=== PATIENT | male | born 1950 | race Caucasian/White ===

== ENCOUNTER 2021-04-20 07:37 | Outpatient (REF) | payer MEDICARE, SELFPAY ==
[2021-04-20 08:28] LABS: MANUAL DIFF FLAG NO
[2021-04-20 08:33] LABS: Glucose Urine UA NEG (NEG); Leukocyte Esterase Urine NEG (NEG); Nitrite Urine NEG (NEG); PH 5.5 (5.0-8.0); Specific Gravity - Urine 1.015 (1.005-1.025); Urine Blood NEG (NEG); Urine Ketones NEG (NEG); Urine Protein NEG (NEG-TRACE)
[2021-04-20 08:36] LABS: Basophils Percent Auto 0.5 % (0-2); Eosinophils Absolute Auto 0.2 X10*3/uL (0.0-0.4); Eosinophils Percent Auto 2.3 % (0-4); Hematocrit 40.1 % (42-52); Hemoglobin 13.3 g/dl (14.0-18.0); Imm Gran Abs Auto 0.01 X10*3/uL (0.00-0.03); Imm Gran Pct Auto 0.2 % (0.0-0.4); Lymphocytes Absolute Auto 1.6 X10*3/uL (1.2-4.9); Mean Corpuscular HGB Conc 33.2 g/dl (31.0-36.0); Mean Corpuscular Hemoglobin 31.2 pg (27.0-33.0); Mean Corpuscular Volume 94.1 fL (80-98); Monocytes Absolute Auto 0.6 X10*3/uL (0.1-1.2); Monocytes Percent Auto 8.6 % (2-11); Neutrophils Absolute Auto 4.2 X10*3/uL (2.0-8.3); Neutrophils Percent Auto 64.4 % (45-73); Platelet Count 153 X10*3/uL (160-400); Red Blood Count 4.26 X10*6/uL (4.60-5.80); Red Cell Distribution Width 12.1 % (11.0-16.0); White Blood Count 6.5 X10*3/uL (4.8-10.8)
[2021-04-20 08:42] LABS: Appearance Urine CLEAR; Color Urine YELLOW
[2021-04-20 09:10] LABS: Alanine Aminotransferase 12 U/L (0-40); Albumin Level 4.3 g/dL (3.5-5.0); Alkaline Phosphatase 70 U/L (39-117); Anion Gap 12 (12-20); Aspartate Amino Transferase 12 U/L (5-37); Bilirubin Total 0.6 mg/dL (0.0-1.0); Blood Urea Nitrogen 23 mg/dL (9-16); Calcium 9.8 mg/dL (8.4-10.2); Carbon Dioxide 23 mmol/L (22-29); Chloride 110 mmol/L (96-108); Cholesterol 197 mg/dL; Estimated Glomerular Filt Rate 59; Glucose Fasting 94 mg/dL (60-99); HDL Cholesterol 63 mg/dL; Iron 106 mcg/dL (45-160); LDL Cholesterol Calculated 118 mg/dl; Percent Iron Saturation 38 % (15-50); Potassium 4.2 mmol/L (3.3-5.1); Sodium 141 mmol/L (135-145); Total Iron Binding Capacity 276 mcg/dL (228-428); Total Protein 6.4 g/dL (6.5-8.0); Triglycerides 80 mg/dL; Unsaturated Iron Binding 170 ug/dL
[2021-04-20 09:21] LABS: TSH reflex Free T4 1.88 uIU/mL (0.32-4.0); Vitamin D 25-OH Total 31.9 ng/mL (>30)
[2021-04-20 11:06] LABS: Folate 12.5 ng/mL (> or = 4.0); Vitamin B12 1202 pg/mL (200-900)
== END 2021-04-20 07:38 | disposition home or self-care (01) ==
LOC: HO.LAB 07:37
PROVIDERS: PCP Internal Medicine; Visit Provider Internal Medicine
DX: E78.00 Pure hypercholesterolemia, unspecified (principal); I10 Essential (primary) hypertension; E66.3 Overweight; D50.9 Iron deficiency anemia, unspecified; E53.8 Deficiency of other specified B group vitamins; E55.9 Vitamin D deficiency, unspecified
CPT/HCPCS: 36415; 80053; 80061; 81003; 82306; 82607; 82746; 83540; 84443; 85025

== ENCOUNTER 2021-11-16 16:47 | Emergency (ER) | payer MEDICARE, SELFPAY ==
--- NOTE | ~2021-11-16 | XR_ITS ---
EXAMINATION: XR RIBS, RIGHT CLINICAL INFORMATION: Fall. COMPARISON: Chest radiograph dated from 10/28/2010. TECHNIQUE: 3 views of the right ribs were obtained. FINDINGS: Normal appearance of the cardiomediastinal silhouette. No focal airspace opacities, pleural effusions or pneumothorax. No evidence of acutely displaced rib fractures. XR/XR ribs RT min 3V w CXR1V IMPRESSION: No acute cardiopulmonary findings. No evidence of acutely displaced rib fractures.
[2021-11-16 16:50] VITALS: BP 238/98; PULSE 47; RESP 18; TEMP 36.7; O2SAT 96; BMI 27.2
--- NOTE | 2021-11-16 17:32 | ED_ITS ---
HPI - Fall General Chief Complaint: Fall Stated Complaint: fall extreme pain abd and back Time Seen by Provider: 11/16/21 17:23 Source: patient and family Mode of arrival: ambulatory Limitations: no limitations History of Present Illness HPI Narrative: 71-year-old male with a history of high blood pressure, high cholesterol, anemia here with reports of right rib pain after a trip and fall today. Patient denies hitting his head or loss of consciousness. Patient reports pain is worsened with movement, deep breathing. No cough, shortness of breath, abdominal pain, neck pain, vomiting, diarrhea. Patient feels that the pain is spasming into his back. Related Data Home Medications Medication Instructions Recorded Confirmed aspirin 81 mg tablet,delayed 81 mg PO DAILY 02/18/21 08/31/21 release cholecalciferol (vitamin D3) 25 25 mcg PO DAILY 04/29/21 08/31/21 mcg (1,000 unit) tablet mecobalamin (vitamin B12) 1,000 1,000 mcg PO DAILY 04/29/21 08/31/21 mcg chewable tablet Previous Rx's Medication Instructions Recorded verapamil 120 mg tablet,extended 120 mg PO DAILY #90 tab 02/06/21 release losartan 100 mg tablet 100 mg PO DAILY 90 Days #90 tab 02/18/21 diazepam 5 mg tablet (Valium) 5 mg PO TID PRN #10 tab 11/16/21 Allergies Allergy/AdvReac Type Severity Reaction Status Date / Time No Known Allergies Allergy Verified 08/31/21 09:28 Review of Systems Review of Systems: Yes all other systems are reviewed and are negative Constitutional: Constitutional: Reports no additional constitutional complaints, Denies body ache(s), Denies chills, Denies fever(s), Denies headache(s) and Denies weakness Eyes: Eyes: Reports no additional eye complaints and Denies change in vision ENT: Reports system reviewed and no additional complaints, except as documented, Denies dizziness, Denies headache(s), Denies nasal congestion, Denies nasal discharge and Denies neck pain Cardiovascular: Cardiovascular: Reports no additional cardiovascular complaints, Reports chest pain (rib pain), Denies leg edema and Denies dyspnea Respiratory: Respiratory: Reports no additional respiratory complaints, Denies cough and Denies dyspnea Gastrointestinal: Gastrointestinal: Reports no additional gastrointestinal complaints, Denies abdominal pain, Denies diarrhea, Denies nausea and Denies vomiting Genitourinary: Genitourinary: Denies urinary incontinence Musculoskeletal: Musculoskeletal: Reports no additional musculoskeletal complaints, Denies back pain, Denies arthralgias, Denies joint swelling, Denies neck pain, Denies numbness and Denies tingling Integumentary/Breasts: Skin/Breast: Reports system reviewed and no additional complaints, except as docu and Denies rash Neurologic: Reports system reviewed and no additional complaints, except as documented, Denies Abnormal speech present, Denies dizziness, Denies headache(s), Denies numbness, Denies tingling and Denies weakness [facility] Past Medical History Attestation statement: The following information was validated with the patient. Source: old records reviewed and nursing notes reviewed Medical History Benign essential hypertension Mild anemia Overweight (BMI 25.0-29.9) Pure hypercholesterolemia Vitamin B12 deficiency Vitamin D deficiency Surgical History No significant past surgical history Family History Family History Other Family history non-contributory Social History Social History Housing: House Alcohol intake: former Patient Tobacco Use Status: Former Tobacco user Second Hand Smoke Exposure: No Advance Directives: No Advance Directives Information Provided: Yes service: No Current occupational status: retired Physical Exam Vital Signs: Vital Signs: Last Vital Signs Temp 98.1 F 11/16/21 16:50 Pulse 44 L 11/16/21 18:13 Resp 16 11/16/21 18:13 BP 185/92 H 11/16/21 18:13 Pulse Ox 97 11/16/21 18:13 BMI result Body Mass Index 27.2 Const: General: cooperative, healthy appearing, comfortable and no acute distress Orientation/consciousness: patient oriented x3 Limitations: no limitations HENMT: Head: Yes normal to inspection Ears: hearing grossly normal bilater ally and TM's normal bilaterally General nose exam: Normal external nose present Face and sinus: Yes normal facial exam Mouth: Normal oral and palatal mucosa present Throat: Yes posterior oropharynx normal, Yes tonsils normal and Yes uvula midline Eyes: General: appearance normal, both eyes and all related structures Pupils: Equal, round and reactive pupils present Neck: Other: No midline tenderness, step-offs deformities Neck: Yes normal visual inspection, Yes full ROM, Yes no lymphadenopathy and Yes no meningeal signs Chest: Other: Tenderness to the right lateral chest wall. No ecchymosis, crepitus or deformity. Chest palpation & inspection: normal inspection of the chest Resp: Effort & Inspection: normal respiratory effort Auscultation: clear to auscultation bilaterally Cardio: Rate: regular rate Rhythm: regular rhythm Peripheral pulses: Peripheral pulses 2+ throughout GI: Inspection: Yes normal to inspection Palpation (GI): Soft to palpation and nontender Auscultation: normal bowel sounds Back/Spine/Pelvis: Thoracic/Lumbar Spine: thoracic and lumbar spine normal to inspection Skin: General skin exam: no rashes or lesions noted Neuro: General: patient oriented x3, no meningeal signs, no focal motor deficits and normal sensation to monofilament Cranial nerves: Yes Equal, round and reactive pupils present Cognition (Neuro): normal cognition Speech: No Abnormal speech present Gait exam (Neuro): Normal gait present Motor exam (neuro): 5/5 motor strength present throughout Extrem: General: Yes normal to inspection Course Course Course Narrative: 71 year-old male here with right rib pain after mechanical fall. Will need x- rays, will provide analgesia 1830-x-ray show no bony abnormality. Likely contusion. May be occult rib fracture. This was explained to the patient and his . Discharge with incentive spirometer. We reviewed splinting, analgesia for home. Reviewed worrisome signs and symptoms of when to return to the emergency department. Comfortable discharge home. MDM - Fall Medical Records Attestation: I reviewed the patient's medical records. Lab Data Attestation: I reviewed the patient's lab results. Imaging Data ribs/chest x-ray: Attestation: I personally reviewed and interpreted this imaging study as follows: Radiologist's impression: CLINICAL INFORMATION: Fall. COMPARISON: Chest radiograph dated from 10/28/2010. TECHNIQUE: 3 views of the right ribs were obtained. FINDINGS: Normal appearance of the cardiomediastinal silhouette. No focal airspace opacities, pleural effusions or pneumothorax. No evidence of acutely displaced rib fractures. XR/XR ribs RT min 3V w CXR1V IMPRESSION: No acute cardiopulmonary findings. ? No evidence of acutely displaced rib fractures. Discharge Plan Discharge Clinical Impression: Contusion of rib on left side Patient Disposition: Home, Self-Care Instructions: Rib Contusion (ED) Additional Instructions: Continue the naproxen twice daily for a few days Use an incentive spirometer Prescriptions: New diazepam [Valium] 5 mg tablet 5 mg PO TID PRN (Reason: muscle spasm) Qty: 10 0RF No Action verapamil 120 mg tablet extended release 120 mg PO DAILY Qty: 90 3RF mecobalamin (vitamin B12) 1,000 mcg tablet,chewable 1,000 mcg PO DAILY 0RF cholecalciferol (vitamin D3) 25 mcg (1,000 unit) tablet 25 mcg PO DAILY 0RF aspirin 81 mg tablet,delayed release (DR/EC) 81 mg PO DAILY 0RF losartan 100 mg tablet 100 mg PO DAILY 90 Days Qty: 90 3RF Referrals: Jean-Pierre Duque MD [Primary Care Provider] - 1 week (For persistent symptoms) Interventions: ED Discharge Assessment Last Done: 11/16/21 18:37
[2021-11-16] MEDS: Ketorolac Tromethamine 60 MG/2 ML VIAL IM (17:34)
[2021-11-16] MEDS: diazePAM 5 MG TABLET PO (17:34)
[2021-11-16 18:12] VITALS: RESP 16
[2021-11-16 18:13] VITALS: BP 185/92; PULSE 44; RESP 16; O2SAT 97
== END 2021-11-16 18:41 | disposition home or self-care (01) ==
PROVIDERS: Emergency Provider Emergency Medicine; PCP Internal Medicine
DX: S20.211A Contusion of right front wall of thorax, initial encounter (principal); W01.0XXA Fall on same level from slipping, tripping and stumbling without subsequent striking against object, initial encounter; Y93.9 Activity, unspecified; Y92.019 Unspecified place in single-family (private) house as the place of occurrence of the external cause; Y99.9 Unspecified external cause status
CPT/HCPCS: 71101; 96372; 99284; J1885

== ENCOUNTER 2022-05-22 07:14 | Outpatient (REF) | payer MEDICARE, SELFPAY ==
[2022-05-22 07:25] LABS: MANUAL DIFF FLAG NO
[2022-05-22 07:51] LABS: Basophils Percent Auto 0.4 % (0-2); Eosinophils Absolute Auto 0.2 X10*3/uL (0.0-0.4); Hematocrit 39.5 % (42.0-52.0); Hemoglobin 13.4 g/dl (14.0-18.0); Imm Gran Abs Auto 0.03 X10*3/uL (0.00-0.03); Imm Gran Pct Auto 0.4 % (0.0-0.4); Lymphocytes Absolute Auto 1.7 X10*3/uL (1.2-4.9); Lymphocytes Percent Auto 23.7 % (20-40); Mean Corpuscular HGB Conc 33.9 g/dl (31.0-36.0); Mean Corpuscular Hemoglobin 31.1 pg (27.0-33.0); Mean Corpuscular Volume 91.6 fL (80.0-98.0); Mean Platelet Volume 11.4 fL (9.4-12.4); Monocytes Absolute Auto 0.6 X10*3/uL (0.1-1.2); Monocytes Percent Auto 8.9 % (2-11); Neutrophils Absolute Auto 4.4 x10*3/uL (2.0-8.3); Neutrophils Percent Auto 63.6 % (45-73); Platelet Count 169 X10*3/uL (160-400); Red Blood Count 4.31 X10*6/uL (4.60-5.80); Red Cell Distribution Width 12.4 % (11.0-16.0)
[2022-05-22 08:16] LABS: Alanine Aminotransferase 10 U/L (0-40); Albumin Level 4.2 g/dL (3.5-5.0); Alkaline Phosphatase 79 U/L (39-117); Anion Gap 14 (12-20); Aspartate Amino Transferase 11 U/L (5-37); Bilirubin Total 0.8 mg/dL (0.0-1.0); Blood Urea Nitrogen 23 mg/dL (9-16); Calcium 9.2 mg/dL (8.4-10.2); Carbon Dioxide 23 mmol/L (22-29); Chloride 111 mmol/L (96-108); Cholesterol 201 mg/dL; Estimated Glomerular Filt Rate 56; Glucose Fasting 99 mg/dL (60-99); HDL Cholesterol 71 mg/dL; LDL Cholesterol Calculated 115 mg/dl; Potassium 4.3 mmol/L (3.3-5.1); Sodium 144 mmol/L (135-145); Total Protein 6.3 g/dL (6.5-8.0); Triglycerides 75 mg/dL
[2022-05-22 08:38] LABS: TSH reflex Free T4 1.98 uIU/mL (0.32-4.0); Vitamin D 25-OH Total 33.1 ng/mL (>30)
[2022-05-22 10:47] LABS: Appearance Urine Clear; Color Urine Yellow; Glucose Urine UA Negative (Negative); Leukocyte Esterase Urine Negative (Negative); Nitrite Urine Negative (Negative); Urine Blood Negative (Negative); Urine Ketones Negative (Negative); Urine Protein Negative (Neg-Trace)
[2022-05-24 07:30] LABS: Folate 11.2 ng/mL (> or = 4.0); Vitamin B12 1116 pg/mL (200-900)
== END 2022-05-22 07:15 | disposition home or self-care (01) ==
LOC: HO.LAB 07:14
PROVIDERS: PCP Internal Medicine; Visit Provider Internal Medicine
DX: I10 Essential (primary) hypertension (principal); E53.8 Deficiency of other specified B group vitamins; E55.9 Vitamin D deficiency, unspecified; E78.00 Pure hypercholesterolemia, unspecified
CPT/HCPCS: 36415; 80053; 80061; 81003; 82306; 82607; 82746; 84443; 85025

== ENCOUNTER 2022-11-23 06:07 | Outpatient (REF) | payer MEDICARE, SELFPAY ==
[2022-11-23 06:12] LABS: MANUAL DIFF FLAG NO
[2022-11-23 08:03] LABS: Basophils Percent Auto 0.3 % (0-2); Eosinophils Absolute Auto 0.2 X10*3/uL (0.0-0.4); Eosinophils Percent Auto 2.8 % (0-4); Hemoglobin 13.3 g/dl (14.0-18.0); Imm Gran Abs Auto 0.03 X10*3/uL (0.00-0.03); Imm Gran Pct Auto 0.3 % (0.0-0.4); Lymphocytes Absolute Auto 1.9 X10*3/uL (1.2-4.9); Lymphocytes Percent Auto 21.4 % (20-40); Mean Corpuscular HGB Conc 33.3 g/dl (31.0-36.0); Mean Corpuscular Hemoglobin 31.4 pg (27.0-33.0); Mean Corpuscular Volume 94.3 fL (80.0-98.0); Mean Platelet Volume 11.9 fL (9.4-12.4); Monocytes Absolute Auto 0.8 X10*3/uL (0.1-1.2); Monocytes Percent Auto 9.4 % (2-11); Neutrophils Absolute Auto 5.7 x10*3/uL (2.0-8.3); Neutrophils Percent Auto 65.8 % (45-73); Platelet Count 189 X10*3/uL (160-400); Red Blood Count 4.24 X10*6/uL (4.60-5.80); Red Cell Distribution Width 12.5 % (11.0-16.0); White Blood Count 8.7 X10*3/uL (4.8-10.8)
[2022-11-23 08:07] LABS: Appearance Urine Clear; Color Urine Yellow; Glucose Urine UA Negative (Negative); Leukocyte Esterase Urine Negative (Negative); Nitrite Urine Negative (Negative); Urine Blood Negative (Negative); Urine Ketones Negative (Negative); Urine Protein Negative (Neg-Trace)
[2022-11-23 08:35] LABS: Alanine Aminotransferase 9 U/L (0-40); Alkaline Phosphatase 68 U/L (39-117); Anion Gap 13 (12-20); Aspartate Amino Transferase 9 U/L (5-37); Bilirubin Total 0.8 mg/dL (0.0-1.0); Blood Urea Nitrogen 24 mg/dL (9-16); Calcium 9.4 mg/dL (8.4-10.2); Carbon Dioxide 24 mmol/L (22-29); Chloride 109 mmol/L (96-108); Cholesterol 191 mg/dL; Estimated Glomerular Filt Rate 53; Glucose Fasting 93 mg/dL (60-99); HDL Cholesterol 69 mg/dL; LDL Cholesterol Calculated 109 mg/dl; Potassium 4.1 mmol/L (3.3-5.1); Sodium 142 mmol/L (135-145); Triglycerides 65 mg/dL
[2022-11-23 09:07] LABS: Folate 9.1 ng/mL (> or = 4.0); TSH reflex Free T4 2.53 uIU/mL (0.32-4.0); Vitamin B12 1526 pg/mL (200-900); Vitamin D 25-OH Total 31.3 ng/mL (>30)
== END 2022-11-23 06:08 | disposition home or self-care (01) ==
LOC: HO.LAB 06:07
PROVIDERS: PCP Internal Medicine; Visit Provider Internal Medicine
DX: E55.9 Vitamin D deficiency, unspecified (principal); E53.8 Deficiency of other specified B group vitamins; R30.0 Dysuria; E78.00 Pure hypercholesterolemia, unspecified; I10 Essential (primary) hypertension
CPT/HCPCS: 36415; 80053; 80061; 81003; 82306; 82607; 82746; 84443; 85025

== ENCOUNTER 2023-04-11 09:06 | Outpatient (AMB) | payer MEDICARE, SELFPAY ==
--- NOTE | 2023-04-11 10:12 | MHC.OFFWIV ---
Intake Vital Signs 04/11/23 10:15 BP 120/80 Blood Pressure Location Rt brachial Position Sitting Pulse 52 Pulse Source Pulse Oximeter Temp 97.9 F Temp Source Oral Pulse Oximetry (%) 97 Oxygen Delivery Method Room Air Intake Visit Reasons: EST/fell 2 weeks ago/sob Intake Note: Patient here because he has been having some SOB, horse voice, dry cough this has happened ever since his fall on 03/26 while camping. Patient Tobacco Use Status: Former Tobacco user Allergies No Known Allergies Allergy (Verified 04/11/23 10:45) Do you need a note to return to daycare/school/sports/work: No HPI EST/fell 2 weeks ago/sob HPI Details 72-year-old male presents to the office for a sick visit. For the past 2 weeks, patient is complaining of difficulty getting a full breath. He is feeling congested and has a productive cough for the past few days. Patient had a fall while camping 2 weeks ago. He fell forward. [facility] Medical History Benign essential hypertension Mild anemia Overweight (BMI 25.0-29.9) Pure hypercholesterolemia Vitamin B12 deficiency Vitamin D deficiency Surgical History No significant past surgical history Family History Other Family history non-contributory Social History Housing: House Alcohol intake: former Patient Tobacco Use Status: Former Tobacco user e-Cigarette/Vaping Use: Never Used Second Hand Smoke Exposure: No service: No Current occupational status: retired Cognitive needs: No Hearing needs: No Vision needs: Yes (glasses) Physical Exam Vital Signs: Last Vital Signs Temp 97.9 F 04/11/23 10:15 Pulse 52 04/11/23 10:15 BP 120/80 04/11/23 10:15 Pulse Ox 97 04/11/23 10:15 Oxygen Delivery Method Room Air 04/11/23 10:15 Const General: cooperative and healthy appearing Nutritional Appearance: well nourished Orientation/consciousness: patient oriented x3 Limitations: no limitations HEENT Head: Yes normal to inspection Eyes General: appearance normal, both eyes and all related structures Neck Neck: Yes normal visual inspection Chest Other: No visible bruising. Chest palpation & inspection: normal palpation of entire chest wall Resp Effort & Inspection: normal respiratory effort Neuro General: patient oriented x3 Assessment & Plan Assessment & Plan (1) Cough: Code(s): R05.9 - Cough, unspecified Plan: X-ray exam personally reviewed by me. Bilateral pleural effusions, these are new compared to the x-ray from [address] scan of the chest has been ordered. Antibiotics and inhalers have been called in. Blood work has been ordered. Orders: Orders XR chest 2V Today R05.9 - Cough, unspecified Coding Level of Care Code Est Pt Level 4 (78788) Diagnoses Cough R05.9
[2023-04-11 10:15] VITALS: BP 120/80; PULSE 52; TEMP 36.6; O2SAT 97
== END 2023-04-11 11:37 | disposition home or self-care (01) ==
PROVIDERS: PCP Internal Medicine; Visit Provider Internal Medicine
DX: R05.9 Cough, unspecified (principal)
CPT/HCPCS: 99214

== ENCOUNTER 2023-04-11 10:40 | Outpatient (REF) | payer MEDICARE, SELFPAY ==
[2023-04-11 14:22] LABS: Erythrocyte Sedimentation Rate 5 MM/HR (0-15)
[2023-04-11 14:42] LABS: Alanine Aminotransferase 20 U/L (0-40); Alkaline Phosphatase 77 U/L (39-117); Anion Gap 14 (12-20); Aspartate Amino Transferase 15 U/L (5-37); Bilirubin Direct 0.3 mg/dL (0.0-0.5); Blood Urea Nitrogen 26 mg/dL (9-16); Carbon Dioxide 23 mmol/L (22-29); Chloride 108 mmol/L (96-108); Estimated Glomerular Filt Rate 46; Glucose Random 109 mg/dL (60-115); Potassium 3.8 mmol/L (3.3-5.1); Sodium 141 mmol/L (135-145); Total Protein 6.5 g/dL (6.5-8.0)
== END 2023-04-11 10:41 | disposition home or self-care (01) ==
LOC: HO.HMGCX 10:40
PROVIDERS: PCP Internal Medicine; Visit Provider Internal Medicine
DX: R05.9 Cough, unspecified (principal); R06.02 Shortness of breath; I10 Essential (primary) hypertension; E78.00 Pure hypercholesterolemia, unspecified; R30.0 Dysuria
CPT/HCPCS: 36415; 71046; 80048; 80076; 85025; 85652

== ENCOUNTER 2023-04-14 15:44 | Outpatient (REF) | payer MEDICARE, SELFPAY ==
--- NOTE | ~2023-04-14 | CT_ITS ---
EXAMINATION: CT CHEST WITH CONTRAST CLINICAL INFORMATION: Shortness of breath COMPARISON: Chest radiographs 04/11/2023 and 10/28/2010 TECHNIQUE: Multidetector volumetric CT imaging of the chest was obtained after the administration of 65 mL of Omnipaque 350 intravenous contrast without immediate adverse reactions. Axial MIP volume rendering provided. Sagittal and coronal reformatted images were obtained. This CT examination was performed using dose optimization techniques as appropriate, variously including the following: *Automated exposure control *Adjustment of mA and/or kV according to patient size (this includes techniques or standardized protocols for targeted exams where dose is matched to indication/reason for exam; i.e. extremities or head) *Use of iterative reconstruction technique DLP: 152 mGy-cm FINDINGS: LUNGS AND PLEURA: Bilateral small pleural effusions are seen. There is associated bibasilar atelectasis. There is a small 3 mm lingular nodule (5:116 (. No suspicious lung masses are seen. MEDIASTINUM: Mild cardiac enlargement. No mediastinal or hilar lymphadenopathy. VASCULAR: Although not performed specifically for evaluation of the pulmonary arteries or pulmonary veins, they are moderately well seen and there is no evidence of any large pulmonary emboli. The thoracic aorta is within normal limits of diameter for patient of 72 years of age. PLEURA: There is no pleural effusion. No pleural mass or thickening. AXILLA: No lymphadenopathy. UPPER ABDOMEN: Unremarkable OSSEOUS STRUCTURES: Unremarkable. CT/CT chest w IV con IMPRESSION: 1. Bilateral small pleural effusions with associated bibasilar atelectasis. 2. Mild cardiac enlargement. 3. No evidence of large pulmonary emboli. 4. Incidentally noted 3 mm lingular nodule. Fleischner guidelines were followed.
[2023-04-14] MEDS: iohexoL 350 MG/ML 100 ML INFUS..BTL IV (16:15)
== END 2023-04-14 15:45 | disposition home or self-care (01) ==
LOC: HO.CT 15:44
PROVIDERS: Visit Provider Internal Medicine
DX: R06.02 Shortness of breath (principal)
CPT/HCPCS: 71260; Q9967

== ENCOUNTER 2023-04-18 07:57 | Outpatient (AMB) | payer MEDICARE, SELFPAY ==
--- NOTE | 2023-04-18 08:01 | MHC.OFFWIV ---
Intake Vital Signs 04/18/23 08:03 BP 130/80 Blood Pressure Location Rt brachial Position Sitting Pulse 72 Pulse Source Pulse Oximeter Temp 97.5 F Temp Source Oral Pulse Oximetry (%) 97 Oxygen Delivery Method Room Air Intake Visit Reasons: EP continuing sob Intake Note: Patient here for SOB which has not improved. Patient Tobacco Use Status: Former Tobacco user Allergies No Known Allergies Allergy (Verified 04/18/23 08:12) Medication List - Last Reconciled 04/18/23 by Oliver Crandall MD albuterol sulfate 90 mcg/actuation (Ventolin HFA) 1 inh inhalation QID PRN azithromycin take 500 mg today (day 1), then 250 mg for 4 days (days 2-5) PO cholecalciferol (vitamin D3) 25 mcg PO DAILY losartan 100 mg PO DAILY 90 days mecobalamin (vitamin B12) 1,000 mcg PO DAILY sildenafil 50 mg PO DAILY PRN verapamil ER 120 mg PO DAILY Do you need a note to return to daycare/school/sports/work: No HPI EP continuing sob HPI Details 72-year-old male presents to the office for a sick visit. Patient was seen last week for shortness of breath. Patient's main complaint is that he is breathing shallow. Unable to lie down flat at night. He is reporting increased swelling in both his feet. Antibiotics and albuterol were of minimal help. Patient had a CT scan of the chest. [facility] Medical History Benign essential hypertension Mild anemia Overweight (BMI 25.0-29.9) Pure hypercholesterolemia Vitamin B12 deficiency Vitamin D deficiency Surgical History No significant past surgical history Family History Other Family history non-contributory Social History Housing: House Alcohol intake: former Patient Tobacco Use Status: Former Tobacco user e-Cigarette/Vaping Use: Never Used Second Hand Smoke Exposure: No service: No Current occupational status: retired Cognitive needs: No Hearing needs: No Vision needs: Yes (glasses) Physical Exam Vital Signs: Last Vital Signs Temp 97.5 F 04/18/23 08:03 Pulse 72 04/18/23 08:03 BP 130/80 04/18/23 08:03 Pulse Ox 97 04/18/23 08:03 Oxygen Delivery Method Room Air 04/18/23 08:03 Const General: cooperative and healthy appearing Nutritional Appearance: well nourished Orientation/consciousness: patient oriented x3 Limitations: no limitations HEENT Head: Yes normal to inspection Eyes General: appearance normal, both eyes and all related structures Neck Neck: Yes normal visual inspection Chest Other: Diminished breath sounds at the base. Chest palpation & inspection: normal palpation of entire chest wall Resp Effort & Inspection: normal respiratory effort Cardio Other: Irregular pulse, tachycardia. Neuro General: patient oriented x3 Extrem Other: 2+ pitting edema in the feet. Assessment & Plan Assessment & Plan (1) Atrial fibrillation with rapid ventricular response: Code(s): I48.91 - Unspecified atrial fibrillation Plan: EKG shows the AFib at 130 beats per minute. This is new onset. Patient has no recollection of ever being on AFib. He last saw central sterile tech 4 years ago for an unrelated matter. Patient needs an echocardiogram to assess left ventricular function, anticoagulation and rate control. I have referred him to the emergency room and spoke to the provider there. Orders: Orders AMB EKG-In Office Today R07.9 - Chest pain, unspecified Coding Level of Care Code Est Pt Level 4 (88020) Diagnoses Atrial fibrillation with rapid ventricular response I48.91
[2023-04-18 08:03] VITALS: BP 130/80; PULSE 72; TEMP 36.4; O2SAT 97
== END 2023-04-18 08:49 | disposition home or self-care (01) ==
PROVIDERS: PCP Internal Medicine; Visit Provider Internal Medicine
DX: I48.91 Unspecified atrial fibrillation (principal)
CPT/HCPCS: 99214

== ENCOUNTER 2023-04-18 08:53 | Inpatient (IN) | payer MEDICARE, SELFPAY ==
--- NOTE | ~2023-04-18 | CT_ITS ---
CT ANGIOGRAM NECK WITH CONTRAST CT ANGIOGRAM BRAIN WITH CONTRAST CLINICAL INFORMATION: Right-sided hemiparesis. COMPARISON: Head CT 04/21/2023. TECHNIQUE: Test bolus sequences followed by intravenous administration 70 mL of Omnipaque 350. Helical imaging was performed in the axial plane from the thoracic inlet to the skull vertex. Delayed postcontrast imaging of the head was also performed. The data was processed at the sleep lab technologist workstation for generation of MIP sequences. Angled MIPs and volume rendered reformatted images were also generated at an offline 3D workstation under concurrent supervision. Stenoses are assessed in accordance with NASCET criteria unless otherwise indicated. This CT examination was performed using dose optimization techniques as appropriate, variously including the following: *Automated exposure control *Adjustment of mA and/or kV according to patient size (this includes techniques or standardized protocols for targeted exams where dose is matched to indication/reason for exam; i.e. extremities or head) *Use of iterative reconstruction technique FINDINGS: BRAIN: There is an acute infarct within the left MCA territory involving portions of the left basal ganglia, the left insula, the inferolateral left frontal lobe, and the left temporal operculum. Cytotoxic edema results in mild local mass effect without midline shift. No hemorrhagic transformation. [There is no intracranial hemorrhage, hydrocephalus, extra-axial surface collection, midline shift, or other herniation pattern. The basilar cisterns are preserved. No significant soft tissue abnormality. No acute osseous abnormality. The paranasal sinuses and the mastoid air cells are well aerated.] CERVICAL SOFT TISSUES AND LUNG APICES: There are partially imaged small bilateral pleural effusions and the imaged lungs are otherwise clear. NECK CTA: [Left common carotid artery arises from the brachiocephalic artery. Proximal arch vessels are non-stenotic. Left vertebral artery is dominant. No significant ostial stenosis is visualized on either side. Both vertebral arteries are widely patent throughout their extracranial cervical course. Both common carotid arteries are normal in course and caliber.] Atherosclerotic calcification of the carotid bifurcations bilaterally without significant stenosis involving the proximal internal carotid arteries. BRAIN CTA: Acute arterial occlusion of the mid left M1 MCA segment associated with significant oligemia throughout the left MCA territory. No additional acute arterial occlusions intracranially. 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 Cytotoxic edema results in mild local mass effect without midline shift. No hemorrhagic transformation. - Acute arterial occlusion of the mid left M1 MCA segment associated with significant oligemia throughout the left MCA territory. Neuro interventional consultation advised. Findings discussed with Justino Agustin M.D. at 9:42 AM on 04/21/2023.
--- NOTE | ~2023-04-18 | XR_ITS ---
EXAMINATION: XR CHEST CLINICAL INFORMATION: Acute shortness of breath. COMPARISON: 04/11/2023 TECHNIQUE: Frontal view of the chest was obtained. FINDINGS: Lungs are moderately expanded. There are bilateral layering pleural effusions stable to slightly increased when compared to the prior study. There is associated bibasilar atelectasis. Cardiac silhouette is unchanged. XR/XR chest 1V IMPRESSION: Stable to slightly increased bilateral pleural effusions.
--- NOTE | ~2023-04-18 | CT_ITS ---
EXAMINATION: CT HEAD WITHOUT CONTRAST (STROKE PROTOCOL) CLINICAL INFORMATION: Stroke protocol. Right rand. COMPARISON: April 20, 2023. TECHNIQUE: Contiguous axial imaging was performed from the skull base to vertex without intravenous administration of contrast. This CT examination was performed using dose optimization techniques as appropriate, variously including the following: *Automated exposure control *Adjustment of mA and/or kV according to patient size (this includes techniques or standardized protocols for targeted exams where dose is matched to indication/reason for exam; i.e. extremities or head) *Use of iterative reconstruction technique DLP: 866 mGy-cm FINDINGS: Suspect left dense MCA sign with associated decreased roman-white distinction involving the left insula left anterior inferior temporal lobe, and left basal ganglia. No intracranial hemorrhage or mass lesion is seen. No extra-axial collection is appreciated. The ventricles are normal in size and configuration without evidence of hydrocephalus. Approximately 1 cm right maxillary sinus retention cyst versus mucosal polyp. The mastoid air cells are clear. CT/CT head for stroke IMPRESSION: Suspect left dense MCA sign with associated decreased roman-white distinction involving the left insula left anterior inferior temporal lobe, and left basal ganglia. Stroke is suspected. MRI may be of use for further evaluation if clinically indicated. This critical result was discussed with Dr. Agustin at 9:38 hours on April 21, 2023. It was ascertained that the content and urgency of the report was understood at the time of direct communication.
--- NOTE | ~2023-04-18 | CT_ITS ---
EXAMINATION: CT HEAD WITHOUT CONTRAST CLINICAL INFORMATION: Question CVA COMPARISON: None available. TECHNIQUE: Contiguous axial imaging was performed from the skull base to vertex without intravenous administration of contrast. This CT examination was performed using dose optimization techniques as appropriate, variously including the following: *Automated exposure control *Adjustment of mA and/or kV according to patient size (this includes techniques or standardized protocols for targeted exams where dose is matched to indication/reason for exam; i.e. extremities or head) *Use of iterative reconstruction technique DLP: 706 mGy-cm FINDINGS: There is no evidence of acute intracranial hemorrhage or territorial infarction. No abnormal mass-effect or midline shift is seen. Guzman to white matter differentiation is well preserved. No extra-axial fluid collections are identified. The ventricles are normal in size. There is mild periventricular white matter hypoattenuation consistent with chronic small vessel ischemic disease. Mild volume loss is noted. The osseous structures and soft tissues are normal. Mucous retention cyst in the right maxillary sinus. The mastoid air cells are well-aerated. CT/CT head/brain wo IV con IMPRESSION: No acute intracranial pathology.
[2023-04-18 09:01] VITALS: BP 139/91; PULSE 110; RESP 22; TEMP 36.8; O2SAT 97; BMI 26.5
--- NOTE | 2023-04-18 09:03 | ECG_ITS ---
Test Reason : afib Blood Pressure : / mmHG Vent. Rate : 106 BPM Atrial Rate : 000 BPM P-R Int : 000 ms QRS Dur : 144 ms QT Int : 382 ms P-R-T Axes : 000 120 -26 degrees QTc Int : 507 ms Atrial fibrillation with rapid ventricular response with premature ventricular or aberrantly conducted complexes Right axis deviation Right bundle branch block Abnormal QRS-T angle, consider primary T wave abnormality Abnormal ECG When compared with ECG of 25-JUL-2017 11:59, Atrial fibrillation has replaced Sinus rhythm Vent. rate has increased BY 46 BPM Referred By: Neptali Norman Electronically Signed By:Alfredo Mccain
[2023-04-18 09:23] LABS: Hematocrit 41.9 % (42.0-52.0); Hemoglobin 13.7 g/dl (14.0-18.0); Mean Corpuscular HGB Conc 32.7 g/dl (31.0-36.0); Mean Corpuscular Hemoglobin 30.9 pg (27.0-33.0); Mean Corpuscular Volume 94.4 fL (80.0-98.0); Mean Platelet Volume 11.6 fL (9.4-12.4); Platelet Count 168 X10*3/uL (160-400); Red Blood Count 4.44 X10*6/uL (4.60-5.80); Red Cell Distribution Width 13.6 % (11.0-16.0)
[2023-04-18 09:29] LABS: INTERNATIONAL NORM RATIO 1.1 (0.9-1.1); Prothrombin Time 12.8 SEC (10.0-13.1)
[2023-04-18 09:32] LABS: Partial Thromboplastin Time 31.6 SEC (26.0-36.4)
[2023-04-18 09:35] LABS: Anion Gap 13 (12-20); Blood Urea Nitrogen 25 mg/dL (9-16); Calcium 9.7 mg/dL (8.4-10.2); Carbon Dioxide 23 mmol/L (22-29); Chloride 112 mmol/L (96-108); Creatinine Clr Calc Pharmacy 43.1; Estimated Glomerular Filt Rate 42; Glucose Random 100 mg/dL (60-115); Potassium 4.1 mmol/L (3.3-5.1); Sodium 144 mmol/L (135-145)
[2023-04-18 09:43] LABS: Troponin-I High Sensitivity 69.6 ng/L (<3.5-35.0)
[2023-04-18 09:57] LABS: TSH reflex Free T4 2.88 uIU/mL (0.32-4.0)
[2023-04-18 10:36] LABS: B Type Natriuretic Peptide 2001 pg/mL (<100)
[2023-04-18 13:12] VITALS: BP 141/110; PULSE 81; RESP 16; TEMP 36.4; O2SAT 97
[2023-04-18 13:15] LABS: Troponin-I High Sensitivity 57.5 ng/L (<3.5-35.0)
[2023-04-18 14:39] VITALS: BP 120/87; PULSE 86; RESP 20; TEMP 36.8; O2SAT 97
--- NOTE | 2023-04-18 14:51 | PHA.MEDREC ---
Pharmacy Consult ? Medication Reconciliation Pharmacy has completed the medication reconciliation. spoke with patient to confirm medications
--- NOTE | 2023-04-18 15:51 | ED_ITS ---
HPI - General Adult General Chief complaint: Arrhythmia/Palpitations Stated complaint: afib rapid heart beat Time Seen by Provider: 04/18/23 08:56 Source: patient and family (Spouse) Mode of arrival: ambulatory Limitations: no limitations History of Present Illness HPI narrative: A 72-year-old male history significant for hypertension, former smoker for a week patient been having exertional dyspnea, PND, bilateral leg swelling, feel exertional chest tightness, patient was seen at the urgent care last week diagn osed with bronchitis was started on antibiotic and bronchodilator with no relief of his symptoms due to worsening of the symptoms patient was again at the urgent care and was diagnosed with new onset atrial fibrillation and congestive heart failure. Patient take losartan and verapamil to control his blood pressure. Related Data Home Medications Medication Instructions Recorded Confirmed cholecalciferol (vitamin D3) 25 25 mcg PO DAILY 04/29/21 04/18/23 mcg (1,000 unit) tablet cyanocobalamin (vitamin B-12) 1,000 mcg PO DAILY 04/18/23 04/18/23 1,000 mcg tablet Previous Rx's Medication Instructions Recorded losartan 100 mg tablet 100 mg PO DAILY 90 days #90 tabs 04/10/23 verapamil 120 mg tablet,extended 120 mg PO DAILY #90 tabs 04/10/23 release albuterol sulfate 90 mcg/actuation 1 inh inhalation QID PRN shortness 04/11/23 aerosol inhaler (Ventolin HFA) of breath or wheezing #8.5 grams Allergies Allergy/AdvReac Type Severity Reaction Status Date / Time No Known Allergies Allergy Verified 04/18/23 08:12 Review of Systems Review of Systems: All other systems are reviewed and are negative Constitutional: Reports as per HPI and Reports no additional constitutional complaints Eyes: Reports as per HPI and Reports no additional eye complaints Reports system reviewed and no additional complaints, except as documented Cardiovascular: Reports as per HPI and Reports no additional cardiovascular complaints Respiratory: Reports as per HPI and Reports no additional respiratory complaints Gastrointestinal: Reports as per HPI and Reports no additional gastrointestinal complaints Genitourinary: Reports no additional female genitourinary complaints Musculoskeletal: Reports no additional musculoskeletal complaints Skin/Breast: Reports system reviewed and no additional complaints, except as docu Psychiatric: Reports no additional psychiatric complaints Endocrine: Reports no additional endocrine complaints Hematologic/Lymphatic: Reports no additional hematologic/lymphatic complaints Allergic/Immunologic: Reports no additional allergic/immunologic complaints Reports system reviewed and no additional complaints, except as documented and Reports Abnormal speech present [facility] Past Medical History Medical History Benign essential hypertension Mild anemia Overweight (BMI 25.0-29.9) Pure hypercholesterolemia Vitamin B12 deficiency Vitamin D deficiency Surgical History No significant past surgical history Family History Family History Other Family history non-contributory Social History Social History Housing: House Alcohol intake: former Patient Tobacco Use Status: Former Tobacco user e-Cigarette/Vaping Use: Never Used Second Hand Smoke Exposure: No Advance Directives: Yes Advance Directives Information Provided: No Advance Directives on File: No service: No Current occupational status: retired Cognitive needs: No Hearing needs: No Vision needs: Yes (glasses) Physical Exam ED Vital Signs: Vital Signs - 24 hr 04/18/23 09:01 04/18/23 13:12 04/18/23 14:39 Temperature 98.3 F 97.6 F 98.2 F Pulse Rate 110 H 81 86 Respiratory Rate 22 H 16 20 Blood Pressure 139/91 H 141/110 H 120/87 Pulse Oximetry 97 97 97 Oxygen Delivery Method Room Air Room Air Room Air BMI result Body Mass Index 26.5 Vital signs have been reviewed as appeared to be correct. Blood pressure normal. Heart rate normal. Respiration rate normal. Temperature normal. Oxygen saturation normal. Appearance: Alert. Oriented X3. No acute distress. Head: Normal external exam. Normocephalic. Atraumatic. No Padilla signs noted. No raccoon eyes noted Eyes: PERRLA. EOMI. Conjunctiva and sclera normal. Eyelids normal. ENT: TM's Normal. Pharynx normal. Uvula midline. Moist mucous membranes. No trismus noted. No drooling noted. No muffled voice noted. Neck: Normal inspection. Neck supple. FROM. No adenopathy. Thyroid Normal. No meningeal signs. No neck mass noted. CVS: Normal heart rate and rhythm. Heart sound normal. No murmurs noted. Pulses normal throughout. Respiratory: No respiratory distress. Painless inspiration. Breath sounds normal. No wheezes/rales/rhonchi noted. Chest nontender. No accessory muscle usage noted or decreased air movement noted. Abdomen: Soft and nontender. Bowel sounds normal in all 4 quadrants. No distention noted. No organomegaly noted. No visible injury noted. Back: No CVA tenderness. Full range of motion noted. Skin: Skin warm and dry. Normal skin color. Normal skin turgor. No rashes/lesions/lacerations noted. Extremities: +2 lower extremity edema. Extremities exhibit normal range of motion. Extremities nontender. Neuro: Oriented X 3. Cranial nerve exam: II-XII are grossly intact No motor deficit. No sensory deficit. Reflexes normal. Course Reevaluation(s) Reevaluation #1: 72-year-old male came in with new onset of atrial fibrillation and CHF, given Cardizem and Lasix patient with [id number] score is 2 make the patient at mo derate to severe risk for stroke will start the patient on apixaban 5 mg in the ED. Time: 16:13 Medical Decision Making Differential Diagnosis Differential Diagnoses: The differential diagnosis associated with the presentation includes (Congestive heart failure, pneumonia, pneumothorax, severe pleural effusion, COPD, bronchitis, ACS, stroke prophylaxis.) Admission/Observation Consideration of admission/observation: Escalation of care including admission/observation considered Consult Healthcare Provider Management of the patient was discussed with: Hospitalist (Dr. Reno) Lab Data MDM Lab Attestation statement: I reviewed the patient's lab results. 04/18/23 09:18 04/18/23 09:18 Labs: Lab Results 04/18/23 04/18/23 04/18/23 Range/Units 09:18 09:18 09:18 WBC 10.0 (4.8-10.8) X10*3/uL RBC 4.44 L (4.60-5.80) X10*6/uL Hgb 13.7 L (14.0-18.0) g/dl Hct 41.9 L (42.0-52.0) % MCV 94.4 (80.0-98.0) fL MCH 30.9 (27.0-33.0) pg MCHC 32.7 (31.0-36.0) g/dl RDW 13.6 (11.0-16.0) % Plt Count 168 D (160-400) X10*3/uL MPV 11.6 (9.4-12.4) fL Absolute Nucleated RBC 0.000 (0.0-0.012) X10*3/uL Nucleated RBC % (auto) 0.0 (0.0-0.2) /100WBC PT (10.0-13.1) SEC INR (0.9-1.1) APTT (26.0-36.4) SEC Sodium 144 (135-145) mmol/L Potassium 4.1 (3.3-5.1) mmol/L Chloride 112 H (96-108) mmol/L Carbon Dioxide 23 (22-29) mmol/L Anion Gap 13 (12-20) BUN 25 H (9-16) mg/dL Creatinine 1.62 H (0.5-1.4) mg/dL Estim Creat Clear Calc 43.1 Estimated GFR 42 Random Glucose 100 (60-115) mg/dL Calcium 9.7 (8.4-10.2) mg/dL Troponin I High Sens 69.6 H (<3.5-35.0) ng/L B-Natriuretic Peptide (<100) pg/mL TSH (0.32-4.0) uIU/mL 04/18/23 04/18/23 04/18/23 Range/Units 09:18 09:18 09:18 WBC (4.8-10.8) X10*3/uL RBC (4.60-5.80) X10*6/uL Hgb (14.0-18.0) g/dl Hct (42.0-52.0) % MCV (80.0-98.0) fL MCH (27.0-33.0) pg MCHC (31.0-36.0) g/dl RDW (11.0-16.0) % Plt Count (160-400) X10*3/uL MPV (9.4-12.4) fL Absolute Nucleated RBC (0.0-0.012) X10*3/uL Nucleated RBC % (auto) (0.0-0.2) /100WBC PT 12.8 (10.0-13.1) SEC INR 1.1 (0.9-1.1) APTT 31.6 (26.0-36.4) SEC Sodium (135-145) mmol/L Potassium (3.3-5.1) mmol/L Chloride (96-108) mmol/L Carbon Dioxide (22-29) mmol/L Anion Gap (12-20) BUN (9-16) mg/dL Creatinine (0.5-1.4) mg/dL Estim Creat Clear Calc Estimated GFR Random Glucose (60-115) mg/dL Calcium (8.4-10.2) mg/dL Troponin I High Sens (<3.5-35.0) ng/L B-Natriuretic Peptide 2001 H (<100) pg/mL TSH 2.88 (0.32-4.0) uIU/mL 04/18/23 Range/Units 12:42 WBC (4.8-10.8) X10*3/uL RBC (4.60-5.80) X10*6/uL Hgb (14.0-18.0) g/dl Hct (42.0-52.0) % MCV (80.0-98.0) fL MCH (27.0-33.0) pg MCHC (31.0-36.0) g/dl RDW (11.0-16.0) % Plt Count (160-400) X10*3/uL MPV (9.4-12.4) fL Absolute Nucleated RBC (0.0-0.012) X10*3/uL Nucleated RBC % (auto) (0.0-0.2) /100WBC PT (10.0-13.1) SEC INR (0.9-1.1) APTT (26.0-36.4) SEC Sodium (135-145) mmol/L Potassium (3.3-5.1) mmol/L Chloride (96-108) mmol/L Carbon Dioxide (22-29) mmol/L Anion Gap (12-20) BUN (9-16) mg/dL Creatinine (0.5-1.4) mg/dL Estim Creat Clear Calc Estimated GFR Random Glucose (60-115) mg/dL Calcium (8.4-10.2) mg/dL Troponin I High Sens 57.5 H (<3.5-35.0) ng/L B-Natriuretic Peptide (<100) pg/mL TSH (0.32-4.0) uIU/mL Independent Interpretation I performed an independent interpretation of an: Plain X-Ray (Bilateral small pleural effusion.) Radiology Impression Discussion of test interpretation with radiology: I have reviewed the radiologist's reading. Discharge Plan Discharge Clinical Impression: Atrial fibrillation with rapid ventricular response, Congestive heart failure (CHF) Patient Disposition: Admitted As Inpatient
[2023-04-18] MEDS: Furosemide 40 MG/4 ML VIAL IVPUSH (16:09)
[2023-04-18] MEDS: dilTIAZem HCL 50 MG/10 ML VIAL 20 MG IVPUSH (16:10)
--- NOTE | 2023-04-18 17:02 | PM.EVENT ---
Event Note Date of Service: 04/18/23 Event Note: The patient was seen and evaluated with AKHIL Mantilla. I agree with her note, assessment and plan with the following. A 72 years old male with PMH of HTN, HLD who presents with difficulties breathing and palpitations. found to be in new acute heart failure with new onset atrial fibrillation. Lasix IV Cardizem 30 mg qid Eliquis Echo tomorrow cardiology eval keep on Tele Rest of evaluations by PA note. Time Spent With Patient Time: Total time managing care of this patient today ____ minutes.
[2023-04-18] MEDS: Apixaban 5 MG TABLET PO (17:05)
--- NOTE | 2023-04-18 17:45 | P.HPHOSP_ITS ---
History of Present Illness Date of Service: 04/18/23 Attending physician on admission: Ghazala Martinez Chief Complaint: Dyspnea, PND, bilateral lower extremity edema 72-year-old male with history of hypertension, hyperlipidemia, vitamin B12 deficiency, and vitamin-D deficiency presents to the ED with his , Sara, for evaluation of progressively worsening dyspnea. There is dyspnea on exertion as well as paroxysmal nocturnal dyspnea. Initially also noted some palpitations but states this was after drinking a large amount of coffee. There has also been bilateral lower extremity edema. He denies any prior history of similar symptoms. He states he otherwise only consumes 1 cup of decaf coffee on a daily basis. Denies any alcohol use or illicit drug use. He denies any li ghtheadedness or chest pain. He was seen in urgent care 1 week ago for the shortness of breath and was diagnosed with bronchitis. Chest x-ray at that time did show small bilateral pleural effusions and bibasilar atelectasis and subsequent chest CT was ordered again showing bilateral small pleural effusions with associated bibasilar atelectasis no evidence of PE and an incidentally noted 3 mm lingular nodule. He was diagnosed with bronchitis at the Urgent Care was treated with albuterol inhaler and azithromycin x5 days which she completed without any improvement in symptoms. On arrival, patient noted to be tachycardic to 110 and tachypneic to 22, vitals otherwise stable, no hypotension or hypoxia. Creatinine 1.62, also elevated at 1.50 1 week ago with baseline around 1.33. BUN 25. Electrolyte levels normal. TSH 2.88. Initial troponin 69.6, repeat 57.5. BNP 2000. Chest x-ray in the ED showing stable to slightly increased bilateral pleural effusions. EKG showing atrial fibrillation with RVR and PVCs or ever at [place] conducted complexes, rate 106 with right bundle-branch block without any ST or depressions. In the ED, patient treated with 40 mg IV Lasix and 20 mg IV diltiazem. Review of Systems Review of Systems: General: No fevers, malaise, unintentional weight loss HEENT: No blurred vision, diplopia. No sore throat, nasal congestion, rhinorrhea, sinus pain, ear pain Cardiovascular: + palpitations, +BLE edema. No chest pain Respiratory: + dyspnea,+ PND. No wheezing, cough GI: No abdominal pain, nausea, vomiting, diarrhea, constipation, melena, hematochezia : No dysuria, hematuria, increased urinary frequency, decreased urinary output MSK: No myalgia, back pain Neuro: No headaches, weakness, paresthesias Skin: No rashes or lesions [facility] Medical History Benign essential hypertension Mild anemia Overweight (BMI 25.0-29.9) Pure hypercholesterolemia Vitamin B12 deficiency Vitamin D deficiency Family History Other Family history non-contributory Surgical History No significant past surgical history Social History Housing: House Alcohol intake: former Patient Tobacco Use Status: Former Tobacco user e-Cigarette/Vaping Use: Never Used Second Hand Smoke Exposure: No Advance Directives: Yes Advance Directives Information Provided: No Advance Directives on File: No service: No Current occupational status: retired Cognitive needs: No Hearing needs: No Vision needs: Yes (glasses) Meds Allergies Allergy/AdvReac Type Severity Reaction Status Date / Time No Known Allergies Allergy Verified 04/18/23 08:12 Active Medications: Current Medications Acetaminophen (Acetaminophen 325 Mg Tablet) 650 mg PO Q6H PRN PRN Reason: Pain, Mild (Pain Scale 1-3) Diltiazem HCl (Diltiazem Hcl 30 Mg Tablet) 30 mg PO QID [facility]; Protocol Docusate Sodium (Docusate Sodium 100 Mg Capsule) 100 mg PO DAILY PRN PRN Reason: Constipation Furosemide (Furosemide 40 Mg/4 Ml Vial) 40 mg IVPUSH DAILY [facility]; Protocol Ondansetron HCl (Ondansetron Hcl 4 Mg/2 Ml Vial) 4 mg IVPUSH Q8H PRN PRN Reason: Nausea and Vomiting Pharmacy Consult (Consult Rx Perform Med Rec) 1 each MISCELLANE ONCE PRN PRN Reason: Consult order Sodium Chloride (0.9 % Sodium Chloride Flush 3 Ml Syringe) [facility] Medications Medication Instructions Recorded Confirmed Last Taken Type cholecalciferol (vitamin D3) 25 25 mcg PO DAILY 0704/18/23 04/18/23 History mcg (1,000 unit) tablet cyanocobalamin (vitamin B-12) 1,000 mcg PO DAILY 04/18/23 04/18/23 04/18/23 History 1,000 mcg tablet Physical Exam Vital Signs and Narrative: Vital Signs: Last Vital Signs Temp 98.2 F 04/18/23 14:39 Pulse 86 04/18/23 14:39 Resp 20 04/18/23 14:39 BP 120/87 04/18/23 14:39 Pulse Ox 97 04/18/23 14:39 O2 Del Method Room Air 04/18/23 14:39 BMI result Body Mass Index 26.5 Constitutional - Awake and Alert, No apparent distress Eyes - PERRLA, EOMI Cardiovascular - S1S2, RRR, 1+ BLE edema Respiratory - Normal lung expansion, Normal respiratory effort, No respiratory distress, bibasilar crackles Gastrointestinal - NT / ND; +BS; No rebound or guarding Extremities - no calf tenderness bilaterally, no swelling Skin - Warm/Dry Neurological - Alert & oriented x3 Psychological - Appropriate affect Results Labs 04/18/23 09:18 04/18/23 09:18 Labs: Laboratory Results - last 24 hr 04/18/23 04/18/23 04/18/23 09:18 09:18 09:18 MCV 94.4 MCH 30.9 MCHC 32.7 RDW 13.6 Plt Count 168 D MPV 11.6 Absolute Nucleated RBC 0.000 Nucleated RBC % (auto) 0.0 PT INR APTT Anion Gap 13 Estim Creat Clear Calc 43.1 Estimated GFR 42 Random Glucose 100 Calcium 9.7 Troponin I High Sens 69.6 H B-Natriuretic Peptide TSH 04/18/23 04/18/23 04/18/23 09:18 09:18 09:18 MCV MCH MCHC RDW Plt Count MPV Absolute Nucleated RBC Nucleated RBC % (auto) PT 12.8 INR 1.1 APTT 31.6 Anion Gap Estim Creat Clear Calc Estimated GFR Random Glucose Calcium Troponin I High Sens B-Natriuretic Peptide 2001 H TSH 2.88 04/18/23 12:42 MCV MCH MCHC RDW Plt Count MPV Absolute Nucleated RBC Nucleated RBC % (auto) PT INR APTT Anion Gap Estim Creat Clear Calc Estimated GFR Random Glucose Calcium Troponin I High Sens 57.5 H B-Natriuretic Peptide TSH Imaging Radiologist's Impressions: Impressions Chest X-Ray 04/18/23 09:25 IMPRESSION: Stable to slightly increased bilateral pleural effusions. Assessment and Plan (1) Congestive heart failure (CHF): Status: Acute (2) Atrial fibrillation with rapid ventricular response: Status: Acute Plan 72-year-old male with history of hypertension, hyperlipidemia, vitamin B12 deficiency, and vitamin-D deficiency admitted for new onset CHF and atrial fibrillation with RVR. # new onset atrial fibrillation with RVR -EKG showing AFib with RVR, rate 106 -Mag 2.0, TSH 2.88 -given 20 mg IV diltiazem in the ED -change to diltiazem 30 mg p.o. q.6h -[id number] score 3 -Initiated on eliquis 5mg BID. No recent GI bleed, or history of brain bleed. Educated on risks of bleeding -echocardiogram -cardiology consult -cardiac diet -monitor on telemetry #New onset CHF, unspecified type -BNP 2000, CXR with b/l pleural effusions -Lasix 40 mg IV daily -strict I&O -daily weights -cardiac diet -echocardiogram -cardiology consult -follow BMP, BNP # elevated creatinine -creat 1.60, baseline 1.33, no true DARINEL -likely cardiorenal -continue diuresis as above -follow BMP and avoid nephrotoxins # hypertension -blood pressure reasonably controlled -change verapamil to p.o. diltiazem -hold losartan for now, resume if indicated DVT prophylaxis-Eliquis Full code Patient requires inpatient stay at least 2 midnights for management of new onset atrial fibrillation with RVR and new onset CHF requiring IV diuresis, IV rate control, telemetry monitoring, close monitoring of renal function electrolytes and expert consultation Time Spent With Patient Time: Total time managing care of this patient today ____ minutes. Quality Stroke Does the patient have a stroke diagnosis?: No VTE Prior VTE?: No VTE Risk Level:: Medical - moderate - high VTE Device Contraindication: Treatment Not Indicated VTE Drug Contraindication: N/A - Med Ordered
--- NOTE | 2023-04-18 18:26 | MHC.EDTECH ---
this pct went into attempt to record vitals and patient was very rude and replied that im dismissed RN aware
[2023-04-18] MEDS: dilTIAZem HCL 30 MG TABLET PO ×2 (18:38→21:32)
[2023-04-18 19:09] VITALS: BP 138/80; PULSE 97; RESP 20; TEMP 36.5; O2SAT 96
[2023-04-18] MEDS: 0.9 % Sodium Chloride Flush 3 ML SYRINGE IVFLUSH (21:33)
[2023-04-18 23:56] VITALS: BMI 26.6
[2023-04-19] VITALS (7 sets, daily range): BP systolic 116–152; BP diastolic 68–91; PULSE 73–107; RESP 18–20; TEMP 36.2–37.1; O2SAT 93–96; BMI 26.4
--- NOTE | 2023-04-19 07:00 | CA_ITS ---
Transthoracic Echocardiogram Patient (Last, First, Middle): Steve Carrillo, Gender: Male Date of : 1950 Age: 72 Procedure Date: 04/19/2023 Procedure Type: Transthoracic [place] [facility] [place]: 177.8 cm Weight: 83.46 kg BSA: 2.01 m2 Heart Rate: bpm BP: 148 / 76 mmHg Apprentice/Lineman: TO Referring MD: Ida LANDAVERDE Symptoms: new onset afib, chf Study Quality: Adequate/contrast Conclusions: - Mildly increased left ventricular cavity size. There is mildly increased left ventricular wall thickness. The left ventricular systolic function is severely decreased. The visually estimated ejection fraction is between 15-20%. There is severe global hypokinesis. - Normal right ventricular cavity size. There is mildly decreased right ventricular systolic function. - The left atrium is severely dilated. The right atrium is moderately dilated. - There is moderate mitral valve regurgitation. - Mild to moderate pulmonary hypertension is present. - There is mild dilatation of the sinuses of Valsalva measuring 3.85 cm and mild dilatation of the ascending aorta measuring 4.10 cm. Findings Procedure Information Contrast agent, definity, is being given per protocol without apparent complications. Left Ventricle Mildly increased left ventricular cavity size. There is mildly increased left ventricular wall thickness. The left ventricular systolic function is severely decreased. The visually estimated ejection fraction is between 15 20%. There is severe global hypokinesis. Diastolic function is indeterminate on the basis of available data. Right Ventricle Normal right ventricular cavity size. There is mildly decreased right ventricular systolic function. Atria The left atrium is severely dilated. The right atrium is moderately dilated. Aortic Valve There is a normal trileaflet aortic valve. There is no aortic valve stenosis. There is no aortic valve regurgitation. Mitral Valve There is moderate mitral valve regurgitation. There is no mitral valve stenosis. There is apical tethering of the mitral valve leaflets. Pulmonic Valve Normal pulmonic valve structure and function. There is trace pulmonic valve regurgitation. Tricuspid Valve Normal tricuspid valve structure and function. There is mild tricuspid valve regurgitation. The right ventricular systolic pressure is 50 mmHg. Moderately elevated right atrial pressure. Mild to moderate pulmonary hypertension is present. Great Vessels There is mild dilatation of the sinuses of Valsalva measuring 3.85 cm and mild dilatation of the ascending aorta measuring 4.10 cm. The visualized portions of the pulmonary artery and branches are normal. Venous The inferior vena cava is dilated and collapses less than 50% with inspiration. Pericardium/Pleural There is no evidence of pericardial effusion. Prior Study Comparison Significant changes compared to prior study. EF 15-20%, moderate MR. Measurements 2D Linear Measurements IVSd: 1.22 0.6-0.9/0.6-1.0 cm LVIDd: 6.53 3.9-5.3/4.2-5.9 cm LVIDd Index: 3.25 2.4-3.2/2.2-3.1 cm/m2 LVIDs: 5.52 2.0-3.6 cm LVPWd: 1.05 0.7-1.1 cm LA Diam: 4.30 2.7-3.8/3.0-4.0 cm LAIDs Index: 2.14 1.5-2.3 cm/m2 LV Mass: 419.15 67-162/88-224 g LV Mass Index: 208.53 43-95/49-115 g/m2 LVOT Diam: 2.20 3.0+(-)1.3 cm 2D Systolic Function EF 4C: 22.70 >55% Aortic Valve AoV Pk Ambrose: 1.28 AoV Pk Grad: 7.00 LVOT LVOT Pk Ambrose: 0.57 LVOT Mn Ambrose: 0.37 LVOT VTI: 0.07 LVOT Pk Grad: 1.00 LVOT Mn Grad: 1.00 LVOT Diam: 2.20 LVOT Area: 3.80 Right Ventricle TAPSE (mm): 15.90 TVS' Ambrose: 9.11 Tricuspid Valve TR Pk Ambrose: 2.96 TR Pk Grad: 35.00 RA Press: 15.00 RVSP: 50.00 Great Vessels Aorta Sinus of Valsalva: 3.85 2.0-3.[address] [place]: 2.94 1.7-3.4 cm Ao Asc: 4.10 2.1-3.4 cm Updated in Other Vendor System with Status of Final Alfredo Mccain MD electronically signed on 04/19/2023 4:14:13 PM with status of Final
[2023-04-19 07:20] LABS: MANUAL DIFF FLAG NO
[2023-04-19 07:25] LABS: Basophils Percent Auto 0.5 % (0-2); Eosinophils Absolute Auto 0.2 X10*3/uL (0.0-0.4); Eosinophils Percent Auto 2.9 % (0-4); Hematocrit 39.6 % (42.0-52.0); Imm Gran Abs Auto 0.02 X10*3/uL (0.00-0.03); Imm Gran Pct Auto 0.3 % (0.0-0.4); Lymphocytes Absolute Auto 1.5 X10*3/uL (1.2-4.9); Lymphocytes Percent Auto 18.9 % (20-40); Mean Corpuscular HGB Conc 32.8 g/dl (31.0-36.0); Mean Corpuscular Hemoglobin 30.8 pg (27.0-33.0); Mean Corpuscular Volume 93.8 fL (80.0-98.0); Mean Platelet Volume 12.8 fL (9.4-12.4); Monocytes Absolute Auto 0.7 X10*3/uL (0.1-1.2); Monocytes Percent Auto 8.4 % (2-11); Neutrophils Absolute Auto 5.5 x10*3/uL (2.0-8.3); Platelet Count 141 X10*3/uL (160-400); Red Blood Count 4.22 X10*6/uL (4.60-5.80); Red Cell Distribution Width 13.5 % (11.0-16.0)
[2023-04-19 07:38] LABS: Anion Gap 13 (12-20); Blood Urea Nitrogen 22 mg/dL (9-16); Calcium 9.2 mg/dL (8.4-10.2); Carbon Dioxide 24 mmol/L (22-29); Chloride 111 mmol/L (96-108); Creatinine Clr Calc Pharmacy 45.4; Estimated Glomerular Filt Rate 45; Glucose Random 91 mg/dL (60-115); Potassium 3.7 mmol/L (3.3-5.1); Sodium 144 mmol/L (135-145)
[2023-04-19] MEDS: Furosemide 40 MG/4 ML VIAL IVPUSH (08:49)
[2023-04-19] MEDS: 0.9 % Sodium Chloride Flush 3 ML SYRINGE IVFLUSH ×2 (08:49→23:41)
[2023-04-19] MEDS: Cyanocobalamin (Vitamin B-12) 1,000 MCG TABLET 1000 MCG PO (08:50)
[2023-04-19] MEDS: Cholecalciferol (Vitamin D3) 25 MCG TABLET PO (08:50)
[2023-04-19] MEDS: dilTIAZem HCL 30 MG TABLET PO (08:50)
--- NOTE | 2023-04-19 11:23 | MHC.CM.PN ---
IMM 04/19. Pt admitted with dyspnea. Pt lives with his at home, is independent/self-care, no services/DME. D/C plan to return home self-care when medically cleared. Pts will transport. HCP is pts , copy requested. PCP: Jean-Pierre Blue vax: x 3
--- NOTE | 2023-04-19 12:10 | HO.PM.IMPN ---
Subjective Subjective Date of Service: 04/19/23 Interval History: sob improved Physical Exam Vital Signs: Vital Signs: Last Vital Signs Temp 97.9 F 04/19/23 11:12 Pulse 101 H 04/19/23 11:12 Resp 20 04/19/23 11:12 BP 133/80 04/19/23 11:12 Pulse Ox 96 04/19/23 11:12 O2 Del Method Room Air 04/19/23 11:12 BMI result Body Mass Index 26.4 irregular rhtyhem Objective Data Active Medications Acetaminophen (Acetaminophen 325 Mg Tablet) 650 mg PO Q6H PRN PRN Reason: Pain, Mild (Pain Scale 1-3) Albuterol Sulfate (Albuterol Sulfate 90 Mcg 8 Gm Inhaler) 1 puff INHALE QID PRN PRN Reason: shortness of breath or wheezing Cyanocobalamin (Cyanocobalamin (Vitamin B-12) 1,000 Mcg Tablet) 1,000 mcg PO DAILY [facility] Last Admin: 04/19/23 08:50 Dose: 1,000 mcg Documented By: KYLEE Docusate Sodium (Docusate Sodium 100 Mg Capsule) 100 mg PO DAILY PRN PRN Reason: Constipation Furosemide (Furosemide 40 Mg/4 Ml Vial) 40 mg IVPUSH DAILY [facility]; Protocol Last Admin: 04/19/23 08:49 Dose: 40 mg Documented By: KYLEE Ondansetron HCl (Ondansetron Hcl 4 Mg/2 Ml Vial) 4 mg IVPUSH Q8H PRN PRN Reason: Nausea and Vomiting Pharmacy Consult (Consult Rx Perform Med Rec) 1 each MISCELLANE ONCE PRN PRN Reason: Consult order Sodium Chloride (0.9 % Sodium Chloride Flush 3 Ml Syringe) 3 ml IVFLUSH QSHIFT [facility] Last Admin: 04/19/23 08:49 Dose: 3 ml Documented By: KYLEE Vitamin D (Cholecalciferol (Vitamin D3) 25 Mcg Tablet) 25 mcg PO DAILY [facility] Last Admin: 04/19/23 08:50 Dose: 25 mcg Documented By: KYLEE Labs 04/19/23 07:15 04/19/23 06:45 Labs: Laboratory Results - last 24 hr 04/18/23 04/18/23 04/19/23 12:42 12:42 06:45 MCV MCH MCHC RDW Plt Count MPV Immature Gran % (Auto) Neut % (Auto) Lymph % (Auto) [place] % (Auto) Eos % (Auto) Baso % (Auto) Lymph # (Auto) [place] # (Auto) Eos # (Auto) Baso # (Auto) Abs Immat Gran (auto) Absolute Neuts (auto) Absolute Nucleated RBC Nucleated RBC % (auto) Anion Gap 13 Estim Creat Clear Calc 45.4 Estimated GFR 45 Random Glucose 91 Calcium 9.2 Magnesium 2.0 Troponin I High Sens 57.5 H 04/19/23 07:15 MCV 93.8 MCH 30.8 MCHC 32.8 RDW 13.5 Plt Count 141 L MPV 12.8 H Immature Gran % (Auto) 0.3 Neut % (Auto) 69.0 Lymph % (Auto) 18.9 L [place] % (Auto) 8.4 Eos % (Auto) 2.9 Baso % (Auto) 0.5 Lymph # (Auto) 1.5 [place] # (Auto) 0.7 Eos # (Auto) 0.2 Baso # (Auto) 0.0 Abs Immat Gran (auto) 0.02 Absolute Neuts (auto) 5.5 Absolute Nucleated RBC 0.000 Nucleated RBC % (auto) 0.0 Anion Gap Estim Creat Clear Calc Estimated GFR Random Glucose Calcium Magnesium Troponin I High Sens Assessment and Plan (1) Congestive heart failure (CHF): Status: Acute Plan 72M PMH hypertension, hyperlipidemia, vitamin B12 deficiency, and vitamin-D deficiency presented with sob, admitted for new onset CHF and atrial fibrillation with RVR. new onset atrial fibrillation with RVR diltiazem 30 mg p.o. 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 Quality Stroke Does the patient have a stroke diagnosis?: No VTE Prior VTE?: No VTE Risk Level:: Medical - moderate - high VTE Device Contraindication: Treatment Not Indicated VTE Drug Contraindication: N/A - Med Ordered
--- NOTE | 2023-04-19 15:16 | PM.CNCAR ---
History of Present Illness History of Present Illness Date of Service: 04/19/23 Requesting physician: Justino Agustin Chief complaint: Congestive heart failure Narrative: 72 gentleman with congestive heart failure new onset atrial fibrillation. He has background history of hypertension, hyperlipidemia, vitamin-D deficiency, vitamin B12 deficiency and erectile dysfunction. He has been experiencing palpitations over the last 3 weeks along with shortness of breath starting approximately 2 weeks ago. He said he was in [facility] with his brother when he started feeling some palpitations while he was hiking. He said he did not pay much attention to it but afterwards he started noticing some shortness of breath and more recently lower extremity edema. With these symptoms he came to the emergency department. Was noticed to be in atrial fibrillation. Clinically was in heart failure and was started on Lasix. He is saying that he is improving since he started taking the Lasix. His lower extremity edema is improving at this point. He had orthopnea previously which is improving. He has no chest discomfort. He has no palpitations. Continues to be in atrial fibrillation with heart rates in 100s. He was started on p.o. Cardizem which has been discontinued by myself. His echocardiography was briefly reviewed which showed LV dysfunction in the severe range. We will review it in more detail and upload the report. Labs EKG and imaging reviewed. [facility] Past Medical History Medical History Benign essential hypertension Mild anemia Overweight (BMI 25.0-29.9) Pure hypercholesterolemia Vitamin B12 deficiency Vitamin D deficiency Family History Family History Other Family history non-contributory Surgical History Surgical History No significant past surgical history Social History Social History Household Members: Spouse Housing: House Do you presently have visiting nurse or other home services: No Alcohol intake: former Patient Tobacco Use Status: Former Tobacco user e-Cigarette/Vaping Use: Never Used Second Hand Smoke Exposure: No Use of substances other than those prescribed or required for medical reasons: No Currently Displaying Signs/Symptoms of Drug Intoxication Withdrawal: No Have you been hit, kicked, punched, or otherwise hurt by someone within the past year? If so, by whom?: No Do you feel safe in your current relationship?: Yes Is there a partner from a previous relationship who is making you feel unsafe now?: No Are you made to feel afraid or neglected: No Advance Directives: No Advance Directives Information Provided: No Advance Directives on File: No Do you have thoughts of harming others: None Do you have a plan to hurt others: No Plan Recently lost weight without trying: No Nutrition Risks: No Nutritional Risk Poor oral hygiene: No service: No Current occupational status: retired Cognitive needs: No Hearing needs: No Vision needs: Yes (glasses) Meds Allergies Allergy/AdvReac Type Severity Reaction Status Date / Time No Known Allergies Allergy Verified 04/18/23 08:12 Active Medications: Current Medications Acetaminophen (Acetaminophen 325 Mg Tablet) 650 mg PO Q6H PRN PRN Reason: Pain, Mild (Pain Scale 1-3) Albuterol Sulfate (Albuterol Sulfate 90 Mcg 8 Gm Inhaler) 1 puff INHALE QID PRN PRN Reason: shortness of breath or wheezing Amiodarone HCl (Amiodarone Hcl 200 Mg Tablet) 400 mg PO BID [facility] Apixaban (Apixaban 5 Mg Tablet) 5 mg PO BID [facility] Cyanocobalamin (Cyanocobalamin (Vitamin B-12) 1,000 Mcg Tablet) 1,000 mcg PO DAILY [facility] Last Admin: 04/19/23 08:50 Dose: 1,000 mcg Docusate Sodium (Docusate Sodium 100 Mg Capsule) 100 mg PO DAILY PRN PRN Reason: Constipation Empagliflozin (Empagliflozin 10 Mg Tablet) 10 mg PO DAILY [facility] Furosemide (Furosemide 40 Mg/4 Ml Vial) 40 mg IVPUSH DAILY [facility]; Protocol Last Admin: 04/19/23 08:49 Dose: 40 mg Pharmacy Consult (Consult Rx Perform Med Rec) 1 each MISCELLANE ONCE PRN PRN Reason: Consult order Sacubitril/Valsartan (Sacubitril/Valsartan 1 Tab Tablet) 1 tab PO BID [facility]; Protocol Sodium Chloride (0.9 % Sodium Chloride Flush 3 Ml Syringe) 3 ml IVFLUSH QSHIFT [facility] Last Admin: 04/19/23 08:49 Dose: 3 ml Vitamin D (Cholecalciferol (Vitamin D3) 25 Mcg Tablet) 25 mcg PO DAILY [facility] Last Admin: 04/19/23 08:50 Dose: 25 mcg Home Medications Medication Instructions Recorded Confirmed Last Taken Type cholecalciferol (vitamin D3) 25 25 mcg PO DAILY 04/29/21 04/18/23 04/18/23 History mcg (1,000 unit) tablet cyanocobalamin (vitamin B-12) 1,000 mcg PO DAILY 04/18/23 04/18/23 04/18/23 History 1,000 mcg tablet Physical Exam Vital Signs: Vital Signs: Last Vital Signs Temp 97.9 F 04/19/23 11:12 Pulse 101 H 04/19/23 11:12 Resp 20 04/19/23 11:12 BP 133/80 04/19/23 11:12 Pulse Ox 96 04/19/23 11:12 O2 Del Method Room Air 04/19/23 11:12 BMI result Body Mass Index 26.4 GENERAL APPEARANCE: in no acute distress, pleasant. NECK: no carotid bruit, + jugular venous distention. SKIN: no suspicious lesions, warm and dry. HEART: no murmurs, irregular rate and rhythm. LUNGS: clear to auscultation bilaterally. ABDOMEN: soft, nontender. EXTREMITIES: + edema. PERIPHERAL PULSES: equal. NEUROLOGIC: No gross deficits, AAO X 3 Objective Labs and Meds 04/19/23 07:15 04/19/23 06:45 Lab results: Laboratory Results - last 24 hr 04/18/23 04/19/23 04/19/23 12:42 06:45 07:15 WBC 8.0 RBC 4.22 L Hgb 13.0 L Hct 39.6 L MCV 93.8 MCH 30.8 MCHC 32.8 RDW 13.5 Plt Count 141 L MPV 12.8 H Immature Gran % (Auto) 0.3 Neut % (Auto) 69.0 Lymph % (Auto) 18.9 L [place] % (Auto) 8.4 Eos % (Auto) 2.9 Baso % (Auto) 0.5 Lymph # (Auto) 1.5 [place] # (Auto) 0.7 Eos # (Auto) 0.2 Baso # (Auto) 0.0 Abs Immat Gran (auto) 0.02 Absolute Neuts (auto) 5.5 Absolute Nucleated RBC 0.000 Nucleated RBC % (auto) 0.0 Sodium 144 Potassium 3.7 Chloride 111 H Carbon Dioxide 24 Anion Gap 13 BUN 22 H Creatinine 1.54 H Estim Creat Clear Calc 45.4 Estimated GFR 45 Random Glucose 91 Calcium 9.2 Magnesium 2.0 Assessment and Plan (1) Atrial fibrillation with rapid ventricular response: Status: Acute (2) Congestive heart failure (CHF): Status: Acute (3) Cardiomyopathy: Status: Acute Plan 72 year gentleman with new diagnosis of congestive heart failure. He has cardiomyopathy on echocardiography and new diagnosis of atrial fibrillation rapid ventricular response. 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 Continue Lasix 40 mg IV daily. I think he is congested currently and should continue IV diuretics. Adding Jardiance 10 mg and Entresto. Adding amiodarone 400 mg twice a day. He has a right bundle-branch block and QTC at baseline is 500, there is definitely contribution from the right bundle-branch block to this QT interval. He is on apixaban 5 mg b.i.d.. Our plan will be to do a MARY ANN cardioversion on him as he improves. I will tentatively add him for tomorrow. No Cardizem, verapamil or beta-karis should be given to the patient currently. We will follow along with you. Thank you for allowing me to participate in the care of your patient. Please feel free to contact me if you have any questions. Time Spent With Patient Time: Total time managing care of this patient today ____ minutes. Procedures Date of Service Date of Service: 04/19/23
[2023-04-19] MEDS: Sacubitril/Valsartan 24/26 1 TAB TABLET PO ×2 (16:42→21:39)
[2023-04-19] MEDS: Empagliflozin 10 MG TABLET PO (16:42)
[2023-04-19] MEDS: Amiodarone HCL 200 MG TABLET 400 MG PO ×2 (16:42→21:39)
--- NOTE | 2023-04-19 18:40 | PC.NURSE ---
Pt provided with education on new medications. Aware of plan for npo after midnight. Will continue to monitor and report changes
[2023-04-19] MEDS: Apixaban 5 MG TABLET PO (21:39)
[2023-04-20] VITALS (11 sets, daily range): BP systolic 87–157; BP diastolic 42–92; PULSE 68–110; RESP 13–20; TEMP 36–36.4; O2SAT 94–98; BMI 26.1
--- NOTE | 2023-04-20 07:00 | CA_ITS ---
Transesophageal Echocardiogram Patient (Last, First, Middle): Steve Carrillo, Gender: Male Date of : 1950 Age: 72 Procedure Date: 04/20/2023 Procedure Type: Transesophageal Echocardiogram Location: [facility] [place] Height: 177.8 cm Weight: 82.1 kg BSA: 2.00 m2 Heart Rate: 110 bpm BP: 142 / 95 mmHg Border Guard: HADLEY Referring MD: Alfredo Mccain MD Symptoms: Afib, cardiomyopathy Conclusion: ??? Mildly increased left ventricular cavity size. The left ventricular systolic function is severely decreased. The visually estimated ejection fraction is between 15-20%. Diastolic function is indeterminate on the basis of available data. ??? The left atrium is severely dilated. There is no evidence of interatrial shunt by color Doppler. Thrombus in the left atrial appendage. Findings Left Ventricle Mildly increased left ventricular cavity size. The left ventricular systolic function is severely decreased. The visually estimated ejection fraction is between 15-20%. Diastolic function is indeterminate on the basis of available data. Right Ventricle Normal right ventricular cavity size. There is mildly decreased right ventricular systolic function. Atria The left atrium is severely dilated. There is no evidence of interatrial shunt by color Doppler. Thrombus in the left atrial appendage. Aortic Valve There is a normal trileaflet aortic valve. Mitral Valve The mitral valve appears normal. Pulmonic Valve The pulmonic valve is normal. There is no pulmonic valve regurgitation. Tricuspid Valve Normal tricuspid valve structure. There is no tricuspid valve regurgitation. Great Vessels All visible segments of the aorta are normal in size. Pericardium/Pleural There is no evidence of pericardial effusion. Updated by Alfredo Mccain on 08:56 PM with Status of Final Alfredo Mccain MD electronically signed on 04/20/2023 8:56:15 PM with status of Final
[2023-04-20 07:09] LABS: Hematocrit 44.2 % (42.0-52.0); Hemoglobin 14.8 g/dl (14.0-18.0); Mean Corpuscular HGB Conc 33.5 g/dl (31.0-36.0); Mean Corpuscular Volume 92.7 fL (80.0-98.0); Mean Platelet Volume 12.7 fL (9.4-12.4); Platelet Count 155 X10*3/uL (160-400); Red Blood Count 4.77 X10*6/uL (4.60-5.80); Red Cell Distribution Width 13.2 % (11.0-16.0); White Blood Count 9.6 X10*3/uL (4.8-10.8)
[2023-04-20 07:29] LABS: B Type Natriuretic Peptide 1806 pg/mL (<100)
[2023-04-20 07:31] LABS: Anion Gap 13 (12-20); Blood Urea Nitrogen 21 mg/dL (9-16); Carbon Dioxide 23 mmol/L (22-29); Chloride 108 mmol/L (96-108); Creatinine Clr Calc Pharmacy 48.5; Estimated Glomerular Filt Rate 48; Glucose Fasting 99 mg/dL (60-99); Magnesium 1.8 mg/dL (1.6-2.6); Potassium 3.4 mmol/L (3.3-5.1); Sodium 141 mmol/L (135-145)
[2023-04-20 08:08] LABS: Glucose, Whole Blood 123 mg/dL (60-115)
[2023-04-20] MEDS: Amiodarone HCL 200 MG TABLET 400 MG PO (08:26)
[2023-04-20] MEDS: Empagliflozin 10 MG TABLET PO (08:26)
[2023-04-20] MEDS: 0.9 % Sodium Chloride Flush 3 ML SYRINGE IVFLUSH ×2 (08:26→20:05)
[2023-04-20] MEDS: Apixaban 5 MG TABLET PO ×2 (08:26→20:04)
[2023-04-20] MEDS: Sacubitril/Valsartan 24/26 1 TAB TABLET PO ×2 (08:26→20:04)
[2023-04-20] MEDS: Furosemide 40 MG/4 ML VIAL IVPUSH (08:26)
--- NOTE | 2023-04-20 08:37 | HO.PM.IMPN ---
Subjective Subjective Date of Service: 04/20/23 Interval History: sob improved, diaphoretic and tachy on ambulation Physical Exam Vital Signs: Vital Signs: Last Vital Signs Temp 97.0 F 04/20/23 07:05 Pulse 107 H 04/20/23 07:05 Resp 20 04/20/23 07:05 BP 144/92 H 04/20/23 07:05 Pulse Ox 94 04/20/23 07:05 O2 Del Method Room Air 04/20/23 07:05 BMI result Body Mass Index 26.1 GENERAL APPEARANCE: in no acute distress, pleasant. NECK: no carotid bruit, + jugular venous distention. SKIN: no suspicious lesions, warm and dry. HEART: no murmurs, irregular rate and rhythm. LUNGS: clear to auscultation bilaterally. ABDOMEN: soft, nontender. EXTREMITIES: + edema. PERIPHERAL PULSES: equal. NEUROLOGIC: No gross deficits, AAO X 3 Objective Data Active Medications Acetaminophen (Acetaminophen 325 Mg Tablet) 650 mg PO Q6H PRN PRN Reason: Pain, Mild (Pain Scale 1-3) Albuterol Sulfate (Albuterol Sulfate 90 Mcg 8 Gm Inhaler) 1 puff INHALE QID PRN PRN Reason: shortness of breath or wheezing Amiodarone HCl (Amiodarone Hcl 200 Mg Tablet) 400 mg PO BID [facility] Last Admin: 04/20/23 08:26 Dose: 400 mg Documented By: KYLEE Apixaban (Apixaban 5 Mg Tablet) 5 mg PO BID [facility] Last Admin: 04/20/23 08:26 Dose: 5 mg Documented By: KYLEE Cyanocobalamin (Cyanocobalamin (Vitamin B-12) 1,000 Mcg Tablet) 1,000 mcg PO DAILY [facility] Last Admin: 04/20/23 08:28 Dose: Not Given Documented By: KYLEE Non-Admin Reason: NPO Docusate Sodium (Docusate Sodium 100 Mg Capsule) 100 mg PO DAILY PRN PRN Reason: Constipation Empagliflozin (Empagliflozin 10 Mg Tablet) 10 mg PO DAILY [facility] Last Admin: 04/20/23 08:26 Dose: 10 mg Documented By: KYLEE Furosemide (Furosemide 40 Mg/4 Ml Vial) 40 mg IVPUSH DAILY [facility]; Protocol Last Admin: 04/20/23 08:26 Dose: 40 mg Documented By: KYLEE Pharmacy Consult (Consult Rx Perform Med Rec) 1 each MISCELLANE ONCE PRN PRN Reason: Consult order Sacubitril/Valsartan (Sacubitril/Valsartan 1 Tab Tablet) 1 tab PO BID [facility]; Protocol Last Admin: 04/20/23 08:26 Dose: 1 tab Documented By: KYLEE Sodium Chloride (0.9 % Sodium Chloride Flush 3 Ml Syringe) 3 ml IVFLUSH QSHIFT [facility] Last Admin: 04/20/23 08:26 Dose: 3 ml Documented By: KYLEE Vitamin D (Cholecalciferol (Vitamin D3) 25 Mcg Tablet) 25 mcg PO DAILY [facility] Last Admin: 04/20/23 08:27 Dose: Not Given Documented By: KYLEE Non-Admin Reason: NPO Labs 04/20/23 06:11 04/20/23 06:11 Labs: Laboratory Results - last 24 hr 04/20/23 04/20/23 04/20/23 06:11 06:11 06:11 MCV 92.7 MCH 31.0 MCHC 33.5 RDW 13.2 Plt Count 155 L MPV 12.7 H Absolute Nucleated RBC 0.000 Nucleated RBC % (auto) 0.0 Anion Gap 13 Estim Creat Clear Calc 48.5 Estimated GFR 48 POC Glucose Fasting Glucose 99 Calcium 9.0 Magnesium 1.8 B-Natriuretic Peptide 1806 H 04/20/23 08:02 MCV MCH MCHC RDW Plt Count MPV Absolute Nucleated RBC Nucleated RBC % (auto) Anion Gap Estim Creat Clear Calc Estimated GFR POC Glucose 123 H Fasting Glucose Calcium Magnesium B-Natriuretic Peptide Assessment and Plan (1) Congestive heart failure (CHF): Status: Acute Plan 72M PMH hypertension, hyperlipidemia, vitamin B12 deficiency, and vitamin-D deficiency presented with sob, admitted for new onset CHF and atrial fibrillation with RVR. 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 Quality Stroke Does the patient have a stroke diagnosis?: No VTE Prior VTE?: No VTE Risk Level:: Medical - moderate - high VTE Device Contraindication: Treatment Not Indicated VTE Drug Contraindication: N/A - Med Ordered
--- NOTE | 2023-04-20 10:18 | MHC.CM.PN ---
EMR reviewed and per MD rounds, pt is not medically cleared for D/C today due to pt getting cardioverted today, anticipating D/C for tomorrow. CM will continue to follow.
--- NOTE | 2023-04-20 10:50 | P.CONAN_ITS ---
HPI - Anesthesia Eval Consult details Narrative: New onset AFib, CHF , and Cardiomyopathy for shady/cardioversion [facility] Active Problems Active Problems: All Active Problems (Updated 04/19/23 @ 15:26 by Alfredo Mccain MD) Cardiomyopathy (Acute) Congestive heart failure (CHF) (Acute) Atrial fibrillation with rapid ventricular response (Acute) Shortness of breath (Acute) Cough (Acute) Erectile dysfunction (Acute) Annual physical exam (Acute) Mild anemia (Acute) Vitamin B12 deficiency (Acute) Vitamin D deficiency (Acute) Overweight (BMI 25.0-29.9) (Acute) Pure hypercholesterolemia (Acute) Benign essential hypertension (Acute) Past Medical History Medical History Benign essential hypertension Mild anemia Overweight (BMI 25.0-29.9) Pure hypercholesterolemia Vitamin B12 deficiency Vitamin D deficiency Family History Family History Other Family history non-contributory Family history of problems with anesthesia: No Surgical History Surgical History No significant past surgical history History of Problems with Anesthesia: No Social History Social History Household Members: Spouse Housing: House Do you presently have visiting nurse or other home services: No Alcohol intake: former Patient Tobacco Use Status: Former Tobacco user e-Cigarette/Vaping Use: Never Used Second Hand Smoke Exposure: No Use of substances other than those prescribed or required for medical reasons: No Currently Displaying Signs/Symptoms of Drug Intoxication Withdrawal: No Have you been hit, kicked, punched, or otherwise hurt by someone within the past year? If so, by whom?: No Do you feel safe in your current relationship?: Yes Is there a partner from a previous relationship who is making you feel unsafe now?: No Are you made to feel afraid or neglected: No Are you DNR?: No Advance Directives: No Advance Directives Information Provided: No Advance Directives on File: No Do you have thoughts of harming others: None Do you have a plan to hurt others: No Plan Recently lost weight without trying: No Nutrition Risks: No Nutritional Risk Poor oral hygiene: No service: No Current occupational status: retired Cognitive needs: No Hearing needs: No Vision needs: Yes (glasses) Meds Allergies Allergy/AdvReac Type Severity Reaction Status Date / Time No Known Allergies Allergy Verified 04/18/23 08:12 Active Medications: Current Medications Acetaminophen (Acetaminophen 325 Mg Tablet) 650 mg PO Q6H PRN PRN Reason: Pain, Mild (Pain Scale 1-3) Albuterol Sulfate (Albuterol Sulfate 90 Mcg 8 Gm Inhaler) 1 puff INHALE QID PRN PRN Reason: shortness of breath or wheezing Amiodarone HCl (Amiodarone Hcl 200 Mg Tablet) 400 mg PO BID [facility] Last Admin: 04/20/23 08:26 Dose: 400 mg Apixaban (Apixaban 5 Mg Tablet) 5 mg PO BID [facility] Last Admin: 04/20/23 08:26 Dose: 5 mg Cyanocobalamin (Cyanocobalamin (Vitamin B-12) 1,000 Mcg Tablet) 1,000 mcg PO DAILY [facility] Last Admin: 04/20/23 08:28 Dose: Not Given Docusate Sodium (Docusate Sodium 100 Mg Capsule) 100 mg PO DAILY PRN PRN Reason: Constipation Empagliflozin (Empagliflozin 10 Mg Tablet) 10 mg PO DAILY [facility] Last Admin: 04/20/23 08:26 Dose: 10 mg Furosemide (Furosemide 40 Mg Tablet) 40 mg PO DAILY [facility]; Protocol Last Admin: 04/20/23 09:09 Dose: Not Given Pharmacy Consult (Consult Rx Perform Med Rec) 1 each MISCELLANE ONCE PRN PRN Reason: Consult order Sacubitril/Valsartan (Sacubitril/Valsartan 1 Tab Tablet) 1 tab PO BID [facility]; Protocol Last Admin: 04/20/23 08:26 Dose: 1 tab Sodium Chloride (0.9 % Sodium Chloride Flush 3 Ml Syringe) 3 ml IVFLUSH QSHIFT [facility] Last Admin: 04/20/23 08:26 Dose: 3 ml Vitamin D (Cholecalciferol (Vitamin D3) 25 Mcg Tablet) 25 mcg PO DAILY [facility] Last Admin: 04/20/23 08:27 Dose: Not Given Home Medications Medication Instructions Recorded Confirmed Last Taken Type cholecalciferol (vitamin D3) 25 25 mcg PO DAILY 04/29/21 04/18/23 04/18/23 History mcg (1,000 unit) tablet cyanocobalamin (vitamin B-12) 1,000 mcg PO DAILY 04/18/23 04/18/23 04/18/23 History 1,000 mcg tablet Exam Exam Date and Time: April 20, 2023 1050 Height,Weight and Vital Signs: Height 5 ft 10 in Weight 82.5 kg Last Vital Signs Temp 97.2 F 04/20/23 09:41 Pulse 110 H 04/20/23 09:41 Resp 16 04/20/23 09:41 BP 135/70 04/20/23 09:41 Pulse Ox 96 04/20/23 09:41 O2 Del Method Room Air 04/20/23 09:41 Pertinent Lab Results Pertinent Lab Results: Laboratory Tests 04/18/23 04/18/23 04/18/23 09:18 09:18 09:18 WBC 10.0 RBC 4.44 L Hgb 13.7 L Hct 41.9 L MCV 94.4 MCH 30.9 MCHC 32.7 RDW 13.6 Plt Count 168 D MPV 11.6 Immature Gran % (Auto) Neut % (Auto) Lymph % (Auto) [place] % (Auto) Eos % (Auto) Baso % (Auto) Lymph # (Auto) [place] # (Auto) Eos # (Auto) Baso # (Auto) Abs Immat Gran (auto) Absolute Neuts (auto) Absolute Nucleated RBC 0.000 Nucleated RBC % (auto) 0.0 PT INR APTT Sodium 144 Potassium 4.1 Chloride 112 H Carbon Dioxide 23 Anion Gap 13 BUN 25 H Creatinine 1.62 H Estim Creat Clear Calc 43.1 Estimated GFR 42 POC Glucose Random Glucose 100 Fasting Glucose Calcium 9.7 Magnesium Troponin I High Sens 69.6 H B-Natriuretic Peptide TSH 04/18/23 04/18/23 04/18/23 09:18 09:18 09:18 WBC RBC Hgb Hct MCV MCH MCHC RDW Plt Count MPV Immature Gran % (Auto) Neut % (Auto) Lymph % (Auto) [place] % (Auto) Eos % (Auto) Baso % (Auto) Lymph # (Auto) [place] # (Auto) Eos # (Auto) Baso # (Auto) Abs Immat Gran (auto) Absolute Neuts (auto) Absolute Nucleated RBC Nucleated RBC % (auto) PT 12.8 INR 1.1 APTT 31.6 Sodium Potassium Chloride Carbon Dioxide Anion Gap BUN Creatinine Estim Creat Clear Calc Estimated GFR POC Glucose Random Glucose Fasting Glucose Calcium Magnesium Troponin I High Sens B-Natriuretic Peptide 2001 H TSH 2.88 04/18/23 04/18/23 04/19/23 12:42 12:42 06:45 WBC RBC Hgb Hct MCV MCH MCHC RDW Plt Count MPV Immature Gran % (Auto) Neut % (Auto) Lymph % (Auto) [place] % (Auto) Eos % (Auto) Baso % (Auto) Lymph # (Auto) [place] # (Auto) Eos # (Auto) Baso # (Auto) Abs Immat Gran (auto) Absolute Neuts (auto) Absolute Nucleated RBC Nucleated RBC % (auto) PT INR APTT Sodium 144 Potassium 3.7 Chloride 111 H Carbon Dioxide 24 Anion Gap 13 BUN 22 H Creatinine 1.54 H Estim Creat Clear Calc 45.4 Estimated GFR 45 POC Glucose Random Glucose 91 Fasting Glucose Calcium 9.2 Magnesium 2.0 Troponin I High Sens 57.5 H B-Natriuretic Peptide TSH 04/19/23 04/20/23 04/20/23 07:15 06:11 06:11 WBC 8.0 9.6 RBC 4.22 L 4.77 Hgb 13.0 L 14.8 Hct 39.6 L 44.2 MCV 93.8 92.7 MCH 30.8 31.0 MCHC 32.8 33.5 RDW 13.5 13.2 Plt Count 141 L 155 L MPV 12.8 H 12.7 H Immature Gran % (Auto) 0.3 Neut % (Auto) 69.0 Lymph % (Auto) 18.9 L [place] % (Auto) 8.4 Eos % (Auto) 2.9 Baso % (Auto) 0.5 Lymph # (Auto) 1.5 [place] # (Auto) 0.7 Eos # (Auto) 0.2 Baso # (Auto) 0.0 Abs Immat Gran (auto) 0.02 Absolute Neuts (auto) 5.5 Absolute Nucleated RBC 0.000 0.000 Nucleated RBC % (auto) 0.0 0.0 PT INR APTT Sodium 141 Potassium 3.4 Chloride 108 Carbon Dioxide 23 Anion Gap 13 BUN 21 H Creatinine 1.44 H Estim Creat Clear Calc 48.5 Estimated GFR 48 POC Glucose Random Glucose Fasting Glucose 99 Calcium 9.0 Magnesium 1.8 Troponin I High Sens B-Natriuretic Peptide TSH 04/20/23 04/20/23 06:11 08:02 WBC RBC Hgb Hct MCV MCH MCHC RDW Plt Count MPV Immature Gran % (Auto) Neut % (Auto) Lymph % (Auto) [place] % (Auto) Eos % (Auto) Baso % (Auto) Lymph # (Auto) [place] # (Auto) Eos # (Auto) Baso # (Auto) Abs Immat Gran (auto) Absolute Neuts (auto) Absolute Nucleated RBC Nucleated RBC % (auto) PT INR APTT Sodium Potassium Chloride Carbon Dioxide Anion Gap BUN Creatinine Estim Creat Clear Calc Estimated GFR POC Glucose 123 H Random Glucose Fasting Glucose Calcium Magnesium Troponin I High Sens B-Natriuretic Peptide 1806 H TSH Airway Mallampati Class: I TM Dist: >3cm Neck ROM: Full Loose/Missing/Broken Teeth: No Heart: rr Lungs: cta Assessment and Plan Assessment Anesthesia Assessment: Anesthesia Plan Discussed Final Anesthetic Review Family History of Problems with Anesthesia: No History of Problems with Anesthesia: No NPO: Yes ASA Class: III Final Preanesthetic Review: No Changes in Pt Med Stat, Meds/Allgs Chart Reviewed, Consent Obtained/Reviewed and Anes Risks/Benef Reviewed Patient Risk: Low Anesthetic Plan Anesthetic Plan: MAC: Disposition: Standard PACU
[2023-04-20] MEDS: Metoprolol Succinate ER 25 MG TAB.ER.24H PO (14:10)
--- NOTE | 2023-04-20 16:01 | PM.PNCARD ---
Subjective Subjective Date of Service: 04/20/23 Interval history: Seen examined at bedside. He was taken for shady today. He was noticed to have thrombus in the left atrial appendage and cardioversion was not performed. Physical Exam Vital Signs: Last Vital Signs Temp 96.8 F 04/20/23 15:42 Pulse 68 04/20/23 15:42 Resp 20 04/20/23 15:42 BP 125/69 04/20/23 15:42 Pulse Ox 97 04/20/23 15:42 O2 Del Method Room Air 04/20/23 15:42 O2 Flow Rate 4 04/20/23 10:40 BMI result Body Mass Index 26.1 GENERAL APPEARANCE: in no acute distress, pleasant. NECK: no carotid bruit, no jugular venous distention. SKIN: no suspicious lesions, warm and dry. HEART: no murmurs, irregular rate and rhythm. LUNGS: clear to auscultation bilaterally. ABDOMEN: soft, nontender. EXTREMITIES: No edema. PERIPHERAL PULSES: equal. NEUROLOGIC: No gross deficits, AAO X 3 Objective Labs and Meds 04/20/23 06:11 04/20/23 06:11 Lab results: Laboratory Results - last 24 hr 04/20/23 04/20/23 04/20/23 06:11 06:11 06:11 WBC 9.6 RBC 4.77 Hgb 14.8 Hct 44.2 MCV 92.7 MCH 31.0 MCHC 33.5 RDW 13.2 Plt Count 155 L MPV 12.7 H Absolute Nucleated RBC 0.000 Nucleated RBC % (auto) 0.0 Sodium 141 Potassium 3.4 Chloride 108 Carbon Dioxide 23 Anion Gap 13 BUN 21 H Creatinine 1.44 H Estim Creat Clear Calc 48.5 Estimated GFR 48 POC Glucose Fasting Glucose 99 Calcium 9.0 Magnesium 1.8 B-Natriuretic Peptide 1806 H 04/20/23 08:02 WBC RBC Hgb Hct MCV MCH MCHC RDW Plt Count MPV Absolute Nucleated RBC Nucleated RBC % (auto) Sodium Potassium Chloride Carbon Dioxide Anion Gap BUN Creatinine Estim Creat Clear Calc Estimated GFR POC Glucose 123 H Fasting Glucose Calcium Magnesium B-Natriuretic Peptide Progress Note: A&P Assessment and plan (1) Cardiomyopathy: Status: Acute (2) Congestive heart failure (CHF): Status: Acute (3) Atrial fibrillation with rapid ventricular response: Status: Acute Plan [age] year gentleman presented with new onset atrial fibrillation and congestive heart failure. His echocardiography has shown cardiomyopathy with severe LV dysfunction and LV dilation. He has tachycardia induced cardiomyopathy. Our plan was to do SHADY and cardiovert him but unfortunately he was noticed to have left atrial appendage thrombus. He is on apixaban currently. He was given amiodarone previous to SHADY because our plan was eventually to cardiovert but given the fact that he has thrombus in the left atrial appendage and we do not plan to cardiovert I think we should be careful and stop the amiodarone for now. Toprol-XL 25 mg once a day is added to his regimen. Adding spironolactone 25 mg once a day. Lasix 40 mg p.o. once a day is reasonable and he does not need any further IV diuretics. He is on Entresto and Jardiance. We will repeat SHADY in 6-8 weeks and decide about cardioversion again. After cardioversion I will resume amiodarone. Thank you for allowing me to participate in the care of your patient. Please feel free to contact me if you have any questions. Time Spent With Patient Time: Total time managing care of this patient today ____ minutes. Progress Note: Quality Stroke Does the patient have a stroke diagnosis?: No Procedures Date of Service Date of Service: 04/20/23
[2023-04-20] MEDS: Spironolactone 25 MG TABLET PO (17:58)
--- NOTE | 2023-04-20 18:52 | PC.NURSE ---
0800 pt OOB to wash up while ambulating in room became dizzy, weak and diaphoretic sat down on bed and called staff. Pt resting in bed pale VS 119/81 HR 103 RR 22 sats 95 on room air, HR up to 130's on tele in a fib. POC obtained in 120's. Dr Agustin notified no new orders. Pt recovered quickly following epsiode. Remains NPO for MARY ANN and cardioversion. Off unit in am for procedure returns to unit approx 1200 drowsy. Afib remains on tele. VSS. Pt and spouse seen by Dr Mccain in afternoon updated on plan. Spironolactone started late afternoon provided with education. Will continue to monitor and report changes
--- NOTE | 2023-04-20 23:43 | PM.EVENT ---
Event Note Date of Service: 04/21/23 Event Note: Rapid response called on the patient for decreased responsiveness. Upon arrival patient's blood pressure and heart rate within normal limits. POC 114. Saturating 97% on room air. On physical exam, decreased strength noted on the right upper and lower extremity. CT scan stat without acute abnormality. Will order MRI and consult Neurology. Patient on Eliquis and hence not a tPA candidate. Will administer aspirin Time Spent With Patient Time: Total time managing care of this patient today ____ minutes.
[2023-04-21] VITALS: BP 153/99; PULSE 92; RESP 20; TEMP 36; O2SAT 98
--- NOTE | 2023-04-21 00:19 | PC.NURSE ---
When this nurse assumed care at 18:45 patient was alert and oriented x4 with no neuro deficits, speech clear and moving all extremities independently. Vitals taken at 19:21, temp 97.2 temporal scan, pulse rate 92, respiratory rate 20, BP 124/80 and 95%. Afib on telemetry. Patient voiced no complaints of dysnpea or discomfort. Received scheduled Eliquis 5mg PO and entresto 1 tab PO. This writter called to room by PROCESS VALIDATION ENGINEER at 23:15, stating patient does not look great . This policy writer sales came in to see patient at 2315 and noted patient was nonverbal and looking around room. Right sided facial droop noted with flaccid right upper extremity and severe weakness to right lower extremity. Patient able to squeeze with left hand and moving left lower extremity independently. Rapid response called, MD at bedside and head CT STAT ordered and obtained. Patient returned to room. Head of be elevated, patient NPO at this time.
[2023-04-21 01:12] LABS: Glucose, Whole Blood 114 mg/dL (60-115)
--- NOTE | 2023-04-21 03:32 | PC.NURSE ---
MD notifed of last known well time being 23:05 based on last assessment. Per MD, TPA is contraindicated because he is on Eliquis. Inquired to MD about neuro consult. No further orders placed. Will continue to monitor.
[2023-04-21 03:49] VITALS: BP 135/91; PULSE 86; RESP 20; TEMP 35.9; O2SAT 94
[2023-04-21 04:05] VITALS: TEMP 36.1
[2023-04-21 06:00] VITALS: BMI 22.8
[2023-04-21] MEDS: Aspirin 300 MG SUPP.RECT PR (06:27)
[2023-04-21 07:11] VITALS: BP 114/72; PULSE 88; RESP 18; TEMP 36.4; O2SAT 96
--- NOTE | 2023-04-21 07:18 | P.CDIM_ITS ---
PROVIDER RESPONSE TEXT: To clarify, the appropriate diagnosis supported by the clinical indicators: CKD, stage 2 QUERY TEXT: PHYSICIAN'S DOCUMENTATION REQUEST Date of Query: 04/21/2023 06:50 AM EDT Patient Name: Steve Carrillo Admit Date: 04/18/2023 Dear Justino Agustin, A review of the medical record indicates additional documentation may be needed. Please review below and update the documentation accordingly. Clinical Indicators: On BUN 25 Creatinine 1.62 Est GFR 42 Per Hospitalist Progress Note 04/18/23: CKD II-III stable monitor Please clarify which of the following accurately represents the patient's renal status: CKD, stage 2 CKD, stage 3a CKD, stage 3b Other (explain)Clinically unable to determine (explain)Thank you, Alison Dhaliwal RN Use of terms such as suspected, likely, concern for, or probable (associated with a specific diagnosi s that is being evaluated, monitored, or treated as if it exists) are acceptable and can be coded in the inpatient se tting, when documented at the time of discharge. Please use your independent medical judgment in providing your response. THIS QUERY IS PART OF THE PERMANENT MEDICAL RECORD
[2023-04-21 07:20] LABS: Hematocrit 45.2 % (42.0-52.0); Hemoglobin 15.2 g/dl (14.0-18.0); Mean Corpuscular HGB Conc 33.6 g/dl (31.0-36.0); Mean Corpuscular Hemoglobin 30.4 pg (27.0-33.0); Mean Corpuscular Volume 90.4 fL (80.0-98.0); Mean Platelet Volume 12.9 fL (9.4-12.4); Platelet Count 159 X10*3/uL (160-400); White Blood Count 14.2 X10*3/uL (4.8-10.8)
[2023-04-21 07:26] LABS: Anion Gap 14 (12-20); Blood Urea Nitrogen 25 mg/dL (9-16); Calcium 9.1 mg/dL (8.4-10.2); Carbon Dioxide 20 mmol/L (22-29); Chloride 109 mmol/L (96-108); Creatinine Clr Calc Pharmacy 48.6; Estimated Glomerular Filt Rate 49; Glucose Fasting 123 mg/dL (60-99); Magnesium 1.8 mg/dL (1.6-2.6); Potassium 3.3 mmol/L (3.3-5.1); Sodium 140 mmol/L (135-145)
[2023-04-21 08:04] LABS: Cholesterol 207 mg/dL; HDL Cholesterol 64 mg/dL; LDL Cholesterol Calculated 128 mg/dl; Triglycerides 78 mg/dL
[2023-04-21] MEDS: 0.9 % Sodium Chloride Flush 3 ML SYRINGE IVFLUSH (08:35)
[2023-04-21] MEDS: iohexoL 350 MG/ML 100 ML INFUS..BTL IV (09:26)
--- NOTE | 2023-04-21 09:47 | HO.POSTANES ---
Post Anesthesia Evaluation Post Anesthesia Evaluation Date of Service: 04/21/23 Vital Signs: Vital Signs Temp Pulse Resp BP Pulse Ox O2 Del Method 04/21/23 07:11 97.5 F 88 18 114/72 96 Room Air 04/21/23 04:05 97.0 F 04/21/23 03:49 96.7 F L 86 20 135/91 H 94 04/21/23 00:00 96.8 F 92 20 153/99 H 98 Room Air Anesthesia: Monitored Mental Status: Awake Pain Control: Satisfactory Nausea/Vomiting: None Hydration: Adequate Anesthesia-Related Issues: No Anes. Related Issues Comments: rapid response called overnight ? neurological event
--- NOTE | 2023-04-21 09:50 | P.DS_ITS ---
DS: Providers Provider Date of Service: 04/21/23 Date of admission: 04/18/23 17:39 Primary care physician: Jean-Pierre Duque MD Consults: 04/18/23 17:39 Consult to Cardiology Routine Consulting Provider: [facility] Cardiovascular Services Reason for consultation: new onset afib rvr, chf 04/21/23 06:20 Consult to Neurology Routine Consulting Provider: [facility] Reason for consultation: CVA DS: Diagnosis Discharge Diagnosis (1) Cardiomyopathy: Status: Acute (2) Congestive heart failure (CHF): Status: Acute (3) Atrial fibrillation with rapid ventricular response: Status: Acute DS: Summary Hospital Course Hospital Course: from initial hpi: 72-year-old male with history of hypertension, hyperlipidemia, vitamin B12 deficiency, and vitamin-D deficiency presents to the ED with his , Sara, for evaluation of progressively worsening dyspnea. There is dyspnea on exertion as well as paroxysmal nocturnal dyspnea. Initially also noted some palpitations but states this was after drinking a large amount of coffee. There has also been bilateral lower extremity edema. He denies any prior history of similar symptoms. He states he otherwise only consumes 1 cup of decaf coffee on a daily basis. Denies any alcohol use or illicit drug use. He denies any lightheadedness or chest pain. He was seen in urgent care 1 week ago for the shortness of breath and was diagnosed with bronchitis. Chest x-ray at that time did show small bilateral pleural effusions and bibasilar atelectasis and subsequent chest CT was ordered again showing bilateral small pleural effusions with associated bibasilar atelectasis no evidence of PE and an incidentally noted 3 mm lingular nodule. He was diagnosed with bronchitis at the Urgent Care was treated with albuterol inhaler and azithromycin x5 days which she completed without any improvement in symptoms. On arrival, patient noted to be tachycardic to 110 and tachypneic to 22, vitals otherwise stable, no hypotension or hypoxia. Creatinine 1.62, also elevated at 1.50 1 week ago with baseline around 1.33. BUN 25. Electrolyte levels normal. TSH 2.88. Initial troponin 69.6, repeat 57.5. BNP 2000. Chest x-ray in the ED showing stable to slightly increased bilateral pleural effusions. EKG showing atrial fibrillation with RVR and PVCs or ever at [place] conducted complexes, rate 106 with right bundle-branch block without any ST or depressions. In the ED, patient treated with 40 mg IV Lasix and 20 mg IV diltiazem. hospital course: Patient was initially admitted for new onset atrial fibrillation with rapid ventricular response complicated by acute systolic CHF with cardiomyopathy seen on echocardiogram an EF of 20%. He was initiated on apixaban 5 mg b.i.d. and amiodarone, Varinder Jean was seen by Cardiology. Plan was for MARY ANN and cardioversion, on MARY ANN a left atrial thrombus was seen, so no cardioversion was performed, patient was taken off amiodarone and put on metoprolol succinate 25 mg. That evening patient was seen at around 23:15 to have acute right hemiparesis, aphasia. Due to Eliquis tPA was not given, in a.m. CTA head and neck was done which revealed Acute arterial occlusion of the mid left M1 MCA segment associated with significant oligemia throughout the left MCA territory. acute infarct within the left MCA territory involving portions of the left basal ganglia, the left insula, the inferolateral left frontal lobe, and the left temporal operculum. Cytotoxic edema results in mild local mass effect without midline shift. No hemorrhagic transformation. Discussion was had with Interventional Neurology at [facility] and patient will be transferred to hoisting laborer there. Time Spent with Patient Time attestation: Total time managing care of this patient today ____ minutes. Discharge coordination time: Greater than 30 minutes Quality: Safe Use of Opioids Does Pt have an Active Cancer Diagnosis on the Problem List?: No Quality: Stroke Does the patient have a stroke diagnosis?: Yes Reason for No Anti-thrombotic at DC: Drug treatment not indicated Reason for No Anticoagulant at DC: N/A - Med Ordered Reason Not Initiating IV-Tpa: Drug treatment not indicated Reason for No Anti-thrombotic by Day Two: Drug treatment not indicated Reason for No Statin at DC: N/A - Med Ordered Physical Exam Vital Signs: Vital Signs: Last Vital Signs Temp 97.5 F 04/21/23 07:11 Pulse 88 04/21/23 07:11 Resp 18 04/21/23 07:11 BP 114/72 04/21/23 07:11 Pulse Ox 96 04/21/23 07:11 O2 Del Method Room Air 04/21/23 07:11 O2 Flow Rate 4 04/20/23 10:40 BMI result Body Mass Index 22.8 alert oriented times 3, brocas aphasia, dense right hemiparesis, right facial droop, irregular rhythem DS: Data Data Completed and Pending Labs on day of discharge: Laboratory Results - last 24 hr 04/20/23 04/21/23 04/21/23 23:41 06:42 06:42 WBC 14.2 H RBC 5.00 Hgb 15.2 Hct 45.2 MCV 90.4 MCH 30.4 MCHC 33.6 RDW 13.0 Plt Count 159 L MPV 12.9 H Absolute Nucleated RBC 0.000 Nucleated RBC % (auto) 0.0 Sodium 140 Potassium 3.3 Chloride 109 H Carbon Dioxide 20 L Anion Gap 14 BUN 25 H Creatinine 1.42 H Estim Creat Clear Calc 48.6 Estimated GFR 49 POC Glucose 114 Fasting Glucose 123 H Calcium 9.1 Magnesium 1.8 Triglycerides 78 Cholesterol 207 LDL Cholesterol, Calc 128 HDL Cholesterol 64 Discharge Plan Discharge Anticipated Discharge Date/Time: 04/21/23 09:47 Patient Disposition: Xfer [facility] Hospital Discharge Diagnosis: afib, chf, stroke Referrals: Jean-Pierre Duque MD [Primary Care Provider] - 1 Week Discharge Medications: New furosemide 40 mg Tablet 40 mg PO DAILY Qty: 0 0RF Protocol: Hold for SBP< HOLD for SBP < : 90 atorvastatin 80 mg Tablet 80 mg PO BEDTIME Qty: 0 0RF spironolactone 25 mg Tablet 25 mg PO DAILY Qty: 0 0RF Protocol: Hold for SBP< HOLD for SBP < : 90 metoprolol succinate 25 mg Tablet Extended Release 24 Hr 25 mg PO DAILY Qty: 0 0RF Protocol: Hold for SBP/HR < HOLD for SBP < : 90 HOLD for HR < : 60 enoxaparin 80 mg/0.8 mL Syringe 70 mg subcut Q12H Qty: 0 0RF Jardiance 10 mg Tablet 10 mg PO DAILY Qty: 0 0RF Entresto 24-26 mg Tablet 1 tab PO BID Qty: 0 0RF Protocol: Hold for SBP< HOLD for SBP < : 90 Continued cyanocobalamin (vitamin B-12) 1,000 mcg Tablet 1,000 mcg PO DAILY cholecalciferol (vitamin D3) 25 mcg (1,000 unit) tablet 25 mcg PO DAILY albuterol sulfate [Ventolin HFA] 90 mcg/actuation HFA aerosol inhaler 1 inh inhalation QID PRN (Reason: shortness of breath or wheezing) Qty: 8.5 1RF Discontinued verapamil 120 mg tablet extended release 120 mg PO DAILY Qty: 90 3RF losartan 100 mg tablet 100 mg PO DAILY 90 Days Qty: 90 3RF Discharge Orders: Discharge Order (Routine); Ordered 04/21/23 Ordered By: Justino Agustin Diet: Advance to usual diet Activity on Discharge: As tolerated Stand Alone Forms: Patient Portal Discharge page Care Plan Goals: recovery Health Concerns: acute cva Plan of Treatment: transfer to [facility] for neuro intervention, will need carido follow up for afib and cardiomyopathy Assessment: see above
--- NOTE | 2023-04-21 10:08 | P.CNNE_ITS ---
History of Present Illness Data of Consult Service Date: 04/21/23 Primary Care Provider: Jean-Pierre Duque MD HPI Reason for consult: Stroke 72 years old unfortunate man who came to hospital with shortness of breath and was found to be in atrial fibrillation and his echocardiogram reveals significant cardiomyopathy with ejection fraction of 15-20%. He was started on Eliquis and plan was to do cardioversion. Apparently he had a transesophageal echocardiogram that revealed left atrial appendage clot and the plan was changed. Sometime during the night he was noted to be with change in mental status. This was thought to be due to stroke but because of Eliquis on board he was not treated with intravenous tPA. I was asked to see him this morning. When I saw him he was unable to communicate. Review of Systems Review of Systems: Could not be done with [facility] Past Medical History Medical History Benign essential hypertension Mild anemia Overweight (BMI 25.0-29.9) Pure hypercholesterolemia Vitamin B12 deficiency Vitamin D deficiency Family History Family History Other Family history non-contributory Surgical History Surgical History No significant past surgical history Social History Social History Household Members: Spouse Housing: House Do you presently have visiting nurse or other home services: No Alcohol intake: former Patient Tobacco Use Status: Former Tobacco user e-Cigarette/Vaping Use: Never Used Second Hand Smoke Exposure: No Use of substances other than those prescribed or required for medical reasons: No Currently Displaying Signs/Symptoms of Drug Intoxication Withdrawal: No Have you been hit, kicked, punched, or otherwise hurt by someone within the past year? If so, by whom?: No Do you feel safe in your current relationship?: Yes Is there a partner from a previous relationship who is making you feel unsafe now?: No Are you made to feel afraid or neglected: No Are you DNR?: No Advance Directives: No Advance Directives Information Provided: No Advance Directives on File: No Do you have thoughts of harming others: None Do you have a plan to hurt others: No Plan Recently lost weight without trying: No Nutrition Risks: No Nutritional Risk Poor oral hygiene: No service: No Current occupational status: retired Cognitive needs: No Hearing needs: No Vision needs: Yes (glasses) Meds Allergies Allergy/AdvReac Type Severity Reaction Status Date / Time No Known Allergies Allergy Verified 04/18/23 08:12 Active Medications: Current Medications Acetaminophen (Acetaminophen 325 Mg Tablet) 650 mg PO Q6H PRN PRN Reason: Pain, Mild (Pain Scale 1-3) Albuterol Sulfate (Albuterol Sulfate 90 Mcg 8 Gm Inhaler) 1 puff INHALE QID PRN PRN Reason: shortness of breath or wheezing Atorvastatin Calcium (Atorvastatin Calcium 80 Mg Tablet) 80 mg PO BEDTIME DUSTIN Cyanocobalamin (Cyanocobalamin (Vitamin B-12) 1,000 Mcg Tablet) 1,000 mcg PO DAILY DUSTIN Last Admin: 04/21/23 08:28 Dose: Not Given Docusate Sodium (Docusate Sodium 100 Mg Capsule) 100 mg PO DAILY PRN PRN Reason: Constipation Empagliflozin (Empagliflozin 10 Mg Tablet) 10 mg PO DAILY DUSTIN Last Admin: 04/21/23 08:29 Dose: Not Given Enoxaparin Sodium (Enoxaparin Sodium 80 Mg/0.8 Ml Syringe) 70 mg 1 mg/kg (70 mg) SUBCUT Q12H DUSTIN Furosemide (Furosemide 40 Mg Tablet) 40 mg PO DAILY DUSTIN; Protocol Last Admin: 04/21/23 08:29 Dose: Not Given Metoprolol Succinate (Metoprolol Succinate Er 25 Mg Tab.Er.24h) 25 mg PO DAILY DUSTIN; Protocol Last Admin: 04/21/23 08:29 Dose: Not Given Pharmacy Consult (Consult Rx Perform Med Rec) 1 each MISCELLANE ONCE PRN PRN Reason: Consult order Sacubitril/Valsartan (Sacubitril/Valsartan 1 Tab Tablet) 1 tab PO BID DUSTIN; Protocol Last Admin: 04/21/23 08:29 Dose: Not Given Sodium Chloride (0.9 % Sodium Chloride Flush 3 Ml Syringe) 3 ml IVFLUSH QSHIFT DUSTIN Last Admin: 04/21/23 08:35 Dose: 3 ml Spironolactone (Spironolactone 25 Mg Tablet) 25 mg PO DAILY DUSTIN; Protocol Last Admin: 04/21/23 08:29 Dose: Not Given Vitamin D (Cholecalciferol (Vitamin D3) 25 Mcg Tablet) 25 mcg PO DAILY DUSTIN Last Admin: 04/21/23 08:28 Dose: Not Given Home Medications Medication Instructions Recorded Confirmed Last Taken Type cholecalciferol (vitamin D3) 25 25 mcg PO DAILY 04/29/21 04/18/23 04/18/23 History mcg (1,000 unit) tablet cyanocobalamin (vitamin B-12) 1,000 mcg PO DAILY 04/18/23 04/18/23 04/18/23 History 1,000 mcg tablet Physical Exam Vital Signs: Vital Signs: Last Vital Signs Temp 97.5 F 04/21/23 07:11 Pulse 88 04/21/23 07:11 Resp 18 04/21/23 07:11 BP 114/72 04/21/23 07:11 Pulse Ox 96 04/21/23 07:11 O2 Del Method Room Air 04/21/23 07:11 O2 Flow Rate 4 04/20/23 10:40 BMI result Body Mass Index 22.8 Neuro: Other: he was drowsy. Somewhat looking around but did not make full eye contact. He was mumbling but did not follow through with commands or comprehend. He did not repeat her name. Spontaneity and fluency of speech were difficult to determine but he was mumbling. There was no gaze deviation and visual danielson were difficult to determine. There was moderate right-sided facial weakness and dense right hemiparesis. Results Labs 04/21/23 06:42 04/21/23 06:42 Labs: Short CBC 04/21/23 Range/Units 06:42 WBC 14.2 H (4.8-10.8) X10*3/uL Hgb 15.2 (14.0-18.0) g/dl Hct 45.2 (42.0-52.0) % Plt Count 159 L (160-400) X10*3/uL BMP 04/21/23 06:42 Sodium 140 Potassium 3.3 Chloride 109 H Carbon Dioxide 20 L BUN 25 H Creatinine 1.42 H Calcium 9.1 CTA of brain and neck was done stat. It revealed left middle cerebral artery hypodensity suggestive of subacute infarct and probably left M2 partial occlusion. Assessment and Plan (1) CVA (cerebral vascular accident): Status: Acute 72 years old man with severe cardiomyopathy and atrial fibrillation, transesophageal echocardiogram revealing left atrial appendage thrombus, and new onset of mixed aphasia and right hemiparesis. Imaging revealed left middle cerebral artery subacute infarct and left M2 lesion. Case was discussed with [facility] team and plan was to transfer him for possible intra arterial intervention to salvage brain as much as possible. Time Spent With Patient Time: Total time managing care of this patient today ____ minutes. Procedures Date of Service Date of Service: 04/21/23
[2023-04-21] MEDS: Enoxaparin Sodium 80 MG/0.8 ML SYRINGE 70 MG SUBCUT (10:12)
--- NOTE | 2023-04-21 13:20 | MHC.CM.PN ---
EMR reviewed and per MD rounds, pt suffered an acute CVA and was medically transferred the [facility].
== END 2023-04-21 10:15 | disposition short-term general hospital (02) | DRG 291 ==
LOC: HO.ED 16:07 → HO.EDOVER 17:47 → HO.IMC 18:11
PROVIDERS: Emergency Medicine; Internal Medicine Cardiovascular Disease; Student in an Organized Health Care Education/Training Program; Admitting Provider Physician Assistant; Emergency Provider Emergency Medicine; PCP Internal Medicine; Visit Provider Internal Medicine
PROC: B24BZZ4 Ultrasonography of Heart with Aorta, Transesophageal (ICD-10-PCS; CPT 93312; principal; 2023-04-20 10:00)
DX: I13.0 Hypertensive heart and chronic kidney disease with heart failure and stage 1 through stage 4 chronic kidney disease, or unspecified chronic kidney disease (principal); I50.21 Acute systolic (congestive) heart failure; I63.512 Cerebral infarction due to unspecified occlusion or stenosis of left middle cerebral artery; G81.91 Hemiplegia, unspecified affecting right dominant side; R47.01 Aphasia; I42.8 Other cardiomyopathies; N18.2 Chronic kidney disease, stage 2 (mild); I48.91 Unspecified atrial fibrillation; I42.0 Dilated cardiomyopathy; I51.3 Intracardiac thrombosis, not elsewhere classified; E78.00 Pure hypercholesterolemia, unspecified; Z87.891 Personal history of nicotine dependence; Z79.899 Other long term (current) drug therapy
CPT/HCPCS: 36415; 70450; 70496; 70498; 71045; 80048; 80061; 82947; 83735; 83880; 84443; 84484; 85025; 85027; 85610; 85730; 92950; 93005; 93306; 97163; 97167; 99285; J1650; J1940; J2250; Q9957; Q9967

== ENCOUNTER → 2023-04-18 09:03 | Outpatient (BNV) | payer MEDICARE, SELFPAY | PROVIDERS: Emergency Provider Emergency Medicine; PCP Internal Medicine; Visit Provider Internal Medicine Cardiovascular Disease | DX: I48.91 Unspecified atrial fibrillation (principal) | CPT/HCPCS: 93010 ==

== ENCOUNTER → 2023-04-18 13:46 | Outpatient (BNV) | payer MEDICARE, SELFPAY | PROVIDERS: Emergency Provider Emergency Medicine; PCP Internal Medicine; Visit Provider Student in an Organized Health Care Education/Training Program | DX: I50.9 Heart failure, unspecified (principal) | CPT/HCPCS: 99232; 99233; 99239; 99499 ==

== ENCOUNTER 2023-04-18 17:39 | Outpatient (BNV) | payer MEDICARE, SELFPAY | END 2023-04-19 07:00 | PROVIDERS: Admitting Provider Physician Assistant; Emergency Provider Emergency Medicine; PCP Internal Medicine; Visit Provider Internal Medicine Cardiovascular Disease | DX: I34.0 Nonrheumatic mitral (valve) insufficiency (principal) | CPT/HCPCS: 93306 ==

== ENCOUNTER 2023-04-18 17:39 | Outpatient (BNV) | payer MEDICARE, SELFPAY | END 2023-04-20 07:00 | PROVIDERS: Admitting Provider Physician Assistant; Emergency Provider Emergency Medicine; PCP Internal Medicine; Visit Provider Internal Medicine Cardiovascular Disease | DX: I48.91 Unspecified atrial fibrillation (principal); I42.9 Cardiomyopathy, unspecified | CPT/HCPCS: 93312; 93320; 93325 ==

== ENCOUNTER → 2023-04-18 17:39 | Outpatient (BNV) | payer MEDICARE, SELFPAY | PROVIDERS: Admitting Provider Physician Assistant; Emergency Provider Emergency Medicine; PCP Internal Medicine; Visit Provider Internal Medicine Cardiovascular Disease | DX: I42.9 Cardiomyopathy, unspecified (principal); I50.9 Heart failure, unspecified; I48.91 Unspecified atrial fibrillation | CPT/HCPCS: 99223; 99232 ==

== ENCOUNTER 2023-06-03 10:09 | Outpatient (AMB) | payer MEDICARE, SELFPAY ==
[2023-06-03 10:19] VITALS: BP 98/58; PULSE 50; O2SAT 98
--- NOTE | 2023-06-03 10:19 | A.OFFPC_ITS ---
Vital Signs 06/03/23 10:19 Height 5 ft 10 in BMI Reason not done Patient refused/unable BP 98/58 L Blood Pressure Location Lt brachial Position Sitting Pulse 50 Pulse Source Pulse Oximeter Pulse Oximetry (%) 98 Oxygen Delivery Method Room Air Intake Visit Reasons: 05-25 [facility] Stroke/ Hypertension Intake Note: Patient is here for hospital discharge follow up. Patient was discharged from [facility] for Stoke on right side and HTN. 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 Accompanied by: Spouse Allergies No Known Allergies Allergy (Verified 06/04/23 07:36) Medication List - Last Reconciled 06/03/23 by KRISTEN Hollingsworth apixaban 5 mg PO BID atorvastatin 80 mg PO BEDTIME baclofen 10 mg PO BID citalopram 10 mg PO DAILY docusate sodium 100 mg PO BID finasteride 5 mg PO DAILY furosemide 40 mg See Protocol PO DAILY metoprolol succinate ER 12.5 mg See Protocol PO BID polyethylene glycol 3350 17 grams PO DAILY tamsulosin 0.4 mg PO DAILY Tobacco use date assessed: 11/24/22 Fall risk assessment: No Falls in past year Last assessed Fall Risk: 06/03/23 Dental Screening Dental Screen Date: 06/03/23 Did you have a dental visit in the last 12 months?: Yes Did you have a dental problem in the last 6 months where you did not have access to dental care?: No Was dental information given to patient?: Patient has dentist HPI HPI Comments History of Present Illness Details 73-year-old male past medical history significant for hypertension, hypercholesteremia, vitamin-D deficiency, AFib with RVR, CHF, cardiomyopathy and CVA. Patient of Dr. Cortes last seen on 04/18/2023 in the walk-in clinic for progressively worsening shortness of breath EKG was obtained patient was found to be in AFib with RVR in the 130 patient was referred to [facility]. Patient was diagnosed with new onset AFib with RVR, HFrEF, left atrial appendage thrombus.Patient was started on therapeutic Lovenox, course was complicated when patient developed right-sided hemiparesis after which the patient was found to have a left MCA CVA. Patient was then transferred to a higher level of care at [facility] for neuro endovascular intervention. Patient underwent a thrombectomy with TICI 2 C achieved after 2 passes of thrombectomy. Re P head CT on 04/22/2023 showed interval hemorrhagic transformation of subacute left MCA infarct. Repeat CTA of the head on 04/23/2021 showed stable hemorrhagic conversion. For Jl Simpson recommended statin, SBP 110-140, repeat head CT on postop day 21 is stable patient able to start Eliquis on PSD 28. Marks catheter was placed during admission due to urinary retention. Patient was discharged sedation on 04/27. For PT, OT and speech due to expressive aphasia and right- sided hemiparesis. Eliquis was able to be started on 05/20/[address] ruled out hemorrhagic conversion. Baclofen was added to patient's regimen for increasing tone in the right upper and lower extremities. For the course of rehab patient was treated for UTI with antibiotics and had multiple failed voiding trials, Marks catheter was left in place at time of discharge patient was referred to Urology. Patient was also started on Colace 100 mg b.i.d. and miralax 17g daily. Patient was discharged home on 06/02/2023. Patient presents today with his for hospital discharge follow-up. Patient continues to have right-sided residual hemiparesis patient able to tolerate regular diet with thin liquids, patient's reports he is starting to be able to lift his right shoulder up and lift right knee up while sitting. All medications reviewed with patient and and all necessary refill sent to patient's pharmacy. Patient currently has [facility] for PT, OT, speech therapy as well as nursing for indwelling Marks catheter. Patient and report that on current bowel regimen that he is developed 4-5 soft stools daily, advised to hold colace and mirlax until stools form and can re-intiate miralax daily if experiences constipation. Patient denies any chest pain, palpitations, shortness of breath or syncope. Patient's expressing concerns over possible bloos clotts in Marks catheter, during assessment urine is concentrated and joe color with noted sediment. No clots noted. Specialist Follow ups: [facility] Neurology: Dr. Coe 06/20/23 Cardiology: Dr. Mccain 06/22/23 Urology: Dr. Santiago 06/23/23 PSS: Dr. Hunt 06/29/23 PFSH Medical History Benign essential hypertension Mild anemia Overweight (BMI 25.0-29.9) Pure hypercholesterolemia Vitamin B12 deficiency Vitamin D deficiency Surgical History No significant past surgical history Family History Other Family history non-contributory Social History Household Members: Spouse Housing: House Do you presently have visiting nurse or other home services: No Alcohol intake: former Patient Tobacco Use Status: Former Tobacco user e-Cigarette/Vaping Use: Never Used Second Hand Smoke Exposure: No service: No Current occupational status: retired Cognitive needs: No Hearing needs: No Vision needs: Yes (glasses) Questionnaire Thrive Questionnaire Date Thrive assessed: 04/19/23 SAMI-7 AMB Questionnaire SAMI-7 Date SAMI - 7 assessed: 11/24/22 Source: Developed by Drs. Stephan Raines, Dominique Roberson, Oh Alvarado and colleagues, with an educational alicja from [employer]. Review of Systems Const Denies chills, Denies fatigue, Denies fever(s) and Denies poor appetite Eyes Denies no additional complaints ENT Reports Normal hearing present Card Denies chest pain, Denies syncope, Denies rapid heart rate and Denies dyspnea Resp Denies cough and Denies dyspnea GI Denies change in stool character, Denies constipation, Denies diarrhea, Denies nausea and Denies vomiting Denies dysuria, Denies urinary frequency and Denies urinary urgency Musc Details: Right sided hemiparesis Neuro Reports Normal hearing present, Denies confusion and Denies syncope Psych Denies confusion Endo Denies fatigue Physical exam (Primary Care) Vital Signs: Last Vital Signs Pulse 50 06/03/23 10:19 BP 98/58 L 06/03/23 10:19 Pulse Ox 98 06/03/23 10:19 Oxygen Delivery Method Room Air 06/03/23 10:19 Tobacco/Smoking Status: Tobacco use Status Tobacco use date assessed 11/24/22 06/03/23 10:32 Patient Tobacco Use Status Former Tobacco user 06/03/23 10:32 e-Cigarette/Vaping Use Never Used 06/03/23 10:32 Thrive Assessment: Date of Thrive Assessment Date Thrive assessed 04/19/23 06/03/23 10:32 Const General: No confusion Orientation/consciousness: No confusion HENMT Head: Yes normocephalic, Yes atraumatic and Yes other (residual right facial droop ) Eyes Conjunctivae: conjunctivae normal Chest Chest palpation & inspection: normal inspection of the chest Resp Effort & Inspection: normal respiratory effort Auscultation: clear to auscultation bilaterally, no crackles, no rhonchi and no wheezes Cardio Rate: regular rate Rhythm: regular rhythm Heart sounds: S1 normal heart sound present and S2 normal heart sound present GI Inspection: Yes normal to inspection Neuro General: No confusion Cranial nerves: Yes Normal hearing present Extrem Other: Residual right upper and lower extremity weakness. General: No edema Assessment and Plan Assessment & Plan (1) CVA (cerebral vascular accident): Code(s): I63.9 - Cerebral infarction, unspecified Plan: Continue on Eliquis 5 mg b.i.d. and atorvastatin 80 mg at night. Keep scheduled follow-up neurology (2) Atrial fibrillation with rapid ventricular response: Code(s): I48.91 - Unspecified atrial fibrillation Plan: MARY ANN at [facility] on 04/20 showed EF of 15-20% with entered determinate diastolic dysfunction, severely dilated left atrium, no evidence of intra-atrial shunt and thrombus in the left atrial appendage. Transthoracic [place] on 04/24 at [facility] [place] showed severely dilated left atrium and ventricle with EF of 20-25%, no thrombus seen, some mitral regurgitation. Continue on metoprolol 12.5 mg b.i.d. and Eliquis 5 mg b.i.d. for anticoagulation Keep scheduled follow-up with Dr. Mccain. (3) Congestive heart failure (CHF): Code(s): I50.9 - Heart failure, unspecified Plan: Continue on lasix 40mg daily (4) Cardiomyopathy: Code(s): I42.9 - Cardiomyopathy, unspecified (5) Urinary retention: Code(s): R33.9 - Retention of urine, unspecified Plan: Continue on Flomax 0.4 mg daily and finasteride 5 mg q.h.s. Indwelling urinary catheter remains, Keep scheduled follow-up with urologist. (6) Diarrhea: Code(s): R19.7 - Diarrhea, unspecified Plan: Due to multiple loose stools daily patient advised to discontinue Colace 100 mg b.i.d. and 1 stool forms can re-initiate MiraLax 17 g daily for bowel management. (7) Spastic hemiparesis of right dominant side: Code(s): G81.11 - Spastic hemiplegia affecting right dominant side Plan: Continue on baclofen 5 mg b.i.d.. Continue with PT,OT and speech Keep scheduled follow-up with [facility] Dr. Hunt. (8) Depression: Code(s): F32.A - Depression, unspecified Plan: Continue on citalopram 10 mg daily. (9) Hospital discharge follow-up: Code(s): Z09 - Encounter for follow-up examination after completed treatment for conditions other than malignant neoplasm (10) Benign essential hypertension: Code(s): I10 - Essential (primary) hypertension Plan: Continue on metoprolol (11) Pure hypercholesterolemia: Code(s): E78.00 - Pure hypercholesterolemia, unspecified Plan: Continue on atorvastatin. Follow low-cholesterol diet. LDL goal less than 70 Plan Follow-up with Dr. Duque in 3 months or sooner if needed Orders: Orders Comprehensive [place]elow. Panel Fast Today I10 - Essential (primary) hypertension Lipid Panel Today E78.00 - Pure hypercholesterolemia, unspecified Complete Blood Count Auto Diff Today Z13.0 - Encounter for screening for diseases of the blood and blood-forming organs and certain disorders involving the immune mechanism UA CC w/rflx Micro + Cult Today I10 - Essential (primary) hypertension, R33.9 - Retention of urine, unspecified Medications: New apixaban 5 mg PO BID 60 tabs 3RF I48.91 - Unspecified atrial fibrillation baclofen 10 mg PO BID 30 tabs 0RF citalopram 10 mg PO DAILY 30 tabs 3RF finasteride 5 mg PO DAILY 30 tabs 3RF metoprolol succinate ER 12.5 mg See Protocol PO BID 30 tabs 3RF tamsulosin 0.4 mg PO DAILY 30 caps 3RF Refilled atorvastatin 80 mg PO BEDTIME 30 tabs 3RF Discontinued diaper,brief,adult,disposable Discontinued Reason: Ancillary Entered New Order As directed 4 times per day size medium 32 ea 0RF Coding Level of Care Code Est Pt Level 4 (58062) Diagnoses CVA (cerebral vascular accident) I63.9 Atrial fibrillation with rapid ventricular response I48.91 Congestive heart failure (CHF) I50.9 Cardiomyopathy I42.9 Urinary retention R33.9 Diarrhea R19.7 Spastic hemiparesis of right dominant side G81.11 Depression F32.A Hospital discharge follow-up Z09 Benign essential hypertension I10 Pure hypercholesterolemia E78.00
== END 2023-06-03 11:27 | disposition home or self-care (01) ==
PROVIDERS: PCP Internal Medicine; Visit Provider Nurse Practitioner Family
DX: I11.0 Hypertensive heart disease with heart failure (principal); G81.11 Spastic hemiplegia affecting right dominant side; I50.9 Heart failure, unspecified; I48.91 Unspecified atrial fibrillation; I42.9 Cardiomyopathy, unspecified; R33.9 Retention of urine, unspecified; R19.7 Diarrhea, unspecified; F32.A Depression, unspecified; Z09 Encounter for follow-up examination after completed treatment for conditions other than malignant neoplasm; E78.00 Pure hypercholesterolemia, unspecified
CPT/HCPCS: 99214

== ENCOUNTER 2023-06-10 08:39 | Outpatient (REF) | payer MEDICARE, SELFPAY ==
[2023-06-10 13:05] LABS: Alanine Aminotransferase 12 U/L (0-40); Albumin Level 3.4 g/dL (3.5-5.0); Alkaline Phosphatase 97 U/L (39-117); Anion Gap 11 (12-20); Aspartate Amino Transferase 14 U/L (5-37); Bilirubin Total 0.6 mg/dL (0.0-1.0); Blood Urea Nitrogen 14 mg/dL (9-16); Calcium 9.2 mg/dL (8.4-10.2); Carbon Dioxide 23 mmol/L (22-29); Chloride 109 mmol/L (96-108); Cholesterol 122 mg/dL (<200); Estimated Glomerular Filt Rate > 60; Glucose Fasting 107 mg/dL (60-99); HDL Cholesterol 61 mg/dL (>40); LDL Cholesterol Calculated 51 mg/dL (<100); Sodium 139 mmol/L (135-145); Total Protein 5.5 g/dL (6.5-8.0); Triglycerides 52 mg/dL (<150)
[2023-06-10 13:25] LABS: Appearance Urine Cloudy; Color Urine Yellow; Glucose Urine UA Negative (Negative); Leukocyte Esterase Urine Large (3+) (Negative); Nitrite Urine Positive (Negative); PH 5.5 (5.0-9.0); Specific Gravity - Urine 1.015 (1.005-1.025); UMIC TRIGGER UACC YES; Urine Blood Large (3+) (Negative); Urine Ketones Negative (Negative); Urine Protein 30 (1+) mg/dL (Neg-Trace)
[2023-06-10 13:43] LABS: Bacteria Urine 4+ (None Seen); Calcium Oxalate Crystals Urine Present; Squamous Epithelial Cell Urine 0-2 /HPF (0-2); UACC Culture Trigger YES; WBC Urine >50 /HPF (0-5)
== END 2023-06-10 08:40 | disposition home or self-care (01) ==
LOC: HO.WFDLDS 08:39
PROVIDERS: Internal Medicine; Visit Provider Nurse Practitioner Family
DX: I10 Essential (primary) hypertension (principal); E78.00 Pure hypercholesterolemia, unspecified; R06.02 Shortness of breath; R30.0 Dysuria
CPT/HCPCS: 36415; 80048; 80053; 80061; 80076; 81001; 81003; 85025; 85027; 87086; 87088; 87186

== ENCOUNTER 2023-06-15 10:41 | Outpatient (AMB) | payer MEDICARE, SELFPAY ==
--- NOTE | 2023-06-15 10:50 | A.OFFVIS_ITS ---
Intake Intake Visit Reasons: voiding trial Intake Note: New Patient presents for initial visit voiding trial Urology Medications: finasteride, tamsulosin Blood Thinner: Apixaban Senior Manager Mmcoe Required: No Accompanied by: Self / Same As Patient Allergies No Known Allergies Allergy (Verified 06/15/23 21:59) Medication List - Last Reconciled 06/15/23 by Amara Ansari HOLIDAY DETECTOR OPERATOR- albuterol sulfate 90 mcg/actuation 1 inh inhalation DAILY PRN amoxicillin-pot clavulanate 875-125 mg 1 tab PO BID 7 days apixaban 5 mg PO BID aspirin 81 mg PO DAILY atorvastatin 80 mg PO BEDTIME baclofen 10 mg PO BID citalopram 10 mg PO DAILY [Depends (adult medium) 4 times per day As directed] docusate sodium 100 mg PO BID finasteride 5 mg PO DAILY furosemide 40 mg See Protocol PO DAILY metoprolol succinate ER 12.5 mg See Protocol PO BID mirabegron ER (Myrbetriq) 25 mg PO DAILY 30 days polyethylene glycol 3350 17 grams PO DAILY tamsulosin 0.4 mg PO DAILY HPI HPI Comments History of Present Illness Details Steve is a pleasant 73-year-old male patient of Dr. Duque who was accompanied by his Sara at today's visit. He has a past medical history of hypertension, hyperlipidemia, vitamin B12 deficiency, and vitamin-D deficiency.He presents to the office today as a new patient for urinary retention/neurogenic bladder. 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 acute infarct within the left MCA territory involving portions of the left basal ganglia, the left insula, the inferolateral left frontal lobe, and the left temporal operculum. It appears during this hospitalization patient was unable to void an a Roe catheter was inserted. Patient reports having had two voiding trials over the last 2 months however has been unable to void independently. Voiding trial performed in office today. Approximately 200 mL of sterile water was instilled into the bladder and roe catheter was removed however patient was unable to void and a new catheter was reinserted 16 telugu coude. Discussed at length neurogenic bladder. Discussed in office cystoscopy for further assessment evaluation. Discussed potential SPT if voiding trials continue to be unsuccessful. Patient reporting bladder spasms with catheter he otherwise denies hematuria, dysuria, foul smelling urine, changes to urinary stream, flank pain, fever, and or chills. When asked patient reports compliance with Flomax 0.4 mg daily. He denies having any history of urinary issues in the past. He otherwise offers no issues or concerns at this time. [facility] Medical History Vitamin B12 deficiency Vitamin D deficiency Mild anemia Overweight (BMI 25.0-29.9) Pure hypercholesterolemia Benign essential hypertension Surgical History No significant past surgical history Family History Other Family history non-contributory Social History Household Members: Spouse Housing: House Do you presently have visiting nurse or other home services: No Alcohol intake: former Patient Tobacco Use Status: Former Tobacco user e-Cigarette/Vaping Use: Never Used Second Hand Smoke Exposure: No service: No Current occupational status: retired Cognitive needs: No Hearing needs: No Vision needs: Yes (glasses) Review of Systems Const Reports as per HPI Eyes Reports no additional complaints ENT Reports no additional complaints Card Reports as per HPI Resp Reports no additional complaints GI Reports no additional complaints Reports as per HPI Musc Details: Patient with right sided weakness/paralysis Reports as per HPI Neuro Reports as per HPI Psych Reports no additional complaints Endo Reports no additional complaints Physical Exam Const General: cooperative, healthy appearing, comfortable, no acute distress, well developed, alert and awake Orientation/consciousness: oriented to person Limitations: wheelchair HEENT Head: Yes normal to inspection and Yes normocephalic Eyes General: appearance normal, both eyes and all related structures Neck Neck: Yes normal visual inspection and Yes trachea midline Chest Chest palpation & inspection: normal inspection of the chest Resp Effort & Inspection: normal respiratory effort and able to speak in complete sentences Cardio Rate: regular rate GI Inspection: Yes normal to inspection General: Yes no CVA tenderness Male General Exam: Yes normal external exam Penis: normal penis and circumcised Meatus: meatus normal Scrotum: scrotum normal Testes: Testes normal Back/Spine/Pelvis Back: no CVA tenderness Neuro Other: patient with right sided weakness facial droop General: oriented to person Psych Appearance: well kempt Speech and movement: Slurred speech present and Slowed speech present (Psych) Attitude: cooperative Insight: Fair insight present (Psych) Judgement: Fair judgement present (Psych) Office Procedures Bladder/Catheter Procedure 71336-Rroxpjqher of Bladder Procedure code (CPT) selection complete Assessment & Plan Assessment & Plan (1) Urinary retention: Code(s): R33.9 - Retention of urine, unspecified Plan Voiding trial performed; however patient unable to void independently and new 16 Gabonese coude catheter reinserted. Start Myrbetriq as discussed and prescribed for bladder spasm. Discussed at length possible neurogenic bladder in the setting of recent stroke. Discussed utilizing flip flow valve and emptying bladder every 2-3 hours while awake and utilizing night bag at night. Continue Flomax as prescribed. Discussed possible suprapubic tube placement versus indwelling roe catheter Follow-up in office cystoscopy in [address] Santiago Medications: New mirabegron ER (Myrbetriq) 25 mg PO DAILY 30 days 30 tabs 1RF N30.10 - Interstitial cystitis (chronic) without hematuria, N32.81 - Overactive bladder, R35.1 - Nocturia, R39.15 - Urgency of urination Discontinued flavoxate Discontinued Reason: Doctor's Order 100 mg PO TID PRN 15 tabs 0RF bladder spasms Patient Instructions: The patient had an opportunity to ask questions regarding the treatment plan. All questions were answered. Physical exam, labs, and imaging were discussed and reviewed in detail. As well as risks, benefits, and discussion of treatment choices. No major barriers to understanding were identified. The patient expressed understanding and agreement with the above treatment plan. The patient was made aware they should contact our office by phone for worsening of their current condition, the appearance of new symptoms, or with any questions or concerns. Compliance is encouraged with any medications and follow up testing that is ordered. It is a privilege to be allowed the opportunity to participate in? your urological care.? Again, if you have any questions or concerns If you have any questions or concerns please do not hesitate to contact me. The office is [phone]. This note is constructed using voice recognition software. While every effort has been made to ensure accuracy tax manager cpa errors may have been included. Yours sincerely, KRISTEN Neal-BC Coding Level of Care Code New Pt Level 4 (89013) Diagnoses Urinary retention R33.9 CPT Codes Bladder/Catheter Procedure - CPT: 41011-Onikcxmqau of Bladder ([id number])
== END 2023-06-15 11:51 | disposition home or self-care (01) ==
PROVIDERS: PCP Internal Medicine; Visit Provider Nurse Practitioner Family
DX: R33.9 Retention of urine, unspecified (principal); N30.10 Interstitial cystitis (chronic) without hematuria; R39.15 Urgency of urination
CPT/HCPCS: 51700; 99204

== ENCOUNTER → 2023-06-15 10:41 | Outpatient (BNVA) | payer MEDICARE, SELFPAY | PROVIDERS: PCP Internal Medicine; Visit Provider Nurse Practitioner Family | DX: R33.9 Retention of urine, unspecified (principal) | CPT/HCPCS: 51700 ==

== ENCOUNTER 2023-06-22 14:57 | Outpatient (AMB) | payer MEDICARE, SELFPAY ==
--- NOTE | 2023-06-22 14:59 | A.OFFVIS_ITS ---
Intake Vital Signs 06/22/23 15:00 Height 5 ft 10 in BP 108/62 Blood Pressure Location Lt brachial Position Sitting Pulse 50 Intake Visit Reasons: [facility] rehab/stroke/ wants only Intake Note: Follow-up after stroke and Rehab doing ok Instructional Material Director Required: No Allergies No Known Allergies Allergy (Verified 06/15/23 21:59) Medication List - Last Reconciled 06/22/23 by Alfredo Mccain MD apixaban 5 mg PO BID atorvastatin 80 mg PO BEDTIME baclofen 5 mg PO BID citalopram 10 mg PO DAILY [Depends (adult medium) 4 times per day As directed] docusate sodium 100 mg PO BID PRN finasteride 5 mg PO DAILY metoprolol tartrate 12.5 mg PO BID polyethylene glycol 3350 17 grams PO DAILY PRN tamsulosin 0.4 mg PO DAILY HPI HPI Comments History of Present Illness Details Pleasant 73 year gentleman who is here for follow-up. He was seen in the hospital in April 2023 when presented with new onset congestive heart failure and AFib with RVR. Our plan was to do HARJINDER cardioversion. He was started on apixaban and was taken for HARJINDER. Harjinder revealed a large thrombus in the left atrial appendage and we decided not to cardiovert him and potentially do this down the line. Unfortunately that night he developed intense MCA stroke involving right side of his body. 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 He also has significant peripheral edema at this point. He has been on baclofen 5 mg twice a day. He was previously on Lasix but this has been discontinued. He has back pains which affect his ability to lay down and he has been sleeping in a recliner. He is depressed. He has been taking medications including apixaban and metoprolol 12.5 mg twice a day. He has co-pay for apixaban is significantly high and the is quite concerned about that too. [facility] Medical History Vitamin B12 deficiency Vitamin D deficiency Mild anemia Overweight (BMI 25.0-29.9) Pure hypercholesterolemia Benign essential hypertension Surgical History No significant past surgical history Family History Other Family history non-contributory Social History Household Members: Spouse Housing: House Do you presently have visiting nurse or other home services: No Alcohol intake: former Patient Tobacco Use Status: Former Tobacco user e-Cigarette/Vaping Use: Never Used Second Hand Smoke Exposure: No service: No Current occupational status: retired Cognitive needs: No Hearing needs: No Vision needs: Yes (glasses) Review of Systems Const Denies chills, Denies fatigue, Denies fever(s), Denies frequent falls, Denies weakness, Denies weight gain and Denies weight loss ENT Denies dizziness Card Denies chest pain, Denies leg edema, Denies lightheadedness, Denies palpitations, Denies dyspnea, Denies dyspnea on exertion, Denies orthopnea and Denies other (loss of consciousness) Resp Denies cough, Denies dyspnea and Denies dyspnea on exertion GI Denies hematochezia and Denies change in stool character Musc Denies abnormal gait, Denies muscle weakness, Denies numbness, Denies radiating pain into limb and Denies tingling Neuro Denies abnormal gait, Denies dizziness, Denies frequent falls, Denies numbness, Denies tingling and Denies weakness Endo Denies fatigue and Denies palpitations Physical Exam Vital Signs: Last Vital Signs Pulse 50 06/22/23 15:00 BP 108/62 06/22/23 15:00 GENERAL APPEARANCE: in no acute distress. NECK: no carotid bruit, no significant jugular venous distention. SKIN: no suspicious lesions, warm and dry. HEART: no murmurs, irregular rate and rhythm. Bradycardic. LUNGS: clear to auscultation bilaterally. ABDOMEN: soft, nontender. EXTREMITIES: 2+ edema to knees. PERIPHERAL PULSES: equal. NEUROLOGIC: Spastic paralysis right side of the body. Word-finding difficulty. Assessment & Plan Assessment & Plan (1) Cardiomyopathy: Code(s): I42.9 - Cardiomyopathy, unspecified (2) Persistent atrial fibrillation: Code(s): I48.19 - Other persistent atrial fibrillation Plan 73 year gentleman is here for follow-up. He unfortunately had MCA stroke in the hospital after being diagnosed with atrial fibrillation and left atrial appendage thrombus. He is currently taking apixaban 5 mg twice a day. Blood pressure is somewhat low. My plan was to add Jardiance but he had UTI recently and currently has a Marks catheter because of bladder issues which started after the stroke unfortunately. Adding Entresto. I have also to check the cost and call us. If it is too expensive then will look at prior authorization if that can help otherwise will switch him to MARLEY-inhibitor or ARB. I am putting him back on 20 mg of Lasix daily. I think some of his edema is related to baclofen also. He lost 15 lb while he was in the hospital but has been stable while he is at [facility] and apparently has been eating and drinking okay. I do not think that edema is purely from decompensated congestive heart failure though. I sending script for compression stockings. Thank you for allowing me to participate in the care of your patient. Please feel free to contact me if you have any questions. Medications: New sacubitril-valsartan 24-26 mg (Entresto) 1 tab PO BID 60 tabs 3RF I42.9 - Cardiomyopathy, unspecified comp.stocking,knee,long,medium As directed 4 ea 0RF furosemide 20 mg PO DAILY 60 tabs 3RF I42.9 - Cardiomyopathy, unspecified Changed From baclofen 10 mg PO BID 30 tabs 0RF To baclofen 5 mg PO BID Coding Level of Care Code Est Pt Level 2 (70452) Diagnoses Cardiomyopathy I42.9 Persistent atrial fibrillation I48.19
[2023-06-22 15:00] VITALS: BP 108/62; PULSE 50
== END 2023-06-22 16:04 | disposition home or self-care (01) ==
PROVIDERS: PCP Internal Medicine; Visit Provider Internal Medicine Cardiovascular Disease
DX: I42.9 Cardiomyopathy, unspecified (principal); I48.19 Other persistent atrial fibrillation
CPT/HCPCS: 99212

== ENCOUNTER → 2023-06-22 14:57 | Outpatient (BNVA) | payer MEDICARE, SELFPAY | PROVIDERS: PCP Internal Medicine; Visit Provider Internal Medicine Cardiovascular Disease | DX: I42.9 Cardiomyopathy, unspecified (principal); I48.19 Other persistent atrial fibrillation | CPT/HCPCS: 99212 ==

== ENCOUNTER 2023-07-13 12:28 | Outpatient (AMB) | payer MEDICARE, SELFPAY ==
--- NOTE | 2023-07-13 13:02 | A.OFFVIS_ITS ---
Intake Intake Visit Reasons: Voiding trial/Cysto Intake Note: Patient is Present for Cystoscopy/Voiding Trial Urology Med: Finasteride, Myrbetriq, Tamsulosin Antibiotic Allergy:None Blood Thinner: Apixaban Pharmacy: [facility] Cystoscope lot:[id number] exp:02/13/2025 PVR: 405ml Allergies No Known Allergies Allergy (Verified 07/13/23 13:05) HPI HPI Comments History of Present Illness Details Steve is a pleasant male. He is a patient of Dr. Duque. He is seen for the following urologic conditions - neurogenic bladder secondary stroke Accompanied by Sara Cystoscopy today open bladder neck with moderately enlarged prostate Discussion regarding suprapubic tube placement Is 3 months from stroke and has slow recovery of right-sided functions Does have sensation with a full bladder however unable to void Has been using indwelling Marks catheter with catheter cap Discussion with caregiver regarding use of CIC versus suprapubic tube That would like to proceed with suprapubic tube placement Continue finasteride and tamsulosin Neurogenic bladder Secondary to stroke 03/25 Anterior occlusion of left MCA segment associated with all knott me are of left MCA territory acute infarct in basal ganglia PFSH Medical History Vitamin B12 deficiency Vitamin D deficiency Mild anemia Overweight (BMI 25.0-29.9) Pure hypercholesterolemia Benign essential hypertension Surgical History No significant past surgical history Family History Other Family history non-contributory Social History Household Members: Spouse Housing: House Do you presently have visiting nurse or other home services: No Alcohol intake: former Patient Tobacco Use Status: Former Tobacco user e-Cigarette/Vaping Use: Never Used Second Hand Smoke Exposure: No service: No Current occupational status: retired Cognitive needs: No Hearing needs: No Vision needs: Yes (glasses) Review of Systems Const Denies chills and Denies fever(s) Card Reports no additional complaints and Denies syncope Resp Denies cough GI Denies abdominal pain and Denies heartburn Reports as per HPI and Denies change in libido Neuro Denies syncope Psych Denies change in libido Endo Denies change in libido Physical Exam Const General: cooperative, healthy appearing, comfortable and no acute distress Orientation/consciousness: patient oriented x3 HEENT Face and sinus: Yes normal facial exam Mouth: moist mucous membranes Neck Neck: Yes normal visual inspection, Yes full ROM and Yes trachea midline Chest Chest palpation & inspection: normal inspection of the chest Resp Effort & Inspection: normal respiratory effort, able to speak in complete sentences and no respiratory distress GI Inspection: Yes normal to inspection Back/Spine/Pelvis Cervical Spine: normal cervical lordosis Thoracic/Lumbar Spine: thoracic and lumbar spine normal to inspection Skin General skin exam: no rashes or lesions noted Neuro General: patient oriented x3, gait normal, tone normal and moves all extremities Extrem General: Yes normal to inspection and Yes capillary refill normal Office Procedures Bladder/Catheter Procedure Details: pt presents to office for PVR 120 mls of sterile water instilled in the bladder 16 fr coude cath removed MA to bladder scan per Dr. Yarbrough 16 fr mora cath placed with blue plug and clip low dose abx macrobid 50 mg at bedtime also sent for suppression 58891-Kyedfkulhk of Bladder 72425-Lijzoc Temporary Bladder Catheter Procedure code (CPT) selection complete Cystoscopy Consent Discussed risk and benefit or proposed procedure with the patient. Information consent for procedure given to the patient. Discussed technical aspects, risks, benefits and alternatives in full. Addressed all of the patient's questions and concerns regarding the procedure. The patient demonstrated knowledge and understanding. They wish to proceed with this procedure. Preparation The patient was prepped in the usual manner. A configuration management analyst was present and in the room. Genitalia was prepped with betadine solution in a sterile manner. Lidocaine Jelly 2% was placed into the urethra and 16Fr flexible Olympus cystoscope was inserted into the meatus after adequate lubrication. Procedure Meatus circumcised Urethra anterior posterior urethra normal Prostatic Urethra mild trilobar hyperplasia Bladder examination with retroflexion of cystoscope Bladder Orifices normal shape and position Bladder Capacity medium Trabeculations grade 2 Cellule Formation - Diverticulum Formation - Mucosal Erythema - Bladder Tumor - 92438-Psbphgbdvq DISPOSABLE SCOPE URO-G FLEXIBLE SCOPE Procedure code (CPT) selection complete Post Void Residual Post Residual Void Post Void Residual (PVR): 405 56779-Qjrw Void Residual by ultrasound Office Meds lidocaine HCl 2 % mucosal jelly in applicator Performing Provider: Ozzy Santiago MD Performing Location: [facility] Administered by: Pio Baltazar LPN on 07/13/23 13:53 Dose Route Admin Location Dispensed Lot Number Expiration Date NDC Nba Player 10 mL intra-urethral 10 mL nitrofurantoin monohydrate/macrocrystals 100 mg capsule Performing Provider: Ozzy Santiago MD Performing Location: [facility] Administered by: Pio Baltazar LPN on 07/13/23 13:53 Dose Route Admin Location Dispensed Lot Number Expiration Date NDC Nba Player 100 mg PO 1 cap naproxen 500 mg tablet Performing Provider: Ozzy Santiago MD Performing Location: [facility] Administered by: Pio Baltazar LPN on 07/13/23 13:53 Dose Route Admin Location Dispensed Lot Number Expiration Date NDC Nba Player 500 mg PO 1 tab Assessment & Plan Assessment & Plan (1) Urinary retention: Code(s): R33.9 - Retention of urine, unspecified (2) Erectile dysfunction: Code(s): N52.9 - Male erectile dysfunction, unspecified Qualifiers: Erectile dysfunction type: unspecified Qualified Code(s): N52.9 - Male erectile dysfunction, unspecified Plan Risks, benefits and alternatives to therapy were discussed. These include but are not limited to infection, bleeding, damage to local organs and tissues, need for further interventions. Anesthetic risks regarding cardiac arrhythmia, blood clots, and potential mortality were discussed. The patient understands the typical recovery time and the outpatient nature of the procedure. After consideration of these risks the patient gives full informed consent and they wish to move ahead with the procedure. Cystoscopy with Suprapubic Tube Change Orders: Orders AMB Cystoscopy Today R33.9 - Retention of urine, unspecified AMB Post Void Residual by ultrasound Today R33.9 - Retention of urine, unspecified AMB Bladder/Catheter Procedure Today R33.9 - Retention of urine, unspecified Medications: New nitrofurantoin macrocrystal must administer with a meal/food 50 mg PO BEDTIME 90 days 90 caps 1RF Patient Instructions: Imaging studies, laboratory and physical exam results were discussed and reviewed in detail. No major barriers to patient understanding were identified. An opportunity to ask questions regarding the treatment plan was provided. All questions were answered. The patient expressed understanding and agreement with the above treatment plan. The patient is aware they should contact our office by phone for worsening of their current condition or the appearance of new urologic symptoms. Compliance is encouraged with any medications and followup testing that is ordered. It is a privilege to participate in the urologic care of your patient. If you have any questions or concerns regarding treatment for the above conditions, or other urologic issues, please do not hesitate to contact me. The office telephone contact is [phone]. This note is constructed using voice recognition software. While every effort has been made to ensure accuracy mechanical inspector errors may have been included. Yours sincerely, Dr Ozzy Santiago MD, [facility] - Urology Providers of Expert, Compassionate Care for the Genitourinary System Coding Level of Care Code Est Pt Level 4 (78916) Diagnoses Urinary retention R33.9 Erectile dysfunction, unspecified erectile dysfunction type N52.9 Erectile dysfunction type: unspecified CPT Codes Bladder/Catheter Procedure - CPT: 79370-Ttmfyqtzfm of Bladder ([id number]) Bladder/Catheter Procedure - CPT: 16670-Nglbpd Temporary Bladder Catheter ([id number]) Cystoscopy - CPT: 51604-Aqdbszxrqf ([id number]) Post Residual Void - PVR CPT Code: 70969-Qnhq Void Residual by ultrasound ([id number])
== END 2023-07-13 14:43 | disposition home or self-care (01) ==
PROVIDERS: PCP Internal Medicine; Visit Provider Urology
DX: R33.9 Retention of urine, unspecified (principal); N52.9 Male erectile dysfunction, unspecified
CPT/HCPCS: 52000; 99214

== ENCOUNTER → 2023-07-13 12:28 | Outpatient (BNVA) | payer MEDICARE, SELFPAY | PROVIDERS: PCP Internal Medicine; Visit Provider Urology | DX: R33.9 Retention of urine, unspecified (principal); N31.8 Other neuromuscular dysfunction of bladder; N52.9 Male erectile dysfunction, unspecified; Z86.73 Personal history of transient ischemic attack (TIA), and cerebral infarction without residual deficits; Z96.0 Presence of urogenital implants | CPT/HCPCS: 51798; 52000; 99212 ==

== ENCOUNTER 2023-08-22 09:36 | Outpatient (AMB) | payer MEDICARE, SELFPAY ==
--- NOTE | 2023-08-22 09:40 | A.OFFPC_ITS ---
Vital Signs 08/22/23 09:41 Height 5 ft 10 in BMI Reason not done Patient refused/unable BP 118/78 Blood Pressure Location Lt brachial Position Sitting Pulse 47 L Pulse Source Pulse Oximeter Pulse Oximetry (%) 98 Oxygen Delivery Method Room Air Intake Visit Reasons: 2 month f/u Motor Vehicle Compliance Analyst Required: No Accompanied by: Self / Same As Patient Allergies No Known Allergies Allergy (Verified 12/15/23 22:10) Medication List - Last Reconciled 08/22/23 by Jean-Pierre Duque MD apixaban 5 mg PO BID atorvastatin 80 mg PO BEDTIME baclofen 10 mg PO BID citalopram 10 mg PO DAILY comp.stocking,knee,long,medium apply in am and take off in pm [Depends (adult medium) 4 times per day As directed] docusate sodium 100 mg PO BID PRN finasteride 5 mg PO DAILY furosemide 20 mg PO DAILY metoprolol tartrate 12.5 mg (1/2 x 25 mg) PO BID mirabegron ER (Myrbetriq) 25 mg PO DAILY nitrofurantoin macrocrystal 50 mg PO BEDTIME 90 days polyethylene glycol 3350 17 grams PO DAILY PRN [RIGHT AFO BRACE As directed] sacubitril-valsartan 24-26 mg (Entresto) 1 tab PO BID [STANDARD WHEELCHAIR - XL As directed] tamsulosin 0.4 mg PO DAILY Tobacco use date assessed: 08/22/23 Fall risk assessment: 1 Fall in past year Last assessed Fall Risk: 08/22/23 Dental Screening Dental Screen Date: 08/22/23 Did you have a dental visit in the last 12 months?: Yes Did you have a dental problem in the last 6 months where you did not have access to dental care?: No Was dental information given to patient?: Patient has dentist HPI 2 month f/u HPI Details Patient comes in today for his follow up visit He developed a left MCA stroke back in April 2023, after initially presenting to the ER with new-onset congestive heart failure and AFib with RVR He was started on Apixaban and set up for MARY ANN cardioversion but MARY ANN revealed a large thrombus in the left atrial appendage and cardioversion was suspended and the plan was to pursue MARY ANN and cardioversion again later on once the thrombus has been addressed but patient developed a left MCA CVA later that day with right-sided paresis and he was subsequently transferred to [facility] for neuro endovacular intervention Patient underwent thrombectomy with TICI (Thrombolysis in Cerebral Infarction) 2C achieved after 2 passes of thrombectomy but his right-sided hemiparesis persisted Repeat imaging studies revealed hemorrhagic conversion of his subacute left MCA infarct He was started back on Eliquis 28 days after his CVA and repeat head CT ruled out further hemorrhagic conversion He started outpatient physical therapy last month and is continuing with PT at present He denies any headaches or dizziness Denies any chest pains, no SOB No nausea/vomiting, no abdominal pain No change in bowel habits noted He will need a few of his Rx refilled today He has had no follow up labs done recently [facility] Medical History Neurogenic bladder Persistent atrial fibrillation Depression CVA (cerebral vascular accident) History of CVA with residual deficit Vitamin B12 deficiency Vitamin D deficiency Mild anemia Overweight (BMI 25.0-29.9) Pure hypercholesterolemia Benign essential hypertension Surgical History Hx of colonoscopy Hx of appendectomy Family History Other Family history non-contributory Social History Household Members: Spouse Housing: House Are you a primary progressive care manager to a significant other at home: No Do you presently have visiting nurse or other home services: No Alcohol intake: former Patient Tobacco Use Status: Former Tobacco user Quit Date: 1982 Tobacco use type: Cigarette e-Cigarette/Vaping Use: Never Used Second Hand Smoke Exposure: No service: No Current occupational status: retired Cognitive needs: No Hearing needs: No Vision needs: Yes (glasses) Questionnaire PHQ-9 Over the last 2 weeks, how often have you been bothered by any of the following problems? 1. Little interest or pleasure in doing things: not at all 2. Feeling down, depressed, or hopeless: not at all 3. Trouble falling or staying asleep, or sleeping too much: not at all 4. Feeling tired or having little energy: not at all 5. Poor appetite or overeating: not at all 6. Feeling bad about yourself - or that you are a failure or have let yourself or your family down: not at all 7. Trouble concentrating on things, such as reading the newspaper or watching television: not at all 8. Moving or speaking so slowly that other people could have noticed. Or the opposite - being so fidgety or restless that you have been moving around a lot more than usual: not at all 9. Thoughts that you would be better off or of hurting yourself in some way: not at all Total score: 0 Depression Screening Interpretation: Negative Depression Screening Done: Yes 66865 - PHQ-9 Billing: Yes Source: Developed by Drs. Stephan Raines, Dominique Roberson, Oh Alvarado and colleagues, with an educational alicja from [employer]. Thrive Questionnaire Date Thrive assessed: 08/22/23 I am a: Patient What is your living situation today?: I have a steady place to live Within the past 12 months, did the food you bought not last and you didn't have the money to get more?: Never true Within the past 12 months, did you worry whether your food would run out before you got money to buy more?: Never true Do you have trouble paying for medicines?: No Do you have trouble getting transportation to medical appointments?: No Do you have trouble paying your heating and electricity bill?: No Do you have trouble taking care of your child, family member or friend?: No Do you have trouble with day-to-day activities such as bathing, preparing meals, shopping, managing finances, etc.?: No Are you currently unemployed and looking for a job?: No Are you interested in more education?: No Please select the resources that you would like help with: None Currently or been in a relationship where the following occur: no concerns reported AUDIT C Alcohol Use Questionnaire (AUDIT-C) 1. How often do you have a drink containing alcohol?: Never Total Score: 0 Score Reviewed/Action Taken: Yes SAMI-7 AMB Questionnaire SAMI-7 Date SAMI - 7 assessed: 08/22/23 Feeling nervous, anxious, or on edge: 0 = Not at all Not being able to stop or control worryin = Not at all Worrying too much about different things: 0 = Not at all Trouble relaxin = Not at all Being so restless that it is hard to sit still: 0 = Not at all Becoming easily annoyed or irritable: 0 = Not at all Feeling afraid as if something awful might happen: 0 = Not at all Total SAMI-7 score (0-4 normal; 5-9 mild; 10-14 moderate; 15-21 severe): 0 Source: Developed by Drs. Stephan Raines, Dominique Roberson, Oh Alvarado and colleagues, with an educational alicja from [employer]. Review of Systems Const Reports fatigue, Denies fever(s) and Denies headache(s) ENT Denies dysphagia, Denies dizziness, Denies headache(s), Denies neck pain, Denies odynophagia and Denies sore throat Card Denies chest pain, Denies palpitations and Denies dyspnea Resp Denies cough, Denies dyspnea and Denies wheezing GI Denies abdominal pain, Denies constipation, Denies dysphagia, Denies heartburn, Denies diarrhea, Denies nausea, Denies odynophagia and Denies vomiting Details: currently has an indwelling (Marks) catheter in place Reports difficulty urinating Musc Denies neck pain Skin/Breast Denies rash Neuro Details: (+) persistent right hemiparesis, with some residual expressive aphasia Denies dizziness and Denies headache(s) Psych Reports depression Endo Reports fatigue and Denies palpitations Aller/Immun Denies wheezing Physical exam (Primary Care) Vital Signs: Last Vital Signs Pulse 47 L 08/22/23 09:41 BP 118/78 08/22/23 09:41 Pulse Ox 98 08/22/23 09:41 Oxygen Delivery Method Room Air 08/22/23 09:41 Tobacco/Smoking Status: Tobacco use Status Tobacco use date assessed 08/22/23 08/22/23 09:43 Patient Tobacco Use Status Former Tobacco user 08/22/23 09:43 e-Cigarette/Vaping Use Never Used 08/22/23 09:43 PHQ-9: PHQ-9 Score PHQ-9: Total score 0 12/16/23 01:10 Depression Screening Interpretation: Negative Thrive Assessment: Date of Thrive Assessment Date Thrive assessed 08/22/23 08/22/23 09:43 Currently or been in a relationship where the following occur: no concerns reported Const General: no acute distress and alert Orientation/consciousness: patient oriented x3 Limitations: physical limitations (right hemiparesis) and wheelchair HENMT Throat: Yes posterior oropharynx normal and Yes tonsils normal (no TP congestion noted) Neck Neck: Yes no lymphadenopathy and Yes supple Thyroid: Thyroid normal Resp Auscultation: clear to auscultation bilaterally, no rales and no wheezes Cardio Rate: regular rate Rhythm: abnormal rhythm irregularly irregular Heart sounds: no murmurs GI Palpation (GI): Soft to palpation and nontender Auscultation: normal bowel sounds Other: (+) indwelling catheter in place General: Yes no CVA tenderness Back/Spine/Pelvis Back: no CVA tenderness Cervical Spine: No Cervical spine tenderness Thoracic/Lumbar Spine: No lumbar spinal tenderness Skin Rashes: no rashes Neuro Other: (+) right hemiparesis General: patient oriented x3 Speech: Expressive aphasia present (residual mild) Extrem General: Yes no clubbing, cyanosis or edema Assessment and Plan Assessment & Plan (1) CVA (cerebral vascular accident): Comment: April 2023 - involving left MCA, resulting in right hemiparesis Code(s): I63.9 - Cerebral infarction, unspecified Qualifiers: CVA mechanism: embolism Precerebral and cerebral artery: middle ce rebral artery Laterality of affected vessel: left Qualified Code(s): I63.412 - Cerebral infarction due to embolism of left middle cerebral artery Plan: (+) left MCA embolic stroke secondary to atrial fibrillation and severe cardiomyopathy in April 2023 Patient underwent thrombectomy with TICI (Thrombolysis in Cerebral Infarction) 2C achieved after 2 passes of thrombectomy but patient's right-sided hemiparesis persisted Repeat imaging studies revealed hemorrhagic conversion of his subacute left MCA infarct He was started on Eliquis 28 days after his CVA and repeat head CT ruled out fu rther hemorrhagic conversion - continue Eliquis 5 mg BID Patient continues to present currently with right hemiparesis and he has been going to physical therapy for about a month now He also had expressive aphasia following his CVA and this is also still present to some degree (2) Persistent atrial fibrillation: Code(s): I48.19 - Other persistent atrial fibrillation Plan: Patient is currently still in atrial fibrillation but is rate-controlled Continue Metoprolol 25 mg 1/2 tablet BID and Eliquis 5 mg BID Follow up with cardiology as scheduled (3) Congestive heart failure (CHF): Code(s): I50.9 - Heart failure, unspecified Qualifiers: Heart failure chronicity: acute Heart failure type: combined systolic and diastolic Qualified Code(s): I50.41 - Acute combined systolic (congestive) and diastolic (congestive) heart failure Plan: Patient initially presented to the ER in April 2023 with new onset congestive heart failure and AFib with RVR He unfortunately developed a CVA later that evening when his MARY ANN with cardioversion was suspended after MARY ANN revealed a large thrombus in the left atrial appendage His echocardiogram done at the time revealed a severely decreased LV systolic function with EF of only 10 to 15% Continue Entresto 24-26 mg BID and Furosemide 20 mg QD Reinforced fluid restriction Follow up with cardiology as scheduled (4) Pure hypercholesterolemia: Code(s): E78.00 - Pure hypercholesterolemia, unspecified Plan: Reinforced low cholesterol diet - goal is LDL cholesterol of < 70 mg/dl Continue Atorvastatin 80 mg QD Will recheck his fasting lipids and labs in 4 months for follow up (5) Mild anemia: Code(s): D64.9 - Anemia, unspecified Plan: Stable; mild Colonoscopy done in 11/2019 revealed (+) mild sigmoid diverticulosis with a couple of polyps that were removed Will continue to monitor his CBC regularly (6) Vitamin D deficiency: Code(s): E55.9 - Vitamin D deficiency, unspecified Plan: Continue Vitamin D3 1000 units QD (7) Neurogenic bladder: Code(s): N31.9 - Neuromuscular dysfunction of bladder, unspecified Plan: S/P left MCA CVA in April 2023 He currently has an indwelling Marks catheter Continue Finasteride 5 mg QD, Myrbetriq ER 25 mg QD and Tamsulosin 0.4 mg QD Follow up with urology as scheduled (8) Depression: Code(s): F32.A - Depression, unspecified Qualifiers: Depression Type: major depressive disorder Major depression recurrence: recurrent Active/Remission status: currently active Major depression episode severity: unspecified Qualified Code(s): F33.9 - Major depressive disorder, recurrent, unspecified Plan: Continue Citalopram 10 mg QD Plan Follow up in 4 months Orders: Orders UA CC w/rflx Micro + Cult 4 Months R30.0 - Dysuria TSH reflex Free T4 4 Months E78.00 - Pure hypercholesterolemia, unspecified Vitamin D 25-OH Total 4 Months E55.9 - Vitamin D deficiency, unspecified Complete Blood Count Auto Diff 4 Months I10 - Essential (primary) hypertension Comprehensive [place]. Panel Fast 4 Months E78.00 - Pure hypercholesterolemia, unspecified Lipid Panel 4 Months E78.00 - Pure hypercholesterolemia, unspecified Medications: Changed From mirabegron ER 25 mg PO DAILY To mirabegron ER (Myrbetriq) 25 mg PO DAILY 90 tabs 1RF 90 days From citalopram 10 mg PO DAILY 30 tabs 3RF To citalopram 10 mg PO DAILY 90 tabs 1RF 90 days From furosemide 20 mg PO DAILY 60 tabs 3RF I42.9 - Cardiomyopathy, unspecified To furosemide 20 mg PO DAILY 90 tabs 1RF 90 days I42.9 - Cardiomyopathy, unspecified Coding Level of Care Code Est Pt Level 4 (50101) Diagnoses Cerebrovascular accident (CVA) due to embolism of left middle cerebral artery I63.412 CVA mechanism: embolism Precerebral and cerebral artery: middle cerebral artery Laterality of affected vessel: left Persistent atrial fibrillation I48.19 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 Heart failure chronicity: acute Heart failure type: combined systolic and diastolic Pure hypercholesterolemia E78.00 Mild anemia D64.9 Vitamin D deficiency E55.9 Neurogenic bladder N31.9 Episode of recurrent major depressive disorder, unspecified depression episode severity F33.9 Depression Type: major depressive disorder Major depression recurrence: recurrent Active/Remission status: currently active Major depression episode severity: unspecified
[2023-08-22 09:41] VITALS: BP 118/78; PULSE 47; O2SAT 98
== END 2023-08-22 10:26 | disposition home or self-care (01) ==
PROVIDERS: PCP Internal Medicine; Visit Provider Internal Medicine
DX: I63.412 Cerebral infarction due to embolism of left middle cerebral artery (principal); I48.19 Other persistent atrial fibrillation; I50.41 Acute combined systolic (congestive) and diastolic (congestive) heart failure; E78.00 Pure hypercholesterolemia, unspecified; D64.9 Anemia, unspecified; E55.9 Vitamin D deficiency, unspecified; N31.9 Neuromuscular dysfunction of bladder, unspecified; F33.9 Major depressive disorder, recurrent, unspecified
CPT/HCPCS: 99499

== ENCOUNTER 2023-08-29 11:36 | Day surgery (SDC) | payer MEDICARE, SELFPAY ==
--- NOTE | 2023-08-23 14:34 | P.CONAN_ITS ---
Documented by User: Gabbi Marinelli NP 08/23/23 14:37 HPI - Anesthesia Eval Consult details Narrative: 73yo M for Insertion Suprapubic Tube [place] [facility] [place] [facility] [place]ib[place]. MARY ANN revealed large LA appendage thrombus. Subsequent stroke with transfer to [facility]. Right side spastic paralysis. ? Rehab Last cardiac offfice visit 06/2023. Added entresto and restarted lasix. Eliquis for afib PMFSH Active Problems Active Problems: All Active Problems (Updated 06/30/23 @ 09:17 by Barbie Smith NP-C) Edema (Acute) Persistent atrial fibrillation (Acute) Depression (Acute) Spastic hemiparesis of right dominant side (Acute) Diarrhea (Acute) Urinary retention (Acute) CVA (cerebral vascular accident) (Acute) Cardiomyopathy (Acute) Congestive heart failure (CHF) (Acute) Atrial fibrillation with rapid ventricular response (Acute) Shortness of breath (Acute) Cough (Acute) Erectile dysfunction (Acute) Annual physical exam (Acute) Mild anemia (Acute) Vitamin B12 deficiency (Acute) Vitamin D deficiency (Acute) Overweight (BMI 25.0-29.9) (Acute) Pure hypercholesterolemia (Acute) Benign essential hypertension (Acute) Past Medical History Medical History (Updated 08/29/23 @ 13:43 by Briana Bearden RN) Afib History of CVA with residual deficit Vitamin B12 deficiency Vitamin D deficiency Mild anemia Overweight (BMI 25.0-29.9) Pure hypercholesterolemia Benign essential hypertension Family History Family History Other Family history non-contributory Family history of problems with anesthesia: No Surgical History Surgical History Hx of colonoscopy Hx of appendectomy History of Problems with Anesthesia: No Social History (Updated 08/23/23 @ 16:46 by Margareth Garcia, [place]) Household Members: Spouse Housing: House Are you a primary care information associate to a significant other at home: No Do you presently have visiting nurse or other home services: No Alcohol intake: former Patient Tobacco Use Status: Former Tobacco user Quit Date: 1982 Tobacco use type: Cigarette e-Cigarette/Vaping Use: Never Used Second Hand Smoke Exposure: No Use of substances other than those prescribed or required for medical reasons: No Are you DNR?: No Advance Directives: No Advance Directives Information Provided: Yes Advance Directives on File: No Recently lost weight without trying: Yes How much weight loss: 2-13 pounds Eating poorly because of decreased appetite: No Nutrition screen score: 3 Poor oral hygiene: No service: No Current occupational status: retired Cognitive needs: No Hearing needs: No Vision needs: Yes (glasses) Meds Allergies Allergy/AdvReac Type Severity Reaction Status Date / Time No Known Allergies Allergy Verified 08/29/23 12:35 Home Medications Medication Instructions Recorded Confirmed Last Taken Type docusate sodium 100 mg capsule 100 mg PO BID PRN Constipation 06/22/23 08/23/23 Unknown History baclofen 10 mg tablet 5 mg PO BID 08/23/23 08/29/23 08/29/23 07:30 History Assessment and Plan Final Anesthetic Review Family History of Problems with Anesthesia: No History of Problems with Anesthesia: No Documented by User: Pepito Valdez MD 08/29/23 13:51 [facility] Past Medical History Medical History (Updated 08/29/23 @ 13:43 by Briana Bearden RN) Afib History of CVA with residual deficit Vitamin B12 deficiency Vitamin D deficiency Mild anemia Overweight (BMI 25.0-29.9) Pure hypercholesterolemia Benign essential hypertension Family History Family History Other Family history non-contributory Surgical History Surgical History Hx of colonoscopy Hx of appendectomy Social History (Updated 08/23/23 @ 16:46 by Margareth Garcia RN) Household Members: Spouse Housing: House Are you a primary care information associate to a significant other at home: No Do you presently have visiting nurse or other home services: No Alcohol intake: former Patient Tobacco Use Status: Former Tobacco user Quit Date: 1982 Tobacco use type: Cigarette e-Cigarette/Vaping Use: Never Used Second Hand Smoke Exposure: No Use of substances other than those prescribed or required for medical reasons: No Are you DNR?: No Advance Directives: No Advance Directives Information Provided: Yes Advance Directives on File: No Recently lost weight without trying: Yes How much weight loss: 2-13 pounds Eating poorly because of decreased appetite: No Nutrition screen score: 3 Poor oral hygiene: No service: No Current occupational status: retired Cognitive needs: No Hearing needs: No Vision needs: Yes (glasses) Meds Allergies Allergy/AdvReac Type Severity Reaction Status Date / Time No Known Allergies Allergy Verified 08/29/23 12:35 Active Medications: Still taking Eliquis Home Medications Medication Instructions Recorded Confirmed Last Taken Type docusate sodium 100 mg capsule 100 mg PO BID PRN Constipation 06/22/23 08/23/23 Unknown History baclofen 10 mg tablet 5 mg PO BID 08/23/23 08/29/23 08/29/23 07:30 History Exam Airway Mallampati Class: II TM Dist: >3cm Neck ROM: Full Heart: CMOP, afib. See above. Lungs: OK Assessment and Plan Assessment Anesthesia Assessment: Anesthesia Plan Discussed and Chart Reviewed Final Anesthetic Review NPO: Yes ASA Class: IV Final Preanesthetic Review: No Changes in Pt Med Stat, Meds/Allgs Chart Reviewed, Consent Obtained/Reviewed and Anes Risks/Benef Reviewed Patient Risk: High Procedure Risk: Low Anesthetic Plan Anesthetic Plan: MAC: and Agree w/ Assess. and Plan Disposition: Standard PACU
[2023-08-23 16:46] VITALS: BMI 24.4
[2023-08-29] VITALS (8 sets, daily range): BP systolic 108–164; BP diastolic 73–97; PULSE 74–95; RESP 16–18; TEMP 36.5–36.6; O2SAT 95–100; BMI 24.7
--- NOTE | 2023-08-29 13:45 | P.HPSUR_ITS ---
Pre-Procedural Eval Section A Date of Service: 08/29/23 The patient is an INPATIENT: No Changes since office visit: No Cold of Flu in the past 2 weeks, No New Medical Problems, No Changes in Medication and No Patient answered all questions The History & Physical has been completed within 30 days and I have reviewed it.: Yes Section B Chief Complaint: Retention of urine, unspecified Details of Present Illness: prior stroke Relevant Social History: None Present Medications: see Short Stay Collaborative assessment Medical History: Significant History History of Previous Operations: No relevant previous surgery Allergies: Allergies Allergy/AdvReac Type Severity Reaction Status Date / Time No Known Allergies Allergy Verified 08/29/23 12:35 Review of Systems Sugical H&P ROS: Negative: Constitution, Cardiovascular, Respiratory, Neurological, Psychiatric, Hem-Onc, Allergic/Immunologic, Gastrointestinal, Genitourinary, Musculoskeletal, Integumentary, Endocrine and Eyes/Ears/Nose/Th roat Exam Surgical H&P Exam: Normal: HEENT, Normal: Heart, Normal: Lungs, Normal: Extremities, Normal: Abdomen, Normal: Skin and Normal: Neurological Plan Diagnosis/Plan: Unchanged (SPT in setting of stroke) I have reviewed the history and physical and performed a pertinent physical examination on my patient. No changes have occurred unless specified. Time Spent With Patient Time: Total time managing care of this patient today ____ minutes.
--- NOTE | 2023-08-29 14:30 | W.PM.OPN ---
Operative Note Operative Note Date of Service: 08/29/23 Narrative: PreOperative Diagnosis:?neurogenic bladder Post Operative Diagnosis:?neurogenic bladder Procedure:? 1. Cystoscopy 2. Suprapubic tube placement Surgeon: Dr Ozzy Santiago Anesthesia:?Sedation plus local Indications for procedure: Stroke 5 month ago with failure to recover bladder function Procedure: After informed consent was verified the patient was brought to the operating room and placed in a supine position.? Anesthesia was administered per protocol. The patient was placed in a modified dorsal lithotomy position and prepped and draped in a sterile fashion. A safety pause was performed confirming patient identity, procedure and antibiotics. A 22 Somali cystoscope was inserted per urethra. Bladder was examined in its entirety. No abnormalities seen. Air bubble was located at the dome of the bladder. A finder needle was inserted 2 fingerbreaths above the symphysis pubis on the abdomen into the bladder.? The needle was visualized in the bladder via cystoscopy. Local anesthetic was infiltrated subcutaneously around the needle introduction site. A small, 1cm horizontal incision was made.? A trocar introducer was advanced through the abdominal wall into the bladder under visualization. The obturator was removed and a 16 Fr roe catheter placed. 7cc was used to inflate the balloon. The external portion of the trocar was removed. Dressing was placed, the bladder was emptied, and a drainage bag was attached. The patient tolerated the procedure and was transferred in stable condition to the recovery area. Suprapubic tube will be changed in 1 month with a follow-up office visit.
[2023-08-29] MEDS: fentaNYL citrate/PF 100 MCG/2 ML VIAL 50 MCG IVPUSH ×2 (14:40→14:45)
== END 2023-08-29 16:08 | disposition home or self-care (01) ==
PROVIDERS: PCP Internal Medicine; Visit Provider Urology
PROC: (CPT 51102; principal; 2023-08-29 13:50)
DX: I69.398 Other sequelae of cerebral infarction (principal); N31.9 Neuromuscular dysfunction of bladder, unspecified; R33.9 Retention of urine, unspecified; N52.9 Male erectile dysfunction, unspecified; G81.11 Spastic hemiplegia affecting right dominant side; I10 Essential (primary) hypertension; D64.9 Anemia, unspecified; E78.00 Pure hypercholesterolemia, unspecified; E55.9 Vitamin D deficiency, unspecified; E53.8 Deficiency of other specified B group vitamins; I48.19 Other persistent atrial fibrillation; Z79.01 Long term (current) use of anticoagulants; Z79.899 Other long term (current) drug therapy; Z87.891 Personal history of nicotine dependence
CPT/HCPCS: 51102; J1956; J2704; J2795; J3010

== ENCOUNTER → 2023-08-29 11:36 | Outpatient (BNV) | payer MEDICARE, SELFPAY | PROVIDERS: PCP Internal Medicine; Visit Provider Urology | DX: R33.9 Retention of urine, unspecified (principal) | CPT/HCPCS: 51102 ==

== ENCOUNTER 2023-08-31 10:54 | Outpatient (AMB) | payer MEDICARE, SELFPAY ==
[2023-08-31 11:08] VITALS: BP 130/60; PULSE 49; BMI 24.4
--- NOTE | 2023-08-31 11:08 | A.OFFVIS_ITS ---
Intake Vital Signs 08/31/23 11:08 Height 5 ft 10 in Weight 170 lb BMI 24.4 BP 130/60 Blood Pressure Location Lt brachial Position Sitting Pulse 49 L Pulse Source Pulse Oximeter Intake Visit Reasons: 2 mth f/up Intake Note: 2 month f/up patient feel good. Dog Warden Required: No Accompanied by: Spouse Allergies No Known Allergies Allergy (Verified 08/31/23 11:13) Medication List - Last Reconciled 08/31/23 by Alfredo Mccain MD apixaban 5 mg PO BID atorvastatin 80 mg PO BEDTIME baclofen 5 mg PO BID citalopram 10 mg PO DAILY 90 days comp.stocking,knee,long,medium apply in am and take off in pm [Depends (adult medium) 4 times per day As directed] finasteride 5 mg PO DAILY furosemide 20 mg PO DAILY 90 days metoprolol tartrate 12.5 mg (1/2 x 25 mg) PO BID mirabegron ER (Myrbetriq) 25 mg PO DAILY 90 days [RIGHT AFO BRACE As directed] sacubitril-valsartan 24-26 mg (Entresto) 1 tab PO BID [STANDARD WHEELCHAIR - XL As directed] tamsulosin 0.4 mg PO DAILY HPI HPI Comments History of Present Illness Details Pleasant 73 year gentleman who is here for follow-up. He was seen in the hospital in April 2023 when presented with new onset congestive heart failure and AFib with RVR. Our plan was to do HARJINDER cardioversion. He was started on apixaban and was taken for HARJINDER. Harjinder revealed a large thrombus in the left atrial appendage and we decided not to cardiovert him and potentially do this down the line. Unfortunately that night he developed intense MCA stroke involving right side of his body. 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 He also has significant peripheral edema at this point. He has been on baclofen 5 mg twice a day. He was previously on Lasix but this has been discontinued. He has back pains which affect his ability to lay down and he has been sleeping in a recliner. He is depressed. He has been taking medications including apixaban and metoprolol 12.5 mg twice a day. He has co-pay for apixaban is significantly high and the is quite concerned about that too. 08/31/2023: He returns for follow-up. Victor Manuel forde is doing better. He had a brace fitted on her right leg. Overall clinically getting better. Peripheral edema is improved with the diuretics as well as compression stockings. He is tolerating medications. Blood pressure is higher than before and is able to tolerate the Entresto. [facility] Medical History (Updated 08/29/23 @ 13:43 by Briana Bearden RN) Afib History of CVA with residual deficit Vitamin B12 deficiency Vitamin D deficiency Mild anemia Overweight (BMI 25.0-29.9) Pure hypercholesterolemia Benign essential hypertension Surgical History Hx of colonoscopy Hx of appendectomy Family History Other Family history non-contributory Social History Household Members: Spouse Housing: House Are you a primary neonatal intensive care nurse to a significant other at home: No Do you presently have visiting nurse or other home services: No Alcohol intake: former Patient Tobacco Use Status: Former Tobacco user Quit Date: 1982 Tobacco use type: Cigarette e-Cigarette/Vaping Use: Never Used Second Hand Smoke Exposure: No service: No Current occupational status: retired Cognitive needs: No Hearing needs: No Vision needs: Yes (glasses) Review of Systems Const Denies chills, Denies fatigue, Denies fever(s), Denies frequent falls, Denies weakness, Denies weight gain and Denies weight loss ENT Denies dizziness Card Denies chest pain, Denies leg edema, Denies lightheadedness, Denies palpitations, Denies dyspnea, Denies dyspnea on exertion, Denies orthopnea and Denies other (loss of consciousness) Resp Denies cough, Denies dyspnea and Denies dyspnea on exertion GI Denies hematochezia and Denies change in stool character Musc Denies abnormal gait, Denies muscle weakness, Denies numbness, Denies radiating pain into limb and Denies tingling Neuro Denies abnormal gait, Denies dizziness, Denies frequent falls, Denies numbness, Denies tingling and Denies weakness Endo Denies fatigue and Denies palpitations Physical Exam Vital Signs: Last Vital Signs Pulse 49 L 08/31/23 11:08 BP 130/60 08/31/23 11:08 BMI result Body Mass Index 24.4 GENERAL APPEARANCE: in no acute distress. NECK: no carotid bruit, no significant jugular venous distention. SKIN: no suspicious lesions, warm and dry. HEART: no murmurs, irregular rate and rhythm. Bradycardic. LUNGS: clear to auscultation bilaterally. ABDOMEN: soft, nontender. EXTREMITIES: No edema. PERIPHERAL PULSES: equal. NEUROLOGIC: Spastic paralysis right side of the body. Assessment & Plan Assessment & Plan (1) Persistent atrial fibrillation: Code(s): I48.19 - Other persistent atrial fibrillation (2) Cardiomyopathy: Code(s): I42.9 - Cardiomyopathy, unspecified (3) CVA (cerebral vascular accident): Code(s): I63.9 - Cerebral infarction, unspecified Plan [age] year gentleman is here for follow-up. He had MCA stroke in the hospital of being diagnosed with atrial fibrillation and left atrial appendage thrombus. He is currently taking apixaban 5 mg twice a day. He is on Entresto and metoprolol tartrate 12.5 mg twice a day. Heart rates are in 40s to 50s. He has been in atrial fibrillation persistently. Increasing Entresto to 49-51 mg dose. His will monitor the blood pressure and will report to us in the next couple of weeks. If blood pressure continues to be stable then we will introduce spironolactone 25 mg once a day. I am sending him for echocardiograph y to assess ejection fraction and will also do Holter monitor for 24 hours to see how his overall rate control is. If he continues to be tachycardic more than 110s to 120s and ejection fraction is low then we will discuss with the which should pursue cardioversion. Thank you for allowing me to participate in the care of your patient. Please feel free to contact me if you have any questions. Orders: Orders ECG holter monitor 24 hour Today I48.19 - Other persistent atrial fibrillation CA echo transthoracic complete Today I48.19 - Other persistent atrial fibrillation Medications: New sacubitril-valsartan 49-51 mg 1 tab PO BID 120 tabs 4RF Discontinued sacubitril-valsartan 24-26 mg (Entresto) Discontinued Reason: None 1 tab PO BID 60 tabs 3RF I42.9 - Cardiomyopathy, unspecified Coding Level of Care Code Est Pt Level 4 (76835) Diagnoses Persistent atrial fibrillation I48.19 Cardiomyopathy I42.9 CVA (cerebral vascular accident) I63.9
== END 2023-08-31 11:57 | disposition home or self-care (01) ==
PROVIDERS: PCP Internal Medicine; Visit Provider Internal Medicine Cardiovascular Disease
DX: I48.19 Other persistent atrial fibrillation (principal); I42.9 Cardiomyopathy, unspecified; I63.9 Cerebral infarction, unspecified
CPT/HCPCS: 99214

== ENCOUNTER → 2023-08-31 10:54 | Outpatient (BNVA) | payer MEDICARE, SELFPAY | PROVIDERS: PCP Internal Medicine; Visit Provider Internal Medicine Cardiovascular Disease | DX: I48.19 Other persistent atrial fibrillation (principal); I42.9 Cardiomyopathy, unspecified; I63.9 Cerebral infarction, unspecified | CPT/HCPCS: 99212 ==

== ENCOUNTER 2023-09-22 10:02 | Outpatient (AMB) | payer MEDICARE, SELFPAY ==
--- NOTE | 2023-09-22 10:12 | A.OFFVIS_ITS ---
Intake Intake Visit Reasons: one month SPT (first) Intake Note: Patient is Present for 1 month SPT first change: Urology Med: Finasteride, Myrbetriq, Tamsulosin Antibiotic Allergy:None Blood Thinner: Apixaban Pharmacy: [facility] Director Broadcast Required: No Accompanied by: Significant Other Allergies No Known Allergies Allergy (Verified 09/22/23 10:21) HPI HPI Comments History of Present Illness Details Steve is a pleasant male. He is a patient of Dr. Duque. He is seen for the following urologic conditions - neurogenic bladder secondary stroke Accompanied by Sara Here for suprapubic tube change Upgrade to 18 Mauritanian Will see if can be performed with VNA since patient is wheelchair-bound Tolerating well - reviewed emptying process with Neurogenic bladder Secondary to stroke 03/25 Anterior occlusion of left MCA segment associated with all knott me are of left MCA territory acute infarct in basal ganglia Prior cystoscopyopen bladder neck with moderately enlarged prostate Inability to use hands to perform CIC 08/25 suprapubic tube placed PFSH Medical History (Updated 08/29/23 @ 13:43 by Briana Bearden RN) Afib History of CVA with residual deficit Vitamin B12 deficiency Vitamin D deficiency Mild anemia Overweight (BMI 25.0-29.9) Pure hypercholesterolemia Benign essential hypertension Surgical History Hx of colonoscopy Hx of appendectomy Family History Other Family history non-contributory Social History Household Members: Spouse Housing: House Are you a primary healthcare management consultant to a significant other at home: No Do you presently have visiting nurse or other home services: No Alcohol intake: former Patient Tobacco Use Status: Former Tobacco user Quit Date: 1982 Tobacco use type: Cigarette e-Cigarette/Vaping Use: Never Used Second Hand Smoke Exposure: No service: No Current occupational status: retired Cognitive needs: No Hearing needs: No Vision needs: Yes (glasses) Review of Systems Const Denies chills and Denies fever(s) Card Reports no additional complaints and Denies syncope Resp Denies cough GI Denies abdominal pain and Denies heartburn Reports as per HPI and Denies change in libido Neuro Denies syncope Psych Denies change in libido Endo Denies change in libido Physical Exam Const General: cooperative, healthy appearing, comfortable and no acute distress Orientation/consciousness: patient oriented x3 HEENT Face and sinus: Yes normal facial exam Mouth: moist mucous membranes Neck Neck: Yes normal visual inspection, Yes full ROM and Yes trachea midline Chest Chest palpation & inspection: normal inspection of the chest Resp Effort & Inspection: normal respiratory effort, able to speak in complete sentences and no respiratory distress GI Inspection: Yes normal to inspection Back/Spine/Pelvis Cervical Spine: normal cervical lordosis Thoracic/Lumbar Spine: thoracic and lumbar spine normal to inspection Skin General skin exam: no rashes or lesions noted Neuro General: patient oriented x3, gait normal, tone normal and moves all extremities Extrem General: Yes normal to inspection and Yes capillary refill normal Office Procedures Bladder/Catheter Procedure Details: Clean technique Suprapubic tube change Upsized from 16 Mauritanian to 18 Mauritanian 7 cc balloon [id number] of bladder tube Procedure code (CPT) selection complete Assessment & Plan Assessment & Plan (1) Urinary retention: Code(s): R33.9 - Retention of urine, unspecified Plan VNA monthly change 18 Mauritanian 6 month follow-up Patient Instructions: Imaging studies, laboratory and physical exam results were discussed and reviewed in detail. No major barriers to patient understanding were identified. An opportunity to ask questions regarding the treatment plan was provided. All questions were answered. The patient expressed understanding and agreement with the above treatment plan. The patient is aware they should contact our office by phone for worsening of their current condition or the appearance of new urologic symptoms. Compliance is encouraged with any medications and followup testing that is ordered. It is a privilege to participate in the urologic care of your patient. If you have any questions or concerns regarding treatment for the above conditions, or other urologic issues, please do not hesitate to contact me. The office telephone contact is [phone]. This note is constructed using voice recognition software. While every effort has been made to ensure accuracy salesperson hearing aids errors may have been included. Yours sincerely, Dr Ozzy Santiago MD, [facility] - Urology Providers of Expert, Compassionate Care for the Genitourinary System Coding Level of Care Code Est Pt Level 3 (27296) Diagnoses Urinary retention R33.9 CPT Codes Bladder/Catheter Procedure - CPT: 92522-Mhembk of bladder tube ([id number])
== END 2023-09-22 11:00 | disposition home or self-care (01) ==
PROVIDERS: PCP Internal Medicine; Visit Provider Urology
DX: R33.9 Retention of urine, unspecified (principal); Z96.0 Presence of urogenital implants
CPT/HCPCS: 51705; 99213

== ENCOUNTER → 2023-09-22 10:02 | Outpatient (BNVA) | payer MEDICARE, SELFPAY | PROVIDERS: PCP Internal Medicine; Visit Provider Urology | DX: R33.9 Retention of urine, unspecified (principal) | CPT/HCPCS: 51705; 99212 ==

== ENCOUNTER → 2023-09-23 09:57 | Outpatient (REF) | payer MEDICARE, SELFPAY ==
--- NOTE | 2023-09-23 10:04 | HM_ITS ---
* Total monitoring time 1 day. * Underlying rhythm is atrial fibrillation. Average ventricular rate 71/Min. Range 51 to 95/Min. * Rare PVCs. * No significant pauses or AV blocks. * One patient marker in association with atrial fibrillation. * No diary events. MTDD
--- NOTE | 2023-09-23 10:04 | CA_ITS ---
Transthoracic Echocardiogram Patient (Last, First, Middle): Steve Carrillo, Gender: Male Date of : 1950 Age: 73 Procedure Date: 09/23/2023 Procedure Type: Transthoracic Echocardiogram Location: OP Height: 177.8 cm Weight: 77.11 kg BSA: 1.95 m2 Heart Rate: 82 bpm BP: 110 / 56 mmHg Section Laborer: TO Referring MD: Alfredo Mccain MD Quality Specialist: Jose Barbour MD Symptoms: I48.19 - Other persistent atrial fibrillation Study Quality: Adequate ECG Rhythm: Atrial Fibrillation Conclusions: - 1. Mildly reduced LV ejection fraction of 45-50% with mild LVH 2. At least moderate left atrial enlargement 3. Normal cardiac valvular Dopplers 4. Mildly dilated ascending aorta at 4.2 cm 5. Normal RV systolic pressure 6. No pericardial effusion Findings Procedure Information The quality of the study was technically difficult. The study quality is limited by the patients inability to tolerate the test. Left Ventricle Normal left ventricular cavity size. There is mildly increased left ventricular wall thickness. The left ventricular systolic function is mildly decreased. The visually estimated ejection fraction is between 45-50%. Diastolic function is indeterminate on the basis of available data. Right Ventricle Normal right ventricular cavity size and systolic function. Atria The left atrium is moderately dilated. Interatrial shunt cannot be excluded. The right atrium is likely dilated. Aortic Valve There is mild calcification of the aortic valve. There is mild thickening of the aortic valve. There is no aortic valve stenosis. There is no aortic valve regurgitation. Mitral Valve There is mild anterior and posterior mitral leaflet thickening. There is mild mitral valve regurgitation. There is no mitral valve stenosis. Pulmonic Valve The pulmonic valve was not well visualized. Tricuspid Valve Likely normal tricuspid valve structure and function. There is trace tricuspid valve regurgitation. The right ventricular systolic pressure is normal. The right ventricular systolic pressure is 18 mmHg. Normal right atrial pressure. There is no evidence of pulmonary hypertension. Great Vessels The pulmonary artery was not well visualized. There is mild dilatation of the ascending aorta measuring 4.20 cm. Venous The inferior vena cava is normal in size and collapses greater than 50% with inspiration. Pericardium/Pleural There is no evidence of pericardial effusion. Prior Study Comparison Changes noted compared to prior study dated: 04/20/2023. LV systolic function has improved significantly Measurements 2D Linear Measurements IVSd: 1.56 0.6-0.9/0.6-1.0 cm LVIDd: 5.55 3.9-5.3/4.2-5.9 cm LVIDd Index: 2.85 2.4-3.2/2.2-3.1 cm/m2 LVIDs: 3.96 2.0-3.6 cm LVPWd: 1.16 0.7-1.1 cm LA Diam: 5.20 2.7-3.8/3.0-4.0 cm LAIDs Index: 2.67 1.5-2.3 cm/m2 LV Mass: 410.44 67-162/88-224 g LV Mass Index: 210.48 43-95/49-115 g/m2 LVOT Diam: 2.40 3.0+(-)1.3 cm 2D Systolic Function EF 4C: 39.00 >55% EF 2C: 57.30 >55% EF BiP: 49.30 >55% Mitral Valve MV Pk E: 0.68 MV Decel Time: 213.00 E'Lateral: 10.50 E'Medial: 6.13 E/E' Med: 11.10 E/E' Lat: 6.50 PHT: 62.00 MVA PHT: 3.55 Decel Burke: 3.21 Aortic Valve AoV Pk Ambrose: 1.48 AoV Mn Ambrose: 1.06 AoV VTI: 0.28 AoV Pk Grad: 9.00 Aov Mn Grad: 5.00 MEAGHAN Cont.VTI: 2.56 LVOT LVOT Pk Ambrose: 0.84 LVOT Mn Ambrose: 0.55 LVOT VTI: 0.16 LVOT Pk Grad: 3.00 LVOT Mn Grad: 2.00 LVOT Diam: 2.40 LVOT Area: 4.52 Diastolic Function MV Pk E: 0.68 E'Medial: 6.13 E/E' Med: 11.10 E' Laterial: 10.50 E/E' Lat: 6.50 Tricuspid Valve TR Pk Ambrose: 1.95 TR Pk Grad: 15.00 RA Press: 3.00 RVSP: 18.00 Great Vessels Aorta Sinus of Valsalva: 3.78 2.0-3.5 cm Ao Asc: 4.20 2.1-3.4 cm Updated in Other Vendor System with Status of Final Jose Km MD electronically signed on 09/23/2023 2:30:29 PM with status of Final
== END ==
LOC: HO.CARD 09:57
PROVIDERS: Visit Provider Internal Medicine Cardiovascular Disease
DX: I48.19 Other persistent atrial fibrillation (principal)
CPT/HCPCS: 93225; 93306

== ENCOUNTER → 2023-09-23 10:04 | Outpatient (BNV) | payer MEDICARE, SELFPAY | PROVIDERS: Visit Provider Internal Medicine Cardiovascular Disease | DX: I48.91 Unspecified atrial fibrillation (principal) | CPT/HCPCS: 93227; 93306 ==

== ENCOUNTER → 2023-10-28 10:59 | Outpatient (BNVA) | payer MEDICARE, SELFPAY | PROVIDERS: Visit Provider Urology | DX: Z43.5 Encounter for attention to cystostomy (principal); R33.9 Retention of urine, unspecified | CPT/HCPCS: 51705 ==

== ENCOUNTER → 2023-11-10 12:26 | Outpatient (BNVA) | payer MEDICARE, SELFPAY | PROVIDERS: Visit Provider Urology ==

== ENCOUNTER 2023-11-28 15:35 | Outpatient (AMB) | payer MEDICARE, SELFPAY ==
[2023-11-28 15:40] VITALS: BP 120/64; PULSE 60; BMI 25.8
--- NOTE | 2023-11-28 15:40 | A.OFFVIS_ITS ---
Intake Vital Signs 11/28/23 15:40 Height 5 ft 10 in Weight 180 lb BMI 25.8 BP 120/64 Blood Pressure Location Lt brachial Position Sitting Pulse 60 Pulse Source Pulse Oximeter Intake Visit Reasons: 3 mth fu Intake Note: pt its here for a 3 month f/up, pt states that he its doing fine. Helmet Binder Required: No Accompanied by: Spouse Allergies No Known Allergies Allergy (Verified 09/22/23 10:21) Medication List - Last Reconciled 11/28/23 by Alfredo Mccain MD apixaban 5 mg PO BID atorvastatin 80 mg PO BEDTIME baclofen 10 mg PO BID citalopram 10 mg PO DAILY 90 days comp.stocking,knee,long,medium apply in am and take off in pm [Depends (adult medium) 4 times per day As directed] finasteride 5 mg PO DAILY furosemide 20 mg PO DAILY 90 days metoprolol tartrate 12.5 mg (1/2 x 25 mg) PO BID mirabegron ER (Myrbetriq) 25 mg PO DAILY 90 days [RIGHT AFO BRACE As directed] sacubitril-valsartan 49-51 mg 1 tab PO BID 90 days solifenacin 5 mg PO DAILY 30 days [STANDARD WHEELCHAIR - XL As directed] sulfamethoxazole-trimethoprim 800-160 mg (Bactrim DS) 1 tab orally on days of catheter change; tamsulosin 0.4 mg PO DAILY HPI HPI Comments History of Present Illness Details Pleasant 73 year gentleman who is here for follow-up. He was seen in the hospital in April 2023 when presented with new onset congestive heart failure and AFib with RVR. Our plan was to do HARJINDER cardioversion. He was started on apixaban and was taken for HARJINDER. Harjinder revealed a large thrombus in the left atrial appendage and we decided not to cardiovert him and potentially do this down the line. Unfortunately that night he developed intense MCA stroke involving right side of his body. 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 He also has significant peripheral edema at this point. He has been on baclofen 5 mg twice a day. He was previously on Lasix but this has been discontinued. He has back pains which affect his ability to lay down and he has been sleeping in a recliner. He is depressed. He has been taking medications including apixaban and metoprolol 12.5 mg twice a day. He has co-pay for apixaban is significantly high and the is quite concerned about that too. 08/31/2023: He returns for follow-up. Victor Manuel forde is doing better. He had a brace fitted on her right leg. Overall clinically getting better. Peripheral edema is improved with the diuretics as well as compression stockings. He is tolerating medications. Blood pressure is higher than before and is able to tolerate the Entresto. 11/28/2023: He returns for follow-up. He has been doing well. He is able to walk with a brace. He is doing physiotherapy. No shortness of breath or chest discomfort. No orthopnea or PND. Echocardiography was reviewed and his ejection fraction has improved from severely reduced EF to 45-50%. He continues to be in persistent atrial fibrillation. Taking anticoagulation regularly. His has question about Watchman device. She is asking whether that is an option for him to get off the apixaban. There are no bleeding issues in the past. [facility] Medical History (Updated 08/29/23 @ 13:43 by Briana Bearden RN) Afib History of CVA with residual deficit Vitamin B12 deficiency Vitamin D deficiency Mild anemia Overweight (BMI 25.0-29.9) Pure hypercholesterolemia Benign essential hypertension Surgical History Hx of colonoscopy Hx of appendectomy Family History Other Family history non-contributory Social History Household Members: Spouse Housing: House Are you a primary rental boats caretaker to a significant other at home: No Do you presently have visiting nurse or other home services: No Alcohol intake: former Patient Tobacco Use Status: Former Tobacco user Quit Date: 1982 Tobacco use type: Cigarette e-Cigarette/Vaping Use: Never Used Second Hand Smoke Exposure: No service: No Current occupational status: retired Cognitive needs: No Hearing needs: No Vision needs: Yes (glasses) Physical Exam Vital Signs: Last Vital Signs Pulse 60 11/28/23 15:40 BP 120/64 11/28/23 15:40 BMI result Body Mass Index 25.8 GENERAL APPEARANCE: in no acute distress. NECK: no carotid bruit, no significant jugular venous distention. SKIN: no suspicious lesions, warm and dry. HEART: no murmurs, irregular rate and rhythm. LUNGS: clear to auscultation bilaterally. ABDOMEN: soft, nontender. EXTREMITIES: No edema. PERIPHERAL PULSES: equal. NEUROLOGIC: Spastic paralysis right side of the body. Assessment & Plan Assessment & Plan (1) Persistent atrial fibrillation: Code(s): I48.19 - Other persistent atrial fibrillation (2) Cardiomyopathy: Code(s): I42.9 - Cardiomyopathy, unspecified Plan Very pleasant 73 year gentleman with embolic stroke secondary to atrial fibrillation and severe cardiomyopathy. With guideline directed medical therapy the ejection fraction has improved from 10-15% to 45-50%. He continues to be in atrial fibrillation. He is rate controlled with metoprolol. I will change him from metoprolol tartrate to metoprolol succinate 25 mg daily. He will continue rest of his medications. Due to recurrent UTIs I am not starting Jardiance or Farxiga currently. He also is on Bactrim for antibiotic treatment which can cause kidney injury and hyperkalemia and I think starting spironolactone right now may not be the best time. In any case he is improving. His had question about Watchman device. I have explained to the patient and his that Watchman is indicated in case he has any bleeding concerns in the future. Also if the knott reason for getting Watchman done is that he could get off the apixaban, there are some once is like malou device leak and sometime device rel ated thromboembolism. With his dense MCA stroke in the past I think it is better that he stays on anticoagulation currently. Also he is tolerating it well and is actively participating in physical therapy and improving. Thank you for allowing me to participate in the care of your patient. Please feel free to contact me if you have any questions. Medications: New metoprolol succinate ER (Toprol XL) 25 mg PO DAILY 90 tabs 3RF I42.9 - Cardiomyopathy, unspecified Discontinued metoprolol tartrate Discontinued Reason: Doctor's Order 12.5 mg (1/2 x 25 mg) PO BID 90 tabs 1RF Coding Level of Care Code Est Pt Level 4 (80246) Diagnoses Persistent atrial fibrillation I48.19 Cardiomyopathy I42.9
== END 2023-11-28 16:11 | disposition home or self-care (01) ==
PROVIDERS: PCP Internal Medicine; Visit Provider Internal Medicine Cardiovascular Disease
DX: I48.19 Other persistent atrial fibrillation (principal); I42.9 Cardiomyopathy, unspecified
CPT/HCPCS: 99214

== ENCOUNTER → 2023-11-28 15:35 | Outpatient (BNVA) | payer MEDICARE, SELFPAY | PROVIDERS: Visit Provider Internal Medicine Cardiovascular Disease | DX: I48.19 Other persistent atrial fibrillation (principal); I42.9 Cardiomyopathy, unspecified | CPT/HCPCS: 99212 ==

== ENCOUNTER → 2023-12-05 11:13 | Outpatient (BNVA) | payer MEDICARE, SELFPAY | PROVIDERS: Visit Provider Urology | DX: R33.9 Retention of urine, unspecified (principal); I10 Essential (primary) hypertension | CPT/HCPCS: 51705 ==

== ENCOUNTER 2023-12-13 09:24 | Outpatient (REF) | payer MEDICARE, SELFPAY ==
[2023-12-13 10:44] LABS: Appearance Urine Turbid; Color Urine Dark Yellow; Glucose Urine UA Negative (Negative); Leukocyte Esterase Urine Moderate (2+) (Negative); Nitrite Urine Negative (Negative); PH 5.5 (5.0-9.0); UMIC TRIGGER UA YES; Urine Blood Large (3+) (Negative); Urine Ketones Trace mg/dL (Negative); Urine Protein 100 (2+) mg/dL (Neg-Trace)
[2023-12-13 10:46] LABS: Bacteria Urine 4+ (None Seen); Hyaline Casts Urine 0-2 /LPF (0-2); RBC Urine >20 /HPF (0-2); Squamous Epithelial Cell Urine 0-2 /HPF (0-2); WBC Urine >50 /HPF (0-5)
== END 2023-12-13 09:25 | disposition home or self-care (01) ==
LOC: HO.LAB 09:24
PROVIDERS: PCP Internal Medicine; Visit Provider Urology
DX: R33.9 Retention of urine, unspecified (principal); R30.0 Dysuria
CPT/HCPCS: 81001; 81003; 87086; 87088; 87186

== ENCOUNTER 2023-12-14 10:15 | Outpatient (REF) | payer MEDICARE, SELFPAY ==
[2023-12-14 11:21] LABS: MANUAL DIFF FLAG NO
[2023-12-14 11:37] LABS: Basophils Percent Auto 0.3 % (0-2); Eosinophils Absolute Auto 0.1 X10*3/uL (0.0-0.4); Eosinophils Percent Auto 1.8 % (0-4); Hematocrit 37.9 % (42.0-52.0); Hemoglobin 12.6 g/dl (14.0-18.0); Imm Gran Abs Auto 0.03 X10*3/uL (0.00-0.03); Imm Gran Pct Auto 0.5 % (0.0-0.4); Lymphocytes Absolute Auto 1.1 X10*3/uL (1.2-4.9); Mean Corpuscular HGB Conc 33.2 g/dl (31.0-36.0); Mean Corpuscular Volume 96.2 fL (80.0-98.0); Mean Platelet Volume 12.1 fL (9.4-12.4); Monocytes Absolute Auto 0.5 X10*3/uL (0.1-1.2); Monocytes Percent Auto 7.6 % (2-11); Neutrophils Absolute Auto 4.4 x10*3/uL (2.0-8.3); Neutrophils Percent Auto 71.8 % (45-73); Platelet Count 151 X10*3/uL (160-400); Red Blood Count 3.94 X10*6/uL (4.60-5.80); Red Cell Distribution Width 12.3 % (11.0-16.0); White Blood Count 6.1 X10*3/uL (4.8-10.8)
[2023-12-14 12:31] LABS: Alanine Aminotransferase 28 U/L (0-40); Albumin Level 3.7 g/dL (3.5-5.0); Alkaline Phosphatase 104 U/L (39-117); Anion Gap 10 (12-20); Aspartate Amino Transferase 21 U/L (5-37); Bilirubin Total 0.6 mg/dL (0.0-1.0); Blood Urea Nitrogen 19 mg/dL (9-16); Calcium 9.6 mg/dL (8.4-10.2); Carbon Dioxide 29 mmol/L (22-29); Chloride 108 mmol/L (96-108); Cholesterol 129 mg/dL (<200); Estimated Glomerular Filt Rate > 60; Glucose Fasting 95 mg/dL (60-99); HDL Cholesterol 62 mg/dL (>40); LDL Cholesterol Calculated 57 mg/dL (<100); Potassium 4.2 mmol/L (3.3-5.1); Sodium 143 mmol/L (135-145); TSH reflex Free T4 1.24 uIU/mL (0.32-4.0); Total Protein 6.3 g/dL (6.5-8.0); Triglycerides 50 mg/dL (<150); Vitamin D 25-OH Total 28.3 ng/mL (>30)
== END 2023-12-14 10:16 | disposition home or self-care (01) ==
LOC: HO.WFDLDS 10:15
PROVIDERS: Visit Provider Internal Medicine
DX: E78.00 Pure hypercholesterolemia, unspecified (principal); I10 Essential (primary) hypertension; E55.9 Vitamin D deficiency, unspecified
CPT/HCPCS: 36415; 80053; 80061; 82306; 84443; 85025

== ENCOUNTER 2023-12-15 10:33 | Outpatient (AMB) | payer MEDICARE, SELFPAY ==
[2023-12-15 10:37] VITALS: BP 102/68; PULSE 68; O2SAT 98; BMI 25.8
--- NOTE | 2023-12-15 10:37 | A.OFFPC_ITS ---
Vital Signs 12/15/23 10:37 Height 5 ft 10 in Weight 180 lb BMI 25.8 BP 102/68 Blood Pressure Location Lt brachial Position Sitting Pulse 68 Pulse Source Pulse Oximeter Pulse Oximetry (%) 98 Oxygen Delivery Method Room Air Intake Visit Reasons: CVA, hyperlipidemia Slope Runner Required: No Accompanied by: Self / Same As Patient Allergies No Known Allergies Allergy (Verified 12/15/23 22:10) Medication List - Last Reconciled 12/15/23 by Jean-Pierre Duque MD apixaban 5 mg PO BID atorvastatin 80 mg PO BEDTIME baclofen 10 mg PO BID citalopram 10 mg PO DAILY 90 days comp.stocking,knee,long,medium apply in am and take off in pm [Depends (adult medium) 4 times per day As directed] finasteride 5 mg PO DAILY furosemide 20 mg PO DAILY 90 days metoprolol succinate ER (Toprol XL) 25 mg PO DAILY mirabegron ER (Myrbetriq) 25 mg PO DAILY 90 days [RIGHT AFO BRACE As directed] sacubitril-valsartan 49-51 mg 1 tab PO BID 90 days solifenacin 5 mg PO DAILY 30 days [STANDARD WHEELCHAIR - XL As directed] sulfamethoxazole-trimethoprim 800-160 mg (Bactrim DS) 1 tab orally on days of catheter change; tamsulosin 0.4 mg PO DAILY Tobacco use date assessed: 12/15/23 Fall risk assessment: No Falls in past year Last assessed Fall Risk: 12/15/23 Dental Screening Dental Screen Date: 12/15/23 Did you have a dental visit in the last 12 months?: Yes Did you have a dental problem in the last 6 months where you did not have access to dental care?: No Was dental information given to patient?: Patient has dentist HPI CVA, hyperlipidemia HPI Details Patient comes in today for his follow up visit States that he has been going to physical therapy a couple of times a week since July 2023 and seems to be making some progress but his states that he feels frustrated often that his progress is not going as quickly as he would like it to He is currently still using his wheelchair often when he is moving around as he still has significant right-sided weakness from his CVA last year in April 2023 although his states that he is able to get up and move around for a while with support/brace when he is at home Patient states that he feels okay otherwise - denies any headaches or dizziness Denies any chest pains, no SOB No nausea/vomiting, no abdominal pain No change in bowel habits noted He currently still has a suprapubic tube due to neurogenic bladder and follows up with urology regularly for this Had his follow up labs done a couple of days ago - to discuss his results [facility] Medical History (Updated 12/16/23 @ 01:34 by Jean-Pierre Duque MD) Neurogenic bladder Persistent atrial fibrillation Depression CVA (cerebral vascular accident) History of CVA with residual deficit Vitamin B12 deficiency Vitamin D deficiency Mild anemia Overweight (BMI 25.0-29.9) Pure hypercholesterolemia Benign essential hypertension Surgical History Hx of colonoscopy Hx of appendectomy Family History Other Family history non-contributory Social History Household Members: Spouse Housing: House Are you a primary personal care worker to a significant other at home: No Do you presently have visiting nurse or other home services: No Alcohol intake: former Patient Tobacco Use Status: Former Tobacco user Quit Date: 1982 Tobacco use type: Cigarette e-Cigarette/Vaping Use: Never Used Second Hand Smoke Exposure: No service: No Current occupational status: retired Cognitive needs: No Hearing needs: No Vision needs: Yes (glasses) Questionnaire PHQ-9 Over the last 2 weeks, how often have you been bothered by any of the following problems? 1. Little interest or pleasure in doing things: not at all 2. Feeling down, depressed, or hopeless: not at all 3. Trouble falling or staying asleep, or sleeping too much: not at all 4. Feeling tired or having little energy: not at all 5. Poor appetite or overeating: not at all 6. Feeling bad about yourself - or that you are a failure or have let yourself or your family down: not at all 7. Trouble concentrating on things, such as reading the newspaper or watching television: not at all 8. Moving or speaking so slowly that other people could have noticed. Or the opposite - being so fidgety or restless that you have been moving around a lot more than usual: not at all 9. Thoughts that you would be better off or of hurting yourself in some way: not at all Total score: 0 Depression Screening Interpretation: Negative (is on antidepressant Rx) Depression Screening Done: Yes 24886 - PHQ-9 Billing: Yes Source: Developed by Drs. Stephan Raines, Dominique Roberson, Oh Alvarado and colleagues, with an educational alicja from [employer]. Thrive Questionnaire Date Thrive assessed: 12/15/23 I am a: Patient What is your living situation today?: I have a steady place to live Within the past 12 months, did the food you bought not last and you didn't have the money to get more?: Never true Within the past 12 months, did you worry whether your food would run out before you got money to buy more?: Never true Do you have trouble paying for medicines?: No Do you have trouble getting transportation to medical appointments?: No Do you have trouble paying your heating and electricity bill?: No Do you have trouble taking care of your child, family member or friend?: No Do you have trouble with day-to-day activities such as bathing, preparing meals, shopping, managing finances, etc.?: No Are you currently unemployed and looking for a job?: No Are you interested in more education?: No Please select the resources that you would like help with: None Currently or been in a relationship where the following occur: no concerns reported THRIVE Score: 0 AUDIT C Alcohol Use Questionnaire (AUDIT-C) 1. How often do you have a drink containing alcohol?: Never Total Score: 0 Score Reviewed/Action Taken: Yes SAMI-7 AMB Questionnaire SAMI-7 Date SAMI - 7 assessed: 12/15/23 Feeling nervous, anxious, or on edge: 0 = Not at all Not being able to stop or control worryin = Not at all Worrying too much about different things: 0 = Not at all Trouble relaxin = Not at all Being so restless that it is hard to sit still: 0 = Not at all Becoming easily annoyed or irritable: 0 = Not at all Feeling afraid as if something awful might happen: 0 = Not at all Total SAMI-7 score (0-4 normal; 5-9 mild; 10-14 moderate; 15-21 severe): 0 Source: Developed by Drs. Stephan Raines, Dominique Roberson, Oh Alvarado and colleagues, with an educational alicja from [employer]. Review of Systems Const Denies chills, Reports fatigue, Denies fever(s) and Denies headache(s) ENT Denies dysphagia, Denies dizziness, Denies otalgia, Denies headache(s), Denies neck pain, Denies odynophagia and Denies sore throat Card Denies chest pain, Denies palpitations and Denies dyspnea Resp Denies cough, Denies dyspnea and Denies wheezing GI Denies abdominal pain, Denies constipation, Denies dysphagia, Denies heartburn, Denies diarrhea, Denies nausea, Denies odynophagia and Denies vomiting Details: currently has a suprapubic catheter in place Reports difficulty urinating Musc Denies neck pain Skin/Breast Denies rash Neuro Details: (+) persistent right hemiparesis, with some residual expressive aphasia Denies dizziness and Denies headache(s) Psych Reports depression Endo Reports fatigue and Denies palpitations Aller/Immun Denies wheezing Physical exam (Primary Care) Vital Signs: Last Vital Signs Pulse 68 12/15/23 10:37 BP 102/68 12/15/23 10:37 Pulse Ox 98 12/15/23 10:37 Oxygen Delivery Method Room Air 12/15/23 10:37 BMI result Body Mass Index 25.8 Tobacco/Smoking Status: Tobacco use Status Tobacco use date assessed 12/15/23 12/15/23 10:39 Patient Tobacco Use Status Former Tobacco user 12/15/23 10:39 Tobacco use type Cigarette 12/15/23 10:39 e-Cigarette/Vaping Use Never Used 12/15/23 10:39 PHQ-9: PHQ-9 Score PHQ-9: Total score 0 12/15/23 22:12 Depression Screening Interpretation: Negative (is on antidepressant Rx) Thrive Assessment: Date of Thrive Assessment Date Thrive assessed 12/15/23 12/15/23 10:39 Currently or been in a relationship where the following occur: no concerns reported Const General: no acute distress and alert Orientation/consciousness: patient oriented x3 Limitations: physical limitations ((+) right hemiparesis) and wheelchair HENMT Ears: TM's normal bilaterally and EAC's normal Throat: Yes posterior oropharynx normal and Yes tonsils normal (no TP congestion noted) Neck Neck: Yes no lymphadenopathy and Yes supple Thyroid: Thyroid normal Resp Auscultation: clear to auscultation bilaterally, no rales and no wheezes Cardio Rate: regular rate Rhythm: abnormal rhythm irregularly irregular Heart sounds: no murmurs GI Palpation (GI): Soft to palpation and nontender Auscultation: normal bowel sounds General: Yes no CVA tenderness Back/Spine/Pelvis Back: no CVA tenderness Cervical Spine: No Cervical spine tenderness Thoracic/Lumbar Spine: No lumbar spinal tenderness Skin Rashes: no rashes Neuro Other: (+) right hemiparesis General: patient oriented x3 Speech: Expressive aphasia present (residual mild) Extrem General: Yes no clubbing, cyanosis or edema Results Reviewed Results Reviewed: Laboratory Tests 12/13/23 12/14/23 12/14/23 09:40 10:21 10:21 WBC 6.1 Hgb 12.6 L Hct 37.9 L Plt Count 151 L Sodium 143 Potassium 4.2 Creatinine 1.09 Estimated GFR > 60 Fasting Glucose 95 Calcium 9.6 AST 21 ALT 28 Triglycerides 50 Cholesterol 129 LDL Cholesterol, Calc 57 HDL Cholesterol 62 25-OH Vitamin D Total 28.3 L TSH 1.24 Urine RBC >20 H Urine WBC >50 H Assessment and Plan Assessment & Plan (1) CVA (cerebral vascular accident): Comment: April 2023 - involving left MCA, resulting in right hemiparesis Code(s): I63.9 - Cerebral infarction, unspecified Qualifiers: CVA mechanism: embolism Laterality of affected vessel: left Precerebral and cerebral artery: middle cerebral artery Qualified Code(s): I63.412 - Cerebral infarction due to embolism of left middle cerebral artery Plan: (+) left MCA embolic stroke secondary to atrial fibrillation and severe cardiomyopathy in April 2023 Patient underwent thrombectomy with TICI (Thrombolysis in Cerebral Infarction) 2C achieved after 2 passes of thrombectomy but patient's right-sided hemiparesis persisted Repeat imaging studies revealed hemorrhagic conversion of his subacute left MCA infarct He was started on Eliquis 28 days after his CVA and repeat head CT ruled out further hemorrhagic conversion - continue Eliquis 5 mg BID Patient continues to present currently with right hemiparesis and he has been going to physical therapy for the past few months with gradual improvement He also had expressive aphasia following his CVA and this is also still present to some degree (2) Persistent atrial fibrillation: Code(s): I48.19 - Other persistent atrial fibrillation Plan: Patient is currently still in atrial fibrillation but is rate-controlled Continue Metoprolol ER 25 mg QD and Eliquis 5 mg BID (3) Congestive heart failure (CHF): Code(s): I50.9 - Heart failure, unspecified Qualifiers: Heart failure type: combined systolic and diastolic Heart failure tax services specialist nicity: acute Qualified Code(s): I50.41 - Acute combined systolic (congestive) and diastolic (congestive) heart failure Plan: Patient initially presented to the ER in April 2023 with new onset congestive heart failure and AFib with RVR He was going to undergo MARY ANN cardioversion but MARY ANN revealed a large thrombus in the left atrial appendage and it was decided not to cardiovert him at the time and reschedule this to a later date but he unfortunately developed his CVA later that evening His echocardiogram done at the time revealed an EF of 10 to 15%; his ejection fraction has since improved to 45-50% with aggressive medical management Continue Entresto 49-51 mg BID and Furosemide 20 mg QD Follow up with cardiology as scheduled (4) Pure hypercholesterolemia: Code(s): E78.00 - Pure hypercholesterolemia, unspecified Plan: Results of his labs done a couple of days ago reviewed and discussed with patient Reinforced low cholesterol diet Continue Atorvastatin 80 mg QD Will recheck his labs and fasting lipids in 4 months for follow up (5) Neurogenic bladder: Code(s): N31.9 - Neuromuscular dysfunction of bladder, unspecified Plan: S/P left MCA CVA in April 2023 He currently has a suprapubic catheter, which was placed late last year when his neurogenic bladder and urinary retention persisted > a few months after his CVA He is undergoing suprepubic tube changed by urology regularly and is scheduled to have this done again at the beginning of next month (01/02/2024) - takes Bactri m DS prophylactically before his suprapubic catheter change Continue Finasteride 5 mg QD, Myrbetriq ER 25 mg QD, Solifenacin 5 mg QD and Tamsulosin 0.4 mg QD Follow up with urology as scheduled (6) Vitamin D deficiency: Code(s): E55.9 - Vitamin D deficiency, unspecified Plan: Patient is advised that his Vitamin D level is low on his recent labs and that he should continue taking his Vitamin D supplements (Vitamin D3 2000 units) daily (7) Depression: Code(s): F32.A - Depression, unspecified Qualifiers: Depression Type: major depressive disorder Major depression recurrence: recurrent Active/Remission status: currently active Major depression episode severity: unspecified Qualified Code(s): F33.9 - Major depressive disorder, recurrent, unspecified Plan: Continue Citalopram 10 mg QD Plan Follow up in 4 months Orders: Orders Comprehensive [place]. Panel Fast 4 Months E78.00 - Pure hypercholesterolemia, unspecified TSH reflex Free T4 4 Months E78.00 - Pure hypercholesterolemia, unspecified Complete Blood Count Auto Diff 4 Months D64.9 - Anemia, unspecified Lipid Panel 4 Months E78.00 - Pure hypercholesterolemia, unspecified UA CC w/rflx Micro + Cult 4 Months R30.0 - Dysuria Vitamin D 25-OH Total 4 Months E55.9 - Vitamin D deficiency, unspecified Coding Level of Care Code Est Pt Level 4 (30799) Diagnoses Cerebrovascular accident (CVA) due to embolism of left middle cerebral artery I63.412 CVA mechanism: embolism Laterality of affected vessel: left Precerebral and cerebral artery: middle cerebral artery Persistent atrial fibrillation I48.19 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 Heart failure type: combined systolic and diastolic Heart failure chronicity: acute Pure hypercholesterolemia E78.00 Neurogenic bladder N31.9 Vitamin D deficiency E55.9 Episode of recurrent major depressive disorder, unspecified depression episode severity F33.9 Depression Type: major depressive disorder Major depression recurrence: recurrent Active/Remission status: currently active Major depression episode severity: unspecified
== END 2023-12-15 11:25 | disposition home or self-care (01) ==
PROVIDERS: PCP Internal Medicine; Visit Provider Internal Medicine
DX: I48.19 Other persistent atrial fibrillation (principal); I63.412 Cerebral infarction due to embolism of left middle cerebral artery; I50.41 Acute combined systolic (congestive) and diastolic (congestive) heart failure; F33.9 Major depressive disorder, recurrent, unspecified; N31.9 Neuromuscular dysfunction of bladder, unspecified; E78.00 Pure hypercholesterolemia, unspecified; E55.9 Vitamin D deficiency, unspecified
CPT/HCPCS: 99214

== ENCOUNTER → 2024-01-02 10:39 | Outpatient (BNVA) | payer MEDICARE, SELFPAY | PROVIDERS: Visit Provider Urology | DX: N31.9 Neuromuscular dysfunction of bladder, unspecified (principal) | CPT/HCPCS: 51705 ==

== ENCOUNTER → 2024-01-30 11:13 | Outpatient (BNVA) | payer MEDICARE, SELFPAY | PROVIDERS: PCP Internal Medicine; Visit Provider Urology | DX: N31.9 Neuromuscular dysfunction of bladder, unspecified (principal); R33.9 Retention of urine, unspecified | CPT/HCPCS: 51705 ==

== ENCOUNTER → 2024-02-29 10:10 | Outpatient (BNVA) | payer MEDICARE, SELFPAY | PROVIDERS: PCP Internal Medicine; Visit Provider Urology | DX: N31.9 Neuromuscular dysfunction of bladder, unspecified (principal) | CPT/HCPCS: 51705 ==

== ENCOUNTER 2024-03-28 12:35 | Outpatient (AMB) | payer MEDICARE, SELFPAY ==
--- NOTE | 2024-03-28 13:02 | A.OFFVIS_ITS ---
Intake Visit Reasons: 6 month sp tube change Intake Note: Patient is Present for 6 month SPT change. Urology Med: Finasteride, Myrbetriq, Tamsulosin Antibiotic Allergy:None Blood Thinner: Apixaban Farm Specialist Required: No Accompanied by: Significant Other Allergies No Known Allergies Allergy (Verified 03/28/24 13:02) Medication List - Last Reconciled 03/28/24 by Ozzy Santiago MD apixaban 5 mg PO BID ascorbic acid (vitamin C) 1 g PO DAILY 90 days atorvastatin 80 mg PO BEDTIME baclofen 10 mg PO BID citalopram 10 mg PO DAILY 90 days comp.stocking,knee,long,medium apply in am and take off in pm [Depends (adult medium) 4 times per day As directed] furosemide 20 mg PO DAILY 90 days levofloxacin 500 mg PO DAILY 5 days methenamine hippurate 1 g PO DAILY 90 days metoprolol succinate ER (Toprol XL) 25 mg PO DAILY [RIGHT AFO BRACE As directed] sacubitril-valsartan 49-51 mg 1 tab PO BID 90 days solifenacin 5 mg PO DAILY 90 days [STANDARD WHEELCHAIR - XL As directed] sulfamethoxazole-trimethoprim 800-160 mg (Bactrim DS) 1 tab orally on days of catheter change; sulfamethoxazole-trimethoprim 800-160 mg (Bactrim DS) 1 tab PO BID 7 days HPI Comments Details: Steve is a pleasant male. He is a patient of Dr. Duque. He is seen for the following urologic conditions - neurogenic bladder secondary stroke Accompanied by Sara Eighteen German suprapubic Here for 6 month review Has Bactrim for infection. Would stop Myrbetriq and finasteride Start vitamin-C and methenamine Will see if can be performed with VNA since patient is wheelchair-bound Tolerating well - reviewed emptying process with Neurogenic bladder Secondary to stroke 03/25 Anterior occlusion of left MCA segment associated with all knott me are of left MCA territory acute infarct in basal ganglia Prior cystoscopyopen bladder neck with moderately enlarged prostate Inability to use hands to perform CIC 08/25 suprapubic tube placed PFSH Medical History Neurogenic bladder Persistent atrial fibrillation Depression CVA (cerebral vascular accident) History of CVA with residual deficit Vitamin B12 deficiency Vitamin D deficiency Mild anemia Overweight (BMI 25.0-29.9) Pure hypercholesterolemia Benign essential hypertension Surgical History Hx of colonoscopy Hx of appendectomy Family History Other Family history non-contributory Social History Household Members: Spouse Housing: House Are you a primary school childcare attendant to a significant other at home: No Do you presently have visiting nurse or other home services: No Alcohol intake: former Patient Tobacco Use Status: Former Tobacco user Tobacco use type: Cigarette e-Cigarette/Vaping Use: Never Used Second Hand Smoke Exposure: No service: No Current occupational status: retired Cognitive needs: No Hearing needs: No Vision needs: Yes (glasses) Review of Systems Const Denies chills and Denies fever(s) Card Reports no additional complaints and Denies syncope Resp Denies cough GI Denies abdominal pain and Denies heartburn Reports as per HPI and Denies change in libido Neuro Denies syncope Psych Denies change in libido Endo Denies change in libido Physical Exam Const General: cooperative, healthy appearing, comfortable and no acute distress Orientation/consciousness: patient oriented x3 HEENT Face and sinus: Yes normal facial exam Mouth: moist mucous membranes Neck Neck: Yes normal visual inspection, Yes full ROM and Yes trachea midline Chest Chest palpation & inspection: normal inspection of the chest Resp Effort & Inspection: normal respiratory effort, able to speak in complete sentences and no respiratory distress GI Inspection: Yes normal to inspection Back/Spine/Pelvis Cervical Spine: normal cervical lordosis Thoracic/Lumbar Spine: thoracic and lumbar spine normal to inspection Skin General skin exam: no rashes or lesions noted Neuro General: patient oriented x3, gait normal, tone normal and moves all extremities Extrem General: Yes normal to inspection and Yes capillary refill normal Office Procedures Bladder/Catheter Procedure Details: 18 fr mora cath 7.5 ml balloon and blue plug replaced, pt tolerated exchange well. 4 weeks next change [id number] of bladder tube Procedure code (CPT) selection complete Assessment & Plan Assessment & Plan (1) Neurogenic bladder: Code(s): N31.9 - Neuromuscular dysfunction of bladder, unspecified Category: Medical Plan Six-month follow-up Orders: Orders AMB Bladder/Catheter Procedure Today N31.9 - Neuromuscular dysfunction of bladder, unspecified Medications: New methenamine hippurate 1 g PO DAILY 90 days 90 tabs 1RF N31.9 - Neuromuscular dysfunction of bladder, unspecified, N39.0 - Urinary tract infection, site not specified ascorbic acid (vitamin C) 1 g PO DAILY 90 days 90 tabs 1RF N31.9 - Neuromuscular dysfunction of bladder, unspecified, N39.0 - Urinary tract infection, site not specified Discontinued tamsulosin Discontinued Reason: Patient Completed Course 0.4 mg PO DAILY 30 caps 3RF mirabegron ER (Myrbetriq) Discontinued Reason: Doctor's Order 25 mg PO DAILY 90 days 90 tabs 1RF finasteride Discontinued Reason: Patient Completed Course 5 mg PO DAILY 90 tabs 0RF Patient Instructions: Imaging studies, laboratory and physical exam results were discussed and reviewed in detail. No major barriers to patient understanding were identified. An opportunity to ask questions regarding the treatment plan was provided. All questions were answered. The patient expressed understanding and agreement with the above treatment plan. The patient is aware they should contact our office by phone for worsening of their current condition or the appearance of new urologic symptoms. Compliance is encouraged with any medications and followup testing that is ordered. It is a privilege to participate in the urologic care of your patient. If you have any questions or concerns regarding treatment for the above conditions, or other urologic issues, please do not hesitate to contact me. The office telephone contact is [phone]. This note is constructed using voice recognition software. While every effort has been made to ensure accuracy police communications dispatcher errors may have been included. Yours sincerely, Dr Ozzy Santiago MD, [facility] - Urology Providers of Expert, Compassionate Care for the Genitourinary System Coding Level of Care Code Est Pt Level 4 (27345) Diagnoses Neurogenic bladder N31.9 CPT Codes Bladder/Catheter Procedure - CPT: 90404-Csmkqz of bladder tube ([id number])
== END 2024-03-28 13:24 | disposition home or self-care (01) ==
PROVIDERS: PCP Internal Medicine; Visit Provider Urology
DX: N31.9 Neuromuscular dysfunction of bladder, unspecified (principal); Z96.0 Presence of urogenital implants
CPT/HCPCS: 51705; 99214

== ENCOUNTER → 2024-03-28 12:35 | Outpatient (BNVA) | payer MEDICARE, SELFPAY | PROVIDERS: PCP Internal Medicine; Visit Provider Urology | DX: N31.9 Neuromuscular dysfunction of bladder, unspecified (principal) | CPT/HCPCS: 51705; 99212 ==

== ENCOUNTER 2024-03-29 10:00 | Outpatient (RCR) | payer MEDICARE, SELFPAY ==
--- NOTE | 2023-11-03 16:09 | MHC.OT.OP ---
[address] [phone] F: [phone] Occupational Therapy Progress Note Patient Name: Steve Carrillo Diagnosis: CVA with R hemiparesis Date of Surgery: Date of Evaluation: 07/21/23 Treatments to Date: 20 Cancellations to Date: No Shows to Date: Subjective: I can lift my arm up easier now. The taping really helped reduce the swelling! I'd like to get some use of my R arm I like getting zapped I can feel my thumb twitch at night. Today was tough. I did the stairs all by myself in PT today. My hand walter been doing funny things, when I yawn my fingers stretch out. I'm really tired. No plans really. They really worked me. You really worked me. Pain Score: 0 Pain Location: R UE Objective Measures: Intact to light touch and localization bilateral UE s Status: Progressing Assessment: Burton continues to demonstrate small but consistent gains towards his goals. He remains motivated and eager to participate in therapy. At this time patient is able to perform AAROM exercises with (I) when in sitting, while in supine he requires min (A) for (R)UE support when completing tasks. Focus of treatment has been shoulder AROM as he demonstrates the ability to have active motor control. He is able to perform shoulder flexion/extension and elbow extension when utilizing wheeled skate. NMES to the wrist has been discontinued as extensors do not seem to be responding presently. NMES has been trialed to the shoulder for abduction/ flexion and there was a trace contraction of the deltoids. OT will continue with this to facility active shoulder ROM. Patient and have need educated on PROM and AROM exercises for home. He attempts to use (R)UE as support during ADLs. Patient has purchased an Isotoner glove for edema management of (R)UE. Barriers continue to remain poor motor planning of R side, decreased strength R UE/LE, decreased IND with ADL's/IADL's and non-functional use of R hand. At this time it is recommended that patient continue with skilled OT intervention in order for patient to achieve his maximal potential. Short Term Goals: Pt and caregiver will be IND with AA/PROM exercises - MET Trial taping for subluxation and edema management - MET Improve R shoulder PROM to WFL's w/out pain- PROGRESSING Improve bicep/tricep to 2-/5 - MET Snf Goals: IND with progression of HEP- CONTINUE IND with dowel exercises utilizing assist for R hand supervisor twisting department- MET Pt will demo 30 degrees of AROM of R shoulder - PROGRESSING Pt will use R UE as a stabilizing assist to increase ease with ADL's/IADL's- PROGRESSING Frequency and Duration: The patient will be seen 2x a week for 6 weeks Treatment Plan: Therapeutic Exercise Therapeutic Activity Home Exercise Program Neuro Re-ed Patient Education Desensitization/Sensory Re-ed Edema Control ADL Training NMES MHP Cold Packs Kinesiotaping Continue skilled OT POC Electronically Signed By: Gabbi Gonzalez OTR/L, CLT Reviewed/agree with student documentation: Therapist:
--- NOTE | 2023-12-22 15:25 | MHC.OT.OP ---
[address] [phone] F: [phone] Occupational Therapy Progress Note Patient Name: Steve Carrillo Diagnosis: CVA with R hemiparesis Date of Surgery: Date of Evaluation: 07/21/23 Treatments to Date: 30 Cancellations to Date: No Shows to Date: Subjective: Today was a good day, to hear good news. Pain Score: 0 Pain Location: R UE Objective Measures: Scapula ROM: retraction 1cm Shoulder ROM: flexion 0*, extension 40*, abduction 60*; PROM: 90* flexion/abduction Elbow ROM: flexion 85*, extension no active ROM; PROM WFL Wrist and digits: No active ROM; PROM WFLs No edema present Modified Reji Scale= shoulder:0, elbow:1, wrist:1+, digits: 1+ Status: Progressing Assessment: Patient was seen for skilled OT progress note, patient has had 30 1:1 treatments and has demonstrated continued progress towards his goals. He has increased his shoulder abduction to 60*, and extension to 40*, elbow flexion to 85* actively. He reports no pain in the UE and performs his HEP every day. He is currently wearing his compression glove daily for edema management. His Modified Reji Scale has improved. He stated donning a shirt has become easier as he has more motion in the shoulder as well as washing underneath his arm. His reports he is demonstrating increased (I) during UB bathing. His main barriers remain his limited ROM of the wrist and hand as he demonstrates no active ROM and limited shoulder ROM/ strength. Although patient is making steady progress towards his goals, due to his limited ROM and impaired strength it is recommended that patient received continued OT services in order to increase patients (I) during self care tasks and his quality of life. Short Term Goals: Pt and caregiver will be IND with AA/PROM exercises - MET Trial taping for subluxation and edema management - MET Improve R shoulder PROM to WFL's w/out pain- MET Improve bicep/tricep to 2-/5 - MET ADENDUM FOR NEW GOALS: Patient will increase (R)shoulder flexion to 5* for improved performance during self care tasks Patient will increase (R)elbow extension by 5* for ADL performance Patient will be mod (A) for UB selfcare tasks Patient will increase (R)scapula retraction by 5* for improved performance during self caret asks Longterm Goals: IND with progression of HEP- CONTINUE IND with dowel exercises utilizing assist for R hand direct support professional- MET Pt will demo 30 degrees of AROM of R shoulder - MET Pt will use R UE as a stabilizing assist to increase ease with ADL's/IADL's- PROGRESSING Patient will increase shoulder AROM by at least 20* for improved performance during self care tasks Frequency and Duration: The patient will be seen 2x a week for 8 weeks Treatment Plan: Therapeutic Exercise Therapeutic Activity Home Exercise Program Neuro Re-ed Patient Education Edema Control ADL Training Ultrasound NMES Fluidotherapy MHP Cold Packs Kinesiotaping Other (see comments) Continue with OT POC Electronically Signed By: Gabbi Gonzalez OTR/L, CLT Reviewed/agree with student documentation: Therapist:
== END 2024-03-29 11:05 | disposition home or self-care (01) ==
LOC: HO.OT 10:00
PROVIDERS: PCP Internal Medicine; Visit Provider Internal Medicine
DX: G81.11 Spastic hemiplegia affecting right dominant side (principal)
CPT/HCPCS: 97014; 97110; 97112; 97140; 97166; 97530

== ENCOUNTER 2024-04-18 14:24 | Outpatient (AMB) | payer MEDICARE, SELFPAY ==
[2024-04-18 14:41] VITALS: BP 120/70; PULSE 48
--- NOTE | 2024-04-18 14:41 | MHC.OFFVIS ---
Vital Signs 04/18/24 14:41 Height 5 ft 10 in BMI Reason not done Patient refused/unable BP 120/70 Blood Pressure Location Lt brachial Position Sitting Pulse 48 L Pulse Source Monitor Intake Visit Reasons: 4 mth f/up Intake Note: 4 mth f/up pt is doing fine Building Construction Supervisor Required: No Accompanied by: Spouse Allergies No Known Allergies Allergy (Verified 03/28/24 13:02) Medication List - Last Reconciled 04/18/24 by Alfredo Mccain MD apixaban 5 mg PO BID ascorbic acid (vitamin C) 1 g PO DAILY 90 days atorvastatin 80 mg PO BEDTIME baclofen 10 mg PO BID citalopram 10 mg PO DAILY 90 days comp.stocking,knee,long,medium apply in am and take off in pm [Depends (adult medium) 4 times per day As directed] furosemide 20 mg PO DAILY 90 days methenamine hippurate 1 g PO DAILY 90 days metoprolol succinate ER (Toprol XL) 25 mg PO DAILY [RIGHT AFO BRACE As directed] sacubitril-valsartan 49-51 mg 1 tab PO BID 90 days solifenacin 5 mg PO DAILY 90 days [STANDARD WHEELCHAIR - XL As directed] sulfamethoxazole-trimethoprim 800-160 mg (Bactrim DS) 1 tab PO BID 7 days tamsulosin 0.4 mg PO DAILY HPI Comments Details: Pleasant 73 year gentleman who is here for follow-up. He was seen in the hospital in April 2023 when presented with new onset congestive heart failure and AFib with RVR. Our plan was to do HARJINDER cardioversion. He was started on apixaban and was taken for HARJINDER. Harjinder revealed a large thrombus in the left atrial appendage and we decided not to cardiovert him and potentially do this down the line. Unfortunately that night he developed intense MCA stroke involving right side of his body. 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 He also has significant peripheral edema at this point. He has been on baclofen 5 mg twice a day. He was previously on Lasix but this has been discontinued. He has back pains which affect his ability to lay down and he has been sleeping in a recliner. He is depressed. He has been taking medications including apixaban and metoprolol 12.5 mg twice a day. He has co-pay for apixaban is significantly high and the is quite concerned about that too. 08/31/2023: He returns for follow-up. He is doing better. He had a brace fitted on her right leg. Overall clinically getting better. Peripheral edema is improved with the diuretics as well as compression stockings. He is tolerating medications. Blood pressure is higher than before and is able to tolerate the Entresto. 11/28/2023: He returns for follow-up. He has been doing well. He is able to walk with a brace. He is doing physiotherapy. No shortness of breath or chest discomfort. No orthopnea or PND. Echocardiography was reviewed and his ejection fraction has improved from severely reduced EF to 45-50%. He continues to be in persistent atrial fibrillation. Taking anticoagulation regularly. His has question about Watchman device. She is asking whether that is an option for him to get off the apixaban. There are no bleeding issues in the past. 04/18/24: He is here for follow-up. He has made good recovery after stroke and is able to walk without a cane for short distances. Continues to be in atrial fibrillation. His heart rate is slow today in the office. He has no dizziness or lightheadedness. No chest discomfort or shortness of breath. No orthopnea. Taking medications regularly. [facility] Medical History Neurogenic bladder Persistent atrial fibrillation Depression CVA (cerebral vascular accident) History of CVA with residual deficit Vitamin B12 deficiency Vitamin D deficiency Mild anemia Overweight (BMI 25.0-29.9) Pure hypercholesterolemia Benign essential hypertension Surgical History Hx of colonoscopy Hx of appendectomy Family History Other Family history non-contributory Social History Household Members: Spouse Housing: House Are you a primary school child care attendant to a significant other at home: No Do you presently have visiting nurse or other home services: No Alcohol intake: former Patient Tobacco Use Status: Former Tobacco user Tobacco use type: Cigarette e-Cigarette/Vaping Use: Never Used Second Hand Smoke Exposure: No service: No Current occupational status: retired Cognitive needs: No Hearing needs: No Vision needs: Yes (glasses) Review of Systems Const Denies chills, Denies fatigue, Denies fever(s), Denies frequent falls, Denies weakness, Denies weight gain and Denies weight loss ENT Denies dizziness Card Denies chest pain, Denies leg edema, Denies lightheadedness, Denies palpitations, Denies dyspnea and Denies dyspnea on exertion Resp Denies cough, Denies dyspnea and Denies dyspnea on exertion GI Denies hematochezia Musc Denies abnormal gait, Denies muscle weakness, Denies numbness, Denies radiating pain into limb and Denies tingling Neuro Denies abnormal gait, Denies dizziness, Denies frequent falls, Denies numbness, Denies tingling and Denies weakness Endo Denies fatigue and Denies palpitations Physical Exam Vital Signs: Last Vital Signs Pulse 48 L 04/18/24 14:41 BP 120/70 04/18/24 14:41 GENERAL APPEARANCE: in no acute distress. NECK: no carotid bruit, no significant jugular venous distention. SKIN: no suspicious lesions, warm and dry. HEART: no murmurs, irregular rate and rhythm. Bradycardic. LUNGS: clear to auscultation bilaterally. ABDOMEN: soft, nontender. EXTREMITIES: No edema. PERIPHERAL PULSES: equal. NEUROLOGIC: Spastic paralysis right side of the body. Office Procedures EKG Details: Atrial fibrillation with slow ventricular response, leftward axis, right bundle-branch block, QTC 410 milliseconds. [id number], Complete Assessment & Plan Assessment & Plan (1) Persistent atrial fibrillation: Code(s): I48.19 - Other persistent atrial fibrillation Category: Medical (2) CVA (cerebral vascular accident): Comment: April 2023 - involving left MCA, resulting in right hemiparesis Code(s): I63.9 - Cerebral infarction, unspecified Category: Medical Qualifiers: CVA mechanism: embolism Precerebral and cerebral artery: middle cerebral artery Laterality of affected vessel: left Qualified Code(s): I63.412 - Cerebral infarction due to embolism of left middle cerebral artery (3) Cardiomyopathy: Code(s): I42.9 - Cardiomyopathy, unspecified Category: Medical Plan Very pleasant 73 year gentleman who is here for follow-up. He underwent embolic stroke secondary to atrial fibrillation. 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 He is recovering from stroke point of view and is able to walk short distances without cane. His EF improved to 50% and we decided not to do cardioversion. On anticoagulation with apixaban 5 mg twice a day. His heart rate is slow and he has right bundle-branch block and left axis deviation on EKG. I think he has underlying conduction system disease. I have advised him to stop the metoprolol 25 mg for now. He is on Entresto 49-51 twice a day and Lasix 20 mg daily. We will request repeat echocardiogram next visit. Thank you for allowing me to participate in the care of your patient. Please feel free to contact me if you have any questions. Medications: Discontinued metoprolol succinate ER (Toprol XL) Discontinued Reason: Doctor's Order 25 mg PO DAILY 90 tabs 3RF I42.9 - Cardiomyopathy, unspecified Coding Level of Care Code Est Pt Level 4 (23935) Diagnoses Persistent atrial fibrillation I48.19 Cerebrovascular accident (CVA) due to embolism of left middle cerebral artery I63.412 CVA mechanism: embolism Precerebral and cerebral artery: middle cerebral artery Laterality of affected vessel: left Cardiomyopathy I42.9 CPT Codes EKG - CPT: 72507-[id number], Complete ([id number])
== END 2024-04-18 15:12 | disposition home or self-care (01) ==
PROVIDERS: Visit Provider Internal Medicine Cardiovascular Disease
DX: I48.19 Other persistent atrial fibrillation (principal); I63.412 Cerebral infarction due to embolism of left middle cerebral artery; I42.9 Cardiomyopathy, unspecified
CPT/HCPCS: 93010; 99214

== ENCOUNTER → 2024-04-18 14:24 | Outpatient (BNVA) | payer MEDICARE, SELFPAY | PROVIDERS: Visit Provider Internal Medicine Cardiovascular Disease | DX: I42.9 Cardiomyopathy, unspecified (principal); I48.19 Other persistent atrial fibrillation; I50.9 Heart failure, unspecified; Z86.73 Personal history of transient ischemic attack (TIA), and cerebral infarction without residual deficits; Z79.899 Other long term (current) drug therapy | CPT/HCPCS: 93005; 99212 ==

== ENCOUNTER 2024-04-19 09:07 | Outpatient (REF) | payer MEDICARE, SELFPAY ==
[2024-04-19 09:27] LABS: MANUAL DIFF FLAG NO
[2024-04-19 09:40] LABS: Basophils Percent Auto 0.3 % (0-2); Eosinophils Absolute Auto 0.2 X10*3/uL (0.0-0.4); Eosinophils Percent Auto 2.2 % (0-4); Hematocrit 38.5 % (42.0-52.0); Hemoglobin 12.8 g/dl (14.0-18.0); Imm Gran Abs Auto 0.02 X10*3/uL (0.00-0.03); Imm Gran Pct Auto 0.3 % (0.0-0.4); Lymphocytes Absolute Auto 1.4 X10*3/uL (1.2-4.9); Lymphocytes Percent Auto 20.9 % (20-40); Mean Corpuscular HGB Conc 33.2 g/dl (31.0-36.0); Mean Corpuscular Volume 96.3 fL (80.0-98.0); Mean Platelet Volume 11.6 fL (9.4-12.4); Monocytes Absolute Auto 0.6 X10*3/uL (0.1-1.2); Monocytes Percent Auto 8.5 % (2-11); Neutrophils Absolute Auto 4.6 x10*3/uL (2.0-8.3); Neutrophils Percent Auto 67.8 % (45-73); Platelet Count 135 X10*3/uL (160-400); Red Cell Distribution Width 12.2 % (11.0-16.0); White Blood Count 6.8 X10*3/uL (4.8-10.8)
[2024-04-19 10:30] LABS: Alanine Aminotransferase 26 U/L (0-40); Albumin Level 3.8 g/dL (3.5-5.0); Alkaline Phosphatase 99 U/L (39-117); Anion Gap 14 (12-20); Aspartate Amino Transferase 19 U/L (5-37); Bilirubin Total 0.6 mg/dL (0.0-1.0); Blood Urea Nitrogen 20 mg/dL (9-16); Calcium 9.2 mg/dL (8.4-10.2); Carbon Dioxide 21 mmol/L (22-29); Chloride 110 mmol/L (96-108); Cholesterol 132 mg/dL (<200); Estimated Glomerular Filt Rate > 60; Glucose Fasting 95 mg/dL (60-99); HDL Cholesterol 62 mg/dL (>40); LDL Cholesterol Calculated 63 mg/dL (<100); Potassium 4.2 mmol/L (3.3-5.1); Sodium 141 mmol/L (135-145); TSH reflex Free T4 1.53 uIU/mL (0.32-4.0); Total Protein 6.1 g/dL (6.5-8.0); Triglycerides 38 mg/dL (<150); Vitamin D 25-OH Total 34.8 ng/mL (>30)
[2024-04-19 10:55] LABS: Appearance Urine Cloudy; Color Urine Yellow; Glucose Urine UA Negative (Negative); Leukocyte Esterase Urine Large (3+) (Negative); Nitrite Urine Negative (Negative); PH 5.5 (5.0-9.0); UMIC TRIGGER UACC YES; Urine Blood Negative (Negative); Urine Ketones Negative (Negative); Urine Protein Trace mg/dL (Neg-Trace)
[2024-04-19 11:11] LABS: Bacteria Urine 4+ (None Seen); Hyaline Casts Urine 0-2 /LPF (0-2); RBC Urine 0-2 /HPF (0-2); Squamous Epithelial Cell Urine 0-2 /HPF (0-2); UACC Culture Trigger YES; WBC Clumps Urine Present; WBC Urine >50 /HPF (0-5)
== END 2024-04-19 09:08 | disposition home or self-care (01) ==
LOC: HO.LAB 09:07
PROVIDERS: PCP Internal Medicine; Visit Provider Internal Medicine
DX: D64.9 Anemia, unspecified (principal); E78.00 Pure hypercholesterolemia, unspecified; E55.9 Vitamin D deficiency, unspecified; R30.0 Dysuria
CPT/HCPCS: 36415; 80053; 80061; 81001; 81003; 82306; 84443; 85025; 87086

== ENCOUNTER 2024-04-20 10:22 | Outpatient (AMB) | payer MEDICARE, SELFPAY ==
--- NOTE | 2024-04-20 10:27 | A.OFFPC_ITS ---
Vital Signs 04/20/24 10:29 Height 5 ft 10 in Weight 188 lb 11.451 oz BMI 27.1 BP 110/60 Blood Pressure Location Lt brachial Position Sitting Pulse 64 Pulse Source Pulse Oximeter Pulse Oximetry (%) 97 Oxygen Delivery Method Room Air Intake Visit Reasons: 4 Month F/U Intake Note: Patient is here to follow up on HTN, Hypercholesterolemia, Afib, CHF. 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 Required: No Oven Attendant: Present Accompanied by: Spouse Allergies No Known Allergies Allergy (Verified 04/20/24 11:10) Medication List - Last Reconciled 04/20/24 by Jean-Pierre Duque MD apixaban 5 mg PO BID ascorbic acid (vitamin C) 1 g PO DAILY 90 days atorvastatin 80 mg PO BEDTIME baclofen 10 mg PO BID citalopram 10 mg PO DAILY 90 days comp.stocking,knee,long,medium apply in am and take off in pm [Depends (adult medium) 4 times per day As directed] furosemide 20 mg PO DAILY 90 days methenamine hippurate 1 g PO DAILY 90 days [RIGHT AFO BRACE As directed] sacubitril-valsartan 49-51 mg 1 tab PO BID 90 days solifenacin 5 mg PO DAILY 90 days [STANDARD WHEELCHAIR - XL As directed] sulfamethoxazole-trimethoprim 800-160 mg (Bactrim DS) 1 tab PO BID 7 days tamsulosin 0.4 mg PO DAILY Tobacco use date assessed: 04/20/24 Fall risk assessment: No Falls in past year Last assessed Fall Risk: 04/20/24 Dental Screening Dental Screen Date: 12/15/23 HPI 4 Month F/U HPI Details Patient comes in today for his follow up visit States that he currently feels okay Is still receiving physical therapy and states that he is now able to walk farther / longer distances than before His states that he has been experiencing a recurrent cough lately, especially in the morning, and it sounds like he is congested and has a lot of phlegm in his throat and he has difficulty coughing them up Patient denies any sore throat or fever lately; he denies any headaches or dizziness Denies any chest pains, no increased SOB No nausea/vomiting, no abdominal pain No change in bowel habits noted He was also taken off his Metoprolol by cardiology a couple of days ago due to low HR - his states that patient has been very sluggish lately and tends to fall asleep / doze off when he is sitting in his wheelchair a lot lately but this seems to be better now since his Metoprolol was stopped He had his follow up labs done yesterday - to discuss his results [facility] Medical History Neurogenic bladder Persistent atrial fibrillation Depression CVA (cerebral vascular accident) History of CVA with residual deficit Vitamin B12 deficiency Vitamin D deficiency Mild anemia Overweight (BMI 25.0-29.9) Pure hypercholesterolemia Benign essential hypertension Surgical History Hx of colonoscopy Hx of appendectomy Family History Other Family history non-contributory Social History Household Members: Spouse Housing: House Are you a primary behavioral health care coordinator to a significant other at home: No Do you presently have visiting nurse or other home services: No Alcohol intake: former Patient Tobacco Use Status: Former Tobacco user Tobacco use type: Cigarette e-Cigarette/Vaping Use: Never Used Second Hand Smoke Exposure: No service: No Current occupational status: retired Cognitive needs: No Hearing needs: No Vision needs: Yes (glasses) Questionnaire Thrive Questionnaire Date Thrive assessed: 12/15/23 SAMI-7 AMB Questionnaire SAMI-7 Date SAMI - 7 assessed: 12/15/23 Source: Developed by Drs. Stephan Raines, Dominique Roberson, Oh Alvarado and colleagues, with an educational alicja from [employer]. Review of Systems Const Denies chills, Reports fatigue, Denies fever(s) and Denies headache(s) ENT Denies dysphagia, Denies dizziness, Denies otalgia, Denies headache(s), Denies neck pain, Denies odynophagia and Denies sore throat Card Denies chest pain, Denies palpitations and Denies dyspnea Resp Reports cough (on and off lately, often in the morning - (+) increased phlegm in throat), Denies dyspnea and Denies wheezing GI Denies abdominal pain, Denies constipation, Denies dysphagia, Denies heartburn, Denies diarrhea, Denies nausea, Denies odynophagia and Denies vomiting Details: currently has a suprapubic catheter in place Reports difficulty urinating (due to neurogenic bladder - currently has a suprapubic catheter in place) Musc Denies neck pain Skin/Breast Denies rash Neuro Details: (+) persistent right hemiparesis, with some residual expressive aphasia Denies dizziness and Denies headache(s) Psych Reports depression Endo Reports fatigue and Denies palpitations Aller/Immun Denies wheezing Physical exam (Primary Care) Vital Signs: Last Vital Signs Pulse 64 04/20/24 10:29 BP 110/60 04/20/24 10:29 Pulse Ox 97 04/20/24 10:29 Oxygen Delivery Method Room Air 04/20/24 10:29 BMI result Body Mass Index 27.1 Tobacco/Smoking Status: Tobacco use Status Tobacco use date assessed 04/20/24 04/20/24 10:36 Patient Tobacco Use Status Former Tobacco user 04/20/24 10:36 Tobacco use type Cigarette 04/20/24 10:36 e-Cigarette/Vaping Use Never Used 04/20/24 10:36 Thrive Assessment: Date of Thrive Assessment Date Thrive assessed 12/15/23 04/20/24 10:36 Const General: no acute distress and alert Limitations: physical limitations ((+) right hemiparesis but he is now able to get up and walk at home) and wheelchair HENMT Ears: TM's normal bilaterally and EAC's normal Throat: Yes posterior oropharynx normal and Yes tonsils normal (no TP congestion noted) Neck Neck: Yes no lymphadenopathy and Yes supple Thyroid: Thyroid normal Resp Auscultation: clear to auscultation bilaterally, no rales and no wheezes Cardio Rate: regular rate Rhythm: abnormal rhythm irregularly irregular Heart sounds: no murmurs GI Palpation (GI): Soft to palpation and nontender Auscultation: normal bowel sounds General: Yes no CVA tenderness Back/Spine/Pelvis Back: no CVA tenderness Cervical Spine: No Cervical spine tenderness Thoracic/Lumbar Spine: No lumbar spinal tenderness Skin Rashes: no rashes Neuro Other: (+) right hemiparesis Speech: Expressive aphasia present (residual; mild) Extrem General: Yes no clubbing, cyanosis or edema Results Reviewed Results Reviewed: Laboratory Tests 04/19/24 04/19/24 09:25 09:26 Plt Count 135 L Creatinine 1.11 Estimated GFR > 60 Triglycerides 38 Cholesterol 132 LDL Cholesterol, Calc 63 HDL Cholesterol 62 TSH 1.53 Ur Specific [place] 1.020 Urine Protein Trace Urine Glucose (UA) Negative Urine Blood Negative Urine Nitrite Negative Ur Leukocyte Esterase Large (3+) H Assessment and Plan Assessment & Plan (1) CVA (cerebral vascular accident): Comment: April 2023 - involving left MCA, resulting in right hemiparesis Code(s): I63.9 - Cerebral infarction, unspecified Qualifiers: CVA mechanism: embolism Precerebral and cerebral artery: middle cerebral artery Laterality of affected vessel: left Qualified Code(s): I63.412 - Cerebral infarction due to embolism of left middle cerebral artery Plan: (+) left MCA embolic stroke secondary to atrial fibrillation and severe cardiomyopathy in April 2023 Patient underwent thrombectomy with TICI (Thrombolysis in Cerebral Infarction) 2C achieved after 2 passes of thrombectomy but patient's right-sided hemiparesis persisted Repeat imaging studies revealed hemorrhagic conversion of his subacute left MCA infarct He was started on Eliquis 28 days after his CVA and repeat head CT ruled out further hemorrhagic conversion - continue Eliquis 5 mg BID Patient continues to present currently with right hemiparesis and he has been going to physical therapy for the past few months with continuing and gradual improvement He also had expressive aphasia following his CVA and this is also still present to some degree (2) Persistent atrial fibrillation: Code(s): I48.19 - Other persistent atrial fibrillation Plan: Patient is currently still in atrial fibrillation but is rate-controlled Continue Eliquis 5 mg BID for thromboembolism prophylaxis Metoprolol was discontinued by cardiology a couple of days ago due to persistent bradycardia (3) Congestive heart failure (CHF): Code(s): I50.9 - Heart failure, unspecified Qualifiers: Heart failure chronicity: acute Heart failure type: combined systolic and diastolic Qualified Code(s): I50.41 - Acute combined systolic (congestive) and diastolic (congestive) heart failure Plan: Patient initially presented to the ER in April 2023 with new onset congestive heart failure and AFib with RVR He was going to undergo MARY ANN cardioversion but MARY ANN revealed a large thrombus in the left atrial appendage and it was decided not to cardiovert him at the time and reschedule this to a later date but he unfortunately developed his CVA later that evening His echocardiogram done at the time revealed an EF of 10 to 15%; his ejection fraction has since improved to 45-50% with aggressive medical management Continue Entresto 49-51 mg BID and Furosemide 20 mg QD Follow up with cardiology as scheduled (4) Pure hypercholesterolemia: Code(s): E78.00 - Pure hypercholesterolemia, unspecified Plan: Results of his labs done yesterday reviewed and discussed with patient Reinforced low cholesterol diet Continue Atorvastatin 80 mg QD Will recheck his labs and fasting lipids in 4 months for follow up (5) Phlegm in throat: Code(s): R09.89 - Other specified symptoms and signs involving the circulatory and respiratory systems Plan: This is most likely due to the fact that he has trouble coughing up his phlegm and clearing his throat related to his CVA Will try starting him on Mucinex ER 600 mg BID PRN to help loosed up his phlegm and this may make it easier for him to expectorate his phlegm (6) Neurogenic bladder: Code(s): N31.9 - Neuromuscular dysfunction of bladder, unspecified Plan: S/P left MCA CVA in April 2023 He currently has a suprapubic catheter, which was placed late last year when his neurogenic bladder and urinary retention persisted > a few months after his CVA He is undergoing suprepubic tube changed by urology regularly - takes Bactrim DS prophylactically before his suprapubic catheter change Continue Finasteride 5 mg QD, Myrbetriq ER 25 mg QD, Solifenacin 5 mg QD and Tamsulosin 0.4 mg QD Follow up with urology as scheduled (7) Vitamin D deficiency: Code(s): E55.9 - Vitamin D deficiency, unspecified Plan: Continue Vitamin D3 2000 units daily (8) Depression: Code(s): F32.A - Depression, unspecified Qualifiers: Depression Type: major depressive disorder Major depression recurrence: recurrent Active/Remission status: currently active Major depression episode severity: unspecified Qualified Code(s): F33.9 - Major depressive disorder, recurrent, unspecified Plan: Continue Citalopram 10 mg QD Plan Follow up in 4 months Orders: Orders Lipid Panel 4 Months E78.00 - Pure hypercholesterolemia, unspecified UA CC w/rflx Micro + Cult 4 Months R30.0 - Dysuria B Type Natriuretic Peptide 4 Months I50.9 - Heart failure, unspecified Complete Blood Count Auto Diff 4 Months D64.9 - Anemia, unspecified Comprehensive [place]. Panel Fast 4 Months E78.00 - Pure hypercholesterolemia, unspecified TSH reflex Free T4 4 Months E78.00 - Pure hypercholesterolemia, unspecified Vitamin D 25-OH Total 4 Months E55.9 - Vitamin D deficiency, unspecified Medications: New guaifenesin ER (Mucinex) 600 mg PO BID PRN 60 tabs 1RF congestion/phlegm Coding Level of Care Code Est Pt Level 4 (99716) Complex EM visit Add On G2211 Diagnoses Cerebrovascular accident (CVA) due to embolism of left middle cerebral artery I63.412 CVA mechanism: embolism Precerebral and cerebral artery: middle cerebral artery Laterality of affected vessel: left Persistent atrial fibrillation I48.19 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 Heart failure chronicity: acute Heart failure type: combined systolic and diastolic Pure hypercholesterolemia E78.00 Phlegm in throat R09.89 Neurogenic bladder N31.9 Vitamin D deficiency E55.9 Episode of recurrent major depressive disorder, unspecified depression episode severity F33.9 Depression Type: major depressive disorder Major depression recurrence: recurrent Active/Remission status: currently active Major depression episode severity: unspecified
[2024-04-20 10:29] VITALS: BP 110/60; PULSE 64; O2SAT 97; BMI 27.1
== END 2024-04-20 11:18 | disposition home or self-care (01) ==
PROVIDERS: PCP Internal Medicine; Visit Provider Internal Medicine
DX: I63.412 Cerebral infarction due to embolism of left middle cerebral artery (principal); I48.19 Other persistent atrial fibrillation; I50.41 Acute combined systolic (congestive) and diastolic (congestive) heart failure; F33.9 Major depressive disorder, recurrent, unspecified; E78.00 Pure hypercholesterolemia, unspecified; R09.89 Other specified symptoms and signs involving the circulatory and respiratory systems; N31.9 Neuromuscular dysfunction of bladder, unspecified; E55.9 Vitamin D deficiency, unspecified
CPT/HCPCS: 99214; G2211

== ENCOUNTER → 2024-04-25 10:38 | Outpatient (BNVA) | payer MEDICARE, SELFPAY | PROVIDERS: PCP Internal Medicine; Visit Provider Urology | DX: N31.9 Neuromuscular dysfunction of bladder, unspecified (principal); Z46.6 Encounter for fitting and adjustment of urinary device | CPT/HCPCS: 51705 ==

== ENCOUNTER → 2024-05-21 11:06 | Outpatient (BNVA) | payer MEDICARE, SELFPAY | PROVIDERS: PCP Internal Medicine; Visit Provider Urology | DX: N31.9 Neuromuscular dysfunction of bladder, unspecified (principal); R33.9 Retention of urine, unspecified; Z46.6 Encounter for fitting and adjustment of urinary device; Z96.0 Presence of urogenital implants | CPT/HCPCS: 51705 ==

== ENCOUNTER → 2024-06-20 10:11 | Outpatient (BNVA) | payer MEDICARE, SELFPAY | PROVIDERS: PCP Internal Medicine; Visit Provider Urology | DX: N31.9 Neuromuscular dysfunction of bladder, unspecified (principal); R33.9 Retention of urine, unspecified; I10 Essential (primary) hypertension | CPT/HCPCS: 51705 ==

== ENCOUNTER 2024-07-10 14:00 | Outpatient (RCR) | payer MEDICARE, SELFPAY ==
[2023-07-12 08:39] VITALS: BP 140/70; PULSE 65; O2SAT 97
--- NOTE | 2023-07-14 15:30 | MHC.PT.EP ---
[facility] [place] [facility] [place] [facility] [place] Office [address] Niraj Medina [address] [phone] F: [phone] F: [phone] F: [phone] F: [phone] Physical Therapy Plan of Care Date of Evaluation: 07/14/23 Date of Surgery: Diagnosis: G81.11 Spastic hemiplegia affecting right dominant side, I63.9 Cerebral infrartion, unspecified signed by Dr. Duque date script was ordered: 06/21/23 Assessment: Pt is a RHD 73 y/o male, referred to PT for treatment of G81.11 Spastic hemiplegia affecting right dominant side, I63.9 Cerebral infartion, unspecified signed by Dr. Duque date script was ordered: 06/21/23 following history of acute hospitalization CVA/infarct 04/21/23. Pt has since finished course of acute rehab [place] x five weeks> home rehab which finished last week 07/08/23. Pt presents to outpatient PT on 07/12/23 at WC level. Pt expressing not currently ambulating at home, was able to stand and work on balance while in rehab. Pt would benefit from obtaining an AFO to aide in R LE mobility/functionality, enhance safety, and reduce risk of falls. Pt currently has a rand walker at home and reports having two different style WC (both were family members which are in good condition). It does not appear patient was ever fitted for a custom WC for himself. Pt would benefit from attending skilled PT services at a frequency of 3x/week x 4 weeks, then likely 2x/week x 4 weeks to address impairments, implement HEP, and restore functional mobility to resume PLOF. Pt currently using WC as primary mode of ambulation, requires MIN A for transfers. During home therapy pt was able to ambulate ~25 with with rand-walker. SBPT phoned Dr. Duque office today spoke with Zohreh to request obtaining a script for prescription R AFO (has not been assessed for yet) in effort to progress/facilitate next phase of mobility for patient. Pt's Sara present alongside Steve for assessment this date. Pt currently exhibits weakness in R UE, R LE, impaired transfer status, inability to ambulate independently will benefit from outpatient PT to address these impairments and work to facilitate patient level of independence with ADLS/IADLS. Will benefit from PT to address these impairments. SBPT called Dr. Duque office back on 07/14/23 to check on status of script for AFO was advised it has been received but not yet written. Frequency and Duration: The patient will be seen 3x/week x 4-6 weeks, then 2x/week x 4-6 weeks Short Term Goals: 1. Initiate sit<>stand on first attempt with S level with good safety insight with use of AFO R LE. 2. Obtain AFO for R LE for patient with good safety insight to wear schedule/use/goals. 3. Bed mobility S level rolling L>R, R>L, and bridging. 4. Pt will demonstrate good eccentric control during functional transfers. 5. Pt will ambulate 10ft in the parallels bars with use of R AFO MIN A level, progress to 50ft with use of rand walker. L UE and R AFO. 6. Initiate AAROM R shoulder flexion 120 degrees in supine. 7. Demonstrate good dynamic balance in standing for ADLS/IADLS with use of R AFO. Retirement Goals: 1. Pt will ambulate community distances; 500ft with use of L rand walker (training with parallel bars in PT) with use of R AFO (has not yet obtained consult for AFO however a script is being generated by PCP office, second call was placed on 07/14/23 by SBPT. I spoke with Erica this date). 2. Pt will be I with HEP for self care for core/hip program. 3. Demonstrate symmetrical sitting posture in WC and has I with self care management for back pain. 4. Pt will perform symmetrical bridge with min A for R LE management. 5. Transfers S level with least restrictive adaptive equipment. Treatment Plan: Modalities to reduce pain, spasms and effusion. Manual therapy to restore motion and function. Therapeutic exercise to improve strength and flexibility. Neuromuscular re-education for posture and balance. Therapeutic activities to return to functional activities of daily living. Electronically signed by: Juana Stewart, PT, DPT Please sign and return to therapist. Thank you for your referral.
--- NOTE | 2024-07-10 15:09 | MHC.PT.EP ---
[facility] [place] [facility] [place] [facility] [place] Office [address] Niraj Medina [address] [phone] F: [phone] F: [phone] F: [phone] F: [phone] Physical Therapy Plan of Care Date of Evaluation: 07/14/23 Date of Surgery: Diagnosis: CVA 04/21/23 resulting in R Spastic hemiplegia Assessment: Pt is a RHD 73 y/o male, referred to PT for treatment of G81.11 Spastic hemiplegia affecting right dominant side, I63.9 Cerebral infartion, unspecified signed by Dr. Duque date script was ordered: 06/21/23 following history of acute hospitalization CVA/infarct 04/21/23. Pt has since finished course of acute rehab Ron x five weeks> home rehab which finished last week 07/08/23. Pt presents to outpatient PT on 07/12/23 at WC level. Pt expressing not currently ambulating at home, was able to stand and work on balance while in rehab. Pt would benefit from obtaining an AFO to aide in R LE mobility/functionality, enhance safety, and reduce risk of falls. Pt currently has a rand walker at home and reports having two different style WC (both were family members which are in good condition). It does not appear patient was ever fitted for a custom WC for himself. Pt would benefit from attending skilled PT services at a frequency of 3x/week x 4 weeks, then likely 2x/week x 4 weeks to address impairments, implement HEP, and restore functional mobility to resume PLOF. Pt currently using WC as primary mode of ambulation, requires MIN A for transfers. During home therapy pt was able to ambulate ~25 with with rand-walker. SBPT phoned Dr. Duque office today spoke with Zohreh to request obtaining a script for prescription R AFO (has not been assessed for yet) in effort to progress/facilitate next phase of mobility for patient. Pt's Sara present alongside Steve for assessment this date. Pt currently exhibits weakness in R UE, R LE, impaired transfer status, inability to ambulate independently will benefit from outpatient PT to address these impairments and work to facilitate patient level of independence with ADLS/IADLS. Will benefit from PT to address these impairments. SBPT called Dr. Duque office back on 07/14/23 to check on status of script for AFO was advised it has been received but not yet written. Frequency and Duration: The patient will be seen 2 x / wk x 3 wks. Short Term Goals: 1. Initiate sit<>stand on first attempt with S level with good safety insight with use of AFO R LE.- (GOAL MET: currently MOD I with sit <> stand). 2. Obtain AFO for R LE for patient with good safety insight to wear schedule/use/goals. - awaiting AFO to be made (GOAL MET). 3. Bed mobility S level rolling L>R, R>L, and bridging. (GOAL MET). 4. Pt will demonstrate good eccentric control during functional transfers. (GOAL MET). 5. Pt will ambulate 10ft in the parallels bars with use of R AFO MIN A level, progress to 50ft with use of rand walker. L UE and R AFO. (GOAL MET). 6. Demonstrate good dynamic balance in standing for ADLS/IADLS with use of R AFO. (GOAL MET) Correction Goals: 1. Pt will ambulate community distances; 500ft with use of L SPC with use of R AFO in order to promote community ambulation. (GOAL MET: 673' 05/31/24). 2. Pt will be I with HEP for self care for core/hip program. (GOAL MET for basic HEP) 3. Demonstrate symmetrical sitting posture in WC and has I with self care management for back pain. (GOAL MET: Pt no longer c/o LBP) 4. Pt will perform symmetrical bridge with min A for R LE management. Progressing (GOAL MET) 5. Transfers S level with least restrictive adaptive equipment. (GOAL MET) 6: Pt will be able to ambulate x 100ft with SPC. (GOAL MET) 7: Pt will ascend and descend 1 fl of stairs under S x 1. (GOAL MET 12/22/23) 8: Pt will perform TUG test in < 14 seconds in order to demonstrate clinically significant improvement in fall risk; last assessed: 41 seconds 9: Pt will perform 30 second sit to stand > 12 reps in order to demonstrate improved LE functional strength and decreased risk of falls. (GOAL MET 04/24/24) 10: NEW GOAL: Pt will be able to step on and over 6 step with SPC under S to simulate negotiating a curb; initial: CGA for balance. (PROGRESSING CS required with minimal cues 05/24/24) 11: NEW GOAL: Pt will be able to perform fall recovery demo from floor. Treatment Plan: Modalities to reduce pain, spasms and effusion. Manual therapy to restore motion and function. Therapeutic exercise to improve strength and flexibility. Neuromuscular re-education for posture and balance. Therapeutic activities to return to functional activities of daily living. Electronically signed by: Juana Stewart, PT, DPT Please sign and return to therapist. Thank you for your referral.
== END 2024-07-10 15:10 | disposition home or self-care (01) ==
LOC: HO.PT 14:00
PROVIDERS: PCP Internal Medicine; Visit Provider Internal Medicine
DX: G81.11 Spastic hemiplegia affecting right dominant side (principal); I63.9 Cerebral infarction, unspecified
CPT/HCPCS: 97110; 97112; 97116; 97140; 97163; 97164; 97530; 97535

== ENCOUNTER → 2024-07-19 11:12 | Outpatient (BNVA) | payer MEDICARE, SELFPAY | PROVIDERS: PCP Internal Medicine; Visit Provider Urology | DX: N31.9 Neuromuscular dysfunction of bladder, unspecified (principal); Z46.6 Encounter for fitting and adjustment of urinary device; Z93.50 Unspecified cystostomy status | CPT/HCPCS: 51705 ==

== ENCOUNTER 2024-07-31 09:40 | Outpatient (REF) | payer MEDICARE, SELFPAY ==
[2024-07-31 11:30] LABS: MANUAL DIFF FLAG NO
[2024-07-31 11:46] LABS: Appearance Urine Cloudy; Color Urine Yellow; Glucose Urine UA Negative (Negative); Leukocyte Esterase Urine Moderate (2+) (Negative); Nitrite Urine Positive (Negative); PH 5.5 (5.0-9.0); UMIC TRIGGER UACC YES; Urine Blood Large (3+) (Negative); Urine Ketones Negative (Negative); Urine Protein 30 (1+) mg/dL (Neg-Trace)
[2024-07-31 11:50] LABS: Bacteria Urine 4+ (None Seen); Hyaline Casts Urine 0-2 /LPF (0-2); RBC Urine >20 /HPF (0-2); Squamous Epithelial Cell Urine 0-2 /HPF (0-2); UACC Culture Trigger YES; WBC Urine >50 /HPF (0-5)
[2024-07-31 11:53] LABS: Basophils Percent Auto 0.3 % (0-2); Eosinophils Absolute Auto 0.1 X10*3/uL (0.0-0.4); Eosinophils Percent Auto 2.2 % (0-4); Imm Gran Abs Auto 0.02 X10*3/uL (0.00-0.03); Imm Gran Pct Auto 0.3 % (0.0-0.4); Lymphocytes Absolute Auto 1.1 X10*3/uL (1.2-4.9); Mean Corpuscular HGB Conc 32.5 g/dl (31.0-36.0); Mean Corpuscular Hemoglobin 31.5 pg (27.0-33.0); Mean Corpuscular Volume 96.9 fL (80.0-98.0); Mean Platelet Volume 11.9 fL (9.4-12.4); Monocytes Absolute Auto 0.4 X10*3/uL (0.1-1.2); Monocytes Percent Auto 6.7 % (2-11); Neutrophils Absolute Auto 4.6 x10*3/uL (2.0-8.3); Neutrophils Percent Auto 73.5 % (45-73); Platelet Count 158 X10*3/uL (160-400); Red Blood Count 4.13 X10*6/uL (4.60-5.80); Red Cell Distribution Width 12.2 % (11.0-16.0); White Blood Count 6.3 X10*3/uL (4.8-10.8)
[2024-07-31 12:24] LABS: B Type Natriuretic Peptide 108 pg/mL (<100)
[2024-07-31 12:58] LABS: Alanine Aminotransferase 34 U/L (0-40); Albumin Level 3.7 g/dL (3.5-5.0); Alkaline Phosphatase 108 U/L (39-117); Anion Gap 10 (12-20); Aspartate Amino Transferase 29 U/L (5-37); Bilirubin Total 0.4 mg/dL (0.0-1.0); Blood Urea Nitrogen 16 mg/dL (9-16); Calcium 8.9 mg/dL (8.4-10.2); Carbon Dioxide 27 mmol/L (22-29); Chloride 110 mmol/L (96-108); Cholesterol 123 mg/dL (<200); Estimated Glomerular Filt Rate 59; Glucose Fasting 106 mg/dL (60-99); HDL Cholesterol 62 mg/dL (>40); LDL Cholesterol Calculated 52 mg/dL (<100); Potassium 4.1 mmol/L (3.3-5.1); Sodium 143 mmol/L (135-145); Total Protein 6.1 g/dL (6.5-8.0); Triglycerides 45 mg/dL (<150)
[2024-07-31 13:04] LABS: TSH reflex Free T4 1.91 uIU/mL (0.32-4.0); Vitamin D 25-OH Total 36.3 ng/mL (>30)
== END 2024-07-31 09:41 | disposition home or self-care (01) ==
LOC: HO.WFDLDS 09:40
PROVIDERS: Visit Provider Internal Medicine
DX: I50.9 Heart failure, unspecified (principal); E55.9 Vitamin D deficiency, unspecified; D64.9 Anemia, unspecified; E78.00 Pure hypercholesterolemia, unspecified; R30.0 Dysuria
CPT/HCPCS: 36415; 80053; 80061; 81001; 82306; 83880; 84443; 85025; 87086

== ENCOUNTER → 2024-08-20 10:49 | Outpatient (BNVA) | payer MEDICARE, SELFPAY | PROVIDERS: PCP Internal Medicine; Visit Provider Urology | DX: N31.9 Neuromuscular dysfunction of bladder, unspecified (principal); Z46.6 Encounter for fitting and adjustment of urinary device; Z93.50 Unspecified cystostomy status | CPT/HCPCS: 51705 ==

== ENCOUNTER 2024-08-22 10:38 | Outpatient (AMB) | payer MEDICARE, SELFPAY ==
--- NOTE | 2024-08-22 10:41 | A.OFFPC_ITS ---
Vital Signs 08/22/24 10:42 Height 5 ft 10 in BMI Reason not done Patient refused/unable BP 118/76 Blood Pressure Location Lt brachial Position Sitting Pulse 78 Pulse Source Pulse Oximeter Pulse Oximetry (%) 99 Oxygen Delivery Method Room Air Intake Visit Reasons: CVA, AF, hyperlipidemia Curtain Supervisor Required: No Accompanied by: Spouse Allergies No Known Allergies Allergy (Verified 08/22/24 11:12) Medication List - Last Reconciled 08/23/24 by Jean-Pierre Duque MD apixaban 5 mg PO BID ascorbic acid (vitamin C) 1 g PO DAILY 90 days atorvastatin 80 mg PO BEDTIME baclofen 10 mg PO BID citalopram 10 mg PO DAILY 90 days comp.stocking,knee,long,medium apply in am and take off in pm [Depends (adult medium) 4 times per day As directed] furosemide 20 mg PO DAILY 90 days guaifenesin ER (Mucinex) 600 mg PO BID PRN methenamine hippurate 1 g PO DAILY 90 days [RIGHT AFO BRACE As directed] sacubitril-valsartan 49-51 mg 1 tab PO BID 90 days solifenacin 5 mg PO DAILY 90 days [STANDARD WHEELCHAIR - XL As directed] [Standing upright Walker with Right arm rest As directed] tamsulosin 0.4 mg PO DAILY Tobacco use date assessed: 08/22/24 Fall risk assessment: No Falls in past year Last assessed Fall Risk: 08/22/24 Dental Screening Dental Screen Date: 08/22/24 Did you have a dental visit in the last 12 months?: Yes Did you have a dental problem in the last 6 months where you did not have access to dental care?: No Was dental information given to patient?: Patient has dentist HPI CVA, AF, hyperlipidemia HPI Details Patient comes in today for his follow up visit States that he feels okay He denies any headaches or dizziness Denies any chest pains, no increased SOB No nausea/vomiting, no abdominal pain No change in bowel habits noted He is still going to physical therapy and was recommended to look into speech therapy as well recently for his word aphasia His is also concerned about his ability to get the prep done if he is going for his repeat colonoscopy early next year - he will be due for a repeat colonoscopy sometime in November 2024 He had his follow up labs done a few weeks ago - to discuss his results [facility] Medical History Neurogenic bladder Persistent atrial fibrillation Depression CVA (cerebral vascular accident) History of CVA with residual deficit Vitamin B12 deficiency Vitamin D deficiency Mild anemia Overweight (BMI 25.0-29.9) Pure hypercholesterolemia Benign essential hypertension Surgical History Hx of colonoscopy Hx of appendectomy Family History Other Family history non-contributory Social History Household Members: Spouse Housing: House Are you a primary spiritual care coordinator to a significant other at home: No Do you presently have visiting nurse or other home services: No Alcohol intake: former Patient Tobacco Use Status: Former Tobacco user Tobacco use type: Cigarette e-Cigarette/Vaping Use: Never Used Second Hand Smoke Exposure: No service: No Current occupational status: retired Cognitive needs: No Hearing needs: No Vision needs: Yes (glasses) Questionnaire PHQ-9 Over the last 2 weeks, how often have you been bothered by any of the following problems? 1. Little interest or pleasure in doing things: not at all 2. Feeling down, depressed, or hopeless: not at all 3. Trouble falling or staying asleep, or sleeping too much: not at all 4. Feeling tired or having little energy: not at all 5. Poor appetite or overeating: not at all 6. Feeling bad about yourself - or that you are a failure or have let yourself or your family down: not at all 7. Trouble concentrating on things, such as reading the newspaper or watching television: not at all 8. Moving or speaking so slowly that other people could have noticed. Or the opposite - being so fidgety or restless that you have been moving around a lot more than usual: not at all 9. Thoughts that you would be better off or of hurting yourself in some way: not at all Total score: 0 Depression Screening Interpretation: Negative (is on antidepressant Rx) Depression Screening Done: Yes 49733 - PHQ-9 Billing: Yes Source: Developed by Drs. Dominique Denise, Oh Alvarado and colleagues, with an educational alicja from [employer]. Thrive Questionnaire Date Thrive assessed: 08/22/24 I am a: Patient What is your living situation today?: I have a steady place to live Within the past 12 months, did the food you bought not last and you didn't have the money to get more?: Never true Within the past 12 months, did you worry whether your food would run out before you got money to buy more?: Never true Do you have trouble paying for medicines?: No Do you have trouble getting transportation to medical appointments?: No Do you have trouble paying your heating and electricity bill?: No Do you have trouble taking care of your child, family member or friend?: No Do you have trouble with day-to-day activities such as bathing, preparing meals, shopping, managing finances, etc.?: No Are you currently unemployed and looking for a job?: No Are you interested in more education?: No Please select the resources that you would like help with: None Currently or been in a relationship where the following occur: No concerns reported THRIVE Score: 0 AUDIT C Alcohol Use Questionnaire (AUDIT-C) 1. How often do you have a drink containing alcohol?: Never Total Score: 0 Score Reviewed/Action Taken: Yes SAMI-7 AMB Questionnaire SAMI-7 Date SAMI - 7 assessed: 08/22/24 Feeling nervous, anxious, or on edge: 0 = Not at all Not being able to stop or control worryin = Not at all Worrying too much about different things: 0 = Not at all Trouble relaxin = Not at all Being so restless that it is hard to sit still: 0 = Not at all Becoming easily annoyed or irritable: 0 = Not at all Feeling afraid as if something awful might happen: 0 = Not at all Total SAMI-7 score (0-4 normal; 5-9 mild; 10-14 moderate; 15-21 severe): 0 Source: Developed by Dominique Rios, Oh Alvarado and colleagues, with an educational alicja from [employer]. Review of Systems Const Denies chills, Denies fatigue, Denies fever(s) and Denies headache(s) ENT Denies dysphagia, Denies dizziness, Denies otalgia, Denies headache(s), Denies neck pain, Denies odynophagia and Denies sore throat Card Denies chest pain, Denies palpitations and Denies dyspnea Resp Denies chest congestion, Denies cough and Denies dyspnea GI Denies abdominal pain, Denies constipation, Denies dysphagia, Denies heartburn, Denies diarrhea, Denies nausea, Denies odynophagia and Denies vomiting Details: currently has a suprapubic catheter in place Reports difficulty urinating (due to neurogenic bladder - currently has a suprapubic catheter in place) Musc Denies back pain and Denies neck pain Skin/Breast Denies rash Neuro Details: (+) right hemiparesis, with residual expressive aphasia Denies dizziness and Denies headache(s) Psych Reports depression Endo Denies fatigue and Denies palpitations Physical exam (Primary Care) Vital Signs: Last Vital Signs Pulse 78 08/22/24 10:42 BP 118/76 08/22/24 10:42 Pulse Ox 99 08/22/24 10:42 Oxygen Delivery Method Room Air 08/22/24 10:42 Tobacco/Smoking Status: Tobacco use Status Tobacco use date assessed 08/22/24 08/22/24 10:50 Patient Tobacco Use Status Former Tobacco user 08/22/24 10:50 Tobacco use type Cigarette 08/22/24 10:50 e-Cigarette/Vaping Use Never Used 08/22/24 10:50 PHQ-9: PHQ-9 Score PHQ-9: Total score 0 08/23/24 04:11 Depression Screening Interpretation: Negative (is on antidepressant Rx) Thrive Assessment: Date of Thrive Assessment Date Thrive assessed 08/22/24 08/22/24 10:50 Currently or been in a relationship where the following occur: No concerns reported Const General: no acute distress and alert Limitations: physical limitations ((+) right hemiparesis but is able to get up and walk when at home) and wheelchair HENMT Ears: TM's normal bilaterally and EAC's normal Throat: Yes posterior oropharynx normal and Yes tonsils normal (no TP congestion noted) Neck Neck: Yes no lymphadenopathy and Yes supple Thyroid: Thyroid normal Resp Auscultation: clear to auscultation bilaterally, no rales and no wheezes Cardio Rate: regular rate Rhythm: abnormal rhythm irregularly irregular Heart sounds: no murmurs GI Palpation (GI): Soft to palpation and nontender Auscultation: normal bowel sounds General: Yes no CVA tenderness Back/Spine/Pelvis Back: no CVA tenderness Cervical Spine: No Cervical spine tenderness Thoracic/Lumbar Spine: No lumbar spinal tenderness Skin Rashes: no rashes Neuro Other: (+) right hemiparesis Speech: Expressive aphasia present (residual; mild) Extrem General: Yes no clubbing, cyanosis or edema Results Reviewed Results Reviewed: Laboratory Tests 07/31/24 07/31/24 09:42 09:51 WBC 6.3 Hgb 13.0 L Hct 40.0 L Plt Count 158 L Sodium 143 Potassium 4.1 Creatinine 1.21 Estimated GFR 59 Fasting Glucose 106 H Calcium 8.9 AST 29 ALT 34 B-Natriuretic Peptide 108 H Triglycerides 45 Cholesterol 123 LDL Cholesterol, Calc 52 HDL Cholesterol 62 25-OH Vitamin D Total 36.3 TSH 1.91 Ur Specific [place] 1.020 Urine Protein 30 (1+) H Urine Glucose (UA) Negative Urine Blood Large (3+) H Urine Nitrite Positive H Ur Leukocyte Esterase Moderate (2+) H Coding Level of Care Code Est Pt Level 4 (13783) Complex EM visit Add On G2211 Diagnoses Cerebrovascular accident (CVA) due to embolism of left middle cerebral artery I63.412 CVA mechanism: embolism Precerebral and cerebral artery: middle cerebral artery Laterality of affected vessel: left Aphasia as late effect of cerebrovascular accident (CVA) I69.320 Persistent atrial fibrillation I48.19 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 Heart failure chronicity: acute Heart failure type: combined systolic and diastolic Pure hypercholesterolemia E78.00 Neurogenic bladder N31.9 Vitamin D deficiency E55.9 Episode of recurrent major depressive disorder, unspecified depression episode severity F33.9 Depression Type: major depressive disorder Major depression recurrence: recurrent Active/Remission status: currently active Major depression episode severity: unspecified Additional Codes PHQ-9 - 22346 - PHQ-9 Billing: Yes ([id number]) Assessment & Plan Assessment & Plan (1) CVA (cerebral vascular accident): Comment: April 2023 - involving left MCA, resulting in right hemiparesis Code(s): I63.9 - Cerebral infarction, unspecified Category: Medical Qualifiers: CVA mechanism: embolism Precerebral and cerebral artery: middle cerebral artery Laterality of affected vessel: left Qualified Code(s): I63.412 - Cerebral infarction due to embolism of left middle cerebral artery Plan: S/P left MCA embolic stroke secondary to atrial fibrillation and severe cardiomyopathy in April 2023 Patient underwent thrombectomy with TICI (Thrombolysis in Cerebral Infarction) 2C achieved after 2 passes of thrombectomy but unfortunately, patient's right- sided hemiparesis persisted Repeat imaging studies done revealed (+) hemorrhagic conversion of his subacute left MCA infarct He was started on Eliquis 28 days after his CVA and repeat head CT ruled out further hemorrhagic conversion - continue Eliquis 5 mg BID Patient continues to present with right hemiparesis and he has been going to physical therapy for the past few months with continuing but gradual improvement He also has expressive aphasia following his CVA and this is still present to some degree (2) Aphasia as late effect of cerebrovascular accident (CVA): Code(s): I69.320 - Aphasia following cerebral infarction Category: Medical Plan: Per request, will refer him for speech therapy (3) Persistent atrial fibrillation: Code(s): I48.19 - Other persistent atrial fibrillation Category: Medical Plan: Patient is currently still in atrial fibrillation but remains rate-controlled Continue Eliquis 5 mg BID for thromboembolism prophylaxis Metoprolol was discontinued by cardiology a few months ago due to persistent bradycardia (4) Congestive heart failure (CHF): Code(s): I50.9 - Heart failure, unspecified Category: Medical Qualifiers: Heart failure chronicity: acute Heart failure type: combined systolic and diastolic Qualified Code(s): I50.41 - Acute combined systolic (congestive) and diastolic (congestive) heart failure Plan: Patient initially presented to the ER in April 2023 with new onset congestive heart failure and AFib with RVR He was going for MARY ANN cardioversion but MARY ANN revealed a large thrombus in the left atrial appendage and it was decided not to cardiovert him at the time and reschedule this to a later date but he unfortunately developed his CVA later that evening His echocardiogram done at the time revealed an EF of 10 to 15%; his ejection fraction has since improved to 45-50% with aggressive medical management (last echo done in September 2023) Continue Entresto 49-51 mg BID and Furosemide 20 mg QD Follow up with cardiology as scheduled (5) Pure hypercholesterolemia: Code(s): E78.00 - Pure hypercholesterolemia, unspecified Category: Medical Plan: Results of his labs done a few weeks ago reviewed and discussed with patient Reinforced low cholesterol diet Continue Atorvastatin 80 mg QD Will recheck his labs and fasting lipids in 4 months for follow up (6) Neurogenic bladder: Code(s): N31.9 - Neuromuscular dysfunction of bladder, unspecified Category: Medical Plan: S/P left MCA CVA in April 2023 He currently has a suprapubic catheter, which was placed late last year (2022) when his neurogenic bladder and urinary retention persisted a few months after his CVA He undergoes suprapubic tube changed by urology regularly - takes Bactrim DS prophylactically before his suprapubic catheter change Continue Solifenacin 5 mg QD and Tamsulosin 0.4 mg QD; Finasteride and Myrbetriq ER were discontinued by urology a few months ago Follow up with urology as scheduled (7) Vitamin D deficiency: Code(s): E55.9 - Vitamin D deficiency, unspecified Category: Medical Plan: Continue Vitamin D3 2000 units QD (8) Depression: Code(s): F32.A - Depression, unspecified Category: Medical Qualifiers: Depression Type: major depressive disorder Major depression recurrence: recurrent Active/Remission status: currently active Major depression episode severity: unspecified Qualified Code(s): F33.9 - Major depressive disorder, recurrent, unspecified Plan: Continue Citalopram 10 mg QD Plan Have discussed with patient and his that if it is time for his repeat colonoscopy early next year, he will also likely have to stop taking his Eliquis for a few days and start on Heparin or Lovenox and his also expressed concerns about him coming off Eliquis She is concerned as well about his ability to do the precolonoscopy prep - states that he is still limited by his hemiparesis and would not be able to get to the bathroom in time if he has to go Have advised that when it is time for his repeat colonoscopy, as he does not have any increased risk (family or personal) of colon cancer although he did have a tubular adenoma on his initial colonoscopy back in 2009, he can probably just get by with doing a Cologuard test for now - will address this at his next follow up appointment Follow up in 4 months Orders: Orders Complete Blood Count Auto Diff 4 Months D64.9 - Anemia, unspecified Comprehensive [place]. Panel Fast 4 Months E78.00 - Pure hypercholesterolemia, unspecified Lipid Panel 4 Months E78.00 - Pure hypercholesterolemia, unspecified TSH reflex Free T4 4 Months E78.00 - Pure hypercholesterolemia, unspecified UA CC w/rflx Micro + Cult 4 Months R30.0 - Dysuria Vitamin D 25-OH Total 4 Months E55.9 - Vitamin D deficiency, unspecified Referrals Speech and Hearing Referral I69.320 - Aphasia following cerebral infarction
[2024-08-22 10:42] VITALS: BP 118/76; PULSE 78; O2SAT 99
== END 2024-08-22 11:28 | disposition home or self-care (01) ==
PROVIDERS: PCP Internal Medicine; Visit Provider Internal Medicine
DX: I48.19 Other persistent atrial fibrillation (principal); I63.412 Cerebral infarction due to embolism of left middle cerebral artery; F33.9 Major depressive disorder, recurrent, unspecified; I50.41 Acute combined systolic (congestive) and diastolic (congestive) heart failure; I69.320 Aphasia following cerebral infarction; E78.00 Pure hypercholesterolemia, unspecified; N31.9 Neuromuscular dysfunction of bladder, unspecified; E55.9 Vitamin D deficiency, unspecified

== ENCOUNTER → 2024-08-22 10:38 | Outpatient (BNVA) | payer MEDICARE, SELFPAY | PROVIDERS: PCP Internal Medicine; Visit Provider Internal Medicine | DX: I63.412 Cerebral infarction due to embolism of left middle cerebral artery (principal); I69.320 Aphasia following cerebral infarction; I48.19 Other persistent atrial fibrillation; I50.41 Acute combined systolic (congestive) and diastolic (congestive) heart failure; E78.00 Pure hypercholesterolemia, unspecified; N31.9 Neuromuscular dysfunction of bladder, unspecified; E55.9 Vitamin D deficiency, unspecified; F33.9 Major depressive disorder, recurrent, unspecified; Z87.891 Personal history of nicotine dependence | CPT/HCPCS: 96127; 99212 ==

== ENCOUNTER 2024-08-27 09:40 | Outpatient (AMB) | payer MEDICARE, SELFPAY ==
[2024-08-27 09:57] VITALS: BP 120/60; PULSE 82; BMI 26.5
--- NOTE | 2024-08-27 09:57 | MHC.OFFVIS ---
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 Required: No Accompanied by: Spouse Allergies No Known Allergies Allergy (Verified 08/22/24 11:12) Medication List - Last Reconciled 08/27/24 by Alfredo Mccain MD apixaban 5 mg PO BID ascorbic acid (vitamin C) 1 g PO DAILY 90 days atorvastatin 80 mg PO BEDTIME baclofen 10 mg PO BID citalopram 10 mg PO DAILY 90 days comp.stocking,knee,long,medium apply in am and take off in pm [Depends (adult medium) 4 times per day As directed] furosemide 20 mg PO DAILY 90 days guaifenesin ER (Mucinex) 600 mg PO BID PRN methenamine hippurate 1 g PO DAILY 90 days [RIGHT AFO BRACE As directed] sacubitril-valsartan 49-51 mg 1 tab PO BID 90 days solifenacin 5 mg PO DAILY 90 days [STANDARD WHEELCHAIR - XL As directed] [Standing upright Walker with Right arm rest As directed] tamsulosin 0.4 mg PO DAILY HPI Comments Details: Pleasant 74 year gentleman who is here for follow-up. He was seen in the hospital in April 2023 when presented with new onset congestive heart failure and AFib with RVR. Our plan was to do HARJINDER cardioversion. He was started on apixaban and was taken for HARJINDER. Harjinder revealed a large thrombus in the left atrial appendage and we decided not to cardiovert him and potentially do this down the line. Unfortunately that night he developed intense MCA stroke involving right side of his body. 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 He also has significant peripheral edema at this point. He has been on baclofen 5 mg twice a day. He was previously on Lasix but this has been discontinued. He has back pains which affect his ability to lay down and he has been sleeping in a recliner. He is depressed. He has been taking medications including apixaban and metoprolol 12.5 mg twice a day. He has co-pay for apixaban is significantly high and the is quite concerned about that too. 08/31/2023: He returns for follow-up. He is doing better. He had a brace fitted on her right leg. Overall clinically getting better. Peripheral edema is improved with the diuretics as well as compression stockings. He is tolerating medications. Blood pressure is higher than before and is able to tolerate the Entresto. 11/28/2023: He returns for follow-up. He has been doing well. He is able to walk with a brace. He is doing physiotherapy. No shortness of breath or chest discomfort. No orthopnea or PND. Echocardiography was reviewed and his ejection fraction has improved from severely reduced EF to 45-50%. He continues to be in persistent atrial fibrillation. Taking anticoagulation regularly. His has question about Watchman device. She is asking whether that is an option for him to get off the apixaban. There are no bleeding issues in the past. 04/18/24: He is here for follow-up. He has made good recovery after stroke and is able to walk without a cane for short distances. Continues to be in atrial fibrillation. His heart rate is slow today in the office. He has no dizziness or lightheadedness. No chest discomfort or shortness of breath. No orthopnea. Taking medications regularly. 08/27/2024: He is here for follow-up. He has made good recovery and is walking with a cane at this stage. He does not have any symptoms/signs of heart failure. Chronic lower extremity edema which related to baclofen use. [facility] Medical History Neurogenic bladder Persistent atrial fibrillation Depression CVA (cerebral vascular accident) History of CVA with residual deficit Vitamin B12 deficiency Vitamin D deficiency Mild anemia Overweight (BMI 25.0-29.9) Pure hypercholesterolemia Benign essential hypertension Surgical History Hx of colonoscopy Hx of appendectomy Family History Other Family history non-contributory Social History Household Members: Spouse Housing: House Are you a primary home day care provider to a significant other at home: No Do you presently have visiting nurse or other home services: No Alcohol intake: former Patient Tobacco Use Status: Former Tobacco user Tobacco use type: Cigarette e-Cigarette/Vaping Use: Never Used Second Hand Smoke Exposure: No service: No Current occupational status: retired Cognitive needs: No Hearing needs: No Vision needs: Yes (glasses) Review of Systems Const Denies chills, Denies fatigue, Denies fever(s), Denies frequent falls, Denies weakness, Denies weight gain and Denies weight loss ENT Denies dizziness Card Denies chest pain, Denies leg edema, Denies lightheadedness, Denies palpitations, Denies dyspnea and Denies dyspnea on exertion Resp Denies cough, Denies dyspnea and Denies dyspnea on exertion GI Denies hematochezia Musc Denies abnormal gait, Denies muscle weakness, Denies numbness, Denies radiating pain into limb and Denies tingling Neuro Denies abnormal gait, Denies dizziness, Denies frequent falls, Denies numbness, Denies tingling and Denies weakness Endo Denies fatigue and Denies palpitations Physical Exam Vital Signs: Last Vital Signs Pulse 82 08/27/24 09:57 BP 120/60 08/27/24 09:57 BMI result Body Mass Index 26.5 GENERAL APPEARANCE: in no acute distress. NECK: no carotid bruit, no significant jugular venous distention. SKIN: no suspicious lesions, warm and dry. HEART: no murmurs, irregular rate and rhythm. LUNGS: clear to auscultation bilaterally. ABDOMEN: soft, nontender. EXTREMITIES: No edema. PERIPHERAL PULSES: equal. Assessment & Plan Assessment & Plan (1) Persistent atrial fibrillation: Code(s): I48.19 - Other persistent atrial fibrillation Category: Medical (2) CVA (cerebral vascular accident): Comment: April 2023 - involving left MCA, resulting in right hemiparesis Code(s): I63.9 - Cerebral infarction, unspecified Category: Medical Qualifiers: CVA mechanism: embolism Precerebral and cerebral artery: middle cerebral artery Laterality of affected vessel: left Qualified Code(s): I63.412 - Cerebral infarction due to embolism of left middle cerebral artery (3) Cardiomyopathy: Code(s): I42.9 - Cardiomyopathy, unspecified Category: Medical Plan Very pleasant 74 year gentleman who is here for follow-up. He had embolic stroke secondary to atrial fibrillation. 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 He has been recovering from stroke and he is able to walk with a cane. His ejection fraction is 50% by echocardiography. We have decided not to perform cardioversion and leave him in atrial fibrillation for now. Clinically has been doing well and has no heart failure symptoms. He will need colonoscopy but he and his both are quite apprehensive about stopping Eliquis. I have explained to them that we face this problem quite frequently and enoxaparin bridge is an option and if required he can be breached and can go for colonoscopy. He will think about this and if the plan colonoscopy then he will definitely need a bridge with Lovenox. Thank you for allowing me to participate in the care of your patient. Please feel free to contact me if you have any questions. Coding Level of Care Code Est Pt Level 4 (32847) Diagnoses Persistent atrial fibrillation I48.19 Cerebrovascular accident (CVA) due to embolism of left middle cerebral artery I63.412 CVA mechanism: embolism Precerebral and cerebral artery: middle cerebral artery Laterality of affected vessel: left Cardiomyopathy I42.9
== END 2024-08-27 10:30 | disposition home or self-care (01) ==
PROVIDERS: PCP Internal Medicine; Visit Provider Internal Medicine Cardiovascular Disease
DX: I48.19 Other persistent atrial fibrillation (principal); I63.412 Cerebral infarction due to embolism of left middle cerebral artery; I42.9 Cardiomyopathy, unspecified
CPT/HCPCS: 99214

== ENCOUNTER → 2024-08-27 09:40 | Outpatient (BNVA) | payer MEDICARE, SELFPAY | PROVIDERS: PCP Internal Medicine; Visit Provider Internal Medicine Cardiovascular Disease | DX: I48.19 Other persistent atrial fibrillation (principal); I63.412 Cerebral infarction due to embolism of left middle cerebral artery; I42.9 Cardiomyopathy, unspecified | CPT/HCPCS: 99212 ==

== ENCOUNTER 2024-09-21 15:29 | Outpatient (AMB) | payer MEDICARE, SELFPAY ==
--- NOTE | 2024-09-21 15:38 | A.OFFVIS_ITS ---
Intake Visit Reasons: 6m/4w SPT change Intake Note: Patient is present for 6M/4W SPT CHANGE Urology Medication:TAMSULOSIN,METHENAMINE HIPPURATE,SOLIFENACIN Antibiotic Allergy:NONE Blood Thinner:APIXABAN Survey Research Associate Required: No Allergies No Known Allergies Allergy (Verified 09/21/24 15:39) HPI Comments Details: Steve is a pleasant male. He is a patient of Dr. Duque. He is seen for the following urologic conditions - neurogenic bladder secondary stroke Accompanied by Sara Ferrara Greenlandic suprapubic Here for 6 month review Continue vitamin-C and methenamine Continue to follow him monthly for SP tube change Neurogenic bladder Secondary to stroke 03/25 Anterior occlusion of left MCA segment associated with all knott me are of left MCA territory acute infarct in basal ganglia Prior cystoscopyopen bladder neck with moderately enlarged prostate Inability to use hands to perform CIC 08/25 suprapubic tube placed PFSH Medical History Neurogenic bladder Persistent atrial fibrillation Depression CVA (cerebral vascular accident) History of CVA with residual deficit Vitamin B12 deficiency Vitamin D deficiency Mild anemia Overweight (BMI 25.0-29.9) Pure hypercholesterolemia Benign essential hypertension Surgical History Hx of colonoscopy Hx of appendectomy Family History Other Family history non-contributory Social History Household Members: Spouse Housing: House Are you a primary long term care phlebotomist to a significant other at home: No Do you presently have visiting nurse or other home services: No Alcohol intake: former Patient Tobacco Use Status: Former Tobacco user Tobacco use type: Cigarette e-Cigarette/Vaping Use: Never Used Second Hand Smoke Exposure: No service: No Current occupational status: retired Cognitive needs: No Hearing needs: No Vision needs: Yes (glasses) Review of Systems Const Denies chills and Denies fever(s) Card Reports no additional complaints and Denies syncope Resp Denies cough GI Denies abdominal pain and Denies heartburn Reports as per HPI and Denies change in libido Neuro Denies syncope Psych Denies change in libido Endo Denies change in libido Physical Exam Const General: cooperative, healthy appearing, comfortable and no acute distress Orientation/consciousness: patient oriented x3 HEENT Face and sinus: Yes normal facial exam Mouth: moist mucous membranes Neck Neck: Yes normal visual inspection, Yes full ROM and Yes trachea midline Chest Chest palpation & inspection: normal inspection of the chest Resp Effort & Inspection: normal respiratory effort, able to speak in complete sentences and no respiratory distress GI Inspection: Yes normal to inspection Back/Spine/Pelvis Cervical Spine: normal cervical lordosis Thoracic/Lumbar Spine: thoracic and lumbar spine normal to inspection Skin General skin exam: no rashes or lesions noted Neuro General: patient oriented x3, gait normal, tone normal and moves all extremities Extrem General: Yes normal to inspection and Yes capillary refill normal Office Procedures Bladder/Catheter Procedure Details: Patient presents to office for SP tube change with spouse. 20 fr mora cath 7.5 ml balloon and flip valve exchanged with 20fr roe catheter 7.5mls with flip valve. pt tolerated exchange well. 4 weeks next change with nursing [id number] of bladder tube Procedure code (CPT) selection complete Assessment & Plan Assessment & Plan (1) Neurogenic bladder: Code(s): N31.9 - Neuromuscular dysfunction of bladder, unspecified Category: Medical (2) Erectile dysfunction: Code(s): N52.9 - Male erectile dysfunction, unspecified Category: Medical Qualifiers: Erectile dysfunction type: unspecified Qualified Code(s): N52.9 - Male erectile dysfunction, unspecified Plan Six-month follow-up Refill medication Orders: Orders AMB Bladder/Catheter Procedure Today N31.9 - Neuromuscular dysfunction of bladder, unspecified Patient Instructions: Imaging studies, laboratory and physical exam results were discussed and reviewed in detail. No major barriers to patient understanding were identified. An opportunity to ask questions regarding the treatment plan was provided. All questions were answered. The patient expressed understanding and agreement with the above treatment plan. The patient is aware they should contact our office by phone for worsening of their current condition or the appearance of new urologic symptoms. Compliance is encouraged with any medications and followup testing that is ordered. It is a privilege to participate in the urologic care of your patient. If you have any questions or concerns regarding treatment for the above conditions, or other urologic issues, please do not hesitate to contact me. The office telephone contact is [phone]. This note is constructed using voice recognition software. While every effort has been made to ensure accuracy equipment maintenance technician errors may have been included. Yours sincerely, Dr Ozzy Santiago MD, [facility] - Urology Providers of Expert, Compassionate Care for the Genitourinary System Coding Level of Care Code Est Pt Level 3 (30158) Diagnoses Neurogenic bladder N31.9 Erectile dysfunction, unspecified erectile dysfunction type N52.9 Erectile dysfunction type: unspecified CPT Codes Bladder/Catheter Procedure - CPT: 01897-Qndtgw of bladder tube ([id number])
== END 2024-09-21 16:26 | disposition home or self-care (01) ==
PROVIDERS: PCP Internal Medicine; Visit Provider Urology
DX: N31.9 Neuromuscular dysfunction of bladder, unspecified (principal); N52.9 Male erectile dysfunction, unspecified
CPT/HCPCS: 51705; 99213

== ENCOUNTER → 2024-09-21 15:29 | Outpatient (BNVA) | payer MEDICARE, SELFPAY | PROVIDERS: PCP Internal Medicine; Visit Provider Urology | DX: N31.9 Neuromuscular dysfunction of bladder, unspecified (principal); N52.9 Male erectile dysfunction, unspecified; Z46.6 Encounter for fitting and adjustment of urinary device; Z93.50 Unspecified cystostomy status; Z86.73 Personal history of transient ischemic attack (TIA), and cerebral infarction without residual deficits | CPT/HCPCS: 51705; 99212 ==

== ENCOUNTER 2024-10-18 09:12 | Outpatient (RCR) | payer MEDICARE, SELFPAY ==
--- NOTE | 2024-10-22 15:18 | MHC.SP.ADU ---
Referring provider: Dr. Duque Reason for Referral: Aphasia following cerebral infarction Type of Treatment: 94608 Assessment of Aphasia Date of Plan of Treatment: 10/18/24 Onset of Symptoms/Illness: 04/15/23 Date Treatment Started: 10/18/24 Medical Diagnosis: CVA Primary Speech Language Diagnosis: R47.01 Aphasia Secondary Speech Language Diagnosis: R41.840 Attention and concentration deficit History Steve Carrillo is a 74 year old gentleman who unfortunately suffered an embolic stroke in April of 2023. He reported that he was admitted and being treated at [facility] for Atrial Fibrillation, when a blood clot travelled to his brain, requiring a transfer to to [facility], where it was evacuated. He was admitted for a week and a half to [facility], mostly in ICU, followed by a five week acute inpatient rehab at [facility]. This stay was mostly focused on PT and OT services, though he reports he received some sporadic Speech Therapy there and for two weeks through the [facility] at home after he was discharged. Speech Therapy was however discontinued in this context, as he began to see PT/OT as an outpatient, and home services were not allowed. He continued to se PT/OT from the spring through until mid-July, but needed to stop due to insurance limitations. He continues to have right sided hemiplegia, and can do some ambulation with a cane/walker, but also uses a wheelchair for new contexts and as well as longer distances. He is left handed, so he is still able to write with that hand. He has been waiting to begin Speech Therapy with the new year of insurance coverage. Since his stroke, Burton has had significant struggle with his communication due to aphasia. He reported that he struggles with word finding to a point that it makes it very difficulty to communicate, and that he finds himself withdrawing and avoiding social situations. He stated that he also feels he is always monitoring what he is saying, as occasionally he comes up with the wrong word. Further, he has found that he has lost interest in at least two pastimes he was formally quite avid about: reading and listening to music. He formerly frequented his library and was always engaged in reading, and he has a large music collection/library that gave him great pleasure. He stated that he now struggles to sustain his attention to these past times, and has difficulty focusing on both content and details, which had amplified his enjoyment previously. 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 He lives with his , (who accompanied him to today's appointment) in a private residence in [place]. Medical History: Acid Reflux Cardiovascular Disease Facial Nerve Palsy High Blood Pressure Stroke Other: Please see medical chart Medication List: Please see medical chart Recent Hospitalizations: No Respiratory Needs: Room Air Patient Orientation: Alert & Oriented x 4 Social History: Employment Status: Retired Highest level of education obtained: Completed Bachelor's Current Living Situation: Lives with his in a private residence in [place] Assistive Devices in use: Cane Glasses/Contacts Walker Wheelchair Past Speech Language Therapy: Some initial intervention at [facility] and through [facility] but has not had services since 2022 Other Therapies Seen in Current Calendar Year: Occupational Therapy, Physical Therapy Reported Speech, Language, Cognition difficulties: Speaking Comments: On evaluation today, Burton presents with a moderate anomic aphasia and mild dysarthria. Further testing is needed in the area cognitive function/memory and attention. Quality of Life: Good Patient Stated Goal of Speech-Language Therapy: Assess for treatment plan. Assessment Speech Production: Aphasic: Nonfluent Dysarthric Clinical Impression: Impaired Observations: Burton presents with frequent hesitancies and cessation of speaking when struggling for word due to anomic aphasia, and mild dysarthria evident on multisyllabic words in connected speech. Informal Voice Assessment: Voice Loudness: Normal Voice Nasal Resonance: Normal Voice Oral Resonance: Normal Voice Phonatory-based Quality: Normal Voice Pitch: Normal Voice Other Observations: Clinical Impression: Intact Clinicial Observations: Tests of Speech & Lang Adults: BDAE BNT Clinical Impression: Impaired Observations: On assessment today, Burton was presented with the full form of the [place] Naming Test (BNT) and the short form of the [place] Diagnostic Aphasia Evaluation (BDAE). The BNT assess confrontation naming through presentation of a series of line drawings that increase in vocabulary complexity. On this assessment, Burton had difficulty labelling 9 out of 60 items, and frequently had mild delays retrieving labels that were scored as accurate/correct. On his error responses, he was able to retrieve the word when given a phonemic cue for the word in six of the errors, but could not be prompted for three items. He was also noted to be closely monitoring his responses for saying the correct word, and in one instance labelled an item with an error word that approximated the word expected ( harpsichord for harp ). On all errors and with all hesitencies, Burton demonstrated tip of the tongue behavior, e.g. having a sense of the word but with difficulty retrieving the label. The BDAE is an assessment of aphasia, with subtests assessing conversational and expository speech and auditory comprehension. In conversation, Burton demonstrated frequent hesitations, evident struggle for words, and occasional cessation of speaking due to frustration. On a narrative challenge ( Cookie Theft ) Burton was able to describe the picture and actions depicted with some paucity of expression and some imprecise expression (e.g. he stated His mother is letting the water out of the sink to describe the overflowing sink the mother character was ignoring). On a responsive naming task, he made one error, responding saw to What do we cut paper with? Burton was noted to recognize his error response, and after a delay came up with the correct response scissors, but was noted to tear up on this error. He noted on the required automatized sequences (days of the week, counting) that the task required his focused attention to complete, and that he was closely monitoring his responses (which were all correct). On all auditory comprehension tasks on this abbreviated evaluation, Burton demonstrated 100% accuracy, demonstrating no difficulty with simple and complex directions, comprehension of simple narratives and some abstract information/concepts. When asked to repeat words of increasing syllable length, Burton was noted to mildly slur consonant sounds and consonant clusters on multisyllabic words. This mildly dysathric speech was also evident in his connected verbal expression. Impressions and Recommendations Summary: Steve Carrillo presents today on evaluation with a moderate anomic aphasia and mild dysarthria, which interfere with his ability to communicate effectively and clearly in his daily interactions. Burton expressed a great deal of frustration with and self consciousness about his ability to communicate clearly, and has had limited speech and language intervention in the two years since his initial stroke. He further expressed loss of interest in activities that require focused attention and working memory (reading, enjoying music), and would benefit from ongoing assessment of his cognitive function. Burton otherwise today demonstrated good, general comprehension skills. It is recommended Burton return for outpatient speech/language therapy at the earliest available appointment. Speech therapy is anticipated for a period of 8-12 weeks. Impact on Daily Function/Activity Limitations: Daily Activities: Moderate Interpersonal Interactions: Moderate Education: Moderate Employment: Community: Moderate Prognosis for Improvement: Good Comment: Burton has had limited speech and language intervention for his needs in the two years post CVA. 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 Short Term Goals: Goal # : 1. Burton will complete an abbreviated cognitive assessment in one to three sessions. Goal Status: Goal# : 2.1: Burton will identify a word when given descriptive information with 80% accuracy 2.2: Burton will describe a word giving functional and contextual information given a specific target with 80% accuracy 2.3 Burton will use a circumlocution strategy in the context of a word finding need in conversation with 80% accuracy. 2.4 Burton will use a categorization/semantic strategy to retrieve specific words with 80% accuracy Goal Status: Goal # : 3.1 Burton will use a pacing strategy to produce multisyllabic words of three to five syllables with articulate speech with 80% accuracy. 3.2 Burton will use a pacing strategy to produce multisyllable words of three to five syllables in connected speech (reading, conversation) with 80% accuracy Goal Status: Goal # : 4.1: Burton will evidence fluent, articulate speech in the context of structured conversational or descriptive tasks as observed in ? contexts. Goal Status: Recommended Referrals to be Discussed with Primary Care Provider: Patient Education: Completed: Yes Patient/Caregiver Education: Described Results of Evaluation Patient expressed understanding of evaluation Patient agrees with goals and treatment plan Family/Caregivers expressed understanding of results Comments/Barriers to Learning: Spreader Clinican/Clinical Fellow: No Supervisory Statement: N/A Speech Language Pathologist: Claritza Dow M.A., CCC-FORM COVERER
== END 2024-11-08 09:54 | disposition still patient (30) ==
LOC: HO.SH 09:12
PROVIDERS: Visit Provider Internal Medicine
DX: I69.320 Aphasia following cerebral infarction (principal)

== ENCOUNTER → 2024-10-22 11:15 | Outpatient (BNVA) | payer MEDICARE, SELFPAY | PROVIDERS: PCP Internal Medicine; Visit Provider Urology | DX: N31.9 Neuromuscular dysfunction of bladder, unspecified (principal) | CPT/HCPCS: 51705 ==

== ENCOUNTER → 2024-11-20 11:09 | Outpatient (BNVA) | payer MEDICARE, SELFPAY | PROVIDERS: PCP Internal Medicine; Visit Provider Urology | DX: N31.9 Neuromuscular dysfunction of bladder, unspecified (principal); R33.9 Retention of urine, unspecified; Z46.6 Encounter for fitting and adjustment of urinary device; Z93.50 Unspecified cystostomy status | CPT/HCPCS: 51705 ==

== ENCOUNTER → 2024-12-18 11:20 | Outpatient (BNVA) | payer MEDICARE, SELFPAY | PROVIDERS: PCP Internal Medicine; Visit Provider Urology | DX: N31.9 Neuromuscular dysfunction of bladder, unspecified (principal); Z46.6 Encounter for fitting and adjustment of urinary device; Z93.50 Unspecified cystostomy status | CPT/HCPCS: 51705 ==

== ENCOUNTER 2024-12-19 08:43 | Outpatient (REF) | payer MEDICARE, SELFPAY ==
[2024-12-19 11:25] LABS: MANUAL DIFF FLAG NO
[2024-12-19 11:34] LABS: Basophils Percent Auto 0.5 % (0-2); Eosinophils Absolute Auto 0.2 X10*3/uL (0.0-0.4); Eosinophils Percent Auto 3.1 % (0-4); Hemoglobin 12.8 g/dl (14.0-18.0); Imm Gran Abs Auto 0.01 X10*3/uL (0.00-0.03); Imm Gran Pct Auto 0.2 % (0.0-0.4); Lymphocytes Absolute Auto 1.2 X10*3/uL (1.2-4.9); Lymphocytes Percent Auto 20.7 % (20-40); Mean Corpuscular HGB Conc 33.7 g/dl (31.0-36.0); Mean Corpuscular Hemoglobin 31.6 pg (27.0-33.0); Mean Corpuscular Volume 93.8 fL (80.0-98.0); Mean Platelet Volume 12.3 fL (9.4-12.4); Monocytes Absolute Auto 0.5 X10*3/uL (0.1-1.2); Monocytes Percent Auto 8.5 % (2-11); Neutrophils Absolute Auto 3.9 x10*3/uL (2.0-8.3); Platelet Count 141 X10*3/uL (160-400); Red Blood Count 4.05 X10*6/uL (4.60-5.80); Red Cell Distribution Width 12.5 % (11.0-16.0); White Blood Count 5.8 X10*3/uL (4.8-10.8)
[2024-12-19 11:39] LABS: Appearance Urine Cloudy; Color Urine Yellow; Glucose Urine UA Negative (Negative); Leukocyte Esterase Urine Large (3+) (Negative); Nitrite Urine Negative (Negative); PH 5.5 (5.0-9.0); Specific Gravity - Urine 1.025 (1.005-1.025); UMIC TRIGGER UACC YES; Urine Blood Moderate (2+) (Negative); Urine Ketones Trace mg/dL (Negative); Urine Protein 30 (1+) mg/dL (Neg-Trace)
[2024-12-19 11:43] LABS: Bacteria Urine None Seen (None Seen); Hyaline Casts Urine 0-2 /LPF (0-2); RBC Urine >20 /HPF (0-2); Squamous Epithelial Cell Urine 0-2 /HPF (0-2); UACC Culture Trigger YES; WBC Urine >50 /HPF (0-5)
[2024-12-19 12:08] LABS: Alanine Aminotransferase 29 U/L (0-40); Albumin Level 3.8 g/dL (3.5-5.0); Alkaline Phosphatase 95 U/L (39-117); Anion Gap 9 (12-20); Aspartate Amino Transferase 28 U/L (5-37); Bilirubin Total 0.7 mg/dL (0.0-1.0); Blood Urea Nitrogen 19 mg/dL (9-16); Calcium 9.1 mg/dL (8.4-10.2); Carbon Dioxide 25 mmol/L (22-29); Chloride 111 mmol/L (96-108); Cholesterol 124 mg/dL (<200); Estimated Glomerular Filt Rate > 60; Glucose Fasting 88 mg/dL (60-99); HDL Cholesterol 59 mg/dL (>40); LDL Cholesterol Calculated 54 mg/dL (<100); Potassium 4.2 mmol/L (3.3-5.1); Sodium 141 mmol/L (135-145); Total Protein 6.4 g/dL (6.5-8.0); Triglycerides 59 mg/dL (<150)
[2024-12-19 12:13] LABS: TSH reflex Free T4 1.67 uIU/mL (0.32-4.0)
== END 2024-12-19 08:44 | disposition home or self-care (01) ==
LOC: HO.WFDLDS 08:43
PROVIDERS: Visit Provider Internal Medicine
DX: D64.9 Anemia, unspecified (principal); E78.00 Pure hypercholesterolemia, unspecified; E55.9 Vitamin D deficiency, unspecified; R30.0 Dysuria
CPT/HCPCS: 36415; 80053; 80061; 81001; 82306; 84443; 85025; 87086; 87088; 87186

== ENCOUNTER 2024-12-20 11:43 | Outpatient (AMB) | payer MEDICARE, SELFPAY ==
--- NOTE | 2024-12-20 12:04 | A.OFFPC_ITS ---
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 Accompanied by: Spouse Allergies No Known Allergies Allergy (Verified 12/20/24 12:26) Medication List - Last Reconciled 12/20/24 by Jean-Pierre Duque MD apixaban 5 mg PO BID ascorbic acid (vitamin C) 1 g PO DAILY 90 days atorvastatin 80 mg PO BEDTIME baclofen 5 mg PO BID citalopram 10 mg PO DAILY 90 days comp.stocking,knee,long,medium apply in am and take off in pm [Depends (adult medium) 4 times per day As directed] furosemide 20 mg PO DAILY 90 days guaifenesin ER (Mucinex) 600 mg PO BID PRN methenamine hippurate 1 g PO DAILY 90 days [RIGHT AFO BRACE As directed] sacubitril-valsartan 49-51 mg 1 tab PO BID 90 days solifenacin 5 mg PO DAILY 90 days [STANDARD WHEELCHAIR - XL As directed] [Standing upright Walker with Right arm rest As directed] tamsulosin 0.4 mg PO DAILY Tobacco use date assessed: 12/20/24 Fall risk assessment: No Falls in past year Last assessed Fall Risk: 12/20/24 Dental Screening Dental Screen Date: 12/20/24 Did you have a dental visit in the last 12 months?: Yes Did you have a dental problem in the last 6 months where you did not have access to dental care?: No Was dental information given to patient?: Patient has dentist HPI 4 Months f/u HPI Details Patient comes in today for his follow up visit of his CVA, HTN, hyperlipidemia, AF and neurogenic bladder States that he feels okay He denies any headaches or dizziness Denies any chest pains, no SOB No nausea/vomiting, no abdominal pain No change in bowel habits noted Needs his Baclofen Rx refilled He had his follow up labs done yesterday - to discuss his results [facility] Medical History Neurogenic bladder Persistent atrial fibrillation Depression CVA (cerebral vascular accident) History of CVA with residual deficit Vitamin B12 deficiency Vitamin D deficiency Mild anemia Overweight (BMI 25.0-29.9) Pure hypercholesterolemia Benign essential hypertension Surgical History Hx of colonoscopy Hx of appendectomy Family History Other Family history non-contributory Social History Household Members: Spouse Housing: House Are you a primary respiratory care instructor to a significant other at home: No Do you presently have visiting nurse or other home services: No Alcohol intake: former Patient Tobacco Use Status: Former Tobacco user Tobacco use type: Cigarette e-Cigarette/Vaping Use: Never Used Second Hand Smoke Exposure: No service: No Current occupational status: retired Cognitive needs: No Hearing needs: No Vision needs: Yes (glasses) Questionnaire PHQ-9 Over the last 2 weeks, how often have you been bothered by any of the following problems? 1. Little interest or pleasure in doing things: not at all 2. Feeling down, depressed, or hopeless: not at all 3. Trouble falling or staying asleep, or sleeping too much: not at all 4. Feeling tired or having little energy: not at all 5. Poor appetite or overeating: not at all 6. Feeling bad about yourself - or that you are a failure or have let yourself or your family down: not at all 7. Trouble concentrating on things, such as reading the newspaper or watching television: not at all 8. Moving or speaking so slowly that other people could have noticed. Or the opposite - being so fidgety or restless that you have been moving around a lot more than usual: not at all 9. Thoughts that you would be better off or of hurting yourself in some way: not at all Total score: 0 Depression Screening Interpretation: Negative Depression Screening Done: Yes 43407 - PHQ-9 Billing: Yes Source: Developed by Drs. Stephan Raines, Dominique Roberson, Oh Alvarado and colleagues, with an educational alicja from [employer]. Thrive Questionnaire Date Thrive assessed: 12/20/24 I am a: Patient What is your living situation today?: I have a steady place to live Within the past 12 months, did the food you bought not last and you didn't have the money to get more?: Never true Within the past 12 months, did you worry whether your food would run out before you got money to buy more?: Never true Do you have trouble paying for medicines?: No Do you have trouble getting transportation to medical appointments?: No Do you have trouble paying your heating and electricity bill?: No Do you have trouble taking care of your child, family member or friend?: No Do you have trouble with day-to-day activities such as bathing, preparing meals, shopping, managing finances, etc.?: No Are you currently unemployed and looking for a job?: No Are you interested in more education?: No Please select the resources that you would like help with: None Currently or been in a relationship where the following occur: No concerns rep orted THRIVE Score: 0 AUDIT C Alcohol Use Questionnaire (AUDIT-C) 1. How often do you have a drink containing alcohol?: Never Total Score: 0 Score Reviewed/Action Taken: Yes SAMI-7 AMB Questionnaire SAMI-7 Date SAMI - 7 assessed: 12/20/24 Feeling nervous, anxious, or on edge: 0 = Not at all Not being able to stop or control worryin = Not at all Worrying too much about different things: 0 = Not at all Trouble relaxin = Not at all Being so restless that it is hard to sit still: 0 = Not at all Becoming easily annoyed or irritable: 0 = Not at all Feeling afraid as if something awful might happen: 0 = Not at all Total SAMI-7 score (0-4 normal; 5-9 mild; 10-14 moderate; 15-21 severe): 0 Source: Developed by Drs. Stephan Raines, Dominique Roberson, Oh bowman nd colleagues, with an educational alicja from [employer]. Review of Systems Const Denies chills, Denies fatigue, Denies fever(s) and Denies headache(s) ENT Denies dysphagia, Denies dizziness, Denies otalgia, Denies headache(s), Denies neck pain, Denies odynophagia and Denies sore throat Card Denies chest pain, Denies palpitations and Denies dyspnea Resp Denies chest congestion, Denies cough and Denies dyspnea GI Denies abdominal pain, Denies constipation, Denies dysphagia, Denies heartburn, Denies diarrhea, Denies nausea, Denies odynophagia and Denies vomiting Details: currently has a suprapubic catheter in place Reports difficulty urinating (due to neurogenic bladder - currently has a suprapubic catheter in place) Musc Denies back pain and Denies neck pain Skin/Breast Denies rash Neuro Details: (+) right hemiparesis, with residual expressive aphasia Denies dizziness and Denies headache(s) Psych Reports depression Endo Denies fatigue and Denies palpitations Physical exam (Primary Care) Vital Signs: Last Vital Signs Pulse 58 12/20/24 12:09 BP 126/68 12/20/24 12:09 Pulse Ox 98 12/20/24 12:09 Oxygen Delivery Method Room Air 12/20/24 12:09 BMI result Body Mass Index 28.1 Tobacco/Smoking Status: Tobacco use Status Tobacco use date assessed 12/20/24 12/20/24 12:15 Patient Tobacco Use Status Former Tobacco user 12/20/24 12:09 Tobacco use type Cigarette 12/20/24 12:09 e-Cigarette/Vaping Use Never Used 12/20/24 12:09 PHQ-9: PHQ-9 Score PHQ-9: Total score 0 12/20/24 12:29 Depression Screening Interpretation: Negative Thrive Assessment: Date of Thrive Assessment Date Thrive assessed 12/20/24 12/20/24 12:09 Currently or been in a relationship where the following occur: No concerns reported Const General: no acute distress and alert Limitations: physical limitations ((+) right hemiparesis but is able to get up and walk at home (uses cane)) and wheelchair HENMT Ears: TM's normal bilaterally and EAC's normal Throat: Yes posterior oropharynx normal and Yes tonsils normal (no TP congestion noted) Neck Neck: Yes supple and No lymphadenopathy Thyroid: Thyroid normal Resp Auscultation: clear to auscultation bilaterally, no rales and no wheezes Cardio Rate: regular rate Rhythm: abnormal rhythm irregularly irregular Heart sounds: no murmurs GI Palpation (GI): Soft to palpation and nontender Auscultation: normal bowel sounds General: Yes no CVA tenderness Back/Spine/Pelvis Back: no CVA tenderness Cervical Spine: No Cervical spine tenderness Thoracic/Lumbar Spine: No lumbar spinal tenderness Skin Rashes: no rashes Neuro Other: (+) right hemiparesis, especially over right upper extremity Speech: Expressive aphasia present (residual; mild) Extrem General: Yes no clubbing, cyanosis or edema Results Reviewed Results Reviewed: Laboratory Tests 12/19/24 12/19/24 08:49 08:58 WBC 5.8 Hgb 12.8 L Hct 38.0 L Plt Count 141 L Sodium 141 Potassium 4.2 Creatinine 1.17 Estimated GFR > 60 Fasting Glucose 88 Calcium 9.1 AST 28 ALT 29 Triglycerides 59 Cholesterol 124 LDL Cholesterol, Calc 54 HDL Cholesterol 59 25-OH Vitamin D Total 41.0 TSH 1.67 Ur Specific [place] 1.025 Urine Protein 30 (1+) H Urine Glucose (UA) Negative Urine Blood Moderate (2+) H Urine Nitrite Negative Ur Leukocyte Esterase Large (3+) H Urine WBC >50 H Coding Level of Care Code Est Pt Level 4 (67478) Complex EM visit Add On G2211 Diagnoses Cerebrovascular accident (CVA) due to embolism of left middle cerebral artery I63.412 CVA mechanism: embolism Laterality of affected vessel: left Precerebral and cerebral artery: middle cerebral artery Aphasia as late effect of cerebrovascular accident (CVA) I69.320 Persistent atrial fibrillation I48.19 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 Heart failure chronicity: acute Heart failure type: combined systolic and diastolic Pure hypercholesterolemia E78.00 Neurogenic bladder N31.9 Vitamin D deficiency E55.9 Episode of recurrent major depressive disorder, unspecified depression episode severity F33.9 Active/Remission status: currently active Depression Type: major depressive disorder Major depression episode severity: unspecified Major depression recurrence: recurrent Additional Codes PHQ-9 - 83686 - PHQ-9 Billing: Yes ([id number]) Assessment & Plan Assessment & Plan (1) CVA (cerebral vascular accident): Comment: April 2023 - involving left MCA, resulting in right hemiparesis Code(s): I63.9 - Cerebral infarction, unspecified Category: Medical Qualifiers: CVA mechanism: embolism Laterality of affected vessel: left Precerebral and cerebral artery: middle cerebral artery Qualified Code(s): I63.412 - Cerebral infarction due to embolism of left middle cerebral artery Plan: S/P left MCA embolic stroke secondary to atrial fibrillation and severe cardiomyopathy in April 2023 Patient underwent thrombectomy with TICI (Thrombolysis in Cerebral Infarction) 2C achieved after 2 passes of thrombectomy but unfortunately, patient's right- sided hemiparesis persisted Repeat imaging studies done revealed (+) hemorrhagic conversion of his subacute left MCA infarct He was started on Eliquis 28 days after his CVA and repeat head CT ruled out further hemorrhagic conversion Continue Eliquis 5 mg BID Patient continues to present with right hemiparesis and he has been going to physical therapy with gradual but continuing improvement He also has expressive aphasia following his CVA and this is still present to some degree currently (2) Aphasia as late effect of cerebrovascular accident (CVA): Code(s): I69.320 - Aphasia following cerebral infarction Category: Medical Plan: Per request, he has been referred for speech therapy (3) Persistent atrial fibrillation: Code(s): I48.19 - Other persistent atrial fibrillation Category: Medical Plan: Patient is currently still in atrial fibrillation but remains rate-controlled; cardiology has decided to best leave him in AF for now Metoprolol was discontinued by cardiology last year due to persistent bradycardia Continue Eliquis 5 mg BID for thromboembolism prophylaxis (4) Congestive heart failure (CHF): Code(s): I50.9 - Heart failure, unspecified Category: Medical Qualifiers: Heart failure chronicity: acute Heart failure type: combined systolic and diastolic Qualified Code(s): I50.41 - Acute combined systolic (congestive) and diastolic (congestive) heart failure Plan: Patient initially presented to the ER in April 2023 with new onset congestive heart failure and AFib with RVR He was going for MARY ANN cardioversion but MARY ANN revealed a large thrombus in the left atrial appendage and it was decided not to cardiovert him at the time and reschedule this to a later date but he unfortunately developed his CVA later that evening His echocardiogram done at the time revealed an EF of 10 to 15%; his ejection fraction has since improved to 45-50% with aggressive medical management (last echo done in September 2023) He is currently compensated with no signs/symptoms of CHF Continue Entresto 49-51 mg BID and Furosemide 20 mg QD Follow up with cardiology as scheduled (5) Pure hypercholesterolemia: Code(s): E78.00 - Pure hypercholesterolemia, unspecified Category: Medical Plan: Results of his labs done yesterday reviewed and discussed with patient Reinforced low cholesterol diet Continue Atorvastatin 80 mg QD Will recheck his labs and fasting lipids in 4 months for follow up (6) Neurogenic bladder: Code(s): N31.9 - Neuromuscular dysfunction of bladder, unspecified Category: Medical Plan: S/P left MCA CVA in April 2023 He currently has a suprapubic catheter, which was placed in late 2022 when his neurogenic bladder and urinary retention persisted a few months after his CVA He undergoes suprapubic tube changed by urology regularly - takes Bactrim DS prophylactically before his suprapubic catheter change Continue Solifenacin 5 mg QD and Tamsulosin 0.4 mg QD; Finasteride and Myrbetriq ER were discontinued by urology a few months ago Follow up with urology as scheduled (7) Vitamin D deficiency: Code(s): E55.9 - Vitamin D deficiency, unspecified Category: Medical Plan: Continue Vitamin D3 2000 units QD (8) Depression: Code(s): F32.A - Depression, unspecified Category: Medical Qualifiers: Active/Remission status: currently active Depression Type: major depressive disorder Major depression episode severity: unspecified Major depression recurrence: recurrent Qualified Code(s): F33.9 - Major depressive disorder, recurrent, unspecified Plan: Continue Citalopram 10 mg QD Plan Have discussed again with patient and his that it is time for his repeat colonoscopy and he will have to stop taking his Eliquis for a few days and start on Lovenox bridge in the meantime His has expressed concerns about him coming off Eliquis but have reassured them that he should be well-covered with the Lovenox bridge in the meantime She is concerned as well about his ability to do the precolonoscopy prep - states that he is still limited by his hemiparesis and would not be able to get to the bathroom in time if he has to go Have advised them that as he does not have any increased risk (family or personal) of colon cancer although he did have a tubular adenoma on his initial colonoscopy back in 2009, he can probably just get by with doing a Cologuard test for now Patient would like to think about this and we will address this again at his next follow up appointment in April 2025 Follow up in 4 months Orders: Orders Complete Blood Count Auto Diff 4 Months D64.9 - Anemia, unspecified Comprehensive [place]. Panel Fast 4 Months E78.00 - Pure hypercholesterolemia, unspecified TSH reflex Free T4 4 Months E78.00 - Pure hypercholesterolemia, unspecified UA CC w/rflx Micro + Cult 4 Months R30.0 - Dysuria Vitamin D 25-OH Total 4 Months E55.9 - Vitamin D deficiency, unspecified Lipid Panel 4 Months E78.00 - Pure hypercholesterolemia, unspecified Medications: Changed From baclofen 5 mg PO BID To baclofen 5 mg (1/2 x 10 mg) PO BID 90 days 90 tabs 1RF
[2024-12-20 12:09] VITALS: BP 126/68; PULSE 58; O2SAT 98; BMI 28.1
== END 2024-12-20 12:37 | disposition home or self-care (01) ==
LOC: HO.HMCH 11:43
PROVIDERS: PCP Internal Medicine; Visit Provider Internal Medicine
DX: I48.19 Other persistent atrial fibrillation (principal); I63.412 Cerebral infarction due to embolism of left middle cerebral artery; I50.41 Acute combined systolic (congestive) and diastolic (congestive) heart failure; F33.9 Major depressive disorder, recurrent, unspecified; I69.320 Aphasia following cerebral infarction; E78.00 Pure hypercholesterolemia, unspecified; N31.9 Neuromuscular dysfunction of bladder, unspecified; E55.9 Vitamin D deficiency, unspecified

== ENCOUNTER → 2024-12-20 11:43 | Outpatient (BNVA) | payer MEDICARE, SELFPAY | PROVIDERS: PCP Internal Medicine; Visit Provider Internal Medicine | DX: I63.412 Cerebral infarction due to embolism of left middle cerebral artery (principal); I69.320 Aphasia following cerebral infarction; I48.19 Other persistent atrial fibrillation; I50.41 Acute combined systolic (congestive) and diastolic (congestive) heart failure; E78.00 Pure hypercholesterolemia, unspecified; E55.9 Vitamin D deficiency, unspecified; N31.9 Neuromuscular dysfunction of bladder, unspecified; F33.9 Major depressive disorder, recurrent, unspecified | CPT/HCPCS: 96127; 99212 ==

== ENCOUNTER 2025-01-07 09:36 | Outpatient (AMB) | payer MEDICARE, SELFPAY ==
[2025-01-07 09:41] VITALS: BP 108/62; PULSE 89
--- NOTE | 2025-01-07 09:41 | MHC.OFFVIS ---
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: No Head Of Insight: Head Of Insight Present Allergies No Known Allergies Allergy (Verified 01/07/25 09:44) Medication List - Last Reconciled 01/07/25 by SAMUEL Valentine apixaban 5 mg PO BID ascorbic acid (vitamin C) 1 g PO DAILY ascorbic acid (vitamin C) 1 g PO DAILY 90 days atorvastatin 80 mg PO BEDTIME baclofen 5 mg (1/2 x 10 mg) PO BID 90 days cefuroxime axetil 250 mg PO BID 7 days citalopram 10 mg PO DAILY 90 days comp.stocking,knee,long,medium apply in am and take off in pm [Depends (adult medium) 4 times per day As directed] furosemide 20 mg PO DAILY 90 days guaifenesin ER (Mucinex) 600 mg PO BID PRN methenamine hippurate 1 g PO DAILY 90 days [RIGHT AFO BRACE As directed] sacubitril-valsartan 49-51 mg 1 tab PO BID 90 days solifenacin 5 mg PO DAILY 90 days [STANDARD WHEELCHAIR - XL As directed] [Standing upright Walker with Right arm rest As directed] tamsulosin 0.4 mg PO DAILY HPI HPI 4 mth f/up km pt: Details: Steve is a 74-year-old male past medical history of hypertension, hyperlipidemia, persistent atrial fibrillation, MCA stroke with residual right-sided weakness, cardiomyopathy who presents for follow-up. Today he reports that he has been doing well since his last visit in August. He denies any heart palpitations, lightheadedness, falls. He continues to have weakness with his right arm and leg but is able to ambulate with a cane at home. For this visit he is sitting in a wheelchair. He has some mild expressive aphasia. No chest discomfort at rest or during activity. No shortness of breath, PND, orthopnea. He does get some mild swelling in the right lower extremity. He wears compression stockings during the day and a brace on his right lower leg. He has been compliant with his medications. He has a suprapubic catheter in place. is present and states that when the catheter is changed he may have some mild hematuria in the days following it otherwise no bleeding issues to report. [facility] Medical History Neurogenic bladder Persistent atrial fibrillation Depression CVA (cerebral vascular accident) History of CVA with residual deficit Vitamin B12 deficiency Vitamin D deficiency Mild anemia Overweight (BMI 25.0-29.9) Pure hypercholesterolemia Benign essential hypertension Surgical History Hx of colonoscopy Hx of appendectomy Family History Other Family history non-contributory Social History Household Members: Spouse Housing: House Are you a primary child care center administrator to a significant other at home: No Do you presently have visiting nurse or other home services: No Alcohol intake: former Patient Tobacco Use Status: Former Tobacco user Tobacco use type: Cigarette e-Cigarette/Vaping Use: Never Used Second Hand Smoke Exposure: No service: No Current occupational status: retired Cognitive needs: No Hearing needs: No Vision needs: Yes (glasses) Review of Systems Const Details: CVA with residual right sided weakness - in wheelchair at this visit All systems reviewed & are unremarkable except as noted in HPI and below ENT Denies dizziness Card Denies chest pain, Denies chest pain at rest, Denies chest pain with activity, Denies rapid heart rate, Denies pedal edema, Denies edema, Denies leg edema, Denies lightheadedness, Denies palpitations, Denies dyspnea, Denies dyspnea on exertion and Denies orthopnea Resp Denies cough, Denies dyspnea and Denies dyspnea on exertion GI Denies hematochezia and Denies change in stool character Musc Denies abnormal gait, Denies limited range of motion, Denies muscle cramps, Denies muscle weakness, Denies numbness, Denies radiating pain into limb, Denies stiffness and Denies tingling Neuro Denies abnormal gait, Denies dizziness, Denies numbness and Denies tingling Endo Denies palpitations Physical Exam Vital Signs: Last Vital Signs Pulse 89 01/07/25 09:41 BP 108/62 01/07/25 09:41 Const General: cooperative, healthy appearing, comfortable and no acute distress Orientation/consciousness: patient oriented x3 Neck Neck: Yes normal visual inspection and Yes no JVD Resp Effort & Inspection: normal respiratory effort Auscultation: clear to auscultation bilaterally, no rales, no rhonchi and no wheezes Cardio Rate: regular rate Rhythm: abnormal rhythm Heart sounds: S1 normal heart sound present, S2 normal heart sound present, no gallops, no murmurs and no rubs Neuro General: patient oriented x3 Extrem General: Yes normal to inspection, No no pedal edema and No calf tenderness Psych Appearance: grossly normal Mental Status: mental status grossly normal Office Procedures EKG Details: Today - read by me atrial fibrillation, RBBB, rate 70, Qtc 455ms [id number], Complete Assessment & Plan Assessment & Plan (1) Persistent atrial fibrillation: Code(s): I48.19 - Other persistent atrial fibrillation Category: Medical Plan: History of persistent atrial fibrillation that is treated with heart rate control. He does not require any heart rate lowering agents at this time. EKG done today showing atrial fibrillation with right bundle branch block, rate 70. He is on Eliquis for anticoagulation. Labs 12/19/2024 showed creatinine 1.17, hematocrit 38. No med changes made. (2) Cardiomyopathy: Code(s): I42.9 - Cardiomyopathy, unspecified Category: Medical Plan: History of mild cardiomyopathy, which may have been tachycardia induced with his prior AFib RVR. Last echo 09/23/2023 showed EF 45-50%, mild LVH, ascending aorta 4.2 cm. He is on Entresto for neurohormonal modulation. He is not requiring rate slowing agents. Blood pressure currently well controlled. No clinical signs of heart failure on examination. Signs and symptoms of heart failure reviewed. Will update echo prior to his next visit. Cardiology follow-up 6 months, sooner if needed. (3) Benign essential hypertension: Code(s): I10 - Essential (primary) hypertension Category: Medical Plan: Blood pressure goal less than 130/80. Currently well controlled. No med changes made. (4) Pure hypercholesterolemia: Code(s): E78.00 - Pure hypercholesterolemia, unspecified Category: Medical Plan: [place] LDL goal less than 70. Labs 12/19/2024 showed LDL 54. Continue high-dose atorvastatin. (5) CVA (cerebral vascular accident): Comment: April 2023 - involving left MCA, resulting in right hemiparesis Code(s): I63.9 - Cerebral infarction, unspecified Category: Medical Qualifiers: CVA mechanism: embolism Precerebral and cerebral artery: middle cerebral artery Laterality of affected vessel: left Qualified Code(s): I63.412 - Cerebral infarction due to embolism of left middle cerebral artery Plan: History of left atrial appendage thrombus following diagnosis of atrial ablation then resulting in MCA stroke with residual right-sided weakness. He has regained some mobility and is able to ambulate with a cane. Continue Eliquis. Plan Time spent on chart review, documentation, interviewed, assessment Orders: Orders CA echo transthoracic complete 5 Months I42.9 - Cardiomyopathy, unspecified, I50.41 - Acute combined systolic (congestive) and diastolic (congestive) heart failure Coding Level of Care Code Est Pt Level 4 (67976) Complex EM visit Add On G2211 Diagnoses Persistent atrial fibrillation I48.19 Cardiomyopathy I42.9 Benign essential hypertension I10 Pure hypercholesterolemia E78.00 Cerebrovascular accident (CVA) due to embolism of left middle cerebral artery I63.412 CVA mechanism: embolism Precerebral and cerebral artery: middle cerebral artery Laterality of affected vessel: left CPT Codes EKG - CPT: [id number], Complete ([id number]) Time Spent (min) 28
--- OUTSIDE RECORDS SUMMARY | 2025-01-07 10:55 | XMS_ITS | Clinical Summary ---
Author Organization [facility] ity Address [address] [place] [address] Care Team Providers Care Supervisor Opening And Picking Name Role Phone Unavailable Primary Care Provider Unavailabl e Social History Tobacco Use Types Packs/Day Years Used Date Smoking Tobacco: Never Assessed Sex and Gender Information Value Date Recorded Sex Assigned at Not on file Legal Sex Male 8:38 PM EST Gender Identity Not on file Sexual Orientation Not on file Plan of Treatment Health Maintenance Due Date Last Done Comments DTaP,Tdap,and Td Vaccines (1 - Tdap) 1970 Pneumococcal Vaccine: 50+ Ye ars (1 of 1 - PCV) 2001 Zoster Vaccines (1 of 2) 2001 Abdominal Aortic Aneurysm (A AA) Screen 10/28/2023 Cholesterol Screening (Lipid Panel) 10/28/2023 Colorectal Cancer Screening: Colonoscopy 10/28/2023 Depression Screening 10/28/2023 Falls Risk Assessment 10/28/2023 Hepatitis C Screening 10/28/2023 Social Influencers of Health Screening 10/28/2023 COVID-19 Vaccine (1 - 2023-2 5 season) 2024 Influenza Vaccine (Season Ended) 2025 RSV Immunization Adult Patie nts (1 - 1-dose 75+ series) 2026 HIB Vaccines Aged Out No longer eligi ble based on patient's age to complete this topic HPV Vaccines Aged Out No longer eligi ble based on patient's age to complete this topic Hepatitis A Vaccines Aged Out No long er eligible based on patient's age to complete this topic Hepatitis B Vaccines Aged Out No long er eligible based on patient's age to complete this topic IPV Vaccines Aged Out No longer eligi ble based on patient's age to complete this topic MMR Vaccines Aged Out No longer eligi ble based on patient's age to complete this topic Meningococcal ACWY Vaccine Aged Out N o longer eligible based on patient's age to complete this topic Meningococcal B Vacine Aged Out No lo nger eligible based on patient's age to complete this topic RSV Immunization Patients Un mi 20 months Aged Out No longer eligible b ased on patient's age to complete this topic Varicella Vaccines Aged Out No longer eligible based on patient's age to complete this topic Advance Directives Documents on File Type Date Recorded Patient Ball Ender Expl anation Health Care Decision (hx) 04/28/2023 HE ALTH CARE PROXY Health Care Decision (hx) 04/28/2023 HE ALTH CARE PROXY
== END 2025-01-07 10:11 | disposition home or self-care (01) ==
LOC: HO.HCS 09:37
PROVIDERS: PCP Internal Medicine; Visit Provider Nurse Practitioner Family
DX: I48.19 Other persistent atrial fibrillation (principal); I42.9 Cardiomyopathy, unspecified; I10 Essential (primary) hypertension; E78.00 Pure hypercholesterolemia, unspecified; I63.412 Cerebral infarction due to embolism of left middle cerebral artery
CPT/HCPCS: 93010; 99214; G2211

== ENCOUNTER → 2025-01-07 09:36 | Outpatient (BNVA) | payer MEDICARE, SELFPAY | PROVIDERS: PCP Internal Medicine; Visit Provider Nurse Practitioner Family | DX: I48.19 Other persistent atrial fibrillation (principal); I69.351 Hemiplegia and hemiparesis following cerebral infarction affecting right dominant side; I42.9 Cardiomyopathy, unspecified; I11.0 Hypertensive heart disease with heart failure; I50.41 Acute combined systolic (congestive) and diastolic (congestive) heart failure; E78.00 Pure hypercholesterolemia, unspecified; Z87.891 Personal history of nicotine dependence | CPT/HCPCS: 93005; 99212 ==

== ENCOUNTER → 2025-01-14 10:39 | Outpatient (BNVA) | payer MEDICARE, SELFPAY | PROVIDERS: PCP Internal Medicine; Visit Provider Urology | DX: N31.9 Neuromuscular dysfunction of bladder, unspecified (principal); R33.9 Retention of urine, unspecified | CPT/HCPCS: 51705 ==

== ENCOUNTER → 2025-02-11 10:30 | Outpatient (BNVA) | payer MEDICARE, SELFPAY | PROVIDERS: PCP Internal Medicine; Visit Provider Urology | DX: N31.9 Neuromuscular dysfunction of bladder, unspecified (principal); R33.9 Retention of urine, unspecified; Z43.5 Encounter for attention to cystostomy | CPT/HCPCS: 51705 ==

== ENCOUNTER 2025-02-26 14:00 | Outpatient (RCR) | payer MEDICARE, SELFPAY ==
--- NOTE | 2025-03-02 11:54 | MHC.SL.SOA ---
Referring Provider: Dr. Duque Reason for Referral: Aphasia following cerebral infarction Date of Plan of Treatment:10/18/24 Onset of Symptoms/Illness:04/15/23 Date Treatment Started:10/18/24 Medical Diagnosis: Primary Speech Language Diagnosis:R47.01 Aphasia Secondary Speech Language Diagnosis:R48.2 Apraxia Number of Authorized Visits Remaining: Authorization End Date: Reason for Visit:[id number] Individual Treatment Other: Subjective:Burton arrived with his assisting him, on time for today's session. Burton had with him two weeks of completed homework and the novel he has been reading with the notes assigned as a weekly exercise. 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 He has demonstrated excellent progress during the course of his therapy and has met his specific goals. This session is his final for this cycle of therapy, and this note serves as his discharge summary. During the course of therapy, it was noted that Burton struggled with visual scanning/fluency when reading which was impeding his ability and enjoyment of this pastime (Burton was previously an avid reader). Burton was referred by this therapist and has been seen for an initial appointment by an it operations analyst with specialty with neurological impairments, and he has noted immediate improvement from prescribed specialized glasses. He will be returning to this practice for a period of visual/reading therapy. Objective: Burton completed structured exercises to practice and learn word finding strategies and articulate speech. Assessment:1.1: On comprehension of paragraph length information: In structured exercises completed both in therapy and as assigned for home practice, Burton has consistently demonstrated comprehension with greater than 80% accuracy. It was noted in his written responses, Burton demonstrated both excellent word usage and complex sentence structure. 1.2. Burton has consistently been using a strategy of jotting down brief plot and character notes at the conclusion of reading a chapter in a popular novel on a post-it. When this note is presented in therapy and reviewed, Burton is able to recall and give a more voluble description of events in the chapter, which has assisted his progression through the book. He has amply met this goal. 2.1: Burton has very consistently produced a target word when given descriptive information, demonstrating 90-100% accuracy on this task in both formal and informal contexts. 2.2: Burton has very consistently provided descriptive information to identify a word in the context of both formal and informal tasks, demonstrating 90-100% accuracy. 2.3: Burton has consistently practiced circumlocution during the therapy process, with the intent of instructing this as a strategy to be used in context, however he has not found this to be a specific go to for him in conversational context. Circumlocution in informal contexts has therefore not been consistently observed. 2.4. Burton has demonstrated proficiency (>80% accuracy) on semantic categorization tasks including concrete, abstract, deductive and generative with excellent consistency. 3.1: Burton has produced multisyllabic words up to five syllables, initially using a pacing strategy, then progressing to fluently producing the word with clear and articulate speech with 90-100% accuracy. 3.2. In his connected speech, Burton is generally fluent in his production, with occasional mild slurring of consonants, particularly on initiation of a given statement or comment. These mild issues are judged not to be interfering with comprehension by the listener. Burton does continue to have some issues with fluently reading written information, however this is attributable to his visual scanning issue. He has met this goal. 4.1: Given a conversational topic, Burton has produced a fluid, short personal narratives with excellent fluency and minimal hesitations noted in the flow of the topic and conversation. He has met this goal. Summary/Conclusions: Burton has made excellent progress in his speech and expressive language skills, demonstrating increased efficiencies in word retrieval in context (e.g. in conversation), increased verbal fluency, and improved articulation of speech sounds and multisyllabic words. Personalized, functional therapy goals to help him access life long interests have been successful in getting him re-engaged in reading and music appreciation, however those will hopefully be ongoing. Although this concludes a period of therapy lasting fourteen weeks, Burton was encouraged to advocate for additional therapy if wanted or needed after a break of six months. It was a great pleasure working with Burton. Notes: Plan: Goal # : 1. After reading paragraph length information, Burton will answer concrete and inferential comprehension questions with 80% accuracy. 2. Using a briefly taken notes after reading a chapter in a novel, Burton will summarize knott plot and character development elements from the chapter with 80% accuracy Status of Goal: Goal Met Goal # : 2.1: Burton will identify a word when given descriptive information with 80% accuracy 2.2: Burton will describe a word giving functional and contextual information given a specific target with 80% accuracy 2.3 Burton will use a circumlocution strategy in the context of a word finding need in conversation with 80% accuracy. 2.4 Burton will use a categorization/semantic strategy to retrieve specific words with 80% accuracy Status of Goal: Goal Met Goal # : 3.1 Burton will use a pacing strategy to produce multisyllabic words of three to five syllables with articulate speech with 80% accuracy. 3.2 Burton will use a pacing strategy to produce multisyllable words of three to five syllables in connected speech (reading, conversation) with 80% accuracy Status of Goal: Goal Met Goal # : 4.1: Burton will evidence fluent, articulate speech in the context of structured conversational or descriptive tasks as observed in ? contexts. Status of Goal: Goal Met Seen by: Graduate/Clinical Fellow: No Supervisory Statement: f_Reg Query Last Value , MHC.AU.SIGNATUR Speech Language Pathologist: Claritza Dow M.A., CCC-PRECISION INSPECTOR
== END 2025-03-06 11:38 | disposition home or self-care (01) ==
LOC: HO.SH 14:00
PROVIDERS: Visit Provider Internal Medicine
DX: I69.320 Aphasia following cerebral infarction (principal)
CPT/HCPCS: 92507

== ENCOUNTER 2025-03-19 11:20 | Outpatient (AMB) | payer MEDICARE, SELFPAY ==
--- NOTE | 2025-03-19 11:27 | A.OFFVIS_ITS ---
Intake Visit Reasons: 6M follow up/cath change Intake Note: Patient is present for 6M/CATH CHANGE Urology Medication:TAMSULOSIN,METHENAMINE HIPPURATE,SOLIFENACIN,VITAMIN C Antibiotic Allergy:NONE Blood Thinner:APIXABAN Interactive Media Specialist Required: No Allergies No Known Allergies Allergy (Verified 03/19/25 11:30) HPI Comments Details: Steve is a pleasant male. He is a patient of Dr. Duque. 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 in basal ganglia Prior cystoscopyopen bladder neck with moderately enlarged prostate Inability to use hands to perform CIC 08/25 suprapubic tube placed [facility] Medical History Neurogenic bladder Persistent atrial fibrillation Depression CVA (cerebral vascular accident) History of CVA with residual deficit Vitamin B12 deficiency Vitamin D deficiency Mild anemia Overweight (BMI 25.0-29.9) Pure hypercholesterolemia Benign essential hypertension Surgical History Hx of colonoscopy Hx of appendectomy Family History Other Family history non-contributory Social History Household Members: Spouse Housing: House Are you a primary care connector to a significant other at home: No Do you presently have visiting nurse or other home services: No Alcohol intake: former Patient Tobacco Use Status: Former Tobacco user Tobacco use type: Cigarette e-Cigarette/Vaping Use: Never Used Second Hand Smoke Exposure: No service: No Current occupational status: retired Cognitive needs: No Hearing needs: No Vision needs: Yes (glasses) Review of Systems Const Denies chills and Denies fever(s) Card Reports no additional complaints and Denies syncope Resp Denies cough GI Denies abdominal pain and Denies heartburn Reports as per HPI and Denies change in libido Neuro Denies syncope Psych Denies change in libido Endo Denies change in libido Physical Exam Const General: cooperative, healthy appearing, comfortable and no acute distress Orientation/consciousness: patient oriented x3 HEENT Face and sinus: Yes normal facial exam Mouth: moist mucous membranes Neck Neck: Yes normal visual inspection, Yes full ROM and Yes trachea midline Chest Chest palpation & inspection: normal inspection of the chest Resp Effort & Inspection: normal respiratory effort, able to speak in complete sentences and no respiratory distress GI Inspection: Yes normal to inspection Back/Spine/Pelvis Cervical Spine: normal cervical lordosis Thoracic/Lumbar Spine: thoracic and lumbar spine normal to inspection Skin General skin exam: no rashes or lesions noted Neuro General: patient oriented x3, gait normal, tone normal and moves all extremities Extrem General: Yes normal to inspection and Yes capillary refill normal Office Procedures Bladder/Catheter Procedure Details: 18 fr roe catheter removed, patient tolerated removal well. New 18fr mora roe catheter 7.5mls with flip valve inserted, patient tolerated without issues. Patient will return for a cath change in 4 weeks [id number] of bladder tube Procedure code (CPT) selection complete Results AMB Urinalysis, Automated UA Leukoctes 125 Jimmy/uL Last Edit by Pio Baltazar LPN on 03/19/25 11:53 UA Nitrite Negative Last Edit by Pio Baltazar LPN on 03/19/25 11:53 UA Urobilinogen 3.5 mg/dL Last Edit by Pio Baltazar LPN on 03/19/25 11:53 UA Protein 0.3 mg/dL Last Edit by Pio Baltazar LPN on 03/19/25 11:53 UA pH 5.5 Last Edit by Pio Baltazar LPN on 03/19/25 11:53 UA Blood 200 Gregory/uL Last Edit by Pio Baltazar LPN on 03/19/25 11:53 UA Specific Kendall 1.020 Last Edit by Pio Baltazar LPN on 03/19/25 11:53 UA Ketone Negative Last Edit by Pio Baltazar LPN on 03/19/25 11:53 UA Bilirubin 0 mg/dL Last Edit by Pio Baltazar LPN on 03/19/25 11:53 UA Glucose 0 mg/dL Last Edit by Pio Baltazar LPN on 03/19/25 11:53 Results Reviewed Results Reviewed: Laboratory Last Values Urine pH (Auto) 5.5 03/19/25 11:52 Specific Kendall (Auto) 1.020 03/19/25 11:52 Urine Protein (Auto) 0.3 mg/dL 03/19/25 11:52 Glucose (UA)(Auto) 0 mg/dL 03/19/25 11:52 Urine Ketones (Auto) Negative 03/19/25 11:52 Urine Blood (Auto) 200 Gregory/uL 03/19/25 11:52 Urine Nitrite (Auto) Negative 03/19/25 11:52 Urine Bilirubin (Auto) 0 mg/dL 03/19/25 11:52 Urine Urobilinogen (Auto) 3.5 mg/dL 03/19/25 11:52 Leukocyte Esterase (Auto) 125 Jimmy/uL 03/19/25 11:52 Assessment & Plan Assessment & Plan (1) Neurogenic bladder: Code(s): N31.9 - Neuromuscular dysfunction of bladder, unspecified Category: Medical (2) Erectile dysfunction: Code(s): N52.9 - Male erectile dysfunction, unspecified Category: Medical Qualifiers: Erectile dysfunction type: unspecified Qualified Code(s): N52.9 - Male erectile dysfunction, unspecified Plan Six-month follow-up Orders: Orders AMB Urinalysis Automated Today N31.9 - Neuromuscular dysfunction of bladder, unspecified Urine Culture Today N31.9 - Neuromuscular dysfunction of bladder, unspecified, R33.9 - Retention of urine, unspecified AMB Bladder/Catheter Procedure Today N31.9 - Neuromuscular dysfunction of bladder, unspecified Medications: Changed From ascorbic acid (vitamin C) 1 g PO DAILY To ascorbic acid (vitamin C) 1 g PO DAILY 90 caps 1RF 90 days From methenamine hippurate 1 g PO DAILY 90 days 90 tabs 1RF N31.9 - Neuromuscular dysfunction of bladder, unspecified, N39.0 - Urinary tract infection, site not specified To methenamine hippurate 1 g PO BID 180 tabs 1RF 90 days N31.9 - Neuromuscular dysfunction of bladder, unspecified, N39.0 - Urinary tract infection, site not specified Refilled solifenacin 5 mg PO DAILY 90 tabs 1RF 90 days Discontinued ascorbic acid (vitamin C) Discontinued Reason: Duplicate 1 g PO DAILY 90 days 90 tabs 1RF N31.9 - Neuromuscular dysfunction of bladder, unspecified, N39.0 - Urinary tract infection, site not specified cefuroxime axetil Discontinued Reason: Patient Completed Course 250 mg PO BID 7 days 14 tabs 0RF tamsulosin Discontinued Reason: Doctor's Order 0.4 mg PO DAILY 90 caps 0RF Patient Instructions: This note is constructed using voice recognition software. While every effort has been made to ensure accuracy supply chain logistics manager errors may have been included. Imaging studies, laboratory and physical exam results were discussed and reviewed in detail. No major barriers to patient understanding were identified. An opportunity to ask questions regarding the treatment plan was provided. All questions were answered. The patient expressed understanding and agreement with the above treatment plan. The patient is aware they should contact our office by phone for worsening of their current condition or the appearance of new urologic symptoms. Compliance is encouraged with any medications and followup testing that is ordered. It is a privilege to participate in the urologic care of your patient. If you have any questions or concerns regarding treatment for the above conditions, or other urologic issues, please do not hesitate to contact me. The office telephone contact is [phone]. Sincerely, Dr Ozzy Santiago MD, [facility] - Urology Compassionate Specialist Care for the Genitourinary System Coding Level of Care Code Est Pt Level 3 (57859) Complex EM visit Add On G2211 Diagnoses Neurogenic bladder N31.9 Erectile dysfunction, unspecified erectile dysfunction type N52.9 Erectile dysfunction type: unspecified CPT Codes Bladder/Catheter Procedure - CPT: 66608-Iuosre of bladder tube ([id number])
--- OUTSIDE RECORDS SUMMARY | 2025-03-19 12:58 | XMS_ITS | Clinical Summary ---
Author Organization [facility] ity Address [address] [place] [address] Care Team Providers Care Transaction Coordinator Name Role Phone Unavailable Primary Care Provider [...] age to complete this topic Meningococcal B Vaccine Aged Out No l onger eligible based on patient's age to complete this topic RSV Immunization Patients Un mi 20 months Aged Out No longer eligible b ased on patient's age to complete this topic Varicella Vaccines Aged Out No longer eligible based on patient's age to complete this topic Advance Directives Documents on File Type Date Recorded Patient Shift Supervisor Melting Expl anation Health Care Decision (hx) 04/28/2023 HE ALTH CARE PROXY Health Care Decision (hx) 04/28/2023 HE ALTH CARE PROXY
== END 2025-03-19 11:59 | disposition home or self-care (01) ==
PROVIDERS: PCP Internal Medicine; Visit Provider Urology
DX: N31.9 Neuromuscular dysfunction of bladder, unspecified (principal); N52.9 Male erectile dysfunction, unspecified; Z43.5 Encounter for attention to cystostomy
CPT/HCPCS: 51705; 99213; G2211

== ENCOUNTER 2025-03-19 11:20 | Outpatient (REF) | payer MEDICARE, SELFPAY | END 2025-03-19 11:21 | disposition home or self-care (01) | LOC: HO.LAB 11:20 | PROVIDERS: PCP Internal Medicine; Visit Provider Urology | DX: Z46.6 Encounter for fitting and adjustment of urinary device (principal); N31.9 Neuromuscular dysfunction of bladder, unspecified; R33.9 Retention of urine, unspecified | CPT/HCPCS: 51705; 81003; 87086; 87088; 87186; 99212 ==

== ENCOUNTER → 2025-04-18 11:11 | Outpatient (BNVA) | payer MEDICARE, SELFPAY | PROVIDERS: PCP Internal Medicine; Visit Provider Urology | DX: Z46.6 Encounter for fitting and adjustment of urinary device (principal); N31.9 Neuromuscular dysfunction of bladder, unspecified | CPT/HCPCS: 51705 ==

== ENCOUNTER 2025-04-22 09:15 | Outpatient (REF) | payer MEDICARE, SELFPAY ==
--- OUTSIDE RECORDS SUMMARY | 2025-04-22 09:39 | XMS_ITS | Clinical Summary ---
Author Organization [facility] Address [address] [address] Phone Care Team Providers Care Wellness Educator Name Role Phone Jt Guerra MD Unavailable Damian Lucero CNP Unavailable [phone] Jean-Pierre Duque MD Primary Care Provider [phone] Allergies No known active allergies Medications acetaminophen (TYLENOL) 325 mg tablet Take 325 mg by mouth every 4 (four) hours as needed for pain (specific location in comments). 06/07/2023 Active apixaban (ELIQUIS) 5 mg tablet Take 5 mg by mouth 2 (two) times a day. 06/07/2023 Active baclofen (LIORESAL) 5 mg tablet Take 5 mg by mouth 2 (two) times a day. 06/07/2023 Active citalopram (CELEXA) 10 MG tablet Take 10 mg by mouth daily. 06/07/2023 Active finasteride (PROSCAR) 5 mg tablet Take 5 mg by mouth daily. 06/07/2023 Active METOPROLOL TARTRATE 12.5 MG PO SPLIT TABLET (LOPRESSOR) Take 12.5 mg by mouth 2 (two) times a day. 06/07/2023 Active atorvastatin (LIPITOR) 80 MG tablet Take 80 mg by mouth daily. 06/07/2023 Active tamsulosin (FLOMAX) 0.4 mg Cap Take 0.4 mg by mouth daily. 06/07/2023 Active flavoxATE (URISPAS) 100 mg tablet Take 100 mg by mouth 3 (three) times a day as needed (bladder spasms). 06/13/2023 Active mirabegron (MYRBETRIQ) 25 mg Tb24 Take 25 mg by mouth daily. 06/15/2023 Active sacubitril-vals ander 24-26 mg per tablet Take 1 tablet by mouth 2 (two) times a day. 06/24/2023 Active furosemide (LASIX) 20 MG tablet Take 20 mg by mouth daily. 06/24/2023 Active Social History Tobacco Use Types Packs/Day Years Used Date Smoking Tobacco: Never Assessed Home Health Assessment: Transportation Answer Date Recorded Lack of Transportation (Medical) No 07/08/2023 Lack of Transportation (Non-Medical) No 07/08/2023 Patient Unable or Declines to Respond No 07/08/2023 Education Answer Date Recorded Are you interested in more education? Not on ancelmo e 05/25/2023 Are you concerned about learning? Not on file 05/25/2023 No 05/25/2023 No 05/25/2023 Digital Access Answer Date Recorded No 05/25/2023 No 05/25/2023 Reliable internet access at home? Not on file 05/25/2023 Device with a working camera? Not on file Sex and Gender Information Value Date Recorded Sex Assigned at Not on file Legal Sex Male 10:01 PM EDT Gender Identity Not on file Sexual Orientation Not on file Last Filed Vital Signs Vital Sign Reading Time Taken Comments Blood Pressure 116/65 07/08/2023 1:12 PM EDT Pulse 74 07/08/2023 1:12 PM EDT Temperature 35.7 C (96.3 F) 07/01/2023 10:12 AM EDT Respiratory Rate 18 06/24/2023 12:20 PM EDT Oxygen Saturation 97% 07/08/2023 1:12 PM EDT Inhaled Oxygen Concentration - - Weight 83.9 kg (185 lb) 10/18/2014 11:55 AM EST Height 175.3 cm (5' 9 ) 10/18/2014 11:55 AM EST Body Mass Index 27.32 10/18/2014 11:55 AM EST Plan of Treatment Health Maintenance Due Date Last Done Comments CREATININE LEVEL 1951 LIPID PANEL 1951 DEPRESSION SCREENING 1963 SMOKING Hx and SMOKELESS TOBACCO SCREENING 1964 HEPATITIS C SCREENING 1969 COLOGUARD 1996 COLONOSCOPY 1996 COLORECTAL CANCER SCREENING 1996 FIT TEST 1996 FOBT 1996 SIGMOIDOSCOPY 1996 VIRTUAL COLONOSCOPY 1996 PNEUMOCOCCAL VACCINES (50+ years) (1 of 1 - PCV) 2001 ZOSTER VACCINES (2 of 3) 09/11/2015 015, 04/16/2014 Adult Td,Tdap Booster 05/03/2024 05/03/2014 , 03/25/2014 COVID-19 VACCINE (4 - 2023-2 5 season) 2024 08/02/2021, 12/24/2020, 11/26/2020 RSV VACCINE (1 - 1-dose 75+ series) 2026 HEPATITIS A VACCINES Aged Out No long er eligible based on patient's age to complete this topic HIB VACCINES Aged Out No longer eligi ble based on patient's age to complete this topic MENINGOCOCCAL VACCINES (ACWY) Aged Out No longer eligible based on patient's age to complete this topic MENINGOCOCCAL VACCINES (B) Aged Out N o longer eligible based on patient's age to complete this topic Medical Devices Not on file Insurance [place] REPLACEMENT [facility] MEDICARE HMO BLUE REPLACEMENT [facility] MEDICARE HMO BLUE REPLACEMENT [facility] MEDICARE HMO BLUE REPLACEMENT [place] RE[place]AC[place] Care Teams Wellness Educator Relationship Specialty Start Date End Date Jean-Pierre Duque MD [address] [place] [address], [address] [place] [address] PCP - General Internal Medicine 06/02/23 Jt Guerra MD [address] [facility] [address] [place] [address] [email or web address] Historical LMR Provider 07/21/17 Damian Lucero CNP [address] [facility], [address] [place] [address] [email or web address] Historical LMR Provider 07/21/17 Additional Source Comments The information contained in this document represents components of the legal health record. It is not the complete legal health record.[facility]
--- OUTSIDE RECORDS SUMMARY | 2025-04-22 09:39 | XMS_ITS | Clinical Summary ---
Author Organization [facility] ity Address [address] [place] [address] Care Team Providers Care Fish Farmer Name Role Phone Unavailable Primary Care Provider [...] Panel) 10/28/2023 Colorectal Cancer Screening: Colonoscopy 10/28/2023 Falls Risk Assessment 10/28/2023 Hepatitis C Screening 10/28/2023 Social Influencers of Health Screening 10/28/2023 COVID-19 Vaccine (1 - 2023-2 5 season) 2024 Depression Screening 10/03/2024 Influenza Vaccine (#1) 2025 RSV Immunization Adult Patie nts (1 [...] Documents on File Type Date Recorded Patient Ciso Expl anation Health Care Decision (hx) 04/28/2023 HE ALTH CARE PROXY Health Care Decision (hx) 04/28/2023 HE ALTH CARE PROXY
--- OUTSIDE RECORDS SUMMARY | 2025-04-22 09:39 | XMS_ITS | Patient Health Record ---
Author Organization [facility] Address [address] [place] [address] Care Team Providers Care Ironworker Name Role Phone Neto ANDERSON, [place] Primary Care Provider Ovidio Mulligan Jr Reason For Referral No Information Medications Medication SIG (Take, Route, Frequency, Duration) Notes Start Date End Date Status MiraLax (colon prep) 8.3 ounce ((238) grams mixed with Gatorade or Crystal Light orally begin at 5:00 p.m. the day before the procedure for 1 day 08/01/2019 Active Vitamin B12 1000 MCG 1 tablet Orally Once a day Active Verapamil HCl Active Vitamin D 1000 UNIT 1 tablet Orally Once a day Active Aspir-81 81 MG 1 tablet Orally Once a day Active Losartan Potassium 100 MG 1 tablet Orally Once a day Active Immunizations Vaccine Route Administration Date Status Comme nts Influenza Unknown 08/01/2019 Refused Social History Tobacco Use: Social History Observation Description Date Details (start date - stop date) Former Smoker NA - NA Tobacco Use/Smoking Question Answer Notes Patient is a former smoker How long has it been since you last smoked? > 10 years Alcohol Screen Question Answer Notes Did you have a drink containing alcohol in the p ast year? No Points 0 Interpretation Negative Problems Problem Type SNOMED Code ICD Code Onset Dates Problem Status W/U Status Risk Notes Problem 150172433 Colon cancer screening (Z12.11) Active confirmed Problem 194076476 Gastroesophageal reflux disease with esophagitis (K21.0) Active confirmed Problem 895348793 Gastroesophageal reflux disease without esophagitis (K21.9) Active confirmed Problem 32233606 Hypertension, unspecified type (I10) Active confirmed Plan Of Treatment Future Test Test Name Order Date COLONOSCOPY 08/01/2019 Insurance Providers Payer Name Payer Address Payer Phone Subscriber Number Group Number Insured Name Patient Relationship to Insured Coverage Start Date Coverage End Date [facility] [employer] [address] [place] [address] [id number] CONNIEMELCHOR AMY Self - patient is the insured Medical (General) History Medical History History ICD Code colonoscopy 12/31/2009 colon polyps hypertension Denies CA,DM,CVA,Lung disease,renal dise ase Surgical History Surgery Date(Month/Year) appendectomy tonsillectomy
[2025-04-22 11:10] LABS: MANUAL DIFF FLAG NO
[2025-04-22 11:24] LABS: Hematocrit 38.1 % (42.0-52.0); Hemoglobin 12.8 g/dl (14.0-18.0); Imm Gran Abs Auto 0.01 X10*3/uL (0.00-0.03); Imm Gran Pct Auto 0.2 % (0.0-0.4); Lymphocytes Absolute Auto 1.5 X10*3/uL (1.2-4.9); Mean Corpuscular HGB Conc 33.6 g/dl (31.0-36.0); Mean Corpuscular Hemoglobin 31.8 pg (27.0-33.0); Mean Corpuscular Volume 94.8 fL (80.0-98.0); NRBC Abs Auto 0.000 X10*3/uL (0.0-0.012); NRBC Pct Auto 0.0 /100WBC (0.0-0.2); Platelet Count 156 X10*3/uL (160-400); Red Blood Count 4.02 X10*6/uL (4.60-5.80); White Blood Count 6.6 X10*3/uL (4.8-10.8)
[2025-04-22 12:07] LABS: Alanine Aminotransferase 28 U/L (0-40); Albumin Level 3.9 g/dL (3.5-5.0); Alkaline Phosphatase 101 U/L (39-117); Anion Gap 11 (12-20); Appearance Urine Turbid; Aspartate Amino Transferase 33 U/L (5-37); Blood Urea Nitrogen 21 mg/dL (9-16); Calcium 8.8 mg/dL (8.4-10.2); Carbon Dioxide 23 mmol/L (22-29); Chloride 113 mmol/L (96-108); Cholesterol 126 mg/dL (<200); Estimated Glomerular Filt Rate > 60; Glucose Urine UA Negative (Negative); HDL Cholesterol 55 mg/dL (>40); PH 5.5 (5.0-9.0); Potassium 4.0 mmol/L (3.3-5.1); Sodium 143 mmol/L (135-145); Specific Gravity - Urine 1.020 (1.005-1.025); Total Protein 6.0 g/dL (6.5-8.0); Triglycerides 43 mg/dL (<150); UMIC TRIGGER UACC YES
[2025-04-22 12:08] LABS: Other Crystals Urine Present; UACC Culture Trigger YES
== END 2025-04-22 09:16 | disposition home or self-care (01) ==
LOC: HO.WFDLDS 09:15
PROVIDERS: Visit Provider Internal Medicine
DX: D64.9 Anemia, unspecified (principal); E78.00 Pure hypercholesterolemia, unspecified; E55.9 Vitamin D deficiency, unspecified
CPT/HCPCS: 36415; 80053; 80061; 81001; 81003; 82306; 84443; 85025; 87086

== ENCOUNTER 2025-04-25 10:27 | Outpatient (AMB) | payer MEDICARE, SELFPAY ==
--- NOTE | 2025-04-25 10:33 | MHC.PC.OV ---
Vital Signs 04/25/25 10:37 Height 5 ft 10 in Weight 188 lb 7.924 oz BMI 27.0 BP 116/80 Blood Pressure Location Lt brachial Position Sitting Pulse 73 Pulse Source Pulse Oximeter Pulse Oximetry (%) 98 Oxygen Delivery Method Room Air Intake Visit Reasons: [facility] f[facility]u Atm Manager Required: No Accompanied by: Self / Same As Patient Allergies No Known Allergies Allergy (Verified 04/25/25 11:03) Medication List - Last Reconciled 04/25/25 by Jean-Pierre Duque MD apixaban 5 mg PO BID ascorbic acid (vitamin C) 1 g PO DAILY 90 days atorvastatin 80 mg PO BEDTIME baclofen 5 mg (1/2 x 10 mg) PO BID 90 days citalopram 10 mg PO DAILY 90 days comp.stocking,knee,long,medium apply in am and take off in pm [Depends (adult medium) 4 times per day As directed] furosemide 20 mg PO DAILY 90 days guaifenesin ER (Mucinex) 600 mg PO BID PRN methenamine hippurate 1 g PO BID 90 days nitrofurantoin monohyd/m-cryst 100 mg (Macrobid) 100 mg PO BID 14 days [RIGHT AFO BRACE As directed] sacubitril-valsartan 49-51 mg 1 tab PO BID 90 days solifenacin 5 mg PO DAILY 90 days [STANDARD WHEELCHAIR - XL As directed] [Standing upright Walker with Right arm rest As directed] Tobacco use date assessed: 04/25/25 Fall risk assessment: No Falls in past year Last assessed Fall Risk: 04/25/25 Dental Screening Dental Screen Date: 04/25/25 Did you have a dental visit in the last 12 months?: Yes Did you have a dental problem in the last 6 months where you did not have access to dental care?: No Was dental information given to patient?: Patient has dentist HPI 4mt f/u HPI Details Patient comes in today for his follow up visit States that he feels okay He denies any headaches or dizziness Denies any chest pains, no SOB No nausea/vomiting, no abdominal pain No change in bowel habits noted He has a raised lesion on the medial aspect of his right thigh that has been present for a while now and he feels that this has gotten bigger lately and he would now like to have this evaluated further He had his follow up labs done a few days ago - to discuss his results [facility] Medical History Neurogenic bladder Persistent atrial fibrillation Depression CVA (cerebral vascular accident) History of CVA with residual deficit Vitamin B12 deficiency Vitamin D deficiency Mild anemia Overweight (BMI 25.0-29.9) Pure hypercholesterolemia Benign essential hypertension Surgical History (Updated 04/25/25 @ 11:14 by Jean-Pierre Duque MD) Hx of colonoscopy Hx of appendectomy Family History Other Family history non-contributory Social History Household Members: Spouse Housing: House Are you a primary primary health care nurse to a significant other at home: No Do you presently have visiting nurse or other home services: No Alcohol intake: former Patient Tobacco Use Status: Former Tobacco user Tobacco use type: Cigarette e-Cigarette/Vaping Use: Never Used Second Hand Smoke Exposure: No service: No Current occupational status: retired Cognitive needs: No Hearing needs: No Vision needs: Yes (glasses) Questionnaire PHQ-9 Over the last 2 weeks, how often have you been bothered by any of the following problems? 1. Little interest or pleasure in doing things: not at all 2. Feeling down, depressed, or hopeless: not at all 3. Trouble falling or staying asleep, or sleeping too much: not at all 4. Feeling tired or having little energy: not at all 5. Poor appetite or overeating: not at all 6. Feeling bad about yourself - or that you are a failure or have let yourself or your family down: not at all 7. Trouble concentrating on things, such as reading the newspaper or watching television: not at all 8. Moving or speaking so slowly that other people could have noticed. Or the opposite - being so fidgety or restless that you have been moving around a lot more than usual: not at all 9. Thoughts that you would be better off or of hurting yourself in some way: not at all Total score: 0 Depression Screening Interpretation: Negative Depression Screening Done: Yes 92069 - PHQ-9 Billing: Yes Source: Developed by Drs. Stephan Raines, Dominique Roberson, Oh Alvarado and colleagues, with an educational alicja from [employer]. Thrive Questionnaire Date Thrive assessed: 04/25/25 I am a: Patient What is your living situation today?: I have a steady place to live Within the past 12 months, did the food you bought not last and you didn't have the money to get more?: I choose not to answer this question Within the past 12 months, did you worry whether your food would run out before you got money to buy more?: I choose not to answer this question Do you have trouble paying for medicines?: I choose not to answer this question Do you have trouble getting transportation to medical appointments?: I choose not to answer this question Do you have trouble paying your heating and electricity bill?: I choose not to answer this question Do you have trouble taking care of your child, family member or friend?: I choose not to answer this question Do you have trouble with day-to-day activities such as bathing, preparing meals, shopping, managing finances, etc.?: I choose not to answer this question Are you currently unemployed and looking for a job?: I choose not to answer this question Are you interested in more education?: I choose not to answer this question Please select the resources that you would like help with: None Currently or been in a relationship where the following occur: No concerns reported THRIVE Score: 0 AUDIT C Alcohol Use Questionnaire (AUDIT-C) 1. How often do you have a drink containing alcohol?: Never 3. How often do you have six or more drinks on one occasion?: Never Total Score: 0 Score Reviewed/Action Taken: Yes SAMI-7 AMB Questionnaire SAMI-7 Date SAMI - 7 assessed: 04/25/25 Feeling nervous, anxious, or on edge: 0 = Not at all Not being able to stop or control worryin = Not at all Worrying too much about different things: 0 = Not at all Trouble relaxin = Not at all Being so restless that it is hard to sit still: 0 = Not at all Becoming easily annoyed or irritable: 0 = Not at all Feeling afraid as if something awful might happen: 0 = Not at all Total SAMI-7 score (0-4 normal; 5-9 mild; 10-14 moderate; 15-21 severe): 0 Source: Developed by Drs. Stephan Raines, Dominique Roberson, Oh Alvarado and colleagues, with an educational alicja from [employer]. Review of Systems Const Denies chills, Denies fatigue, Denies fever(s) and Denies headache(s) ENT Denies dysphagia, Denies dizziness, Denies otalgia, Denies headache(s), Denies neck pain, Denies odynophagia and Denies sore throat Card Denies chest pain, Denies palpitations and Denies dyspnea Resp Denies chest congestion, Denies cough and Denies dyspnea GI Denies abdominal pain, Denies constipation, Denies dysphagia, Denies heartburn, Denies diarrhea, Denies nausea, Denies odynophagia and Denies vomiting Details: currently has a suprapubic catheter in place Reports difficulty urinating (due to neurogenic bladder - currently has a suprapubic catheter in place) Musc Denies back pain and Denies neck pain Skin/Breast Details: (+) raised lesion on the right thigh Denies rash Neuro Details: (+) right hemiparesis, with residual expressive aphasia Denies dizziness and Denies headache(s) Psych Reports depression Endo Denies fatigue and Denies palpitations Physical exam (Primary Care) Vital Signs: Last Vital Signs Pulse 73 04/25/25 10:37 BP 116/80 04/25/25 10:37 Pulse Ox 98 04/25/25 10:37 Oxygen Delivery Method Room Air 04/25/25 10:37 BMI result Body Mass Index 27.0 Tobacco/Smoking Status: Tobacco use Status Tobacco use date assessed 04/25/25 04/25/25 10:39 Patient Tobacco Use Status Former Tobacco user 04/25/25 10:33 Tobacco use type Cigarette 04/25/25 10:33 e-Cigarette/Vaping Use Never Used 04/25/25 10:33 PHQ-9: PHQ-9 Score PHQ-9: Total score 0 04/25/25 11:05 Depression Screening Interpretation: Negative Thrive Assessment: Date of Thrive Assessment Date Thrive assessed 04/25/25 04/25/25 10:39 Currently or been in a relationship where the following occur: No concerns reported Const General: no acute distress and alert Limitations: physical limitations ((+) right hemiparesis but is able to get up and walk at home (uses cane)) and wheelchair HENMT Ears: TM's normal bilaterally and EAC's normal Throat: Yes posterior oropharynx normal and Yes tonsils normal (no TP congestion noted) Neck Neck: Yes supple and No lymphadenopathy Thyroid: Thyroid normal Resp Auscultation: clear to auscultation bilaterally, no rales and no wheezes Cardio Rate: regular rate Rhythm: abnormal rhythm irregularly irregular Heart sounds: no murmurs GI Palpation (GI): Soft to palpation and nontender Auscultation: normal bowel sounds General: Yes no CVA tenderness Back/Spine/Pelvis Back: no CVA tenderness Cervical Spine: No Cervical spine tenderness Thoracic/Lumbar Spine: No lumbar spinal tenderness Skin Other: (+) small raised hyperpigmented lesion on the right thigh Rashes: no rashes Neuro Other: (+) right hemiparesis, especially over right upper extremity Speech: Expressive aphasia present (residual; mild) Extrem General: Yes no clubbing, cyanosis or edema Results Reviewed Results Reviewed: Laboratory Tests 04/22/25 09:20 WBC 6.6 Hgb 12.8 L Hct 38.1 L Plt Count 156 L Sodium 143 Potassium 4.0 Creatinine 1.16 Estimated GFR > 60 Fasting Glucose 96 Calcium 8.8 AST 33 ALT 28 Triglycerides 43 Cholesterol 126 LDL Cholesterol, Calc 63 HDL Cholesterol 55 25-OH Vitamin D Total 48.3 TSH 1.43 Ur Specific [place] 1.020 Urine Protein 100 (2+) H Urine Glucose (UA) Negative Urine Blood Large (3+) H Urine Nitrite Positive H Ur Leukocyte Esterase Large (3+) H Coding Level of Care Code Est Pt Level 4 (50518) Diagnoses Cerebrovascular accident (CVA) due to embolism of left middle cerebral artery I63.412 CVA mechanism: embolism Laterality of affected vessel: left Precerebral and cerebral artery: middle cerebral artery Aphasia as late effect of cerebrovascular accident (CVA) I69.320 Persistent atrial fibrillation I48.19 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 Heart failure chronicity: acute Heart failure type: combined systolic and diastolic Pure hypercholesterolemia E78.00 Neurogenic bladder N31.9 Vitamin D deficiency E55.9 Benign skin lesion of thigh L98.9 Episode of recurrent major depressive disorder, unspecified depression episode severity F33.9 Active/Remission status: currently active Depression Type: major depressive disorder Major depression episode severity: unspecified Major depression recurrence: recurrent Additional Codes PHQ-9 - 32289 - PHQ-9 Billing: Yes ([id number]) Assessment & Plan Assessment & Plan (1) CVA (cerebral vascular accident): Comment: April 2023 - involving left MCA, resulting in right hemiparesis Code(s): I63.9 - Cerebral infarction, unspecified Category: Medical Qualifiers: CVA mechanism: embolism Laterality of affected vessel: left Precerebral and cerebral artery: middle cerebral artery Qualified Code(s): I63.412 - Cerebral infarction due to embolism of left middle cerebral artery Plan: S/P left MCA embolic stroke secondary to atrial fibrillation and severe cardiomyopathy in April 2023 Patient underwent thrombectomy with TICI (Thrombolysis in Cerebral Infarction) 2C achieved after 2 passes of thrombectomy but unfortunately, patient's right-sided hemiparesis persisted Repeat imaging studies done revealed (+) hemorrhagic conversion of his subacute left MCA infarct He was started on Eliquis 28 days after his CVA and repeat head CT ruled out further hemorrhagic conversion Continue Eliquis 5 mg BID Patient continues to present with right hemiparesis and he has been going to physical therapy with gradual but continuing improvement He also has expressive aphasia following his CVA and this is still present to some degree currently (2) Aphasia as late effect of cerebrovascular accident (CVA): Code(s): I69.320 - Aphasia following cerebral infarction Category: Medical Plan: S/P speech therapy with some improvement of his aphasia (3) Persistent atrial fibrillation: Code(s): I48.19 - Other persistent atrial fibrillation Category: Medical Plan: Patient is currently still in atrial fibrillation but remains rate-controlled; cardiology has decided to best leave him in AF for now Metoprolol was discontinued by cardiology last year due to persistent bradycardia Continue Eliquis 5 mg BID for thromboembolism prophylaxis (4) Congestive heart failure (CHF): Code(s): I50.9 - Heart failure, unspecified Category: Medical Qualifiers: Heart failure chronicity: acute Heart failure type: combined systolic and diastolic Qualified Code(s): I50.41 - Acute combined systolic (congestive) and diastolic (congestive) heart failure Plan: Patient initially presented to the ER in April 2023 with new onset congestive heart failure and AFib with RVR He was going for MARY ANN cardioversion but MARY ANN revealed a large thrombus in the left atrial appendage and it was decided not to cardiovert him at the time and reschedule this to a later date but he unfortunately developed his CVA later that evening His echocardiogram done at the time revealed an EF of 10 to 15%; his ejection fraction has since improved to 45-50% with aggressive medical management (last echo done in September 2023) He will be getting a repeat echocardiogram done in early June 2025 for follow up Patient is currently compensated with no signs/symptoms of CHF Continue Entresto 49-51 mg BID and Furosemide 20 mg QD Follow up with cardiology as scheduled (5) Pure hypercholesterolemia: Code(s): E78.00 - Pure hypercholesterolemia, unspecified Category: Medical Plan: Results of his labs done a few days ago reviewed and discussed with patient Reinforced low cholesterol diet Continue Atorvastatin 80 mg QD Will recheck his labs and fasting lipids in 4 months for follow up (6) Neurogenic bladder: Code(s): N31.9 - Neuromuscular dysfunction of bladder, unspecified Category: Medical Plan: S/P left MCA CVA in April 2023 He currently has a suprapubic catheter, which was placed in late 2022 when his neurogenic bladder and urinary retention persisted a few months after his CVA He undergoes suprapubic tube changed by urology regularly - takes Bactrim DS prophylactically before his suprapubic catheter change Continue Solifenacin 5 mg QD and Tamsulosin 0.4 mg QD; Finasteride and Myrbetriq ER were discontinued by urology a few months ago Follow up with urology as scheduled (7) Vitamin D deficiency: Code(s): E55.9 - Vitamin D deficiency, unspecified Category: Medical Plan: Continue Vitamin D3 2000 units QD (8) Benign skin lesion of thigh: Code(s): L98.9 - Disorder of the skin and subcutaneous tissue, unspecified Category: Medical Plan: Will refer him to dermatology for further evaluation and consideration for excision of the lesion (9) Depression: Code(s): F32.A - Depression, unspecified Category: Medical Qualifiers: Active/Remission status: currently active Depression Type: major depressive disorder Major depression episode severity: unspecified Major depression recurrence: recurrent Qualified Code(s): F33.9 - Major depressive disorder, recurrent, unspecified Plan: Continue Citalopram 10 mg QD Plan Have discussed again with patient and his that it is time for his repeat colonoscopy and he will have to stop taking his Eliquis for a few days and start on Lovenox bridge in the meantime His has expressed concerns about him coming off Eliquis but have reassured them that he should be well-covered with the Lovenox bridge in the meantime She is concerned as well about his ability to do the precolonoscopy prep - states that he is still limited by his hemiparesis and would not be able to get to the bathroom in time if he has to go Have advised them that as he does not have any increased risk (family or personal) of colon cancer although he did have a tubular adenoma on his initial colonoscopy back in 2009, he can probably just get by with doing a Cologuard test for now We will try to reach out to Dr. Colunga to see what his thoughts are regarding this Follow up in 4 months Orders: Orders Lipid Panel 4 Months E78.00 - Pure hypercholesterolemia, unspecified Complete Blood Count Auto Diff 4 Months D64.9 - Anemia, unspecified Comprehensive [place]. Panel Fast 4 Months E78.00 - Pure hypercholesterolemia, unspecified Vitamin B12 and Folate 4 Months E53.8 - Deficiency of other specified B group vitamins Vitamin D 25-OH Total 4 Months E55.9 - Vitamin D deficiency, unspecified TSH reflex Free T4 4 Months E78.00 - Pure hypercholesterolemia, unspecified Referrals Dermatology Referral L98.9 - Disorder of the skin and subcutaneous tissue, unspecified
[2025-04-25 10:37] VITALS: BP 116/80; PULSE 73; O2SAT 98; BMI 27.0
--- OUTSIDE RECORDS SUMMARY | 2025-04-25 11:20 | XMS_ITS | Clinical Summary ---
Author Organization [facility] Address [address] [place] [address] Care Team Providers Care Jacket Preparer Name Role Phone Unavailable Primary Care Provider [...] Documents on File Type Date Recorded Patient Manager Desktop Expl anation Health Care Decision (hx) 04/28/2023 [facility] PROXY Health Care Decision (hx) 04/28/2023 HE [facility] C[facility] PROXY
--- OUTSIDE RECORDS SUMMARY | 2025-04-25 11:20 | XMS_ITS | Clinical Summary ---
Author Organization [facility] Address [address] [address] Phone Care Team Providers Care Skip Loader Name Role Phone Jt Guerra MD Unavailable Damian Lucero CNP Unavailable [phone] Jean-Pierre Duque MD Primary Care Provider [phone] Allergies No known active allergies Medications acetaminophen [...] [place] BLUE REPLACEMENT [facility] MEDICARE HMO BLUE REPLACEMENT [facility] MEDICARE HMO BLUE REPLACEMENT [facility] MEDICARE HMO BLUE REPLAC[place] BL[place] RE[place]AC[place] Care Teams Skip Loader Relationship Specialty Start Date End Date Jean-Pierre Duque MD [address] [place] [address] [place] [address] PCP - General Internal Medicine 06/02/23 Jt Guerra MD [address] [facility] [address] [place] [address] [email or web address] Historical LMR Provider 07/21/17 Damian Lucero CNP [address] [facility] [place] [address] [email or web address] Historical LMR Provider 07/21/17 Additional Source Comments The information contained in this document represents components of the legal health record. It is not the complete legal health record.[facility]
--- OUTSIDE RECORDS SUMMARY | 2025-04-25 11:20 | XMS_ITS | Patient Health Record ---
Author Organization [facility] Address [address] [place] [address] Care Team Providers Care Corporate Compliance Manager Name Role Phone Neto ANDERSON, [place] Primary Care Provider Ovidio Mulligan Jr [...] Problem Status W/U Status Risk Notes Problem [id number] Colon cancer screening (Z12.11) Active confirmed Problem 931317813 Gastroesophageal reflux disease with esophagitis (K21.0) Active confirmed Problem 112183015 Gastroesophageal reflux disease without esophagitis (K21.9) Active confirmed Problem 79265729 Hypertension, unspecified type (I10) Active confirmed Plan Of Treatment Future Test Test Name Order Date COLONOSCOPY 08/01/2019 Insurance Providers Payer Name Payer Address Payer Phone Subscriber Number Group Number Insured Name Patient Relationship to Insured Coverage Start Date Coverage End Date [facility] PROF[employer]AL CLAIMS [address] [place] [address] [id number] CONNIEMELCHOR AMY Self - patient is the insured Medical (General) History Medical History History ICD Code colonoscopy 12/31/[address],DM,CVA,Lung disease,renal dise ase Surgical History Surgery Date(Month/Year) appendectomy tonsillectomy
== END 2025-04-25 11:19 | disposition home or self-care (01) ==
LOC: HO.HMCH 10:28
PROVIDERS: PCP Internal Medicine; Visit Provider Internal Medicine
DX: I63.412 Cerebral infarction due to embolism of left middle cerebral artery (principal); I69.320 Aphasia following cerebral infarction; I48.19 Other persistent atrial fibrillation; I50.41 Acute combined systolic (congestive) and diastolic (congestive) heart failure; E78.00 Pure hypercholesterolemia, unspecified; N31.9 Neuromuscular dysfunction of bladder, unspecified; E55.9 Vitamin D deficiency, unspecified; L98.9 Disorder of the skin and subcutaneous tissue, unspecified; F33.9 Major depressive disorder, recurrent, unspecified

== ENCOUNTER → 2025-04-25 10:27 | Outpatient (BNVA) | payer MEDICARE, SELFPAY | PROVIDERS: PCP Internal Medicine; Visit Provider Internal Medicine | DX: I69.320 Aphasia following cerebral infarction (principal); I48.19 Other persistent atrial fibrillation; I50.41 Acute combined systolic (congestive) and diastolic (congestive) heart failure; E78.00 Pure hypercholesterolemia, unspecified; N31.9 Neuromuscular dysfunction of bladder, unspecified; E55.9 Vitamin D deficiency, unspecified; L98.9 Disorder of the skin and subcutaneous tissue, unspecified; F33.9 Major depressive disorder, recurrent, unspecified; Z79.01 Long term (current) use of anticoagulants; Z79.899 Other long term (current) drug therapy; Z13.31 Encounter for screening for depression; Z13.39 Encounter for screening examination for other mental health and behavioral disorders | CPT/HCPCS: 96127; 99212 ==

== ENCOUNTER → 2025-05-15 13:16 | Outpatient (BNVA) | payer MEDICARE, SELFPAY | PROVIDERS: PCP Internal Medicine; Visit Provider Urology | DX: Z46.6 Encounter for fitting and adjustment of urinary device (principal); N31.9 Neuromuscular dysfunction of bladder, unspecified | CPT/HCPCS: 51705 ==

== ENCOUNTER → 2025-06-10 10:35 | Outpatient (REF) | payer MEDICARE, SELFPAY ==
--- NOTE | 2025-06-10 10:41 | CA_ITS ---
Transthoracic Echocardiogram Patient (Last, First, Middle): Steve Carrillo, Gender: Male Date of : 1950 Age: 75 Procedure Date: 06/10/2025 Procedure Type: Transthoracic Echocardiogram Location: OP Height: 177. cm Weight: 86.18 kg BSA: 2.04 m2 Heart Rate: 69 bpm BP: 125 / 60 mmHg Elementary Vocal Music Teacher: HADLEY Hernandez MD: Barbie Smith EMBEDDED PROCESSOR-C Special Education Teacher: Jose Barbour MD Symptoms: I50.41 - Acute combined systolic (congestive) and diastolic (congestive)... Study Quality: Adequate ECG Rhythm: Atrial Fibrillation Conclusions: - 1. Mildly reduced LV ejection fraction 45-50% with mild LVH 2. Severely dilated left atrium and moderately dilated right atrium 3. Normal cardiac valvular Dopplers 4. Normal RV systolic pressure 5. Mildly dilated ascending aorta at 4.2 cm 6. No gross pericardial effusion Findings Left Ventricle Normal left ventricular cavity size. There is normal left ventricular wall thickness. The left ventricular systolic function is mildly decreased. The visually estimated ejection fraction is between 45-50%. Diastolic function is indeterminate on the basis of available data. Right Ventricle Normal right ventricular cavity size. There is moderately decreased right ventricular systolic function. Atria The left atrium is severely dilated. There is no evidence of interatrial shunt. The right atrium is moderately dilated. Aortic Valve Normal aortic valve structure and function. There is no aortic valve stenosis. There is no aortic valve regurgitation. Mitral Valve There is mild anterior and posterior mitral leaflet thickening. There is trace mitral valve regurgitation. There is no mitral valve stenosis. Pulmonic Valve The pulmonic valve is likely normal. There is trace pulmonic valve regurgitation. Tricuspid Valve Normal tricuspid valve structure. There is trace tricuspid valve regurgitation. The right ventricular systolic pressure is normal. The right ventricular systolic pressure is 20 mmHg. Normal right atrial pressure. There is no evidence of pulmonary hypertension. Great Vessels The pulmonary artery was not well visualized. There is mild dilatation of the ascending aorta measuring 4.20 cm. Venous The inferior vena cava is normal in size and collapses greater than 50% with inspiration. Pericardium/Pleural There is no evidence of pericardial effusion. Prior Study Comparison No significant change compared to prior study dated: 09/23/2023. Measurements 2D Linear Measurements IVSd: 1.30 0.6-0.9/0.6-1.0 cm LVIDd: 4.86 3.9-5.3/4.2-5.9 cm LVIDd Index: 2.38 2.4-3.2/2.2-3.1 cm/m2 LVIDs: 3.54 2.0-3.6 cm LVPWd: 1.34 0.7-1.1 cm LA Diam: 4.80 2.7-3.8/3.0-4.0 cm LAIDs Index: 2.35 1.5-2.3 cm/m2 LV Mass: 319.37 67-162/88-224 g LV Mass Index: 156.55 43-95/49-115 g/m2 LVOT Diam: 2.20 3.0+(-)1.3 cm 2D Systolic Function EF 4C: 50.50 >55% EF 2C: 39.90 >55% EF BiP: 47.30 >55% Mitral Valve MV Pk E: 0.72 MV Decel Time: 320.00 E'Lateral: 12.90 E'Medial: 10.10 E/E' Med: 7.10 E/E' Lat: 5.60 PHT: 94.00 MVA PHT: 2.34 Decel [place]: 2.23 Aortic Valve AoV Pk Ambrose: 1.35 AoV Mn Ambrose: 1.00 AoV VTI: 0.29 AoV Pk Grad: 7.00 Aov Mn Grad: 5.00 MEAGHAN Cont.VTI: 1.83 LVOT LVOT Pk [place]rose: 0.69 LVOT Mn [place]: 0.49 LVOT VTI: 0.14 LVOT Pk Grad: 2.00 LVOT Mn Grad: 1.00 LVOT Diam: 2.20 LVOT Area: 3.80 Diastolic Function MV Pk E: 0.72 E'Medial: 10.10 E/E' Med: 7.10 E' Laterial: 12.90 E/E' Lat: 5.60 Right Ventricle TAPSE (mm): 12.40 TVS' Ambrose: 8.30 Tricuspid Valve TR Pk Ambrose: 2.09 TR Pk Grad: 17.00 RA Press: 3.00 RVSP: 20.00 Great Vessels Aorta Sinus of Valsalva: 3.70 2.0-3.5 cm Ao Asc: 4.20 2.1-3.4 cm Ao Arch: 3.70 Pulmonary Veins Pulm Vein S/D 1.20 Pulmonary Valve PV Pk Ambrose: 0.96 Peak PV Grad: 4.00 AK Pk Ambrose: 1.38 Updated in Other Vendor System with Status of Final Jose Barbour MD electronically signed on 06/11/2025 11:41:33 AM with status of Final
--- OUTSIDE RECORDS SUMMARY | 2025-06-10 12:46 | XMS_ITS | Patient Health Record ---
Author Organization [facility] Address [address] [place] [address] Care Team Providers Care Apprentice Technician Name Role Phone Neto ANDERSON, [place] Primary Care Provider Ovidio Mulligan Jr Reason [...] Problem Status W/U Status Risk Notes Problem 322572475 Colon cancer screening (Z12.11) Active confirmed Problem [id number] Gastroesophageal reflux disease with esophagitis (K21.0) Active confirmed Problem 360961908 Gastroesophageal reflux disease without esophagitis (K21.9) Active confirmed Problem 12612925 Hypertension, unspecified type (I10) Active confirmed Plan Of Treatment Future Test Test Name Order Date COLONOSCOPY 08/01/2019 Insurance Providers Payer Name Payer Address Payer Phone Subscriber Number Group Number Insured Name Patient Relationship to Insured Coverage Start Date Coverage End Date [facility] PROFESSIONAL CLAIMS [address] [place] [address] [id number] CONNIEMELCHOR AMY Self - patient is the insured Medical (General) History Medical History History ICD Code colonoscopy 12/31/2009 colon polyps hypertension Denies [place],DM,CVA,Lung disease,renal dise ase Surgical History Surgery Date(Month/Year) appendectomy tonsillectomy
--- OUTSIDE RECORDS SUMMARY | 2025-06-10 12:46 | XMS_ITS | Clinical Summary ---
Author Organization [facility] Address [address] [address] Phone Care Team Providers Care Vat Tender Name Role Phone Jt Guerra MD Unavailable Damian Lucero CNP Unavailable [phone] Jean-Pierre Duque MD Primary Care Provider [phone] Allergies No known active allergies Medications acetaminophen [...] [place] BLUE REPLACEMENT [facility] MEDICARE HMO BLUE REPLACEMENT [facility] MEDICARE HMO BLUE REPLACEMENT [facility] MEDICARE HMO BLUE REPLACEMENT [place] [place]AC[place] Care Teams Vat Tender Relationship Specialty Start Date End Date Jean-Pierre Duque MD [address] [place] [address] [place] [address] PCP - General Internal Medicine 06/02/23 Jt Guerra MD [address] [facility] Floor 1 [place] [address] [email or web address] Historical LMR Provider 07/21/17 Damian Lucero CNP [address] [facility] [place] [address] [email or web address] Historical LMR Provider 07/21/17 Additional Source Comments The information contained in this document represents components of the legal health record. It is not the complete legal health record.[facility]
--- OUTSIDE RECORDS SUMMARY | 2025-06-10 12:46 | XMS_ITS | Clinical Summary ---
Author Organization [facility] ity Address [address] [place] [address] Care Team Providers Care Early Childhood Services Coordinator Name Role Phone Unavailable Primary Care [...] 10/28/2023 Social Influencers of Health Screening 10/28/2023 Depression Screening 10/03/2024 COVID-19 Vaccine (1 - 2023-2 5 season) 2025 Influenza Vaccine (#1) 2025 RSV Immunization Adult [...] Documents on File Type Date Recorded Patient Master Cook Expl anation Health Care Decision (hx) 04/28/2023 HE ALTH CARE PROXY Health Care Decision (hx) 04/28/2023 HE ALTH CARE PROXY
== END ==
LOC: HO.CARD 10:35
PROVIDERS: PCP Internal Medicine; Visit Provider Nurse Practitioner Family
DX: I50.41 Acute combined systolic (congestive) and diastolic (congestive) heart failure (principal); I42.9 Cardiomyopathy, unspecified
CPT/HCPCS: 93306

== ENCOUNTER → 2025-06-10 10:41 | Outpatient (BNV) | payer MEDICARE, SELFPAY | PROVIDERS: PCP Internal Medicine; Visit Provider Internal Medicine Cardiovascular Disease | DX: I51.7 Cardiomegaly (principal); I50.41 Acute combined systolic (congestive) and diastolic (congestive) heart failure | CPT/HCPCS: 93306 ==

== ENCOUNTER 2025-06-13 08:19 | Emergency (ER) | payer MEDICARE, SELFPAY ==
--- NOTE | ~2025-06-13 | CT_ITS ---
EXAMINATION: CT HIP WITHOUT CONTRAST, RIGHT CLINICAL INFORMATION: Injury. Right hip pain. Concerning medical fracture. COMPARISON: Correlated to right hip x-ray dated June 13, 2025. TECHNIQUE: Multidetector volumetric imaging was obtained through the right hip without contrast material. Multiplanar reformatted images were submitted in coronal and sagittal planes. This CT examination was performed using dose optimization techniques as appropriate, variously including the following: *Automated exposure control *Adjustment of mA and/or kV according to patient size (this includes techniques or standardized protocols for targeted exams where dose is matched to indication/reason for exam; i.e. extremities or head) *Use of iterative reconstruction technique DLP: 234 mGy centimeter. FINDINGS: There is a subtle cortical irregularity in the inferior right pubic ramus. There is a subtle cortical irregularity at the greater trochanter right femur. Degenerative changes in the right coxofemoral joint. The anterior and posterior column of the acetabulum appear intact. The femoral head is well-seated in the osseous acetabulum. Probable bony island is in the right femur right acetabulum The right femoral head and neck are grossly intact. No acute cortical disruption in the intertrochanteric region of the proximal diaphysis right femur. The symphysis pubis is intact. Right superior pubic ramus is intact. There is a suprapubic catheter in the bladder. CT/CT hip RT wo IV con IMPRESSION: Acute subtle nondisplaced fracture inferior right pubic ramus. Questionable nondisplaced fracture greater trochanter right femur. Electronically signed by: Tod Layton MD 06/13/2025 11:50 AM EDT
--- NOTE | ~2025-06-13 | CT_ITS ---
EXAMINATION: CT CERVICAL SPINE WITHOUT CONTRAST CLINICAL INFORMATION: Trauma COMPARISON: CT angiogram of head and neck on April 21, 2023 TECHNIQUE: CT of the cervical spine was obtained without administration of intravenous contrast. Images were reconstructed in axial, coronal and sagittal planes. This CT examination was performed using dose optimization techniques as appropriate, variously including the following: *Automated exposure control *Adjustment of mA and/or kV according to patient size (this includes techniques or standardized protocols for targeted exams where dose is matched to indication/reason for exam; i.e. extremities or head) *Use of iterative reconstruction technique FINDINGS: Alignment and vertebrae: Minimal retrolisthesis of C3 on C4 and C4 on C5 is similar to 2022. No compression fracture. Posterior elements are intact. Intervertebral discs: Disc spaces are preserved. Craniovertebral Junction: Alignment is intact. No fracture. Other findings: Soft tissue density in the bilateral external auditory canals, probably cerumen; correlate with direct visualization. Chronic calcification in the right thyroid gland. Vascular calcifications at bilateral carotid bifurcations and aortic arch. No lung consolidation in the included lung apices. No apical pneumothorax. CT/CT cervical spine wo IV con IMPRESSION: No acute fracture or traumatic malalignment of the cervical spine. Electronically signed by: Angelina Draper MD 06/13/2025 09:40 AM EDT
--- NOTE | ~2025-06-13 | XR_ITS ---
EXAMINATION: XR HIP, RIGHT CLINICAL INFORMATION: trauma COMPARISON: None available. TECHNIQUE: AP and cross lateral view of the right hip. AP view pelvis. FINDINGS: No acute cortical disruption or malalignment, right coxofemoral joint. Sclerosis along the articular surface of the acetabulum and femoral head bilaterally with subchondral cyst formation and asymmetric joint space narrowing both coxofemoral joints. Mild sclerosis at long the articular surface of the symphysis pubis. Bony pelvis intact. Spina bifida occulta S1, congenital. XR/XR hip RT w PEL1V IMPRESSION: No acute fracture or dislocation, right hip. 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 Electronically signed by: Tod Layton MD 06/13/2025 10:42 AM EDT
--- NOTE | ~2025-06-13 | XR_ITS ---
EXAMINATION: XR CHEST CLINICAL INFORMATION: cough COMPARISON: April 18, 2023 TECHNIQUE: Frontal view of the chest was obtained. FINDINGS: Linear opacity left lower hemithorax. Pulmonary reticular pattern. No gross consolidation pleural effusion or pneumothorax. Cardiomediastinal silhouette size is normal with round apex. Calcified plaque thoracic aorta. Mild multilevel thoracic spondylosis. XR/XR chest 1V IMPRESSION: Chronic interstitial lung disease without acute airspace disease. Subsegmental atelectasis versus scarring, left lower hemithorax. Electronically signed by: Tod Layton MD 06/13/2025 10:41 AM EDT
--- NOTE | ~2025-06-13 | CT_ITS ---
EXAMINATION: CT HEAD WITHOUT CONTRAST CLINICAL INFORMATION: trauma COMPARISON: April 21, 2023 TECHNIQUE: Contiguous axial imaging was performed from the skull base to vertex without intravenous administration of contrast. This CT examination was performed using dose optimization techniques as appropriate, variously including the following: *Automated exposure control *Adjustment of mA and/or kV according to patient size (this includes techniques or standardized protocols for targeted exams where dose is matched to indication/reason for exam; i.e. extremities or head) *Use of iterative reconstruction technique DLP: 804 mGy-cm FINDINGS: No acute cortical disruption in the bony calvarium. Old traumatic deformities, a subtle bones. No acute intracranial hemorrhage, mass effect, midline shift, hydrocephalus or herniation. Macrocystic encephalomalacia, left frontal temporal/opercular, insular suprainsular, left basal ganglia with wallerian degeneration into the left mid brain. Guzman-white matter differentiation is normal. Posterior cranial fossa contents demonstrated no gross hemorrhage or mass effect. Normal position of the cerebellar tonsils. Sellar/suprasellar region demonstrated no gross masses. Prominence of the extra-axial CSF spaces cerebral sulci, ventricles and cerebellar folia. Polypoid mucosal thickening, paranasal sinuses mostly left maxillary sinus with effervescent secretions. Tympanic cavities and mastoid cells are aerated. No hematoma in the intraconal or extraconal compartments of the orbits. CT/CT head/brain wo IV con IMPRESSION: No acute fracture, bony calvarium. No acute intracranial hemorrhage. Left frontotemporal encephalomalacia sequela of prior left MCA territory infarct. Electronically signed by: Tod Layton MD 06/13/2025 09:20 AM EDT
[2025-06-13 08:23] VITALS: BP 150/80; PULSE 80; O2SAT 97
[2025-06-13 08:30] VITALS: BP 148/76; PULSE 79; RESP 18; TEMP 36.6; O2SAT 96; BMI 27.1
--- NOTE | 2025-06-13 08:43 | ECG_ITS ---
Test Reason : FALL Blood Pressure : */* mmHG Vent. Rate : 90 BPM Atrial Rate : 102 BPM P-R Int : * ms QRS Dur : 168 ms QT Int : 380 ms P-R-T Axes : * -34 -3 degrees QTcB Int : 464 ms Atrial fibrillation with Premature ventricular complexes Left axis deviation Right bundle branch block Inferior infarct , age undetermined Abnormal ECG When compared with ECG of 18-Apr-2023 09:06, No significant changes seen Referred By: Paul Esparza Electronically Signed By: TITA ALBARRAN MD
--- NOTE | 2025-06-13 08:45 | ED_ITS ---
HPI - Fall General Chief Complaint: Fall Stated Complaint: fell last night hip pain Time Seen by Provider: 06/13/25 08:21 Source: patient Mode of arrival: EMS Limitations: no limitations History of Present Illness HPI Narrative: This is a 75 years old the patient with a history of AFib on Eliquis, history of prior stroke with right-sided weakness presented to the emergency department stating that he fell last night is now complaining of right hip pain. The fall was mechanical no syncope from ground level MD complaint: fall Onset (ago): day(s) (1) Fall from: standing Place fall occurred: home Loss of consciousness: none Prolonged down time: no Symptoms prior to fall: none Context: tripped/slipped Location of injury: other (Right hip) Severity: moderate Related Data Previous Rx's ?Medication ?Instructions ?Recorded Depends (adult medium) 4 times #120 ea 06/03/23 per day comp.stocking,knee,long,medium #4 ea 06/30/23 RIGHT AFO BRACE #1 ea 07/18/23 STANDARD WHEELCHAIR - XL #1 ea 07/22/23 guaifenesin 600 mg tablet, 600 mg PO BID PRN 04/20/24 extended release 12 hr (Mucinex) congestion/phlegm #60 tabs Standing upright Walker with Right #1 ea 08/07/24 arm rest sacubitril 49 mg-valsartan 51 mg 1 tab PO BID 90 days #180 tabs 09/17/24 tablet baclofen 10 mg tablet 5 mg (1/2 x 10 mg) PO BID 90 days 12/20/24 #90 tabs furosemide 20 mg tablet 20 mg PO DAILY 90 days #90 t abs 01/12/25 citalopram 10 mg tablet 10 mg PO DAILY 90 days #90 t abs 02/11/25 atorvastatin 80 mg tablet 80 mg PO BEDTIME #30 tabs apixaban 5 mg tablet 5 mg PO BID #60 tabs 5 ascorbic acid (vitamin C) 1,000 mg 1 g PO DAILY 90 day s #90 caps 03/19/25 capsule methenamine hippurate 1 gram tablet 1 g PO BID 90 days #180 tabs 03/19/25 solifenacin 5 mg tablet 5 mg PO DAILY 90 days #90 ta bs 03/19/25 nitrofurantoin 100 mg PO BID 14 days #28 ca ps 03/22/25 monohydrate/macrocrystals 100 mg capsule (Macrobid) Allergies Allergy/AdvReac Type Severity Reaction Status Date / Time No Known Allergies Allergy Verified 06/13/25 08:32 Review of Systems 2 Constitutional: Constitutional: Reports no additional constitutional complaints Cardiovascular: Cardiovascular: Reports no additional cardiovascular complaints Neurologic: Reports system reviewed and no additional complaints, except as documented PMFSH Past Medical History Attestation statement: The following information was validated with the patient. Medical History Neurogenic bladder Persistent atrial fibrillation Depression CVA (cerebral vascular accident) History of CVA with residual deficit Vitamin B12 deficiency Vitamin D deficiency Mild anemia Overweight (BMI 25.0-29.9) Pure hypercholesterolemia Benign essential hypertension Surgical History Hx of colonoscopy Hx of appendectomy Family History Family History Other Family history non-contributory Social History Social History Household Members: Spouse Housing: House Are you a primary health care legal assistant to a significant other at home: No Do you presently have visiting nurse or other home services: No Unable to assess alcohol history related to: Unknown Alcohol intake: former Patient Tobacco Use Status: Former Tobacco user Tobacco use type: Cigarette Smoked in Last 30 Days: No e-Cigarette/Vaping Use: Never Used Second Hand Smoke Exposure: No Use of substances other than those prescribed or required for medical reasons: Unknown Advance Directives: Yes Advance Directives Information Provided: No Advance Directives on File: No service: No Current occupational status: retired Cognitive needs: No Hearing needs: No Vision needs: Yes (glasses) Physical Exam 2 Exam: Exam: He looks well no distress Vital Signs: Vital Signs: Last Vital Signs Temp 98.1 F 06/13/25 10:37 Pulse 99 06/13/25 10:37 Resp 18 06/13/25 10:37 BP 142/103 H 06/13/25 10:37 Pulse Ox 96 06/13/25 10:37 O2 Del Method Room Air 06/13/25 10:37 BMI result Body Mass Index 27.1 Const: General: cooperative Nutritional Appearance: average body habitus Orientation/consciousness: patient oriented x3 Limitations: no limitations HEENT: Head: Yes normal to inspection General nose exam: Normal external nose present Face and sinus: Yes normal facial exam Mouth: Normal oral and palatal mucosa present Throat: Yes posterior oropharynx normal Neck: Other: C-collar on Resp: Effort & Inspection: normal respiratory effort Auscultation: clear to auscultation bilaterally Cardio: Jugular venous distension: no JVD Rate: regular rate Rhythm: r egular rhythm GI: Inspection: Yes normal to inspection Palpation (GI): Soft to palpation Skin: General skin exam: no rashes or lesions noted Lesions: no lesions Rashes: no rashes Neuro: General: patient oriented x3 Cranial nerves: Yes CN's II-XII intact bilaterally Extrem: Other: Tenderness in the right hip decreased range of motion Course Reevaluation(s) Reevaluation #1: CT scan showed right pubic ramus fracture I reviewed the case with the orthopedist spoke with the AKHIL Membreno he recommended no weight-bearing patient will be discharged home he was seen by PT he did well with PT, case folder also was consulted is comfortable with the plan Time: 15:10 Medical Decision Making Medical Decision Making [facility] Narrative: Patient is here after fall we will obtain imaging of the hip Differential Diagnosis Differential Diagnoses: The differential diagnosis associated with the presentation includes Right hip fracture/right hip dislocation/intracranial bleed Admission/Observation Consideration of admission/observation: Escalation of care including admission/observation considered Consult Healthcare Provider Management of the patient was discussed with: Nurse Orthopedic Spoke with AKHIL Membreno Lab Data [facility] Lab Attestation statement: I reviewed the patient's lab results. 06/13/25 09:45 06/13/25 09:45 Labs: Lab Results 06/13/25 Range/Units 09:45 WBC 8.7 (4.8-10.8) X10*3/uL RBC 3.92 L (4.60-5.80) X10*6/uL Hgb 12.7 L (14.0-18.0) g/dl Hct 36.4 L (42.0-52.0) % MCV 92.9 (80.0-98.0) fL MCH 32.4 (27.0-33.0) pg MCHC 34.9 (31.0-36.0) g/dl RDW 12.6 (11.0-16.0) % Plt Count 123 L (160-400) X10*3/uL MPV 11.8 (9.4-12.4) fL Immature Gran % (Auto) 0.2 (0.0-0.4) % Neut % (Auto) 78.7 H (45-73) % Lymph % (Auto) 10.2 L (20-40) % [place] % (Auto) 8.8 (2-11) % Eos % (Auto) 1.9 (0-4) % Baso % (Auto) 0.2 (0-2) % Lymph # (Auto) 0.9 L (1.2-4.9) X10*3/uL [place] # (Auto) 0.8 (0.1-1.2) X10*3/uL Eos # (Auto) 0.2 (0.0-0.4) X10*3/uL Baso # (Auto) 0.0 (0.0-0.2) X10*3/uL Abs Immat Gran (auto) 0.02 (0.00-0.03) X10*3/uL Absolute Neuts (auto) 6.9 (2.0-8.3) x10*3/uL Absolute Nucleated RBC 0.000 (0.0-0.012) X10*3/uL Nucleated RBC % (auto) 0.0 (0.0-0.2) /100WBC PT 16.4 H (10.9-12.4) SEC INR 1.4 H (0.9-1.1) Sodium 143 (135-145) mmol/L Potassium 3.7 (3.3-5.1) mmol/L Chloride 113 H (96-108) mmol/L Carbon Dioxide 21 L (22-29) mmol/L Anion Gap 13 (12-20) BUN 18 H (9-16) mg/dL Creatinine 1.01 (0.5-1.4) mg/dL Estim Creat Clear Calc 66.2 Estimated GFR > 60 Random Glucose 111 (60-115) mg/dL Calcium 8.8 (8.4-10.2) mg/dL Total Bilirubin 0.8 (0.0-1.0) mg/dL AST 26 (5-37) U/L ALT 19 (0-40) U/L Alkaline Phosphatase 99 (39-117) U/L Total Protein 6.0 L (6.5-8.0) g/dL Albumin 3.9 (3.5-5.0) g/dL Independent Interpretation I performed an independent interpretation of an: Plain X-Ray and CT Scan (CT showed pubic ramus fracture in the right) Interpretation: Plan x-ray no fracture Radiology Impression Discussion of test interpretation with radiology: I have reviewed the radiologist's reading. Radiologist Impression: he inferior right pubic ramus. There is a subtle cortical irregularity at the greater trochanter right femur. Degenerative changes in the right coxofemoral joint. The anterior and posterior column of the acetabulum appear intact. The femoral head is well-seated in the osseous acetabulum. Probable bony island is in the right femur right acetabulum The right femoral head and neck are grossly intact. No acute cortical disruption in the intertrochanteric region of the proximal diaphysis right femur. The symphysis pubis is intact. Right superior pubic ramus is intact. There is a suprapubic catheter in the bladder. CT/CT hip RT wo IV con IMPRESSION: Acute subtle nondisplaced fracture inferior right pubic ramus. Questionable nondisplaced fracture greater trochanter right femur. Electronically signed by: Tod Layton MD 06/13/2025 11:50 AM EDT RP Independent Historian Clinical information obtained from an independent historian. History obtained from or confirmed by: Other () External Record Review External record reviewed: Inpatient record Chronic Conditions Patient?s care impacted by: Other (CVA /A Fib) Discharge Plan Discharge Clinical Impression: Closed fracture of pubic ramus Patient Disposition: Home, Self-Care Instructions: Pelvic Fracture (ED) Additional Instructions: Follow-up with the orthopedist please call and make an appointment as we discussed no weight-bearing in the affected side Prescriptions: No Action (DME) Depends (adult medium) 4 times per day medium See Rx Instructions .Route .MEDSUPPLY Qty: 120 2RF Rx Instructions: As directed (DME) comp.stocking,knee,long,medium Misc See Rx Instructions .Route Qty: 4 0RF Rx Instructions: apply in am and take off in pm (DME) RIGHT AFO BRACE See Rx Instructions .Route .MEDSUPPLY Qty: 1 0RF Rx Instructions: As directed (DME) STANDARD WHEELCHAIR - XL XL See Rx Instructions .Route .MEDSUPPLY Qty: 1 0RF Rx Instructions: As directed (DME) Standing upright Walker with Right arm rest See Rx Instructions .Route .MEDSUPPLY Qty: 1 0RF Rx Instructions: As directed sacubitril-valsartan 49-51 mg tablet 1 tab PO BID 90 Days Qty: 180 3RF furosemide 20 mg tablet 20 mg PO DAILY 90 Days Qty: 90 1RF citalopram 10 mg tablet 10 mg PO DAILY 90 Days Qty: 90 1RF atorvastatin 80 mg tablet 80 mg PO BEDTIME Qty: 30 3RF apixaban 5 mg tablet 5 mg PO BID Qty: 60 3RF nitrofurantoin monohyd/m-cryst [Macrobid] 100 mg capsule 100 mg PO BID 14 Days Qty: 28 0RF Rx Instructions: must administer with a meal/food guaifenesin [Mucinex] 600 mg tablet extended release 12hr 600 mg PO BID PRN (Reason: congestion/phlegm) Qty: 60 1RF baclofen 10 mg tablet 5 mg PO BID 90 Days Qty: 90 1RF solifenacin 5 mg tablet 5 mg PO DAILY 90 Days Qty: 90 1RF methenamine hippurate 1 gram tablet 1 g PO BID 90 Days Qty: 180 1RF ascorbic acid (vitamin C) 1,000 mg capsule 1 g PO DAILY 90 Days Qty: 90 1RF Referrals: Ricki Crews MD [Physician, Orthopedics] - 06/19/25 Print Language: Ghanaian
--- NOTE | 2025-06-13 09:44 | PC.NURSE ---
Cervical collar removed, okay'd by dr batista
[2025-06-13 09:48] LABS: MANUAL DIFF FLAG NO
[2025-06-13 09:51] LABS: Hematocrit 36.4 % (42.0-52.0); Hemoglobin 12.7 g/dl (14.0-18.0); Imm Gran Abs Auto 0.02 X10*3/uL (0.00-0.03); Imm Gran Pct Auto 0.2 % (0.0-0.4); Lymphocytes Absolute Auto 0.9 X10*3/uL (1.2-4.9); Mean Corpuscular HGB Conc 34.9 g/dl (31.0-36.0); Mean Corpuscular Hemoglobin 32.4 pg (27.0-33.0); Mean Corpuscular Volume 92.9 fL (80.0-98.0); NRBC Abs Auto 0.000 X10*3/uL (0.0-0.012); NRBC Pct Auto 0.0 /100WBC (0.0-0.2); Platelet Count 123 X10*3/uL (160-400); Red Blood Count 3.92 X10*6/uL (4.60-5.80); White Blood Count 8.7 X10*3/uL (4.8-10.8)
[2025-06-13 10:00] LABS: INTERNATIONAL NORM RATIO 1.4 (0.9-1.1); Prothrombin Time 16.4 SEC (10.9-12.4)
[2025-06-13 10:11] LABS: Alanine Aminotransferase 19 U/L (0-40); Albumin Level 3.9 g/dL (3.5-5.0); Alkaline Phosphatase 99 U/L (39-117); Anion Gap 13 (12-20); Aspartate Amino Transferase 26 U/L (5-37); Blood Urea Nitrogen 18 mg/dL (9-16); Calcium 8.8 mg/dL (8.4-10.2); Carbon Dioxide 21 mmol/L (22-29); Chloride 113 mmol/L (96-108); Creatinine Clr Calc Pharmacy 66.2; Estimated Glomerular Filt Rate > 60; Potassium 3.7 mmol/L (3.3-5.1); Sodium 143 mmol/L (135-145); Total Protein 6.0 g/dL (6.5-8.0)
--- OUTSIDE RECORDS SUMMARY | 2025-06-13 10:35 | XMS_ITS | Patient Health Record ---
Author Organization [facility] Address [address] [place] [address] Care Team Providers Care Car Knocker Name Role Phone Neto ANDERSON, [place] Primary Care Provider Ovidio Mulligan Jr Reason [...] Problem Status W/U Status Risk Notes Problem [id number] Colon cancer screening (Z12.11) Active confirmed Problem 967491445 Gastroesophageal reflux disease with esophagitis (K21.0) Active confirmed Problem 506340135 Gastroesophageal reflux disease without esophagitis (K21.9) Active confirmed Problem 37043823 Hypertension, unspecified type (I10) Active confirmed Plan Of Treatment Future Test Test Name Order Date COLONOSCOPY 08/01/2019 Insurance Providers Payer Name Payer Address Payer Phone Subscriber Number Group Number Insured Name Patient Relationship to Insured Coverage Start Date Coverage End Date [facility] PROFESSIONAL CLAIMS [address] [place] [address] [id number] CONNIEMELCHOR AMY Self - patient is the insured Medical (General) History Medical History History ICD Code colonoscopy 12/31/2009 colon polyps hypertension Denies [place],DM,CVA,Lung disease,renal dise ase Surgical History Surgery Date(Month/Year) appendectomy tonsillectomy
--- OUTSIDE RECORDS SUMMARY | 2025-06-13 10:35 | XMS_ITS | Clinical Summary ---
Author Organization [facility] Address [address] [address] Phone Care Team Providers Care Health Nurse Name Role Phone Jt Guerra MD Unavailable Damian Lucero CNP Unavailable [phone] Jean-Pierre Duque MD Primary Care Provider [phone] Allergies No known active allergies Medications acetaminophen [...] [place] BLUE REPLACEMENT [facility] MEDICARE HMO BLUE REPLACEMENT [facility] MEDICARE HMO BLUE REPLACEMENT [facility] MEDICARE HMO BLUE REPLACEMENT [place] BL[place]AC[place] Care Teams Health Nurse Relationship Specialty Start Date End Date Jean-Pierre Duque MD [address] [place] [address] [place] [address] PCP - General Internal Medicine 06/02/23 Jt Guerra MD [address] [facility] Floor 1 [place] [address] [email or web address] Historical LMR Provider 07/21/17 Damian Lucero CNP [address] [facility] [place] [address] [email or web address] Historical LMR Provider 07/21/17 Additional Source Comments The information contained in this document represents components of the legal health record. It is not the complete legal health record.[facility]
--- OUTSIDE RECORDS SUMMARY | 2025-06-13 10:36 | XMS_ITS | Clinical Summary ---
Author Organization [facility] ity Address [address] [place] [address] Care Team Providers Care Sheep Farm Manager Name Role Phone Unavailable Primary Care Provider [...] Documents on File Type Date Recorded Patient Maintenance Representative Expl anation Health Care Decision (hx) 04/28/2023 HE ALTH CARE PROXY Health Care Decision (hx) 04/28/2023 HE ALTH CARE PROXY
[2025-06-13 10:37] VITALS: BP 142/103; PULSE 99; RESP 18; TEMP 36.7; O2SAT 96
[2025-06-13 15:24] VITALS: BP 146/82; PULSE 87; RESP 18; TEMP 36.7; O2SAT 97
--- NOTE | 2025-06-14 10:05 | MHC.CM.ED ---
[facility] is the only [facility] that is able to accept patient at this time. Unfortunately they are not able to start service until 06/18. Attempted to reach patient and , Sara, via telephone at [phone]. Left voicemail with above information. CM contact info also provided.
== END 2025-06-13 15:27 | disposition home or self-care (01) ==
PROVIDERS: Emergency Provider Emergency Medicine; PCP Internal Medicine
DX: S32.591A Other specified fracture of right pubis, initial encounter for closed fracture (principal); W19.XXXA Unspecified fall, initial encounter; Y93.89 Activity, other specified; Y92.89 Other specified places as the place of occurrence of the external cause; Y99.8 Other external cause status; I69.351 Hemiplegia and hemiparesis following cerebral infarction affecting right dominant side; Z79.899 Other long term (current) drug therapy
CPT/HCPCS: 36415; 70450; 71045; 72125; 73502; 73700; 80053; 85025; 85610; 93005; 97162; 99285

== ENCOUNTER → 2025-06-13 08:42 | Outpatient (BNV) | payer MEDICARE, SELFPAY | PROVIDERS: Emergency Provider Emergency Medicine; PCP Internal Medicine; Visit Provider Radiology Diagnostic Radiology | DX: M43.12 Spondylolisthesis, cervical region (principal); S32.591A Other specified fracture of right pubis, initial encounter for closed fracture; G93.89 Other specified disorders of brain; M16.11 Unilateral primary osteoarthritis, right hip; R05.9 Cough, unspecified | CPT/HCPCS: 70450; 71045; 72125; 73502; 73700 ==

== ENCOUNTER → 2025-06-13 08:43 | Outpatient (BNV) | payer MEDICARE, SELFPAY | PROVIDERS: Emergency Provider Emergency Medicine; PCP Internal Medicine; Visit Provider Internal Medicine Cardiovascular Disease | DX: I48.91 Unspecified atrial fibrillation (principal); I49.3 Ventricular premature depolarization; I45.10 Unspecified right bundle-branch block | CPT/HCPCS: 93010 ==

== ENCOUNTER → 2025-06-14 13:36 | Outpatient (BNVA) | payer MEDICARE, SELFPAY | PROVIDERS: PCP Internal Medicine; Visit Provider Urology | DX: Z46.6 Encounter for fitting and adjustment of urinary device (principal); N31.9 Neuromuscular dysfunction of bladder, unspecified | CPT/HCPCS: 51705 ==

== ENCOUNTER 2025-06-28 13:06 | Outpatient (AMB) | payer MEDICARE, SELFPAY ==
--- NOTE | 2025-06-28 13:19 | MHC.OFFVIS ---
Intake Visit Reasons: ED/FC-Right hip fracture/dislocation- DOI 06/12/25 Intake Note: Steve is a 75 year old male who presents today in a wheelchair as a new patient for an ER follow up of closed fracture of pubic ramus, DOI: 06/12/25 s/p mechanical fall. X-ray and CT scan done in [facility] ED of right hip. Patient reports he is doing well, no pain with sitting. He has mild pain with movement. HX of AFib, on Eliquis. Allergies No Known Allergies Allergy (Verified 06/13/25 08:32) HPI [facility] ED/FC-Right hip fracture/dislocation- DOI 06/12/25: Details: 75-year-old gentleman presents to the office today for an injury he sustained to his pelvis. On 06/12/2025 he sustained a fall. The patient does have a history of a CVA which resulted in right-sided weakness. He wears an AFO for foot drop. He states he was walking on 06/12 when he tripped and fell. He was seen in the emergency department where x-rays and CT scan was obtained and was significant for a nondisplaced fracture through the inferior pubic rami. The patient is currently in wheelchair given his right-sided weakness he is unable to use walker or a cane. [facility] Medical History Neurogenic bladder Persistent atrial fibrillation Depression CVA (cerebral vascular accident) History of CVA with residual deficit Vitamin B12 deficiency Vitamin D deficiency Mild anemia Overweight (BMI 25.0-29.9) Pure hypercholesterolemia Benign essential hypertension Surgical History Hx of colonoscopy Hx of appendectomy Family History Other Family history non-contributory Social History Household Members: Spouse Housing: House Are you a primary nurse care manager to a significant other at home: No Do you presently have visiting nurse or other home services: No Alcohol intake: former Patient Tobacco Use Status: Former Tobacco user Tobacco use type: Cigarette e-Cigarette/Vaping Use: Never Used Second Hand Smoke Exposure: No service: No Current occupational status: retired Cognitive needs: No Hearing needs: No Vision needs: Yes (glasses) Review of Systems Const All systems reviewed & are unremarkable except as noted in HPI and below Physical Exam Const General: cooperative and no acute distress Orientation/consciousness: patient oriented x3 Resp Effort & Inspection: normal respiratory effort and able to speak in complete sentences Cardio Peripheral pulses: Peripheral pulses 2+ throughout Neuro General: patient oriented x3 Extrem Other: Right hip normal to inspection he has no pain with hip flexion or range of motion. Calf is supple and nontender neurovascularly intact. Office Procedures AMB Fracture Care Fracture Billing Code: Fracture Billing Code Assessment & Plan Assessment & Plan (1) Fracture of right inferior pubic ramus: Code(s): S32.591A - Other specified fracture of right pubis, initial encounter for closed fracture Category: Medical Plan: I explained to the patient and his spouse in the office today these injuries are typically treated with protected weight-bearing for up to 3 months. He is unable to use a walker therefore he will continue using the wheelchair. I did allow for him to apply weight for transfers only. The patient will see me back in 6-8 weeks with x-rays, sooner if needed. Coding Level of Care Code New Pt Level 3 (58152) Complex EM visit Add On G2211 Diagnoses Fracture of right inferior pubic ramus S32.591A CPT Codes Fracture Care - Fracture Billing Code: Fracture Billing Code ([id number])
--- OUTSIDE RECORDS SUMMARY | 2025-06-28 14:27 | XMS_ITS | Patient Health Record ---
Author Organization [facility] Address [address] [place] [address] Care Team Providers Care Fire Sprinkler Inspector Name Role Phone Neto ANDERSON, Joice Primary Care Provider Ovidio Mulligan Jr Reason [...] Problem Status W/U Status Risk Notes Problem 295911706 Colon cancer screening (Z12.11) Active confirmed Problem 334600834 Gastroesophageal reflux disease with esophagitis (K21.0) Active confirmed Problem [id number] Gastroesophageal reflux disease without esophagitis (K21.9) Active confirmed Problem 46877605 Hypertension, unspecified type (I10) Active confirmed Plan Of Treatment Future Test Test Name Order Date COLONOSCOPY 08/01/2019 Insurance Providers Payer Name Payer Address Payer Phone Subscriber Number Group Number Insured Name Patient Relationship to Insured Coverage Start Date Coverage End Date [facility] PROFESSIONAL CLAIMS [address] [place] [address] [id number] CONNIEMELCHOR AMY Self - patient is the insured Medical (General) History Medical History History ICD Code colonoscopy 12/31/2009 colon polyps hypertension Denies RI,DM,CVA,Lung disease,renal dise ase Surgical History Surgery Date(Month/Year) appendectomy tonsillectomy
--- OUTSIDE RECORDS SUMMARY | 2025-06-28 14:27 | XMS_ITS | Clinical Summary ---
Author Organization [facility] Address [address] [address] Phone Care Team Providers Care C Python Developer Name Role Phone Jt Guerra MD Unavailable Damian Lucero CNP Unavailable [phone] Jean-Pierre Duque MD Primary Care Provider [phone] Allergies No known active allergies Medications acetaminophen [...] [place] BL[place] REPLACEMENT [facility] MEDICARE HMO BLUE REPLACEMENT [facility] MEDICARE HMO BLUE REPLACEMENT [facility] MEDICARE HMO BLUE REPLACEMENT [place]AC[place] Care Teams C Python Developer Relationship Specialty Start Date End Date Jean-Pierre Duque MD [address] [place] [address] [place] [address] PCP - General Internal Medicine 06/02/23 Jt Guerra MD [address] [facility] [address] [place] [address] [email or web address] Historical LMR Provider 07/21/17 Damian Lucero CNP [address] [facility] [place] [address] [email or web address] Historical LMR Provider 07/21/17 Additional Source Comments The information contained in this document represents components of the legal health record. It is not the complete legal health record.[facility]
--- OUTSIDE RECORDS SUMMARY | 2025-06-28 14:27 | XMS_ITS | Clinical Summary ---
Author Organization [facility] Address [address] [place] [address] Care Team Providers Care Selling Specialist Name Role Phone Unavailable Primary Care Provider [...] Documents on File Type Date Recorded Patient Lombardi Developer Expl anation Health Care Decision (hx) 04/28/2023 [facility] Health Care Decision (hx) 04/28/2023 [facility] PROX[facility]
--- OUTSIDE RECORDS SUMMARY | 2025-08-14 20:00 | XMS_ITS | Clinical Summary ---
Author Organization Unknown Care Team Providers Care Transit Bus Driver Name Role Phone ROBLES JONES LESTER Unavailable Allyson colin WANG PT, RUSTAM Unavailable Unavailabl e Payers Payer Name Policy Type Policy Number Effective Date Expira tion Date BCBSMA.HMOBLUE.GREGORY [id number] Problems Condition Name Condition Details Condition Category Status Onset Date Resolution Date Last Treatment Date Treating Clinician Comments FRACTURE OF SUPERIOR RIM OF RIGHT PUBIS, INIT FOR CLOS FX Active 06-14 00:00: 00 NEUROMUSCULA R DYSFUNCTION OF BLADDER, UNSPECIFIED Active 06-17 00:00: 00 PAROXYSMAL ATRIAL FIBRILLATION Active 06-17 00:00: 00 DEPRESSION, UNSPECIFIED Active 06-17 00:00: 00 CEREBRAL INFARCTION, UNSPECIFIED Active 06-17 00:00: 00 VITAMIN B12 DEFICIENCY ANEMIA, UNSPECIFIED Active 06-17 00:00: 00 VITAMIN D DEFICIENCY, UNSPECIFIED Active 06-17 00:00: 00 ANEMIA, UNSPECIFIED Active 06-17 00:00: 00 ESSENTIAL (PRIMARY) HYPERTENSION Active 06-18 00:00: 00 HYPERLIPIDEM IA, UNSPECIFIED Active 06-18 00:00: 00 Allergies, Adverse Reactions, Alerts Allergy Name Allergy Type Status Severity Reaction(s) Onset Date Inactive Date Treating Clinician Comments NO KNOWN ALLERGIES Propensity to adverse reactions Active 06-18 01:44: 20 Vital Signs Vital Name Observation Time Observation Value Commen ts Temperature 2025-06-27 14:02:00.000 97.5 [degF] Temperature 2025-06-24 13:14:00.000 97.3 [degF] Temperature 2025-06-20 14:42:00.000 97.5 [degF] Temperature 2025-06-17 12:51:00.000 98 [degF] BMI (%) 2025-06-17 12:51:00.000 27 kg/m2 Height 2025-06-17 12:51:00.000 70 [in_us] Pulse 2025-06-27 14:02:00.000 60 /min Pulse 2025-06-24 13:14:00.000 68 /min Pulse 2025-06-20 14:42:00.000 68 /min Pulse 2025-06-17 12:51:00.000 52 /min O2 Saturation (%) 2025-06-27 14:02:00.000 98 % O2 Saturation (%) 2025-06-24 13:14:00.000 97 % O2 Saturation (%) 2025-06-20 14:42:00.000 97 % O2 Saturation (%) 2025-06-17 12:51:00.000 96 % Respirations 2025-06-27 14:02:00.000 17 /min Respirations 2025-06-24 13:14:00.000 17 /min Respirations 2025-06-20 14:42:00.000 18 /min Respirations 2025-06-17 12:51:00.000 18 /min Weight (lbs) 2025-06-17 12:51:00.000 190 [lb_av] Systolic Blood Pressure 2025-06-27 14:02:00.000 126 mm [Hg] Systolic Blood Pressure 2025-06-24 13:14:00.000 148 mm [Hg] Systolic Blood Pressure 2025-06-20 14:42:00.000 130 mm [Hg] Systolic Blood Pressure 2025-06-17 12:51:00.000 132 mm [Hg] Diastolic Blood Pressure 2025-06-27 14:02:00.000 [...] TO EVALUATE, OBSERVE / ASSESS, AND MONITOR, DIRECTOR MERIT SYSTEM TO OBSERVE AND MONITOR, PROVIDE SKILLED THERAPEUTIC INTERVENTION, ACTIVITY, EDUCATION, AND TRAINING TO ADDRESS; [code = AGENCY MAY PERFORM A RESUMPTION OF CARE VISIT FOLLOWING ANY HOSPITAL ADMISSION. PT TO EVALUATE, OBSERVE / ASSESS, AND MONITOR, DIRECTOR MERIT SYSTEM TO OBSERVE AND MONITOR, PROVIDE SKILLED THERAPEUTIC INTERVENTION, ACTIVITY, EDUCATION, AND TRAINING TO ADDRESS;] Future Scheduled Test CHAIR CHAVES SFERS (PT/DIRECTOR MERIT SYSTEM) [code = CHAIR TRANSFERS (PT/DIRECTOR MERIT SYSTEM)] Future Scheduled Test BED TRANSF ERS (PT/DIRECTOR MERIT SYSTEM) [code = BED TRANSFERS (PT/DIRECTOR MERIT SYSTEM)] Future Scheduled Test WHEELCHAIR TRANSFER (PT/DIRECTOR MERIT SYSTEM) [code = WHEELCHAIR TRANSFER (PT/DIRECTOR MERIT SYSTEM)] Future Scheduled Test THERAPEUTI C EXERCISES AND ESTABLISHING A HOME EXERCISE PROGRAM (PT/DIRECTOR MERIT SYSTEM) [code = THERAPEUTIC EXERCISES AND ESTABLISHING A HOME EXERCISE PROGRAM (PT/DIRECTOR MERIT SYSTEM)] Future Scheduled Test PT/DIRECTOR MERIT SYSTEM TO IDENTIFY FALL RISK FACTORS; EDUCATE THE PATIENT/CAREGIVER ON WAYS TO REDUCE FALL RISK FACTORS AND ESTABLISH HOME EXERCISE PROGRAM TO MINIMIZE FALL RISK. MAY TEACH THE PATIENT FLOOR RECOVERY WHEN CLINICALLY APPROPRIATE [code = PT/DIRECTOR MERIT SYSTEM TO IDENTIFY FALL RISK FACTORS; EDUCATE THE PATIENT/CAREGIVER ON WAYS TO REDUCE FALL RISK FACTORS AND ESTABLISH HOME EXERCISE PROGRAM TO MINIMIZE FALL RISK. MAY TEACH THE PATIENT FLOOR RECOVERY WHEN CLINICALLY APPROPRIATE] Future Scheduled Test PT/DIRECTOR MERIT SYSTEM TO EDUCATE ON PELVIC FRACTURE SELF-MANAGEMENT PT/DIRECTOR MERIT SYSTEM MAY TEACH PATIENT HOW TO USE CRYOTHERAPY / HEAT FOR PAIN / SWELLING UP TO 20 MIN AT A TIME 3-5 TIMES A DAY OVER HIP RIGHT SIDE OF PELVIS [code = PT/DIRECTOR MERIT SYSTEM TO EDUCATE ON PELVIC FRACTURE SELF-MANAGEMENT PT/DIRECTOR MERIT SYSTEM MAY TEACH PATIENT HOW TO USE CRYOTHERAPY / HEAT FOR PAIN / SWELLING UP TO 20 MIN AT A TIME 3-5 TIMES A DAY OVER HIP RIGHT SIDE OF PELVIS] Future Scheduled Test PT / DIRECTOR MERIT SYSTEM T O MONITOR AND EDUCATE ON OXYGEN SATURATION DURING ADLS/IADLS, NOTIFY PHYSICIAN AND/OR THE RN CLINICAL TEACHING SPECIALISTS FOR PHYSICIAN NOTIFICATION AND IF O2 SATS BELOW PHYSICIAN ORDERED PARAMETERS AFTER 10 MIN OF REST [code = PT / DIRECTOR MERIT SYSTEM TO MONITOR AND EDUCATE ON OXYGEN SATURATION DURING ADLS/IADLS, NOTIFY PHYSICIAN AND/OR THE RN CLINICAL TEACHING SPECIALISTS FOR PHYSICIAN NOTIFICATION AND IF O2 SATS BELOW PHYSICIAN ORDERED PARAMETERS AFTER 10 MIN OF REST] Future Scheduled Test PT / DIRECTOR MERIT SYSTEM M AY EDUCATE ON PAIN MANAGEMENT CLINICALLY INDICATED, INCLUDING NON-PHARMACOLOGICAL PAIN REDUCTION TECHNIQUES AND USE OF CRYOTHERAPY, HEAT AND/OR FOAM ROLLING UP TO 20 MIN AT A TIME FOR PAIN MANAGEMENT 3-5 TIMES PER DAY TO RIGHT LOWER EXTREMITY [code = PT / DIRECTOR MERIT SYSTEM MAY EDUCATE ON PAIN MANAGEMENT CLINICALLY INDICATED, [...] End Date/Time Encounter Type Admission Type Attending [facility] Care Department Encounter ID Discharge Date Discharge Status Discharge Condition Discharge Reason Percent Goals Met 2025-06-17 00:00:00 2025-08-15 00:00:00 Outpatient NEW ADMISSION RUSTAM WANG [facility] [id number] 0.00
== END 2025-06-28 13:40 | disposition home or self-care (01) ==
LOC: HO.HOS 13:07
PROVIDERS: PCP Internal Medicine; Visit Provider Physician Assistant
DX: S32.591A Other specified fracture of right pubis, initial encounter for closed fracture (principal)
CPT/HCPCS: 99203; G2211

== ENCOUNTER → 2025-06-28 13:06 | Outpatient (BNVA) | payer MEDICARE, SELFPAY | PROVIDERS: PCP Internal Medicine; Visit Provider Physician Assistant | DX: S32.591A Other specified fracture of right pubis, initial encounter for closed fracture (principal) | CPT/HCPCS: 99202 ==

== ENCOUNTER → 2025-07-09 13:25 | Outpatient (BNVA) | payer MEDICARE, SELFPAY | PROVIDERS: PCP Internal Medicine; Visit Provider Urology | DX: Z46.6 Encounter for fitting and adjustment of urinary device (principal); N31.9 Neuromuscular dysfunction of bladder, unspecified | CPT/HCPCS: 51705 ==

== ENCOUNTER 2025-07-11 13:25 | Outpatient (AMB) | payer MEDICARE, SELFPAY ==
--- OUTSIDE RECORDS SUMMARY | 2025-07-11 13:29 | XMS_ITS | Clinical Summary ---
Author Organization [facility] ity Address [address] [place] [address] Care Team Providers Care Heel Cutter Name Role Phone Unavailable Primary Care Provider Unavailabl e Social History Tobacco Use Types Packs/Day Years Used Date Smoking Tobacco: Never Assessed Sex and Gender Information Value Date Recorded Sex Assigned at Not on file Legal Sex Male 8:38 PM EST Gender Identity Not on file Sexual Orientation Not on file Plan of Treatment Health Maintenance Due Date Last Done Comments Colorectal Cancer Screening: Colonoscopy 1951 DTaP,Tdap,and Td Vaccines (1 - Tdap) 1970 Pneumococcal Vaccine: 50+ Ye ars (1 of 1 - PCV) 2001 Zoster Vaccines (1 of 2) 2001 Abdominal Aortic Aneurysm (A AA) Screen 10/28/2023 Cholesterol Screening (Lipid Panel) 10/28/2023 Falls Risk Assessment 10/28/2023 Hepatitis C [...] Documents on File Type Date Recorded Patient Financial Business Analyst Expl anation Health Care Decision (hx) 04/28/2023 [facility]OX[facility] Health Care Decision (hx) 04/28/2023 [facility] PROX[facility]
--- OUTSIDE RECORDS SUMMARY | 2025-07-11 13:29 | XMS_ITS | Clinical Summary ---
Author Organization [facility] Address [address] [address] Phone Care Team Providers Care Canvas Cutter Name Role Phone Jt Guerra MD Unavailable [phone] Damian Lucero CNP Unavailable [phone] Jean-Pierre Duque MD Primary Care Provider [phone] Allergies No known active allergies Medications acetaminophen [...] Adult Td,Tdap Booster 05/03/2024 05/03/2014 , 03/25/2014 INFLUENZA VACCINE (#1) 2025 COVID-19 VACCINE (4 - 2024-2 6 season) 2025 08/02/2021, 12/24/2020, 11/26/2020 RSV VACCINE (1 - [...] [place] BLUE REPLACEMENT [facility] MEDICARE HMO BLUE REPLACEMENT MEDICARE HMO BLUE REPLACEMENT [facility] MEDICARE HMO BLUE REPLAC[place] BL[place] Care Teams Canvas Cutter Relationship Specialty Start Date End Date Jean-Pierre Duque MD [address] [place] [address] [place] [address] PCP - General Internal Medicine 06/02/23 Jt Guerra MD [address] [facility] [address] 1 [place] [address] [email or web address] Historical LMR Provider 07/21/17 Damian Lucero CNP [address] [facility] [place] [address] [email or web address] Historical LMR Provider 07/21/17 Additional Source Comments The information contained in this document represents components of the legal health record. It is not the complete legal health record.[facility]
--- OUTSIDE RECORDS SUMMARY | 2025-07-11 13:29 | XMS_ITS | Patient Health Record ---
Author Organization [facility] Address [address] [place] [address] Care Team Providers Care Hydroelectric Plant Operator Name Role Phone Neto ANDERSON, [place] Primary Care Provider Ovidio Mulligan Jr [phone] Reason For Referral No Information Medications Medication SIG (Take, Route, Frequency, Duration) Notes Start Date End Date Status MiraLax (colon prep) 8.3 ounce ((238) grams mixed with Gatorade or Crystal Light orally begin at 5:00 p.m. the day before the procedure; Duration: 1 day 08/01/2019 Active Vitamin B12 1000 [...] Problem Status W/U Status Risk Notes Problem Colon cancer screening (865014782) Colon cancer screening (Z12.11) Active confirmed Problem Gastroesophageal reflux disease with esophagitis (203665817) Gastroesophageal reflux disease with esophagitis (K21.0) Active confirmed Problem Gastroesophageal reflux disease without esophagitis (978636069) Gastroesophageal reflux disease without esophagitis (K21.9) Active confirmed Problem Essential hypertension (15140709) Hypertension, unspecified type (I10) Active confirmed Plan Of Treatment Future Test Test Name Order Date COLONOSCOPY 08/01/2019 Insurance Providers Payer Name Payer Address Payer Phone Subscriber Number Group Number Insured Name Patient Relationship to Insured Coverage Start Date Coverage End Date [facility] PROFESSIONAL CLAIMS [address] [place] [address] [id number] AMY FORBES Self - patient is the insured Medical (General) History Medical History History ICD Code colonoscopy 12/31/2009 colon polyps hypertension Denies MD,DM,CVA,Lung disease,renal dise ase Surgical History Surgery Date(Month/Year) appendectomy tonsillectomy
[2025-07-11 13:35] VITALS: BP 120/68; PULSE 55; BMI 27.0
--- NOTE | 2025-07-11 13:35 | A.OFFVIS_ITS ---
Vital Signs 07/11/25 13:35 Height 5 ft 10 in Weight 188 lb 7.924 oz BMI 27.0 BP 120/68 Blood Pressure Location Lt brachial Position Sitting Pulse 55 Pulse Source Monitor Intake Visit Reasons: r/s by /[facility] f/up echo Physical Therapy Professor Required: No Accompanied by: Spouse Allergies No Known Allergies Allergy (Verified 07/11/25 13:38) Medication List - Last Reconciled 07/11/25 by SAMUEL Valentine apixaban 5 mg PO BID ascorbic acid (vitamin C) 1 g PO DAILY 90 days atorvastatin 80 mg PO BEDTIME baclofen 5 mg (1/2 x 10 mg) PO BID 90 days citalopram 10 mg PO DAILY 90 days comp.stocking,knee,long,medium apply in am and take off in pm [Depends (adult medium) 4 times per day As directed] furosemide 20 mg PO DAILY 90 days guaifenesin ER (Mucinex) 600 mg PO BID PRN methenamine hippurate 1 g PO BID 90 days [RIGHT AFO BRACE As directed] sacubitril-valsartan 49-51 mg 1 tab PO BID 90 days solifenacin 5 mg PO DAILY 90 days [STANDARD WHEELCHAIR - XL As directed] [Standing upright Walker with Right arm rest As directed] HPI HPI r/s by /[facility] f/up echo: Details: Steve is a 74-year-old male past medical history of hypertension, hyperlipidemia, persistent atrial fibrillation, mild cardiomyopathy, MCA stroke with residual right-sided weakness, cardiomyopathy who presents for follow-up. Today he reports that he did have a fall recently and sustained a very small fracture in his femur. He was evaluated with head CT as well with no acute findings. He has not been able to bear weight on that right leg up and was just told recently that he can start doing so. He did not get significant bruising and has not had significant discomfort. Otherwise he has been doing very well since his last visit. He denies any heart palpitations, lightheadedness, falls. He continues to have weakness with his right arm and leg and normally is able to ambulate with a cane at home. He is currently sitting in a wheelchair. No chest discomfort at rest or during activity. No shortness of breath, PND, orthopnea. He does get some mild swelling in the right lower extremity which has been chronic since the CVA.. He wears compression stockings during the day and a brace on his right lower leg. He has been compliant with his medications. He has a suprapubic catheter in place. is present and states that when the catheter is changed he may have some mild hematuria in the days following it otherwise no bleeding issues to report. [facility] Medical History Neurogenic bladder Persistent atrial fibrillation Depression CVA (cerebral vascular accident) History of CVA with residual deficit Vitamin B12 deficiency Vitamin D deficiency Mild anemia Overweight (BMI 25.0-29.9) Pure hypercholesterolemia Benign essential hypertension Surgical History Hx of colonoscopy Hx of appendectomy Family History Other Family history non-contributory Social History Household Members: Spouse Housing: House Are you a primary resident care spec to a significant other at home: No Do you presently have visiting nurse or other home services: No Alcohol intake: former Patient Tobacco Use Status: Former Tobacco user Tobacco use type: Cigarette e-Cigarette/Vaping Use: Never Used Second Hand Smoke Exposure: No service: No Current occupational status: retired Cognitive needs: No Hearing needs: No Vision needs: Yes (glasses) Review of Systems Const Denies daytime sleepiness, Denies difficulty sleeping, Denies snoring, Denies stops breathing during sleep and Reports weakness (right) Card Denies chest pain, Denies rapid heart rate, Denies irregular heart rhythm, Denies claudication, Denies leg edema, Denies lightheadedness, Denies palpitations, Denies dyspnea, Denies dyspnea on exertion, Denies orthopnea, Denies paroxysmal nocturnal dyspnea and Denies slow heart rate Resp Denies cough, Denies dyspnea, Denies dyspnea on exertion and Denies snoring GI Reports no additional complaints, Denies hematochezia, Denies change in stool c haracter and Denies dyspepsia Musc Reports abnormal gait (right weakness and recent tiny fracture in femur), Reports muscle weakness and Denies numbness Neuro Reports abnormal gait (right weakness and recent tiny fracture in femur), Denies numbness and Reports weakness (right) Endo Denies palpitations Physical Exam Vital Signs: Last Vital Signs Pulse 55 07/11/25 13:35 BP 120/68 07/11/25 13:35 BMI result Body Mass Index 27.0 Const Other: sitting in wheelchair General: cooperative, healthy appearing, comfortable and no acute distress Orientation/consciousness: patient oriented x3 Neck Neck: Yes normal visual inspection and Yes no JVD Resp Effort & Inspection: normal respiratory effort Auscultation: clear to auscultation bilaterally, no rales, no rhonchi and no wheezes Cardio Rate: regular rate Rhythm: abnormal rhythm Heart sounds: S1 normal heart sound present, S2 normal heart sound present, no gallops, no murmurs and no rubs Neuro General: patient oriented x3 Extrem Other: right weakness General: Yes normal to inspection, No no pedal edema and No calf tenderness Psych Appearance: grossly normal Mental Status: mental status grossly normal Speech and movement: Clear speech present Office Procedures EKG Details: Today, read by me, atrial fibrillation with slow ventricular response, left axis deviation, right bundle branch block, rate 55, QTC 396 milliseconds [id number], Complete Assessment & Plan Assessment & Plan (1) Persistent atrial fibrillation: Code(s): I48.19 - Other persistent atrial fibrillation Category: Medical Plan: History of persistent atrial fibrillation that is treated with heart rate control. He does not require any heart rate lowering agents at this time. His echocardiogram shows severely dilated left atrium and moderately dilated right atrium. EKG done today showing atrial fibrillation with right bundle branch block, rate 55. He is on Eliquis for anticoagulation. Labs 12/19/2024 showed creatinine 1.17, hematocrit 38. No med changes made. (2) Cardiomyopathy: Code(s): I42.9 - Cardiomyopathy, unspecified Category: Medical Plan: History of mild cardiomyopathy, likely nonischemic. Prior echo 09/23/2023 showed EF 45-50%, mild LVH, ascending aorta 4.2 cm. A repeat echocardiogram 06/10/2025 was overall unchanged, EF 45-50%, mild LVH, ascending aorta 4.2 cm. He is on Entresto for neurohormonal modulation. He is not requiring rate slowing agents. Blood pressure currently well controlled. No clinical signs of heart failure on examination. Signs and symptoms of heart failure reviewed. Cardiology follow-up 6 months, sooner if needed. (3) Benign essential hypertension: Code(s): I10 - Essential (primary) hypertension Category: Medical Plan: Blood pressure goal less than 130/80. Currently well controlled. No med changes made. (4) Pure hypercholesterolemia: Code(s): E78.00 - Pure hypercholesterolemia, unspecified Category: Medical Plan: [place] LDL goal less than 70. Labs 12/19/2024 showed LDL 54. Continue high-dose atorvastatin. (5) CVA (cerebral vascular accident): Comment: April 2023 - involving left MCA, resulting in right hemiparesis Code(s): I63.9 - Cerebral infarction, unspecified Category: Medical Qualifiers: CVA mechanism: embolism Laterality of affected vessel: left Precerebral and cerebral artery: middle cerebral artery Qualified Code(s): I63.412 - Cerebral infarction due to embolism of left middle cerebral artery Plan: History of left atrial appendage thrombus following diagnosis of atrial fibrillation then resulting in MCA stroke with residual right-sided weakness. He has regained some mobility and is able to ambulate with a cane. Continue Eliquis. Plan Time spent on chart review, documentation, interviewed, assessment Coding Level of Care Code Est Pt Level 4 (62116) Complex EM visit Add On G2211 Diagnoses Persistent atrial fibrillation I48.19 Cardiomyopathy I42.9 Benign essential hypertension I10 Pure hypercholesterolemia E78.00 Cerebrovascular accident (CVA) due to embolism of left middle cerebral artery I63.412 CVA mechanism: embolism Laterality of affected vessel: left Precerebral and cerebral artery: middle cerebral artery CPT Codes EKG - CPT: 65398-[id number], Complete ([id number]) Time Spent (min) 32
--- OUTSIDE RECORDS SUMMARY | 2025-08-14 20:00 | XMS_ITS | Clinical Summary ---
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 Active 06-17 [...] 5 mg tablet 06-10 00:00: 00 Yes [id number] BLOOD THINNER 1 tablet 2 TIMES DAILY 1 tablet 2 TIMES DAILY (route: oral) Med Classific ation: Hematolog ical Agents methenamine hippurate 1 gram tablet 06-08 00:00: 00 Yes [id number] ANTIBACTERI AL 1 tablet 2 TIMES DAILY 1 tablet 2 TIMES DAILY (route: oral) Med Classific ation: Genitouri nary Therapy atorvastati n 80 mg tablet 06-04 00:00: 00 Yes [id number] HYPERCHOLES TEREMIA 1 tablet DAILY 1 tablet DAILY (route: oral) Med Classific ation: Cardiovas cular Therapy Agents baclofen 10 mg tablet 06-17 00:00: 00 Yes [id number] SPASTICITY .5 tablet 2 TIMES DAILY .5 tablet 2 TIMES DAILY (route: oral) Med Classific ation: Locomotor System citalopram 10 mg tablet 06-17 00:00: 00 Yes [id number] DEPRESSION 1 tablet DAILY 1 tablet DAILY (route: oral) Med Classific ation: Central Nervous System Agents Entresto 49 mg-51 mg tablet 06-17 00:00: 00 Yes [id number] CHF 1 tablet 2 TIMES DAILY 1 tablet 2 TIMES DAILY (route: oral) Med Classific ation: Cardiovas cular Therapy Agents furosemide 20 mg tablet 06-17 00:00: 00 Yes [id number] DIURETIC 1 tablet DAILY 1 tablet DAILY (route: oral) Med Classific ation: Cardiovas cular Therapy Agents guaifenesin ER 600 mg tablet, extended release 12 hr 06-17 00:00: 00 Yes [id number] CONGESTION 1 tablet 2 TIMES DAILY 1 tablet 2 TIMES DAILY (route: oral) Med Classific ation: Respirato ry Therapy Agents solifenacin 5 mg tablet 06-17 00:00: 00 Yes [id number] BLADDER 1 tablet DAILY 1 tablet DAILY (route: oral) Med Classific ation: Genitouri nary Therapy Vital Signs Vital Name Observation Time Observation Value Commen ts Temperature 2025-07-09 10:40:00.000 97.8 [degF] Temperature 2025-07-02 10:40:00.000 97.3 [degF] Temperature 2025-06-27 14:02:00.000 97.5 [degF] Temperature 2025-06-24 13:14:00.000 97.3 [degF] Temperature 2025-06-20 14:42:00.000 97.5 [degF] Temperature 2025-06-17 12:51:00.000 98 [degF] BMI (%) 2025-06-17 12:51:00.000 27 kg/m2 Height 2025-06-17 12:51:00.000 70 [in_us] Pulse 2025-07-09 10:40:00.000 72 /min Pulse 2025-07-02 10:40:00.000 67 /min Pulse 2025-06-27 14:02:00.000 60 /min Pulse 2025-06-24 13:14:00.000 68 /min Pulse 2025-06-20 14:42:00.000 68 /min Pulse 2025-06-17 12:51:00.000 52 /min O2 Saturation (%) 2025-07-09 10:40:00.000 98 % O2 Saturation (%) 2025-07-02 10:40:00.000 99 % O2 Saturation (%) 2025-06-27 14:02:00.000 98 % O2 Saturation (%) 2025-06-24 13:14:00.000 97 % O2 Saturation (%) 2025-06-20 14:42:00.000 97 % O2 Saturation (%) 2025-06-17 12:51:00.000 96 % Respirations 2025-07-09 10:40:00.000 17 /min Respirations 2025-07-02 10:40:00.000 17 /min Respirations 2025-06-27 14:02:00.000 17 /min Respirations 2025-06-24 13:14:00.000 17 /min Respirations 2025-06-20 14:42:00.000 18 /min Respirations 2025-06-17 12:51:00.000 18 /min Weight (lbs) 2025-06-17 12:51:00.000 190 [lb_av] Systolic Blood Pressure 2025-07-09 10:40:00.000 114 mm [Hg] Systolic Blood Pressure 2025-07-02 10:40:00.000 132 mm [Hg] Systolic Blood Pressure 2025-06-27 14:02:00.000 126 mm [Hg] Systolic Blood Pressure 2025-06-24 13:14:00.000 148 mm [Hg] Systolic Blood Pressure 2025-06-20 14:42:00.000 130 mm [Hg] Systolic Blood Pressure 2025-06-17 12:51:00.000 132 mm [Hg] Diastolic Blood Pressure 2025-07-09 10:40:00.000 [...] TO EVALUATE, OBSERVE / ASSESS, AND MONITOR, WEED SPRAYER TO OBSERVE AND MONITOR, PROVIDE SKILLED THERAPEUTIC INTERVENTION, ACTIVITY, EDUCATION, AND TRAINING TO ADDRESS; [code = AGENCY MAY PERFORM A RESUMPTION OF CARE VISIT FOLLOWING ANY HOSPITAL ADMISSION. PT TO EVALUATE, OBSERVE / ASSESS, AND MONITOR, WEED SPRAYER TO OBSERVE AND MONITOR, PROVIDE SKILLED THERAPEUTIC INTERVENTION, ACTIVITY, EDUCATION, AND TRAINING TO ADDRESS;] Future Scheduled Test CHAIR CHAVES SFERS (PT/WEED SPRAYER) [code = CHAIR TRANSFERS (PT/WEED SPRAYER)] Future Scheduled Test BED TRANSF ERS (PT/WEED SPRAYER) [code = BED TRANSFERS (PT/WEED SPRAYER)] Future Scheduled Test WHEELCHAIR TRANSFER (PT/WEED SPRAYER) [code = WHEELCHAIR TRANSFER (PT/WEED SPRAYER)] Future Scheduled Test THERAPEUTI C EXERCISES AND ESTABLISHING A HOME EXERCISE PROGRAM (PT/WEED SPRAYER) [code = THERAPEUTIC EXERCISES AND ESTABLISHING A HOME EXERCISE PROGRAM (PT/WEED SPRAYER)] Future Scheduled Test PT/WEED SPRAYER TO IDENTIFY FALL RISK FACTORS; EDUCATE THE PATIENT/CAREGIVER ON WAYS TO REDUCE FALL RISK FACTORS AND ESTABLISH HOME EXERCISE PROGRAM TO MINIMIZE FALL RISK. MAY TEACH THE PATIENT FLOOR RECOVERY WHEN CLINICALLY APPROPRIATE [code = PT/WEED SPRAYER TO IDENTIFY FALL RISK FACTORS; EDUCATE THE PATIENT/CAREGIVER ON WAYS TO REDUCE FALL RISK FACTORS AND ESTABLISH HOME EXERCISE PROGRAM TO MINIMIZE FALL RISK. MAY TEACH THE PATIENT FLOOR RECOVERY WHEN CLINICALLY APPROPRIATE] Future Scheduled Test PT/WEED SPRAYER TO EDUCATE ON PELVIC FRACTURE SELF-MANAGEMENT PT/WEED SPRAYER MAY TEACH PATIENT HOW TO USE CRYOTHERAPY / HEAT FOR PAIN / SWELLING UP TO 20 MIN AT A TIME 3-5 TIMES A DAY OVER HIP RIGHT SIDE OF PELVIS [code = PT/WEED SPRAYER TO EDUCATE ON PELVIC FRACTURE SELF-MANAGEMENT PT/WEED SPRAYER MAY TEACH PATIENT HOW TO USE CRYOTHERAPY / HEAT FOR PAIN / SWELLING UP TO 20 MIN AT A TIME 3-5 TIMES A DAY OVER HIP RIGHT SIDE OF PELVIS] Future Scheduled Test PT / WEED SPRAYER T O MONITOR AND EDUCATE ON OXYGEN SATURATION DURING ADLS/IADLS, NOTIFY PHYSICIAN AND/OR THE RN CLINICAL CRANE HOOKER FOR PHYSICIAN NOTIFICATION AND IF O2 SATS BELOW PHYSICIAN ORDERED PARAMETERS AFTER 10 MIN OF REST [code = PT / WEED SPRAYER TO MONITOR AND EDUCATE ON OXYGEN SATURATION DURING ADLS/IADLS, NOTIFY PHYSICIAN AND/OR THE RN CLINICAL CRANE HOOKER FOR PHYSICIAN NOTIFICATION AND IF O2 SATS BELOW PHYSICIAN ORDERED PARAMETERS AFTER 10 MIN OF REST] Future Scheduled Test PT / WEED SPRAYER M AY EDUCATE ON PAIN MANAGEMENT CLINICALLY INDICATED, INCLUDING NON-PHARMACOLOGICAL PAIN REDUCTION TECHNIQUES AND USE OF CRYOTHERAPY, HEAT AND/OR FOAM ROLLING UP TO 20 MIN AT A TIME FOR PAIN MANAGEMENT 3-5 TIMES PER DAY TO RIGHT LOWER EXTREMITY [code = PT / WEED SPRAYER MAY EDUCATE ON PAIN MANAGEMENT CLINICALLY INDICATED, [...] End Date/Time Encounter Type Admission Type Attending [facility] Care Department Encounter ID Discharge Date Discharge Status Discharge Condition Discharge Reason Percent Goals Met 2025-06-17 00:00:00 2025-08-15 00:00:00 Outpatient NEW ADMISSION ESTHER SANCHEZ [facility] [id number] 100.00
== END 2025-07-11 14:14 | disposition home or self-care (01) ==
LOC: HO.HCS 13:26
PROVIDERS: PCP Internal Medicine; Visit Provider Nurse Practitioner Family
DX: I48.19 Other persistent atrial fibrillation (principal); I42.9 Cardiomyopathy, unspecified; I10 Essential (primary) hypertension; E78.00 Pure hypercholesterolemia, unspecified; I63.412 Cerebral infarction due to embolism of left middle cerebral artery
CPT/HCPCS: 93010; 99214; G2211

== ENCOUNTER → 2025-07-11 13:25 | Outpatient (BNVA) | payer MEDICARE, SELFPAY | PROVIDERS: PCP Internal Medicine; Visit Provider Nurse Practitioner Family | DX: I48.19 Other persistent atrial fibrillation (principal); I42.9 Cardiomyopathy, unspecified; I10 Essential (primary) hypertension; I63.412 Cerebral infarction due to embolism of left middle cerebral artery; E78.00 Pure hypercholesterolemia, unspecified; I45.10 Unspecified right bundle-branch block; R94.31 Abnormal electrocardiogram [ECG] [EKG] | CPT/HCPCS: 93005; 99212 ==

== ENCOUNTER → 2025-08-06 11:16 | Outpatient (BNVA) | payer MEDICARE, SELFPAY | PROVIDERS: PCP Internal Medicine; Visit Provider Urology | DX: Z46.6 Encounter for fitting and adjustment of urinary device (principal); N31.9 Neuromuscular dysfunction of bladder, unspecified | CPT/HCPCS: 51705 ==

== ENCOUNTER 2025-08-14 15:34 | Outpatient (REF) | payer MEDICARE, SELFPAY | END 2025-08-14 15:35 | disposition home or self-care (01) | LOC: HO.HOSX 15:34 | PROVIDERS: Visit Provider Physician Assistant | DX: Z13.89 Encounter for screening for other disorder (principal) ==

== ENCOUNTER 2025-08-15 14:48 | Outpatient (AMB) | payer MEDICARE, SELFPAY ==
--- NOTE | 2025-08-15 14:59 | A.OFFVIS_ITS ---
Vital Signs 08/15/25 15:03 Height 5 ft 10 in Weight 188 lb BMI 27.0 Intake Visit Reasons: f/u Rt pubic rami fx w xrays Intake Note: Steve is a 75 year old male who presents today for a follow up of his right pubic rami fracture, DOI 06/12/25. Patient reports that he is doing well, no pain or discomfort. He states his at home therapy had stopped as they stopped coming. He has been walking with cane, he has no pain however concerns as he is moving slower. Allergies No Known Allergies Allergy (Verified 08/15/25 15:07) HPI HPI f/u Rt pubic rami fx w xrays: Details: 75-year-old gentleman returns to the office today for a follow-up right pubic rami fracture. Date of injury 06/12/2025. The patient uses a wheelchair due to his history of CVA but also uses a cane. He states he has been using a cane for ambulation and he denies pain. He is able to walk back and forth in the house with no symptoms. [facility] Medical History Neurogenic bladder Persistent atrial fibrillation Depression CVA (cerebral vascular accident) History of CVA with residual deficit Vitamin B12 deficiency Vitamin D deficiency Mild anemia Overweight (BMI 25.0-29.9) Pure hypercholesterolemia Benign essential hypertension Surgical History Hx of colonoscopy Hx of appendectomy Family History Other Family history non-contributory Social History Household Members: Spouse Housing: House Are you a primary direct care provider to a significant other at home: No Do you presently have visiting nurse or other home services: No Alcohol intake: former Patient Tobacco Use Status: Former Tobacco user Tobacco use type: Cigarette e-Cigarette/Vaping Use: Never Used Second Hand Smoke Exposure: No service: No Current occupational status: retired Cognitive needs: No Hearing needs: No Vision needs: Yes (glasses) Review of Systems Const All systems reviewed & are unremarkable except as noted in HPI and below Physical Exam Vital Signs: BMI result Body Mass Index 27.0 Const General: cooperative and no acute distress Orientation/consciousness: patient oriented x3 Resp Effort & Inspection: normal respiratory effort and able to speak in complete sentences Cardio Peripheral pulses: Peripheral pulses 2+ throughout Neuro General: patient oriented x3 Extrem Other: Right hip normal to inspection he has no pain with hip flexion or range of motion. Calf is supple and nontender neurovascularly intact. Results Reviewed Results Reviewed: X-rays of the pelvis obtained in the office today and reviewed by me show callus formation along the inferior pubic rami Assessment & Plan Assessment & Plan (1) Fracture of right inferior pubic ramus: Code(s): S32.591A - Other specified fracture of right pubis, initial encounter for closed fracture Category: Medical Plan: I discussed with the patient and his spouse in the office today full healing is typically 3 months. Because he has been ambulating weight-bearing as tolerated with a cane and there is no radiographic evidence of displacement or worsening fracture he can continue with his current activity level. If there is concerns or questions going forward he can contact me otherwise follow up as needed. Orders: Orders XR pelvis 1-2V Today M25.559 - Pain in unspecified hip Coding Level of Care Code Global (24497) Diagnoses Fracture of right inferior pubic ramus S32.591A
[2025-08-15 15:03] VITALS: BMI 27.0
== END 2025-08-15 16:33 | disposition home or self-care (01) ==
LOC: HO.HOS 14:48
PROVIDERS: PCP Internal Medicine; Visit Provider Physician Assistant
DX: S32.591A Other specified fracture of right pubis, initial encounter for closed fracture (principal)
CPT/HCPCS: 99024

== ENCOUNTER → 2025-08-15 14:49 | Outpatient (BNV) | payer MEDICARE, SELFPAY | PROVIDERS: Visit Provider Radiology Diagnostic Radiology | DX: M16.0 Bilateral primary osteoarthritis of hip (principal) | CPT/HCPCS: 72170 ==

== ENCOUNTER 2025-08-15 18:25 | Outpatient (REF) | payer MEDICARE, SELFPAY ==
--- OUTSIDE RECORDS SUMMARY | 2025-08-14 19:00 | XMS_ITS | Clinical Summary ---
Author Organization Unknown Care Team Providers Care Charging Plug Placer Name Role Phone LESTER VALADEZ Unavailable Allyson vailable LAURA PT, ESTHER Unavailable Unavail able EMEKA VAUDEVILLE ACTOR, ALEKSANDRA Unavailable Unavailable Payers Payer Name Policy Type Policy Number Effective Date Expira tion Date [email or web address].[email or web address] [id number] Problems Condition Name Condition Details Condition Category Status Onset Date Resolution Date Last Treatment Date Treating Clinician Comments OTH FRACTURE OF RIGHT PUBIS, SUBS FOR FX W ROUTN HEAL Active 06-13 00:00: 00 UNSPECIFIED FALL, SUBSEQUENT ENCOUNTER Active 06-12 00:00: 00 ESSENTIAL (PRIMARY) HYPERTENSION Active 10-03 00:00: 00 OTHER PERSISTENT ATRIAL FIBRILLATION Active 10-03 00:00: 00 HEMIPLGA FOLLOWING CEREBRAL INFRC AFF RIGHT DOMINANT SIDE Active 10-03 00:00: 00 NEUROMUSCULA R DYSFUNCTION OF BLADDER, UNSPECIFIED Active 06-13 00:00: 00 VITAMIN D DEFICIENCY, UNSPECIFIED Active 10-03 00:00: 00 DEFICIENCY OF OTHER SPECIFIED B GROUP VITAMINS Active 10-03 00:00: 00 ANEMIA, UNSPECIFIED Active 06-13 00:00: 00 PURE HYPERCHOLEST EROLEMIA, UNSPECIFIED Active 10-03 00:00: 00 DEPRESSION, UNSPECIFIED Active 10-03 00:00: 00 OVERWEIGHT Active 06-13 00:00: 00 BODY MASS INDEX [BMI] 27.0-27.9, ADULT Active 06-17 00:00: 00 HISTORY OF FALLING Active 06-12 00:00: 00 HALFWAY (CURRENT) USE OF ANTICOAGULAN TS Active 06-17 00:00: 00 UNSPECIFIED CYSTOSTOMY STATUS Active 06-13 00:00: 00 PERSONAL HISTORY OF NICOTINE DEPENDENCE Active 10-03 00:00: 00 Allergies, Adverse Reactions, Alerts Allergy Name Allergy Type Status Severity Reaction(s) Onset Date Inactive Date Treating Clinician Comments NO KNOWN ALLERGIES Propensity to adverse reactions Active 06-18 01:44: 20 Medications Ordered Medication Name Filled Medication Name Start Date Stop Date Current Medication? Ordering Clinician Indication Dosage Frequency Signature (SIG) Comments Components Eliquis 5 mg tablet 06-10 00:00: 00 Yes [id number] BLOOD THINNER 1 tablet 2 TIMES DAILY 1 tablet 2 TIMES DAILY (route: oral) Med Classific ation: Hematolog ical Agents methenamine hippurate 1 gram tablet 06-08 00:00: 00 Yes [id number] ANTIBACTERI AL 1 tablet 2 TIMES DAILY 1 tablet 2 TIMES DAILY (route: oral) Med Classific ation: Genitouri nary Therapy atorvastati n 80 mg tablet 06-04 00:00: 00 Yes [id number] HYPERCHOLES TEREMIA 1 tablet DAILY 1 tablet DAILY (route: oral) Med Classific ation: Cardiovas cular Therapy Agents baclofen 10 mg tablet 06-17 00:00: 00 Yes [id number] SPASTICITY .5 tablet 2 TIMES DAILY .5 tablet 2 TIMES DAILY (route: oral) Med Classific ation: Locomotor System citalopram 10 mg tablet 06-17 00:00: 00 Yes [id number] DEPRESSION 1 tablet DAILY 1 tablet DAILY (route: oral) Med Classific ation: Central Nervous System Agents Entresto 49 mg-51 mg tablet 06-17 00:00: 00 Yes [id number] CHF 1 tablet 2 TIMES DAILY 1 tablet 2 TIMES DAILY (route: oral) Med Classific ation: Cardiovas cular Therapy Agents furosemide 20 mg tablet 06-17 00:00: 00 Yes [id number] DIURETIC 1 tablet DAILY 1 tablet DAILY (route: oral) Med Classific ation: Cardiovas cular Therapy Agents guaifenesin ER 600 mg tablet, extended release 12 hr 06-17 00:00: 00 Yes [id number] CONGESTION 1 tablet 2 TIMES DAILY 1 tablet 2 TIMES DAILY (route: oral) Med Classific ation: Respirato ry Therapy Agents solifenacin 5 mg tablet 06-17 00:00: 00 Yes [id number] BLADDER 1 tablet DAILY 1 tablet DAILY (route: oral) Med Classific ation: Genitouri nary Therapy Vital Signs Vital Name Observation Time Observation Value Commen ts Temperature 2025-08-02 12:38:00.000 97 [degF] Temperature 2025-07-18 10:59:00.000 98.1 [degF] Temperature 2025-07-09 10:40:00.000 97.8 [degF] Temperature 2025-07-02 10:40:00.000 97.3 [degF] Temperature 2025-06-27 14:02:00.000 97.5 [degF] Temperature 2025-06-24 13:14:00.000 97.3 [degF] Temperature 2025-06-20 14:42:00.000 97.5 [degF] Temperature 2025-06-17 12:51:00.000 98 [degF] BMI (%) 2025-06-17 12:51:00.000 27 kg/m2 Height 2025-06-17 12:51:00.000 70 [in_us] Pulse 2025-08-02 12:38:00.000 86 /min Pulse 2025-07-18 10:59:00.000 82 /min Pulse 2025-07-09 10:40:00.000 72 /min Pulse 2025-07-02 10:40:00.000 67 /min Pulse 2025-06-27 14:02:00.000 60 /min Pulse 2025-06-24 13:14:00.000 68 /min Pulse 2025-06-20 14:42:00.000 68 /min Pulse 2025-06-17 12:51:00.000 52 /min O2 Saturation (%) 2025-08-02 12:38:00.000 98 % O2 Saturation (%) 2025-07-18 10:59:00.000 98 % O2 Saturation (%) 2025-07-09 10:40:00.000 98 % O2 Saturation (%) 2025-07-02 10:40:00.000 99 % O2 Saturation (%) 2025-06-27 14:02:00.000 98 % O2 Saturation (%) 2025-06-24 13:14:00.000 97 % O2 Saturation (%) 2025-06-20 14:42:00.000 97 % O2 Saturation (%) 2025-06-17 12:51:00.000 96 % Respirations 2025-08-02 12:38:00.000 18 /min Respirations 2025-07-18 10:59:00.000 18 /min Respirations 2025-07-09 10:40:00.000 17 /min Respirations 2025-07-02 10:40:00.000 17 /min Respirations 2025-06-27 14:02:00.000 17 /min Respirations 2025-06-24 13:14:00.000 17 /min Respirations 2025-06-20 14:42:00.000 18 /min Respirations 2025-06-17 12:51:00.000 18 /min Weight (lbs) 2025-06-17 12:51:00.000 190 [lb_av] Systolic Blood Pressure 2025-08-02 12:38:00.000 118 mm [Hg] Systolic Blood Pressure 2025-07-18 10:59:00.000 138 mm [Hg] Systolic Blood Pressure 2025-07-09 10:40:00.000 114 mm [Hg] Systolic Blood Pressure 2025-07-02 10:40:00.000 132 mm [Hg] Systolic Blood Pressure 2025-06-27 14:02:00.000 126 mm [Hg] Systolic Blood Pressure 2025-06-24 13:14:00.000 148 mm [Hg] Systolic Blood Pressure 2025-06-20 14:42:00.000 130 mm [Hg] Systolic Blood Pressure 2025-06-17 12:51:00.000 132 mm [Hg] Diastolic Blood Pressure 2025-08-02 12:38:00.000 70 mm [Hg] Diastolic Blood Pressure 2025-07-18 10:59:00.000 78 mm [Hg] Diastolic Blood Pressure 2025-07-09 10:40:00.000 82 mm [Hg] Diastolic Blood Pressure 2025-07-02 10:40:00.000 72 mm [Hg] Diastolic Blood Pressure 2025-06-27 14:02:00.000 80 mm [Hg] Diastolic Blood Pressure 2025-06-24 13:14:00.000 70 mm [Hg] Diastolic Blood Pressure 2025-06-20 14:42:00.000 76 mm [Hg] Diastolic Blood Pressure 2025-06-17 12:51:00.000 70 mm [Hg] Plan of Treatment Planned Activity Planned Date Details Comments Future Scheduled Test AGENCY MAY PERFORM A RESUMPTION OF CARE VISIT FOLLOWING ANY HOSPITAL ADMISSION. PT TO EVALUATE, OBSERVE / ASSESS, AND MONITOR, VAUDEVILLE ACTOR TO OBSERVE AND MONITOR, PROVIDE SKILLED THERAPEUTIC INTERVENTION, ACTIVITY, EDUCATION, AND TRAINING TO ADDRESS; [code = AGENCY MAY PERFORM A RESUMPTION OF CARE VISIT FOLLOWING ANY HOSPITAL ADMISSION. PT TO EVALUATE, OBSERVE / ASSESS, AND MONITOR, VAUDEVILLE ACTOR TO OBSERVE AND MONITOR, PROVIDE SKILLED THERAPEUTIC INTERVENTION, ACTIVITY, EDUCATION, AND TRAINING TO ADDRESS;] Future Scheduled Test CHAIR CHAVES SFERS (PT/VAUDEVILLE ACTOR) [code = CHAIR TRANSFERS (PT/VAUDEVILLE ACTOR)] Future Scheduled Test BED TRANSF ERS (PT/VAUDEVILLE ACTOR) [code = BED TRANSFERS (PT/VAUDEVILLE ACTOR)] Future Scheduled Test WHEELCHAIR TRANSFER (PT/VAUDEVILLE ACTOR) [code = WHEELCHAIR TRANSFER (PT/VAUDEVILLE ACTOR)] Future Scheduled Test THERAPEUTI C EXERCISES AND ESTABLISHING A HOME EXERCISE PROGRAM (PT/VAUDEVILLE ACTOR) [code = THERAPEUTIC EXERCISES AND ESTABLISHING A HOME EXERCISE PROGRAM (PT/VAUDEVILLE ACTOR)] Future Scheduled Test PT/VAUDEVILLE ACTOR TO IDENTIFY FALL RISK FACTORS; EDUCATE THE PATIENT/CAREGIVER ON WAYS TO REDUCE FALL RISK FACTORS AND ESTABLISH HOME EXERCISE PROGRAM TO MINIMIZE FALL RISK. MAY TEACH THE PATIENT FLOOR RECOVERY WHEN CLINICALLY APPROPRIATE [code = PT/VAUDEVILLE ACTOR TO IDENTIFY FALL RISK FACTORS; EDUCATE THE PATIENT/CAREGIVER ON WAYS TO REDUCE FALL RISK FACTORS AND ESTABLISH HOME EXERCISE PROGRAM TO MINIMIZE FALL RISK. MAY TEACH THE PATIENT FLOOR RECOVERY WHEN CLINICALLY APPROPRIATE] Future Scheduled Test PT/VAUDEVILLE ACTOR TO EDUCATE ON PELVIC FRACTURE SELF-MANAGEMENT PT/VAUDEVILLE ACTOR MAY TEACH PATIENT HOW TO USE CRYOTHERAPY / HEAT FOR PAIN / SWELLING UP TO 20 MIN AT A TIME 3-5 TIMES A DAY OVER HIP RIGHT SIDE OF PELVIS [code = PT/VAUDEVILLE ACTOR TO EDUCATE ON PELVIC FRACTURE SELF-MANAGEMENT PT/VAUDEVILLE ACTOR MAY TEACH PATIENT HOW TO USE CRYOTHERAPY / HEAT FOR PAIN / SWELLING UP TO 20 MIN AT A TIME 3-5 TIMES A DAY OVER HIP RIGHT SIDE OF PELVIS] Future Scheduled Test PT / VAUDEVILLE ACTOR T O MONITOR AND EDUCATE ON OXYGEN SATURATION DURING ADLS/IADLS, NOTIFY PHYSICIAN AND/OR THE RN CLINICAL STOCK CLIPPER FOR PHYSICIAN NOTIFICATION AND IF O2 SATS BELOW PHYSICIAN ORDERED PARAMETERS AFTER 10 MIN OF REST [code = PT / VAUDEVILLE ACTOR TO MONITOR AND EDUCATE ON OXYGEN SATURATION DURING ADLS/IADLS, NOTIFY PHYSICIAN AND/OR THE RN CLINICAL STOCK CLIPPER FOR PHYSICIAN NOTIFICATION AND IF O2 SATS BELOW PHYSICIAN ORDERED PARAMETERS AFTER 10 MIN OF REST] Future Scheduled Test PT / VAUDEVILLE ACTOR M AY EDUCATE ON PAIN MANAGEMENT CLINICALLY INDICATED, INCLUDING NON-PHARMACOLOGICAL PAIN REDUCTION TECHNIQUES AND USE OF CRYOTHERAPY, HEAT AND/OR FOAM ROLLING UP TO 20 MIN AT A TIME FOR PAIN MANAGEMENT 3-5 TIMES PER DAY TO RIGHT LOWER EXTREMITY [code = PT / VAUDEVILLE ACTOR MAY EDUCATE ON PAIN MANAGEMENT CLINICALLY INDICATED, INCLUDING NON-PHARMACOLOGICAL PAIN REDUCTION TECHNIQUES AND USE OF CRYOTHERAPY, HEAT AND/OR FOAM ROLLING UP TO 20 MIN AT A TIME FOR PAIN MANAGEMENT 3-5 TIMES PER DAY TO RIGHT LOWER EXTREMITY] Goal Patient Goal - R EMAIN INDEPENDENT POSSIBLE; GET BACK TO PLOF Goal Provider Goal - Goal Provider Goal - PT LTG: PATIENT WILL DEMONSTRATE IMPROVED ABILITY TO PERFORM CHAIR TRANSFERS TO REDUCE THE RISK OF SKIN BREAKDOWN AND FALL RISK FROM MIN A TO INDEPENDENT WITHIN 4 WEEKS Goal Provider Goal - PT LTG: PATIENT WILL DEMONSTRATE IMPROVED ABILITY TO PERFORM BED TRANSFERS IN ORDER TO REDUCE RISK OF SKIN BREAKDOWN FROM MIN ASSIST TO INDEPENDENT WITHIN 4 WEEKS Goal Provider Goal - PT LTG: PATIENT WILL DEMONSTRATE IMPROVED ABILITY TO COMPLETE WHEELCHAIR TRANSFERS TO REDUCE THE RISK OF SKIN BREAKDOWN AND FALL RISK FROM MIN ASSIST TO INDEPENDENT WITHIN 4 WEEKS. Goal Provider Goal - PT LTG: PATIENT WILL DEMONSTRATE INCREASED STRENGTH OF RIGHT LE FROM 3-/5 TO 4/5 WITHIN 4 WEEKS IN ORDER TO INCREASE INDEPENDENCE FOR TRANSFERS WHEN ALLOWED TO BEAR WEIGHT ON RIGHT LE Goal Provider Goal - PT LTG: PATIENT/CAREGIVER WILL DEMONSTRATE ADHERENCE TO FALL REDUCTION SELF-MANAGEMENT AND REDUCING FALL RISK FACTORS TO MINIMIZE FALL RISK BY END OF EPISODE. Goal Provider Goal - PT GOAL: PATIENT WILL DEMONSTRATE OPTIMAL OUTCOMES INCLUDING DECREASED PAIN WITH NO COMPLICATIONS FOLLOWING PELVIC FRACTURE BY END OF EPISODE. Goal Provider Goal - PT LTG: PATIENT WILL MAINTAIN OXYGEN SATURATION WITHIN PHYSICIAN ORDERED PARAMETERS THROUGHOUT EPISODE OF CARE. Goal Provider Goal - PT GOAL: PATIENT WILL DEMONSTRATE UNDERSTANDING OF PAIN MANAGEMENT TECHNIQUES EVIDENCED BY REDUCTION IN PAIN BY 50 % WITHIN 30 MIN OF ONSET WITHIN 4 WEEKS Encounters Start Date/Time End Date/Time Encounter Type Admission Type Attending Clinicians Care Facility Care Department Encounter ID Discharge Date Discharge Status Discharge Condition Discharge Reason Percent Goals Met 2025-06-17 00:00:00 2025-08-15 00:00:00 Outpatient NEW ADMISSION ESTHER SANCHEZ [facility] [id number] 0.00
--- NOTE | ~2025-08-15 | XR_ITS ---
EXAMINATION: XR PELVIS CLINICAL INFORMATION: M25.559 - Pain in unspecified hip COMPARISON: Previous pelvis and right hip x-ray and right hip CT June 13, 2025 TECHNIQUE: AP view of the pelvis. FINDINGS: Bone alignment is normal. No lucent fracture line is seen. There is increased sclerosis of the right inferior pubic ramus questionable for changes related to trauma. There is mild osteoarthritis of both hip joints with joint space narrowing and osteophyte formation. There are degenerative changes of the lower lumbar spine. Stable bilateral pelvic calcifications probably representing calcified phleboliths. Soft tissues are otherwise normal. XR/XR pelvis 1-2V IMPRESSION: New increased sclerosis of the right inferior pubic ramus questionable for changes related to trauma. No lucent fracture line seen. Mild arthritis of both hip joints. Electronically signed by: Kymberly Obando MD 08/15/2025 03:21 PM [facility]
--- OUTSIDE RECORDS SUMMARY | 2025-08-15 15:20 | XMS_ITS | Clinical Summary ---
Author Organization [facility] Address [address] [address] Phone Care Team Providers Care Roller Maker Name Role Phone Jt Guerra MD Unavailable [phone] Damian Lucero CNP Unavailable [phone] Jean-Pierre Duque MD Primary Care Provider [phone] Allergies No known active allergies Medications acetaminophen [...] 03/25/2014 INFLUENZA VACCINE (#1) 2025 COVID-19 VACCINE (2024-2 6 season) 2025 08/02/2021, 12/24/2020, 11/26/2020 RSV VACCINE (1 - 1-dose 75+ series) 2026 HEPATITIS A VACCINES Aged Out No long er eligible based on patient's age to complete this topic HIB VACCINES Aged Out No longer eligi ble based on patient's age to complete this topic IPV VACCINES Aged Out No longer eligi ble based on patient's age to complete this topic MENINGOCOCCAL VACCINES (ACWY) Aged Out No longer eligible based on patient's age to complete this topic MENINGOCOCCAL VACCINES (B) Aged Out N o longer eligible based on patient's age to complete this topic Medical Devices Not on file Insurance [place] H[place] BLUE REPLACEMENT [facility] MEDICARE HMO BLUE REPLACEMENT [facility] MEDICARE HMO BLUE REPLACEMENT [facility] MEDICARE HMO BLUE REPLACEMENT [facility] MEDICARE HMO BLUE REPLACEMENT [facility] MEDICARE HMO BLUE REPLACEMENT Care Teams Roller Maker Relationship Specialty Start Date End Date Jean-Pierre Duque MD [address] [place] [address], [address] [place] [address] PCP - General Internal Medicine 06/02/23 Jt Guerra MD [address] [facility] [address] [place] [address] [email or web address] Historical LMR Provider 07/21/17 Damian Lucero CNP [address] [facility], [address] [place] [address] [email or web address] Historical LMR Provider 07/21/17 Additional Source Comments The information contained in this document represents components of the legal health record. It is not the complete legal health record.[facility]
--- OUTSIDE RECORDS SUMMARY | 2025-08-15 15:20 | XMS_ITS | Patient Health Record ---
Author Organization [facility] Address [address] [place] [address] Care Team Providers Care Traffic Clerk Name Role Phone Neto ANDERSON, [place] Primary Care Provider Ovidio Mulligan Jr Reason [...] Status Risk Notes Problem Colon cancer screening (187898369) Colon cancer screening (Z12.11) Active confirmed Problem Gastroesophageal reflux disease with esophagitis (637134452) Gastroesophageal reflux disease with esophagitis (K21.0) Active confirmed Problem Gastroesophageal reflux disease without esophagitis (887287511) Gastroesophageal reflux disease without esophagitis (K21.9) Active confirmed Problem Essential hypertension (08059031) Hypertension, unspecified type (I10) Active confirmed Plan Of Treatment Future Test Test Name Order Date COLONOSCOPY 08/01/2019 Insurance Providers Payer Name Payer Address Payer Phone Subscriber Number Group Number Insured Name Patient Relationship to Insured Coverage Start Date Coverage End Date [facility] [employer] [address] [place] [address] [id number] AMY FORBES Self - patient is the insured Medical (General) History Medical History History ICD Code colonoscopy 12/31/2009 colon polyps hypertension Denies UT,DM,CVA,Lung disease,renal dise ase Surgical History Surgery Date(Month/Year) appendectomy tonsillectomy
--- OUTSIDE RECORDS SUMMARY | 2025-08-15 15:20 | XMS_ITS | Clinical Summary ---
Author Organization [facility] ity Address [address] [place] [address] Care Team Providers Care Visual Stylist Name Role Phone Unavailable Primary Care Provider [...] Depression Screening 10/03/2024 COVID-19 Vaccine (1 - 2024-2 6 season) 2025 Influenza Vaccine (#1) 2025 RSV [...] Documents on File Type Date Recorded Patient Water And Fire Technician Expl anation Health Care Decision (hx) 04/28/2023 HE ALTH CARE PROXY Health Care Decision (hx) 04/28/2023 HE ALTH CARE PROXY
== END 2025-08-15 18:26 | disposition home or self-care (01) ==
LOC: HO.HOSX 18:25
PROVIDERS: Visit Provider Physician Assistant
DX: S32.591D Other specified fracture of right pubis, subsequent encounter for fracture with routine healing (principal); X58.XXXD Exposure to other specified factors, subsequent encounter
CPT/HCPCS: 72170; 99212

== ENCOUNTER 2025-09-05 11:33 | Outpatient (AMB) | payer MEDICARE, SELFPAY ==
--- NOTE | 2025-09-05 11:48 | A.OFFVIS_ITS ---
Intake Visit Reasons: 6m/4w SPT change SET Intake Note: Patient is present for 6M/ SPT CATH CHANGE 18 FF Urology Medication:,METHENAMINE HIPPURATE,SOLIFENACIN,VITAMIN C Antibiotic Allergy:NONE Blood Thinner:APIXABAN NKDA Ground Water Pump Installer Required: No Accompanied by: Self / Same As Patient Allergies No Known Allergies Allergy (Verified 09/05/25 11:49) HPI Comments Details: Steve is a pleasant male. He is a patient of Dr. Duque. 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 Prior cystoscopyopen bladder neck with moderately enlarged prostate Inability to use hands to perform CIC 08/25 suprapubic tube placed PFSH Medical History Neurogenic bladder Persistent atrial fibrillation Depression CVA (cerebral vascular accident) History of CVA with residual deficit Vitamin B12 deficiency Vitamin D deficiency Mild anemia Overweight (BMI 25.0-29.9) Pure hypercholesterolemia Benign essential hypertension Surgical History Hx of colonoscopy Hx of appendectomy Family History Other Family history non-contributory Social History Household Members: Spouse Housing: House Are you a primary career development specialist to a significant other at home: No Do you presently have visiting nurse or other home services: No Alcohol intake: former Patient Tobacco Use Status: Former Tobacco user Tobacco use type: Cigarette e-Cigarette/Vaping Use: Never Used Second Hand Smoke Exposure: No service: No Current occupational status: retired Cognitive needs: No Hearing needs: No Vision needs: Yes (glasses) Review of Systems Const Denies chills and Denies fever(s) Card Reports no additional complaints and Denies syncope Resp Denies cough GI Denies abdominal pain and Denies heartburn Reports as per HPI and Denies change in libido Neuro Denies syncope Psych Denies change in libido Endo Denies change in libido Physical Exam Const General: cooperative, healthy appearing, comfortable and no acute distress Orientation/consciousness: patient oriented x3 HEENT Face and sinus: Yes normal facial exam Mouth: moist mucous membranes Neck Neck: Yes normal visual inspection, Yes full ROM and Yes trachea midline Chest Chest palpation & inspection: normal inspection of the chest Resp Effort & Inspection: normal respiratory effort, able to speak in complete sentences and no respiratory distress GI Inspection: Yes normal to inspection Back/Spine/Pelvis Cervical Spine: normal cervical lordosis Thoracic/Lumbar Spine: thoracic and lumbar spine normal to inspection Skin General skin exam: no rashes or lesions noted Neuro General: patient oriented x3, gait normal, tone normal and moves all extremities Extrem General: Yes normal to inspection and Yes capillary refill normal Office Procedures Bladder/Catheter Procedure Details: Suprapubic tube change Clean technique Eighteen Divehi Guillermo [id number] of bladder tube Procedure code (CPT) selection complete Assessment & Plan Assessment & Plan (1) Urinary retention: Code(s): R33.9 - Retention of urine, unspecified Category: Medical (2) Neurogenic bladder: Code(s): N31.9 - Neuromuscular dysfunction of bladder, unspecified Category: Medical Plan Continue monthly follow-up Orders: Orders AMB Bladder/Catheter Procedure Today N31.9 - Neuromuscular dysfunction of bladder, unspecified Patient Instructions: This note is constructed using voice recognition software. While every effort has been made to ensure accuracy geology teacher errors may have been included. Imaging studies, laboratory and physical exam results were discussed and reviewed in detail. No major barriers to patient understanding were identified. An opportunity to ask questions regarding the treatment plan was provided. All questions were answered. The patient expressed understanding and agreement with the above treatment plan. The patient is aware they should contact our office by phone for worsening of their current condition or the appearance of new urologic symptoms. Compliance is encouraged with any medications and followup testing that is ordered. It is a privilege to participate in the urologic care of your patient. If you have any questions or concerns regarding treatment for the above conditions, or other urologic issues, please do not hesitate to contact me. The office telephone contact is [phone]. Sincerely, Dr Ozzy Santiago MD, [facility] - Urology Compassionate Specialist Care for the Genitourinary System Coding Level of Care Code Est Pt Level 3 (94691) Complex visit Add On G2211 Diagnoses Urinary retention R33.9 Neurogenic bladder N31.9 CPT Codes Bladder/Catheter Procedure - CPT: 44112-Qxppvl of bladder tube ([id number])
== END 2025-09-05 12:15 | disposition home or self-care (01) ==
LOC: HO.HUSH 11:34
PROVIDERS: PCP Internal Medicine; Visit Provider Urology
DX: R33.9 Retention of urine, unspecified (principal); N31.9 Neuromuscular dysfunction of bladder, unspecified
CPT/HCPCS: 51705; 99213; G2211

== ENCOUNTER → 2025-09-05 11:33 | Outpatient (BNVA) | payer MEDICARE, SELFPAY | PROVIDERS: PCP Internal Medicine; Visit Provider Urology | DX: R33.9 Retention of urine, unspecified (principal); N31.9 Neuromuscular dysfunction of bladder, unspecified; Z79.01 Long term (current) use of anticoagulants | CPT/HCPCS: 51705; 99212 ==

== ENCOUNTER 2025-09-23 08:32 | Outpatient (REF) | payer MEDICARE, SELFPAY ==
--- OUTSIDE RECORDS SUMMARY | 2025-09-23 08:50 | XMS_ITS | Patient Health Record ---
Author Organization [facility] Address [address] [place] [id number] Care Team Providers Care Inside Sales Account Manager Name Role Phone Neto ANDERSON, Hammett Primary Care Provider Ovidio Mulligan Jr Reason For Referral No Information Medications Medication SIG (Take, Route, Frequency, Duration) Notes Start Date End Date Status MiraLax (colon prep) 8.3 ounce (238) grams mixed with Gatorade or Crystal Light orally begin at 5:00 p.m. the day before the procedure; Duration: 1 day 08/01/2019 Active Vitamin B12 1000 MCG Tablet Extended Release 1 tablet Orally Once a day Active Verapamil HCl Active Vitamin D 1000 UNIT Tablet 1 tablet Orally Once a day Active Aspir-81 81 MG Tablet Delayed Release 1 tablet Orally Once a day Active Losartan Potassium 100 MG Tablet 1 tablet Orally Once a day A ctive Immunizations Vaccine Route Administration Date Status Comme nts Influenza Unknown 08/01/2019 Refused Social History Tobacco Use: Social History Observation Description Date Details (start date - stop date) Former Smoker NA - NA Social History Drugs/Alcohol: Social Info Question Answer Notes Alcohol Screen Did you have a drink containing alcohol in the past year? No Points 0 Interpretation Negative Tobacco Use: Social Info Question Answer Notes Tobacco Use/Smoking Patient is a former smoker How long has it been since you last smoked? 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 Problem Type SNOMED Code ICD Code Onset Dates Problem Status W/U Status Risk Notes Problem Colon cancer screening (302741849) Colon cancer screening (Z12.11) Active confirmed Problem Gastroesophageal reflux disease with esophagitis (977875464) Gastroesophageal reflux disease with esophagitis (K21.0) Active confirmed Problem Gastroesophageal reflux disease without esophagitis (155322597) Gastroesophageal reflux disease without esophagitis (K21.9) Active confirmed Problem Essential hypertension (14749547) Hypertension, unspecified type (I10) Active confirmed Plan Of Treatment Future Test Test Name Order Date COLONOSCOPY 08/01/2019 Insurance Providers Payer Name Payer Address Payer Phone Subscriber Number Group Number Insured Name Patient Relationship to Insured Coverage Start Date Coverage End Date [facility] [employer] [facility] [address] [place] [address] [id number] FORBES Self - patient is the insured Medical (General) History Medical History History ICD Code colonoscopy 12/31/2009 colon polyps hypertension Denies NC,DM,CVA,Lung disease,renal dise ase Surgical History Surgery Date(Month/Year) appendectomy tonsillectomy
--- OUTSIDE RECORDS SUMMARY | 2025-09-23 08:50 | XMS_ITS | Clinical Summary ---
Author Organization [facility] Address [address] [address] Phone Care Team Providers Care Chief Accounting Officer Name Role Phone Jt Guerra MD Unavailable Damian Lucero CNP Unavailable [phone] Jean-Pierre Duque MD Primary Care Provider [phone] Allergies No known active allergies Medications acetaminophen [...] [place] BLUE REPLACEMENT [facility] MEDICARE HMO BLUE REPLACEMENT MEDICARE HMO BLUE REPLACEMENT [facility] MEDICARE H[place] BL[place] BL[place] BL[place]AC[place] Care Teams Chief Accounting Officer Relationship Specialty Start Date End Date Jean-Pierre Duque MD [address] [place] [address] [place] [address] PCP - General Internal Medicine 06/02/23 Jt Guerra MD [address] [facility] [address] [place] [address] [email or web address] Historical LMR Provider 07/21/17 Damian Lucero CNP [address] [facility] [place] [address] [email or web address] Historical LMR Provider 07/21/17 Additional Source Comments The information contained in this document represents components of the legal health record. It is not the complete legal health record.[facility]
--- OUTSIDE RECORDS SUMMARY | 2025-09-23 08:50 | XMS_ITS | Clinical Summary ---
Author Organization [facility] Address [address] [place] [address] Care Team Providers Care Imaging Account Manager Name Role Phone Unavailable Primary Care [...] Documents on File Type Date Recorded Patient Science Intern Expl anation Health Care Decision (hx) 04/28/2023 HE ALTH CARE PROXY Health Care Decision (hx) 04/28/2023 HE ALTH CARE PROXY
[2025-09-23 11:12] LABS: MANUAL DIFF FLAG NO
[2025-09-23 11:21] LABS: Hematocrit 41.5 % (42.0-52.0); Hemoglobin 13.4 g/dl (14.0-18.0); Imm Gran Abs Auto 0.01 X10*3/uL (0.00-0.03); Imm Gran Pct Auto 0.2 % (0.0-0.4); Lymphocytes Absolute Auto 1.5 X10*3/uL (1.2-4.9); Mean Corpuscular HGB Conc 32.3 g/dl (31.0-36.0); Mean Corpuscular Hemoglobin 31.8 pg (27.0-33.0); Mean Corpuscular Volume 98.3 fL (80.0-98.0); NRBC Abs Auto 0.000 X10*3/uL (0.0-0.012); NRBC Pct Auto 0.0 /100WBC (0.0-0.2); Platelet Count 158 X10*3/uL (160-400); Red Blood Count 4.22 X10*6/uL (4.60-5.80); White Blood Count 6.5 X10*3/uL (4.8-10.8)
[2025-09-23 11:32] LABS: Alanine Aminotransferase 27 U/L (0-40); Albumin Level 3.9 g/dL (3.5-5.0); Alkaline Phosphatase 94 U/L (39-117); Anion Gap 11 (12-20); Aspartate Amino Transferase 28 U/L (5-37); Blood Urea Nitrogen 20 mg/dL (9-16); Calcium 8.8 mg/dL (8.4-10.2); Carbon Dioxide 26 mmol/L (22-29); Chloride 110 mmol/L (96-108); Cholesterol 126 mg/dL (<200); Estimated Glomerular Filt Rate > 60; HDL Cholesterol 59 mg/dL (>40); Potassium 3.6 mmol/L (3.3-5.1); Sodium 143 mmol/L (135-145); Total Protein 6.0 g/dL (6.5-8.0); Triglycerides 50 mg/dL (<150)
[2025-09-23 12:06] LABS: Folate 6.8 ng/mL (> or = 4.0); Vitamin B12 299 pg/mL (200-900)
== END 2025-09-23 08:33 | disposition home or self-care (01) ==
LOC: HO.WFDLDS 08:32
PROVIDERS: Visit Provider Internal Medicine
DX: E53.8 Deficiency of other specified B group vitamins (principal); E78.00 Pure hypercholesterolemia, unspecified; E55.9 Vitamin D deficiency, unspecified; D64.9 Anemia, unspecified
CPT/HCPCS: 36415; 80053; 80061; 82306; 82607; 82746; 84443; 85025

== ENCOUNTER 2025-09-30 12:44 | Outpatient (AMB) | payer MEDICARE, SELFPAY ==
[2025-09-30 13:00] VITALS: BP 122/70; PULSE 87; TEMP 36.3; O2SAT 99; BMI 27.8
--- NOTE | 2025-09-30 13:00 | MHC.PC.OV ---
Vital Signs 09/30/25 13:00 Height 5 ft 10 in Weight 193 lb 12.581 oz BMI 27.8 BP 122/70 Blood Pressure Location Lt brachial Position Sitting Pulse 87 Pulse Source Pulse Oximeter Temp 97.3 F Temp Source Temporal Artery Scan Pulse Oximetry (%) 99 Oxygen Delivery Method Room Air Intake Visit Reasons: 4-6 Mnth f/u Accompanied by: Spouse Allergies No Known Allergies Allergy (Verified 09/30/25 13:17) Medication List - Last Reconciled 09/30/25 by Jean-Pierre Duque MD apixaban 5 mg PO BID ascorbic acid (vitamin C) 1 g PO DAILY 90 days atorvastatin 80 mg PO BEDTIME baclofen 5 mg (1/2 x 10 mg) PO BID 90 days citalopram 10 mg PO DAILY 90 days comp.stocking,knee,long,medium apply in am and take off in pm [Depends (adult medium) 4 times per day As directed] furosemide 20 mg PO DAILY 90 days guaifenesin ER (Mucinex) 600 mg PO BID PRN methenamine hippurate 1 g PO BID 90 days [RIGHT AFO BRACE As directed] sacubitril-valsartan 49-51 mg 1 tab PO BID 90 days solifenacin 5 mg PO DAILY 90 days [STANDARD WHEELCHAIR - XL As directed] [Standing upright Walker with Right arm rest As directed] Tobacco use date assessed: 09/30/25 Fall risk assessment: 1 Fall in past year Last assessed Fall Risk: 09/30/25 Dental Screening Dental Screen Date: 09/30/25 Did you have a dental visit in the last 12 months?: Yes Did you have a dental problem in the last 6 months where you did not have access to dental care?: No Was dental information given to patient?: Patient has dentist HPI 4-6 Mnth f/u HPI Details Patient comes in today for his follow up visit His past medical history is notable for a hip fracture, after which his activity was restricted, and he stopped doing his laps. He has experienced some weight gain, which is attributed to the holidays and the period of inactivity following his fracture. States that he still gets up and tries to walk and move around the house as often as he can everyday and he is now using his walker regularly when he gets up to move around He denies any headaches or dizziness Denies any chest pains, no increased SOB No nausea/vomiting, no abdominal pain No change in bowel habits noted He had his follow up labs done last week - to discuss his results His vitamin B12 level has dropped significantly from a previously high level to a nearly low level, currently at 299 pg/ml. States that he has not been taking any B12 or B complex vitamins for at least a couple of years now The patient's diet has not changed, and he currently takes vitamin C and vitamin D3 but no other vitamins. His vitamin D level was noted to be a little low previously. His vitamin B12 level has dropped significantly from a previously high level to a nearly low level, currently at 199. - He reports he is not taking any B12 or B complex vitamins. - The patient's diet has not changed, and he has not become a vegetarian. - He currently takes vitamin C and vitamin D3 but no other vitamins. - His vitamin D level was noted to be a little low previously. <del>-</del> <del>Past</del> <del>medical</del> <del>history</del> <del>is</del> <del>notable</del> <del>for</del> <del>a</del> <del>hip</del> <del>fracture,</del> <del>after</del> <del>which</del> <del>his</del> <del>activity</del> <del>was</del> <del>restricted,</del> <del>and</del> <del>he</del> <del>stopped</del> <del>doing</del> <del>his</del> <del>laps.</del> <del>-</del> <del>He</del> <del>has</del> <del>experienced</del> <del>some</del> <del>weight</del> <del>gain,</del> <del>which</del> <del>is</del> <del>attributed</del> <del>to</del> <del>the</del> <del>holidays</del> <del>and</del> <del>the</del> <del>period</del> <del>of</del> <del>inactivity</del> <del>following</del> <del>his</del> <del>fracture.</del> [facility] Medical History Neurogenic bladder Persistent atrial fibrillation Depression CVA (cerebral vascular accident) History of CVA with residual deficit Vitamin B12 deficiency Vitamin D deficiency Mild anemia Overweight (BMI 25.0-29.9) Pure hypercholesterolemia Benign essential hypertension Surgical History Hx of colonoscopy Hx of appendectomy Family History Other Family history non-contributory Social History Household Members: Spouse Housing: House Are you a primary ambulatory care to a significant other at home: No Do you presently have visiting nurse or other home services: No Alcohol intake: former Patient Tobacco Use Status: Former Tobacco user Tobacco use type: Cigarette e-Cigarette/Vaping Use: Never Used Second Hand Smoke Exposure: No service: No Current occupational status: retired Cognitive needs: No Hearing needs: No Vision needs: Yes (glasses) Questionnaire PHQ-9 Over the last 2 weeks, how often have you been bothered by any of the following problems? 1. Little interest or pleasure in doing things: not at all 2. Feeling down, depressed, or hopeless: not at all 3. Trouble falling or staying asleep, or sleeping too much: not at all 4. Feeling tired or having little energy: not at all 5. Poor appetite or overeating: not at all 6. Feeling bad about yourself - or that you are a failure or have let yourself or your family down: not at all 7. Trouble concentrating on things, such as reading the newspaper or watching television: not at all 8. Moving or speaking so slowly that other people could have noticed. Or the opposite - being so fidgety or restless that you have been moving around a lot more than usual: not at all 9. Thoughts that you would be better off or of hurting yourself in some way: not at all Total score: 0 Depression Screening Interpretation: Negative Depression Screening Done: Yes 70540 - PHQ-9 Billing: Yes Source: Developed by Drs. Stephan Raines, Dmoinique Roberson, Oh Alvarado and colleagues, with an educational alicja from [employer]. Thrive Questionnaire Date Thrive assessed: 04/18/25 I am a: Patient What is your living situation today?: I have a steady place to live Within the past 12 months, did the food you bought not last and you didn't have the money to get more?: I choose not to answer this question Within the past 12 months, did you worry whether your food would run out before you got money to buy more?: I choose not to answer this question Do you have trouble paying for medicines?: I choose not to answer this question Do you have trouble getting transportation to medical appointments?: I choose not to answer this question Do you have trouble paying your heating and electricity bill?: I choose not to answer this question Do you have trouble taking care of your child, family member or friend?: I choose not to answer this question Do you have trouble with day-to-day activities such as bathing, preparing meals, shopping, managing finances, etc.?: I choose not to answer this question Are you currently unemployed and looking for a job?: I choose not to answer this question Are you interested in more education?: I choose not to answer this question Currently or been in a relationship where the following occur: No concerns reported THRIVE Score: 0 AUDIT C Alcohol Use Questionnaire (AUDIT-C) 1. How often do you have a drink containing alcohol?: Never 3. How often do you have six or more drinks on one occasion?: Never Total Score: 0 Score Reviewed/Action Taken: Yes SAMI-7 AMB Questionnaire SAMI-7 Date SAMI - 7 assessed: 04/25/25 Feeling nervous, anxious, or on edge: 0 = Not at all Not being able to stop or control worryin = Not at all Worrying too much about different things: 0 = Not at all Trouble relaxin = Not at all Being so restless that it is hard to sit still: 0 = Not at all Becoming easily annoyed or irritable: 0 = Not at all Feeling afraid as if something awful might happen: 0 = Not at all Total SAMI-7 score (0-4 normal; 5-9 mild; 10-14 moderate; 15-21 severe): 0 Source: Developed by Drs. Stephan Raines, Dominique Roberson, Oh Alvarado and colleagues, with an educational alicja from [employer]. Review of Systems Const Denies chills, Denies fatigue, Denies fever(s) and Denies headache(s) ENT Denies dysphagia, Denies dizziness, Denies otalgia, Denies headache(s), Denies neck pain, Denies odynophagia and Denies sore throat Card Denies chest pain, Denies palpitations and Denies dyspnea Resp Denies chest congestion, Denies cough and Denies dyspnea GI Denies abdominal pain, Denies constipation, Denies dysphagia, Denies heartburn, Denies diarrhea, Denies nausea, Denies odynophagia and Denies vomiting Details: currently has a suprapubic catheter in place Reports difficulty urinating (due to neurogenic bladder - currently has a suprapubic catheter in place) Musc Denies back pain and Denies neck pain Skin/Breast Denies rash Neuro Details: (+) right hemiparesis, with residual expressive aphasia Denies dizziness and Denies headache(s) Psych Reports depression Endo Denies fatigue and Denies palpitations Physical exam (Primary Care) Vital Signs: Last Vital Signs Temp 97.3 F 09/30/25 13:00 Pulse 87 09/30/25 13:00 BP 122/70 09/30/25 13:00 Pulse Ox 99 09/30/25 13:00 Oxygen Delivery Method Room Air 09/30/25 13:00 BMI result Body Mass Index 27.8 Tobacco/Smoking Status: Tobacco use Status Tobacco use date assessed 09/30/25 09/30/25 13:07 Patient Tobacco Use Status Former Tobacco user 09/30/25 13:07 Tobacco use type Cigarette 09/30/25 13:07 e-Cigarette/Vaping Use Never Used 09/30/25 13:07 PHQ-9: PHQ-9 Score PHQ-9: Total score 0 09/30/25 23:26 Depression Screening Interpretation: Negative Thrive Assessment: Date of Thrive Assessment Date Thrive assessed 04/18/25 09/30/25 13:07 Currently or been in a relationship where the following occur: No concerns reported Const General: no acute distress and alert Limitations: physical limitations ((+) right hemiparesis but is able to get up and walk at home (uses cane)) and wheelchair HENMT Ears: TM's normal bilaterally and EAC's normal Throat: Yes posterior oropharynx normal and Yes tonsils normal (no TP congestion noted) Neck Neck: Yes supple and No lymphadenopathy Thyroid: Thyroid normal Resp Auscultation: clear to auscultation bilaterally, no rales and no wheezes Cardio Rate: regular rate Rhythm: abnormal rhythm irregularly irregular Heart sounds: no murmurs GI Palpation (GI): Soft to palpation and nontender Auscultation: normal bowel sounds General: Yes no CVA tenderness Back/Spine/Pelvis Back: no CVA tenderness Cervical Spine: No Cervical spine tenderness Thoracic/Lumbar Spine: No lumbar spinal tenderness Skin Rashes: no rashes Neuro Other: (+) right hemiparesis, especially over right upper extremity Speech: Expressive aphasia present (residual; mild) Extrem General: Yes no clubbing, cyanosis or edema Results Reviewed Results Reviewed: Laboratory Tests 09/23/25 08:35 WBC 6.5 Hgb 13.4 L Hct 41.5 L Plt Count 158 L D Sodium 143 Potassium 3.6 Creatinine 1.15 Estimated GFR > 60 Fasting Glucose 90 Calcium 8.8 AST 28 ALT 27 Triglycerides 50 Cholesterol 126 LDL Cholesterol, Calc 57 HDL Cholesterol 59 Vitamin B12 299 25-OH Vitamin D Total 37.4 TSH 1.78 Coding Level of Care Code Est Pt Level 4 (72366) Diagnoses Cerebrovascular accident (CVA) due to embolism of left middle cerebral artery I63.412 CVA mechanism: embolism Laterality of affected vessel: left Precerebral and cerebral artery: middle cerebral artery Aphasia as late effect of cerebrovascular accident (CVA) I69.320 Persistent atrial fibrillation I48.19 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 Heart failure chronicity: acute Heart failure type: combined systolic and diastolic Pure hypercholesterolemia E78.00 Neurogenic bladder N31.9 Vitamin D deficiency E55.9 Episode of recurrent major depressive disorder, unspecified depression episode severity F33.9 Active/Remission status: currently active Depression Type: major depressive disorder Major depression episode severity: unspecified Major depression recurrence: recurrent Additional Codes PHQ-9 - 69308 - PHQ-9 Billing: Yes ([id number]) Assessment & Plan Assessment & Plan (1) CVA (cerebral vascular accident): Comment: April 2023 - involving left MCA, resulting in right hemiparesis Code(s): I63.9 - Cerebral infarction, unspecified Category: Medical Qualifiers: CVA mechanism: embolism Laterality of affected vessel: left Precerebral and cerebral artery: middle cerebral artery Qualified Code(s): I63.412 - Cerebral infarction due to embolism of left middle cerebral artery Plan: S/P left MCA embolic stroke secondary to atrial fibrillation and severe cardiomyopathy in April 2023 Patient underwent thrombectomy with TICI (Thrombolysis in Cerebral Infarction) 2C achieved after 2 passes of thrombectomy but unfortunately, patient's right-sided hemiparesis persisted Repeat imaging studies done revealed (+) hemorrhagic conversion of his subacute left MCA infarct He was started on Eliquis 28 days after his CVA and repeat head CT ruled out further hemorrhagic conversion Continue Eliquis 5 mg BID Patient continues to present with right hemiparesis and he has been going to physical therapy with gradual but continuing improvement He also has expressive aphasia following his CVA and this is still present to some degree currently (2) Aphasia as late effect of cerebrovascular accident (CVA): Code(s): I69.320 - Aphasia following cerebral infarction Category: Medical Plan: S/P speech therapy with some improvement of his aphasia (3) Persistent atrial fibrillation: Code(s): I48.19 - Other persistent atrial fibrillation Category: Medical Plan: Patient is currently still in atrial fibrillation but remains rate-controlled; cardiology has decided to best leave him in AF for now Metoprolol was discontinued by cardiology last year due to persistent bradycardia Continue Eliquis 5 mg BID for thromboembolism prophylaxis (4) Congestive heart failure (CHF): Code(s): I50.9 - Heart failure, unspecified Category: Medical Qualifiers: Heart failure chronicity: acute Heart failure type: combined systolic and diastolic Qualified Code(s): I50.41 - Acute combined systolic (congestive) and diastolic (congestive) heart failure Plan: Patient initially presented to the ER in April 2023 with new onset congestive heart failure and AFib with RVR He was going for MARY ANN cardioversion but MARY ANN revealed a large thrombus in the left atrial appendage and it was decided not to cardiovert him at the time and reschedule this to a later date but he unfortunately developed his CVA later that evening His echocardiogram done at the time revealed an EF of 10 to 15%; his ejection fraction has since improved to 45-50% with aggressive medical management (last echo done in September 2023) He will be getting a repeat echocardiogram done in early June 2025 for follow up Patient is currently compensated with no signs/symptoms of CHF Continue Entresto 49-51 mg BID and Furosemide 20 mg QD Follow up with cardiology as scheduled (5) Pure hypercholesterolemia: Code(s): E78.00 - Pure hypercholesterolemia, unspecified Category: Medical Plan: Results of his labs done last week reviewed and discussed with patient Reinforced low cholesterol diet Continue Atorvastatin 80 mg QD Will recheck his labs and fasting lipids in 4 months for follow up (6) Neurogenic bladder: Code(s): N31.9 - Neuromuscular dysfunction of bladder, unspecified Category: Medical Plan: S/P left MCA CVA in April 2023 He currently has a suprapubic catheter, which was placed in late 2022 when his neurogenic bladder and urinary retention persisted a few months after his CVA He undergoes suprapubic tube changed by urology regularly - takes Bactrim DS prophylactically before his suprapubic catheter change Continue Solifenacin 5 mg QD and Tamsulosin 0.4 mg QD; Finasteride and Myrbetriq ER were discontinued by urology a few months ago Follow up with urology as scheduled (7) Vitamin D deficiency: Code(s): E55.9 - Vitamin D deficiency, unspecified Category: Medical Plan: Continue Vitamin D3 2000 units QD (8) Depression: Code(s): F32.A - Depression, unspecified Category: Medical Qualifiers: Active/Remission status: currently active Depression Type: major depressive disorder Major depression episode severity: unspecified Major depression recurrence: recurrent Qualified Code(s): F33.9 - Major depressive disorder, recurrent, unspecified Plan: Continue Citalopram 10 mg QD Plan Follow up in 4 months Orders: Orders UA CC w/rflx Micro + Cult 4 Months R30.0 - Dysuria Lipid Panel 4 Months E78.00 - Pure hypercholesterolemia, unspecified Complete Blood Count Auto Diff 4 Months D64.9 - Anemia, unspecified Comprehensive [place]. Panel Fast 4 Months E78.00 - Pure hypercholesterolemia, unspecified TSH reflex Free T4 4 Months E78.00 - Pure hypercholesterolemia, unspecified Vitamin B12 and Folate 4 Months E53.8 - Deficiency of other specified B group vitamins Vitamin D 25-OH Total 4 Months E55.9 - Vitamin D deficiency, unspecified Medications: Changed From mecobalamin (vitamin B12) 1,000 mcg PO DAILY To mecobalamin (vitamin B12) 1,000 mcg PO .every other day 90 tabs 3RF
--- OUTSIDE RECORDS SUMMARY | 2025-09-30 14:35 | XMS_ITS | Patient Health Record ---
Author Organization [facility] Address [address] [place] [address] Care Team Providers Care Loss Prevention Analyst Name Role Phone Neto ANDERSON, [place] Primary Care Provider Ovidio Mulligan Jr Reason [...] Status Risk Notes Problem Colon cancer screening (046009744) Colon cancer screening (Z12.11) Active confirmed Problem Gastroesophageal reflux disease with esophagitis (670010552) Gastroesophageal reflux disease with esophagitis (K21.0) Active confirmed Problem Gastroesophageal reflux disease without esophagitis (908948322) Gastroesophageal reflux disease without esophagitis (K21.9) Active confirmed Problem Essential hypertension (00345544) Hypertension, unspecified type (I10) Active confirmed Plan Of Treatment Future Test Test Name Order Date COLONOSCOPY 08/01/2019 Insurance Providers Payer Name Payer Address Payer Phone Subscriber Number Group Number Insured Name Patient Relationship to Insured Coverage Start Date Coverage End Date [facility] PROFESSIONAL CLAIMS [address] [place] [address] [id number] AMY FORBES Self - patient is the insured Medical (General) History Medical History History ICD Code colonoscopy 12/31/2009 colon polyps hypertension Denies [place],DM,CVA,Lung disease,renal dise ase Surgical History Surgery Date(Month/Year) appendectomy tonsillectomy
--- OUTSIDE RECORDS SUMMARY | 2025-09-30 14:35 | XMS_ITS | Clinical Summary ---
Author Organization [facility] Address [address] [address] Phone Care Team Providers Care Caddie Name Role Phone Jt Guerra MD Unavailable Damian Lucero CNP Unavailable [phone] Jean-Pierre Duque MD Primary Care Provider [phone] Allergies No known active allergies Medications acetaminophen [...] [place] BLUE REPLACEMENT [facility] MEDICARE HMO BLUE REPLACEMENT MEDICARE HMO BLUE REPLACEMENT [facility] MED[place]ARE [place] BL[place] BL[place] Care Teams Caddie Relationship Specialty Start Date End Date Jean-Pierre Duque MD [address] [place] [address] [place] [address] PCP - General Internal Medicine 06/02/23 Jt Guerra MD [address] [facility] [address] [place] [address] [email or web address] Historical LMR Provider 07/21/17 Damian Lucero CNP [address] [facility] [place] [address] [email or web address] Historical LMR Provider 07/21/17 Additional Source Comments The information contained in this document represents components of the legal health record. It is not the complete legal health record.[facility]
--- OUTSIDE RECORDS SUMMARY | 2025-09-30 14:35 | XMS_ITS | Clinical Summary ---
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
== END 2025-09-30 13:30 | disposition home or self-care (01) ==
LOC: HO.HMCH 12:45
PROVIDERS: PCP Internal Medicine; Visit Provider Internal Medicine
DX: I63.412 Cerebral infarction due to embolism of left middle cerebral artery (principal); I69.320 Aphasia following cerebral infarction; I48.19 Other persistent atrial fibrillation; I50.41 Acute combined systolic (congestive) and diastolic (congestive) heart failure; E78.00 Pure hypercholesterolemia, unspecified; N31.9 Neuromuscular dysfunction of bladder, unspecified; E55.9 Vitamin D deficiency, unspecified; F33.9 Major depressive disorder, recurrent, unspecified

== ENCOUNTER → 2025-09-30 12:44 | Outpatient (BNVA) | payer MEDICARE, SELFPAY | PROVIDERS: PCP Internal Medicine; Visit Provider Internal Medicine | DX: I63.412 Cerebral infarction due to embolism of left middle cerebral artery (principal); I69.320 Aphasia following cerebral infarction; I48.19 Other persistent atrial fibrillation; I50.41 Acute combined systolic (congestive) and diastolic (congestive) heart failure; N31.9 Neuromuscular dysfunction of bladder, unspecified; E78.00 Pure hypercholesterolemia, unspecified; E55.9 Vitamin D deficiency, unspecified; F33.9 Major depressive disorder, recurrent, unspecified | CPT/HCPCS: 96127; 99212 ==

== ENCOUNTER 2025-10-01 10:28 | Outpatient (AMB) | payer MEDICARE, SELFPAY ==
--- NOTE | 2025-10-01 10:30 | AM.OFFVISNUR ---
Intake Visit Reasons: 4w cath change Allergies No Known Allergies Allergy (Verified 09/30/25 13:17) Office Procedures Bladder/Catheter Procedure Details: Patient presents to office with for an SP tube change. 18 fr roe catheter removed, patient tolerated removal well. New 18fr mora roe catheter 7.5mls with flip valve inserted, patient tolerated without issues. Patient will return for a cath change in 4 weeks. Patient reported burning for few days, almost a week and has blood in urine. Urine testing run, urine to be sent for microgen. Reviewed UA and chart with Amara GARCIA: send patient urine for microgen, will send bactrim for patient for interim coverage, hold methenamine while on bactrim and will continue changes every 4 weeks. Patient aware and agreeable [id number] of bladder tube Procedure code (CPT) selection complete Results AMB Urinalysis, Automated UA Leukoctes 125 Jimmy/uL Last Edit by Pio Baltazar LPN on 10/01/25 10:53 UA Nitrite Positive Last Edit by Pio Baltazar LPN on 10/01/25 10:53 UA Urobilinogen 1 mg/dL Last Edit by Pio Baltazar LPN on 10/01/25 10:53 UA Protein 300 mg/dL Last Edit by Pio Baltazar LPN on 10/01/25 10:53 UA pH 6.0 Last Edit by Pio Baltazar LPN on 10/01/25 10:53 UA Blood 200 Gregory/uL Last Edit by Pio Baltazar LPN on 10/01/25 10:53 UA Specific [place] 1.030 Last Edit by Pio Baltazar LPN on 10/01/25 10:53 UA Ketone Positive Last Edit by Pio Baltazar LPN on 10/01/25 10:53 UA Bilirubin 0 mg/dL Last Edit by Pio Baltazar LPN on 10/01/25 10:53 UA Glucose 0 mg/dL Last Edit by Pio Baltazar LPN on 10/01/25 10:53 Assessment & Plan Assessment & Plan Orders: Orders AMB Bladder/Catheter Procedure Today N31.9 - Neuromuscular dysfunction of bladder, unspecified AMB Urinalysis Automated Today N31.9 - Neuromuscular dysfunction of bladder, unspecified Urine Culture Today N31.9 - Neuromuscular dysfunction of bladder, unspecified Coding CPT Codes Bladder/Catheter Procedure - CPT: 40901-Uhdyjt of bladder tube ([id number])
--- OUTSIDE RECORDS SUMMARY | 2025-10-01 14:00 | XMS_ITS | Patient Health Record ---
Author Organization [facility] Address [address] [place] [id number] Care Team Providers Care Spray Foam Installer Name Role Phone Neto ANDERSON, [place] Primary Care Provider Ovidio Mulligan Jr Reason [...] Status Risk Notes Problem Colon cancer screening (031422772) Colon cancer screening (Z12.11) Active confirmed Problem Gastroesophageal reflux disease with esophagitis (967376397) Gastroesophageal reflux disease with esophagitis (K21.0) Active confirmed Problem Gastroesophageal reflux disease without esophagitis (416296394) Gastroesophageal reflux disease without esophagitis (K21.9) Active confirmed Problem Essential hypertension (71926839) Hypertension, unspecified type (I10) Active confirmed Plan Of Treatment Future Test Test Name Order Date COLONOSCOPY 08/01/2019 Insurance Providers Payer Name Payer Address Payer Phone Subscriber Number Group Number Insured Name Patient Relationship to Insured Coverage Start Date Coverage End Date [facility] PROFESSIONAL CLAIMS [address] [place] [address] [id number] AMY FORBES Self - patient is the insured Medical (General) History Medical History History ICD Code colonoscopy 12/31/2009 colon polyps hypertension Denies [place],DM,CVA,Lung disease,renal dise ase Surgical History Surgery Date(Month/Year) appendectomy tonsillectomy
--- OUTSIDE RECORDS SUMMARY | 2025-10-01 14:00 | XMS_ITS | Clinical Summary ---
Author Organization [facility] Address [address] [address] Phone Care Team Providers Care Clam Dredger Name Role Phone Jt Guerra MD Unavailable [phone] Damian Lucero CNP Unavailable [phone] Jean-Pierre Duque MD Primary Care Provider [phone] Allergies No known active allergies Medications acetaminophen [...] [place] BLUE REPLACEMENT [facility] MEDICARE HMO BLUE REPLACEMENT MEDICARE HMO BLUE REPLACEMENT [facility] MEDICARE HMO BLUE REPLACEMENT [place] MEDIC[place] BL[place] REPLAC[place] BLUE REPLAC[place] Care Teams Clam Dredger Relationship Specialty Start Date End Date Jean-Pierre Duque MD [address] [place] [address] [place] [address] PCP - General Internal Medicine 06/02/23 Jt Guerra MD [address] [facility] Floor [address] [place] [address] [email or web address] Historical LMR Provider 07/21/17 Damian Lucero CNP [address] [facility] [place] [address] [email or web address] Historical LMR Provider 07/21/17 Additional Source Comments The information contained in this document represents components of the legal health record. It is not the complete legal health record.[facility]
--- OUTSIDE RECORDS SUMMARY | 2025-10-01 14:00 | XMS_ITS | Clinical Summary ---
Author Organization [facility] ity Address [address] [place] [address] Care Team Providers Care Programs Assistant Name Role Phone Unavailable Primary Care Provider [...] Documents on File Type Date Recorded Patient [employer] Expl anation Health Care Decision (hx) 04/28/2023 HE ALTH CARE PROXY Health Care Decision (hx) 04/28/2023 HE ALTH CARE PROXY
== END 2025-10-01 11:53 | disposition home or self-care (01) ==
LOC: HO.HUSH 10:28
PROVIDERS: PCP Internal Medicine; Visit Provider Urology
DX: N31.9 Neuromuscular dysfunction of bladder, unspecified (principal)

== ENCOUNTER 2025-10-01 10:28 | Outpatient (REF) | payer MEDICARE, SELFPAY | END 2025-10-01 10:29 | disposition home or self-care (01) | LOC: HO.LAB 10:28 | PROVIDERS: PCP Internal Medicine; Visit Provider Urology | DX: N31.9 Neuromuscular dysfunction of bladder, unspecified (principal) | CPT/HCPCS: 51705; 81003 ==